=== PATIENT | female | born 1960 | race Caucasian/White ===

== ENCOUNTER 2020-01-17 17:32 | Emergency (ER) | payer BC, OTHER ==
[~2020-01-17] VITALS: Ht 160 cm; Wt 68.0 kg
[2020-01-17] MEDS ORDERED: SODIUM CHLORIDE 0.9% 1,000 ML IV ONE ×2 (18:00)
[2020-01-17] MEDS ORDERED: cefTRIAXone 1GM/50ML D5W 50 ML IV ONE (18:00)
[2020-01-17 18:44] LABS: Basophils # (auto) 0 10 ^3/uL (0-0.2); Basophils % (auto) 0.3 % (0.0-2.0); Eosinophils # (auto) 0.2 10 ^3/uL (0-0.8); Eosinophils % (auto) 1.7 % (0.0-7.0); Hematocrit 37.2 % (36.0-46.0); Hemoglobin 12.4 g/dL (12.2-16.2); Lymphocytes % (auto) 12.1 % (10.0-50.0); Mean Corpuscular Hemoglobin 31.7 pg (28.0-32.0); Mean Corpuscular Hgb Conc. 33.3 g/dL (32.0-36.0); Mean Corpuscular Volume 95.1 fL (80.0-100.0); Monocytes # (auto) 0.5 10 ^3/uL (0-1.3); Monocytes % (auto) 6.2 % (0.0-12.0); Neutrophils # (auto) 6.9 10 ^3/uL (1.6-8.6); Neutrophils % (auto) 79.7 % (37.0-80.0); Nucleated Red Blood Cells % 0.1 %; Platelet Count (auto) 223 10^3/uL (140-450); Red Blood Cells 3.91 10^6/uL (4.0-5.20); White Blood Cell 8.6 10^3/uL (4.4-10.8)
[2020-01-17 18:59] LABS: INR 0.99 (0.9-1.15); Partial Thromboplastin Time 25.3 sec (23.0-31.2)
[2020-01-17 19:04] LABS: Albumin 3.3 g/dL (3.4-5.0); Anion Gap 7 (5-15); Blood Urea Nitrogen 18 mg/dL (7-18); Calcium 8.5 mg/dL (8.5-10.1); Carbon Dioxide 25 mmol/L (21-32); Chloride 109 mmol/L (98-107); Glucose 110 mg/dL (74-106); Potassium 3.6 mmol/L (3.5-5.1); Sodium 141 mmol/L (136-145)
[2020-01-17 19:11] LABS: Alanine Aminotransferase 19 U/L (13-56); Alkaline Phosphatase 97 U/L (45-117); Aspartate Aminotransferase 24 U/L (15-37); Bilirubin, Total 0.4 mg/dL (0.2-1.0); GFR African American 44 mL/min; GFR Non-African American 37 mL/min; Lactate Dehydrogenase 184 U/L (84-246)
[2020-01-17] MEDS ORDERED: MORPHINE SULF INJ 2 MG/ML SYRINGE 1ML IV ONE (19:15)
[2020-01-17] MEDS ORDERED: ACETAMINOPHEN 650 MG RECT SUPP PR ONE (19:15)
[2020-01-17] MEDS ORDERED: ONDANSETRON HCL 4 MG/2 ML VIAL IV ONE ×2 (19:15→22:45)
[2020-01-17 19:19] LABS: CRP High Sensitivity 9.81 mg/dL (< 0.3)
[2020-01-17 19:20] LABS: BUN/Creatinine Ratio 11.8
[2020-01-17 19:41] LABS: Urine Bacteria FEW /hpf (None Seen); Urine Blood 2+ /uL (Negative); Urine Mucus FEW (None Seen); Urine Specific Gravity 1.029 (1.001-1.035); Urine WBC 26 /hpf (0 - 5)
[2020-01-17 19:52] LABS: Alcohol, Urine < 3.0 mg/dL (0-10); Amphetamine Screen, Urine NEGATIVE (NEGATIVE); Barbiturate Scree,Urine NEGATIVE (NEGATIVE); Benzodiazephine Screen, Urine POSITIVE (NEGATIVE); Cannabinoid Screen, Urine NEGATIVE (NEGATIVE); Cocaine Screen, Urine NEGATIVE (NEGATIVE)
[2020-01-17 20:00] LABS: Opiate Scree,Urine POSITIVE (NEGATIVE); Phencyclidine Screen, Urine NEGATIVE (NEGATIVE)
[2020-01-18] MEDS ORDERED: fentaNYL CITRATE 100 MCG/2 ML VL IV ONE ×2 (01:30→04:45)
[2020-01-18 02:58] LABS: CSF White Blood Cells 0 CUMM (0-5)
[2020-01-18] MEDS ORDERED: DexAMETHasone SOD PHOS 10MG/1ML VIAL INJ IV ONE (04:45)
[2020-01-18 06:32] VITALS: BP 101/56
== END 2020-01-18 03:35 | disposition short-term general hospital (02) ==
LOC: ER 17:32 → EDBD 17:32 → ER 01-18 03:35
DX: U07.1 COVID-19 (principal); G93.41 Metabolic encephalopathy; E86.0 Dehydration; N39.0 Urinary tract infection, site not specified; R56.00 Simple febrile convulsions; M00.9 Pyogenic arthritis, unspecified; J18.9 Pneumonia, unspecified organism; R06.03 Acute respiratory distress; Z88.1 Allergy status to other antibiotic agents
CPT/HCPCS: 36415; 36600; 62270; 70450; 71045; 73700; 80053; 80307; 80320; 81001; 82042; 82140; 82164; 82728; 82784; 82805; 82945; 83605; 83615; 84157; 84484; 85025; 85610; 85730; 86141; 87040; 87070; 87205; 87426; 87529; 87899; 89051; 96365; 96375; 96376; 99291; C9803; J0696; J1100; J2270; J2405; J3010; U0003

== ENCOUNTER 2020-07-06 07:32 | Inpatient (IN) | payer BC ==
[~2020-07-06] VITALS: Ht 160 cm; Wt 83.5 kg
[2020-07-06] MEDS ORDERED: SODIUM CHLORIDE 0.9% 1,000 ML IV ONE ×2 (08:00)
[2020-07-06] MEDS ORDERED: HYDROmorphone HCL 2 MG/ML VL IV ONE (08:00)
[2020-07-06] MEDS ORDERED: ONDANSETRON HCL 4 MG/2 ML VIAL IV ONE (08:00)
[2020-07-06 08:28] LABS: Basophils # (auto) 0.1 10 ^3/uL (0-0.2); Basophils % (auto) 1.5 % (0.0-2.0); Eosinophils # (auto) 0.3 10 ^3/uL (0-0.8); Eosinophils % (auto) 4.3 % (0.0-7.0); Hematocrit 36.4 % (36.0-46.0); Hemoglobin 11.6 g/dL (12.2-16.2); Lymphocytes # (auto) 2.6 10 ^3/uL (0.4-5.4); Lymphocytes % (auto) 40.9 % (10.0-50.0); Mean Corpuscular Hemoglobin 28.4 pg (28.0-32.0); Mean Corpuscular Hgb Conc. 31.9 g/dL (32.0-36.0); Mean Corpuscular Volume 89.2 fL (80.0-100.0); Monocytes # (auto) 0.5 10 ^3/uL (0-1.3); Monocytes % (auto) 7.7 % (0.0-12.0); Neutrophils # (auto) 2.9 10 ^3/uL (1.6-8.6); Neutrophils % (auto) 45.6 % (37.0-80.0); Nucleated Red Blood Cells % 0.2 %; Red Blood Cells 4.09 10^6/uL (4.0-5.20); Red Cell Distribution Width 14.2 % (11.8-14.3); White Blood Cell 6.3 10^3/uL (4.4-10.8)
[2020-07-06] MEDS ORDERED: metroNIDAZOLE 500MG/100ML 100 ML IV ONE (08:30)
[2020-07-06] MEDS ORDERED: LORazepam 2MG/ML-1ML VIAL IV ONE ×2 (08:30)
[2020-07-06] MEDS ORDERED: cefTRIAXone 1GM/50ML D5W 50 ML IV ONE (08:30)
[2020-07-06 08:45] LABS: Albumin 3.1 g/dL (3.4-5.0); Amylase 56 U/L (25-115); Anion Gap 7 (5-15); Blood Urea Nitrogen 19 mg/dL (7-18); Calcium 9.3 mg/dL (8.5-10.1); Carbon Dioxide 23 mmol/L (21-32); Chloride 110 mmol/L (98-107); Glucose 64 mg/dL (74-106); Lipase 150 U/L (73-393); Magnesium 2.3 mg/dL (1.6-2.6); Potassium 3.4 mmol/L (3.5-5.1); Sodium 140 mmol/L (136-145)
[2020-07-06 08:47] LABS: Lactic Acid w/Reflex 2.2 mmol/L (0.4-2.0)
[2020-07-06 08:52] LABS: Alanine Aminotransferase 22 U/L (13-56); Alkaline Phosphatase 122 U/L (45-117); Aspartate Aminotransferase 20 U/L (15-37); BUN/Creatinine Ratio 13.8; Bilirubin, Total 0.2 mg/dL (0.2-1.0); GFR African American 50 mL/min; GFR Non-African American 41 mL/min; Total Protein 7.2 g/dL (6.4-8.2)
[2020-07-06 08:55] LABS: Platelet Count (auto) 300 10^3/uL (140-450)
[2020-07-06] MEDS ORDERED: MORPHINE SULF INJ 2 MG/ML SYRINGE 1ML IV PRN ×2 (10:45)
[2020-07-06] MEDS ORDERED: ACETAMINOPHEN 500 MG TAB PO PRN (10:45)
[2020-07-06] MEDS ORDERED: ONDANSETRON HCL 4 MG/2 ML VIAL IV PRN (10:45)
[2020-07-06] MEDS ORDERED: SOD CHL 0.9%/ KCL 20MEQ 1,000 ML IV SCH (10:45)
[2020-07-06] MEDS ORDERED: NITROGLYCERIN 0.4 MG SL TAB SL PRN (10:45)
[2020-07-06] MEDS ORDERED: hydrALAZINE HCL 20 MG/ML VL IV PRN (10:45)
[2020-07-06 13:00] VITALS: BP 112/70
[2020-07-06] MEDS: metroNIDAZOLE 500MG/100ML 100 ML IV SCH ×2 (14:00→22:07)
[2020-07-06] MEDS ORDERED: TRAZ-181 PO (14:09)
[2020-07-06] MEDS ORDERED: ESCI10TA PO (14:09)
[2020-07-06] MEDS ORDERED: LEVE500T32 PO (14:09)
[2020-07-06] MEDS ORDERED: ALBU108A5 IN (14:09)
[2020-07-06] MEDS ORDERED: PANT40TA2 PO (14:09)
[2020-07-06 16:53] VITALS: BP 99/59
[2020-07-06] MEDS: LORazepam 2MG/ML-1ML VIAL IV PRN ×2 (17:00→19:58)
[2020-07-06 22:00] VITALS: BP 109/60
[2020-07-06] MEDS ORDERED: PANTOPRAZOLE 40 MG/10 ML VIAL INJ IV SCH (22:00)
[2020-07-06] MEDS: ESOMEPRAZOLE 40 MG/5ml VIAL INJ IV SCH (22:07)
[2020-07-06] MEDS: levETIRAcetam 500 MG TAB PO SCH (22:09)
[2020-07-07 05:00] VITALS: BP 107/59
[2020-07-07 06:13] LABS: Basophils # (auto) 0 10 ^3/uL (0-0.2); Basophils % (auto) 0.4 % (0.0-2.0); Eosinophils # (auto) 0.2 10 ^3/uL (0-0.8); Eosinophils % (auto) 3.6 % (0.0-7.0); Hematocrit 31.9 % (36.0-46.0); Hemoglobin 10.2 g/dL (12.2-16.2); Lymphocytes # (auto) 1.7 10 ^3/uL (0.4-5.4); Lymphocytes % (auto) 28.1 % (10.0-50.0); Mean Corpuscular Hemoglobin 29.4 pg (28.0-32.0); Mean Corpuscular Volume 92.1 fL (80.0-100.0); Monocytes # (auto) 0.5 10 ^3/uL (0-1.3); Monocytes % (auto) 7.6 % (0.0-12.0); Neutrophils # (auto) 3.6 10 ^3/uL (1.6-8.6); Neutrophils % (auto) 60.3 % (37.0-80.0); Nucleated Red Blood Cells % 0.1 %; Platelet Count (auto) 241 10^3/uL (140-450); Red Blood Cells 3.46 10^6/uL (4.0-5.20); Red Cell Distribution Width 14.1 % (11.8-14.3)
[2020-07-07] MEDS: metroNIDAZOLE 500MG/100ML 100 ML IV SCH ×3 (06:30→21:02)
[2020-07-07 06:34] LABS: Potassium 4.4 mmol/L (3.5-5.1)
[2020-07-07 06:46] LABS: BUN/Creatinine Ratio 12.7; Calcium 8.3 mg/dL (8.5-10.1)
[2020-07-07 08:00] VITALS: BP 93/63
[2020-07-07] MEDS ORDERED: cefTRIAXone 1GM/50ML D5W 50 ML IV SCH (09:00)
[2020-07-07] MEDS: levETIRAcetam 500 MG TAB PO SCH (09:28)
[2020-07-07] MEDS: ESOMEPRAZOLE 40 MG/5ml VIAL INJ IV SCH ×2 (09:28→21:02)
[2020-07-07] MEDS ORDERED: LORazepam 2MG/ML-1ML VIAL IV PRN (10:15)
[2020-07-07 12:00] VITALS: BP 101/76
[2020-07-07 16:00] VITALS: BP 127/79
[2020-07-07] MEDS ORDERED: traZODone HCL 50 MG TAB PO PRN (20:00)
[2020-07-07 20:55] LABS: Urine Bacteria FEW /hpf (None Seen); Urine Blood Negative /uL (Negative); Urine Specific Gravity 1.006 (1.001-1.035); Urine WBC 3 /hpf (0 - 5)
[2020-07-07] MEDS: OXcarbazepine 300 MG TAB PO SCH (21:02)
[2020-07-07 22:00] VITALS: BP 114/74
[2020-07-08 05:00] VITALS: BP 107/65
[2020-07-08] MEDS: metroNIDAZOLE 500MG/100ML 100 ML IV SCH ×2 (05:13→14:00)
[2020-07-08 06:17] LABS: INR 1.03 (0.9-1.15); Partial Thromboplastin Time 27.2 sec (23.0-31.2)
[2020-07-08 08:51] VITALS: BP 122/71
[2020-07-08] MEDS ORDERED: cefTRIAXone 1GM/50ML D5W 50 ML IV SCH (09:00)
[2020-07-08] MEDS: ESOMEPRAZOLE 40 MG/5ml VIAL INJ IV SCH (09:27)
[2020-07-08] MEDS: OXcarbazepine 300 MG TAB PO SCH (09:27)
[2020-07-08] MEDS ORDERED: levoFLOXacin 500MG 100 ML IV SCH (10:00)
[2020-07-08] MEDS ORDERED: MIDAZOLAM HCL 5 MG/ML-1ML VIAL ONE (10:21)
[2020-07-08] MEDS ORDERED: fentaNYL CITRATE 100 MCG/2 ML VL ONE (10:21)
[2020-07-08] MEDS ORDERED: LIDOCAINE VISCOUS 2% 15ML UD ONE (10:21)
[2020-07-08] MEDS ORDERED: diphenhdrAMINE HCL 50 MG/1 ML VL ONE (10:21)
[2020-07-08 13:00] VITALS: BP 121/75
[2020-07-08] MEDS: LORazepam 2MG/ML-1ML VIAL IV PRN (15:05)
[2020-07-08] MEDS ORDERED: AMOX-277 PO (15:09)
[2020-07-08] MEDS ORDERED: KEP500T PO (15:09)
[2020-07-08 15:43] VITALS: BP 121/75
[2020-07-08 16:34] VITALS: BP 123/71
[2020-07-08] MEDS ORDERED: OXCA600T3 PO (17:27)
[2020-07-09] MEDS ORDERED: PANTOPRAZOLE 40 MG TAB PO SCH (10:00)
== END 2020-07-08 17:45 | disposition home health service (06) | DRG 378 ==
LOC: ER 07:32 → TELE 10:36 → TELE-CENTR 11:59 → UNDODISIN 07-08 17:45
PROVIDERS: ADMIT Nurse Practitioner Acute Care; ATTEND Internal Medicine
PROC: 0DB68ZX Excision of Stomach, Via Natural or Artificial Opening Endoscopic, Diagnostic (ICD-10-PCS; principal; 2020-07-08 10:28)
DX: K57.33 Diverticulitis of large intestine without perforation or abscess with bleeding (principal); E44.1 Mild protein-calorie malnutrition; K29.71 Gastritis, unspecified, with bleeding; E66.9 Obesity, unspecified; E78.5 Hyperlipidemia, unspecified; E87.6 Hypokalemia; F17.200 Nicotine dependence, unspecified, uncomplicated; F32.9 Major depressive disorder, single episode, unspecified; G40.909 Epilepsy, unspecified, not intractable, without status epilepticus; I10 Essential (primary) hypertension; I25.10 Atherosclerotic heart disease of native coronary artery without angina pectoris; K21.9 Gastro-esophageal reflux disease without esophagitis; Z96.653 Presence of artificial knee joint, bilateral; Z20.822 Contact with and (suspected) exposure to COVID-19; M17.12 Unilateral primary osteoarthritis, left knee; Z79.899 Other long term (current) drug therapy; Z82.49 Family history of ischemic heart disease and other diseases of the circulatory system; Z90.5 Acquired absence of kidney; Z90.710 Acquired absence of both cervix and uterus; Z98.84 Bariatric surgery status; Z88.1 Allergy status to other antibiotic agents; Z68.32 Body mass index [BMI] 32.0-32.9, adult
CPT/HCPCS: 36415; 71045; 73700; 74176; 80048; 80053; 81001; 82150; 82270; 83605; 83690; 83735; 84484; 85025; 85610; 85730; 86850; 86900; 86901; 87040; 87045; 87426; 87427; 87493; 93005; 95819; 96365; 96368; 96375; G0378; J0696; J2250; J2405; J3490; J7060

== ENCOUNTER 2021-02-20 14:15 | Inpatient (IN) | payer BC ==
[~2021-02-20] VITALS: Ht 167.6 cm; Wt 79.6 kg
[~2021-02-20 14:15] MED LIST: ALBU108A5 IN; AMOX-277 PO; ESCI10TA PO; OXCA600T3 PO; PANT40TA2 PO; TRAZ-181 PO
[2021-02-20] MEDS ORDERED: LORazepam 2MG/ML-1ML VIAL IV ONE (14:30)
[2021-02-20] MEDS ORDERED: ONDANSETRON HCL 4 MG/2 ML VIAL IV ONE (15:45)
[2021-02-20] MEDS ORDERED: MORPHINE SULFATE 4 MG/ML SYR/VIAL IV ONE (15:45)
[2021-02-20 16:01] LABS: Basophils # (auto) 0 10 ^3/uL (0-0.2); Basophils % (auto) 0.1 % (0.0-2.0); Eosinophils # (auto) 0 10 ^3/uL (0-0.8); Eosinophils % (auto) 0.1 % (0.0-7.0); Hematocrit 37.3 % (36.0-46.0); Hemoglobin 12.7 g/dL (12.2-16.2); Lymphocytes # (auto) 0.3 10 ^3/uL (0.4-5.4); Mean Corpuscular Hgb Conc. 34.1 g/dL (32.0-36.0); Mean Corpuscular Volume 93.8 fL (80.0-100.0); Monocytes # (auto) 0.3 10 ^3/uL (0-1.3); Monocytes % (auto) 4.7 % (0.0-12.0); Neutrophils # (auto) 6.5 10 ^3/uL (1.6-8.6); Neutrophils % (auto) 91.1 % (37.0-80.0); Red Blood Cells 3.98 10^6/uL (4.0-5.20); Red Cell Distribution Width 13.9 % (11.8-14.3); White Blood Cell 7.2 10^3/uL (4.4-10.8)
[2021-02-20 16:35] LABS: Calcium 7.4 mg/dL (8.5-10.1); Chloride 106 mmol/L (98-107); Potassium 4.3 mmol/L (3.5-5.1); Sodium 137 mmol/L (136-145)
[2021-02-20 16:41] LABS: Alanine Aminotransferase 472 U/L (13-56); Alkaline Phosphatase 169 U/L (45-117); Anion Gap 8 (5-15); Aspartate Aminotransferase 814 U/L (15-37); BUN/Creatinine Ratio 14.1; Bilirubin, Total 2.2 mg/dL (0.2-1.0); Blood Alcohol < 3.0 mg/dL (0-5); Blood Urea Nitrogen 19 mg/dL (7-18); Carbon Dioxide 23 mmol/L (21-32); GFR African American 51 mL/min; GFR Non-African American 42 mL/min; Glucose 115 mg/dL (74-106); Total Protein 6.2 g/dL (6.4-8.2)
[2021-02-20] MEDS ORDERED: ACETAMINOPHEN 650 MG RECT SUPP PR ONE (16:45)
[2021-02-20 17:14] LABS: Urine Bacteria NONE SEEN /hpf (None Seen); Urine Blood 2+ /uL (Negative); Urine Specific Gravity 1.008 (1.001-1.035); Urine WBC 2 /hpf (0 - 5)
[2021-02-20 17:35] LABS: Alcohol, Urine < 3.0 mg/dL (0-10); Amphetamine Screen, Urine NEGATIVE (NEGATIVE); Barbiturate Scree,Urine NEGATIVE (NEGATIVE); Benzodiazephine Screen, Urine NEGATIVE (NEGATIVE); Cannabinoid Screen, Urine NEGATIVE (NEGATIVE); Cocaine Screen, Urine NEGATIVE (NEGATIVE); Opiate Scree,Urine NEGATIVE (NEGATIVE); Phencyclidine Screen, Urine NEGATIVE (NEGATIVE)
[2021-02-20] MEDS ORDERED: SODIUM CHLORIDE 0.9% 1,000 ML IV ONE (20:30)
[2021-02-20] MEDS ORDERED: cefTRIAXone 1GM/50ML D5W 50 ML IV ONE (21:00)
[2021-02-20] MEDS ORDERED: ACETAMINOPHEN 325 MG TAB PO PRN (21:00)
[2021-02-20] MEDS ORDERED: TEMAZEPAM 15 MG CAP PO PRN (21:00)
[2021-02-20] MEDS: OXcarbazepine 300 MG TAB PO SCH (21:54)
[2021-02-21] MEDS ORDERED: ALBUMIN 5% 250 ML IV ONE (00:15)
[2021-02-21 04:49] VITALS: BP 107/45
[2021-02-21 05:59] LABS: Basophils # (auto) 0 10 ^3/uL (0-0.2); Basophils % (auto) 0.1 % (0.0-2.0); Eosinophils # (auto) 0 10 ^3/uL (0-0.8); Hematocrit 33.6 % (36.0-46.0); Hemoglobin 11.3 g/dL (12.2-16.2); Lymphocytes % (auto) 8.5 % (10.0-50.0); Mean Corpuscular Hemoglobin 32.1 pg (28.0-32.0); Mean Corpuscular Hgb Conc. 33.6 g/dL (32.0-36.0); Mean Corpuscular Volume 95.5 fL (80.0-100.0); Monocytes # (auto) 0.7 10 ^3/uL (0-1.3); Monocytes % (auto) 6.1 % (0.0-12.0); Neutrophils # (auto) 10.1 10 ^3/uL (1.6-8.6); Neutrophils % (auto) 85.3 % (37.0-80.0); Nucleated Red Blood Cells % 0.1 %; Red Blood Cells 3.52 10^6/uL (4.0-5.20); Red Cell Distribution Width 14.3 % (11.8-14.3); White Blood Cell 11.9 10^3/uL (4.4-10.8)
[2021-02-21 06:33] LABS: Albumin 2.8 g/dL (3.4-5.0); Calcium 7.5 mg/dL (8.5-10.1); Potassium 4.5 mmol/L (3.5-5.1)
[2021-02-21 06:39] LABS: Bilirubin, Total 3.5 mg/dL (0.2-1.0); Total Protein 5.5 g/dL (6.4-8.2)
[2021-02-21] MEDS ORDERED: LORazepam 2MG/ML-1ML VIAL IV ONE (08:15)
[2021-02-21] MEDS ORDERED: diphenhdrAMINE HCL 50 MG/1 ML VL IV ONE (08:15)
[2021-02-21] MEDS: SODIUM CHLORIDE 0.9% 1,000 ML IV SCH (08:57)
[2021-02-21 09:00] VITALS: BP 94/53
[2021-02-21] MEDS: OXcarbazepine 300 MG TAB PO SCH ×2 (10:00→22:00)
[2021-02-21] MEDS ORDERED: VANCOMYCIN PER PHARMACY 0 MG IV SCH (10:30)
[2021-02-21] MEDS ORDERED: NOREPINEPHRINE 8 MG/250ML KIT 250 ML IV SCH (10:45)
[2021-02-21] MEDS: ENOXAPARIN SOD 40 MG/0.4 ML SYRINGE SC SCH (11:32)
[2021-02-21 12:05] VITALS: BP 98/61
[2021-02-21 12:07] LABS: Hepatitis A Ab IgM Negative
[2021-02-21] MEDS: PIPERACILLIN-TAZOB 3.375GM 100 ML IV SCH ×2 (12:12→19:43)
[2021-02-21 12:55] LABS: Hepatitis B Core IgM Negative
[2021-02-21 13:07] LABS: Hepatitis C Antibody Negative (Negative)
[2021-02-21] MEDS: LORazepam 2MG/ML-1ML VIAL IV PRN ×2 (13:07→17:11)
[2021-02-21] MEDS ORDERED: VANCOMYCIN 1GM/250ML 250 ML IV ONE (15:00)
[2021-02-21 16:30] VITALS: BP 113/50
[2021-02-21] MEDS: PANTOPRAZOLE 40 MG TAB PO SCH (16:52)
[2021-02-21] MEDS: MORPHINE SULFATE INJECTION 2 MG/ML SYRG IV PRN (20:13)
[2021-02-21 22:00] VITALS: BP 100/62
[2021-02-21] MEDS ORDERED: cefTRIAXone 1GM/50ML D5W 50 ML IV SCH (22:00)
[2021-02-22] MEDS: MORPHINE SULFATE INJECTION 2 MG/ML SYRG IV PRN ×2 (04:09→15:10)
[2021-02-22] MEDS: PIPERACILLIN-TAZOB 3.375GM 100 ML IV SCH ×5 (04:10→23:33)
[2021-02-22 05:00] VITALS: BP 104/62
[2021-02-22 05:58] LABS: Basophils # (auto) 0 10 ^3/uL (0-0.2); Basophils % (auto) 0.3 % (0.0-2.0); Eosinophils # (auto) 0.1 10 ^3/uL (0-0.8); Eosinophils % (auto) 0.9 % (0.0-7.0); Hematocrit 31.2 % (36.0-46.0); Hemoglobin 10.5 g/dL (12.2-16.2); Lymphocytes # (auto) 0.9 10 ^3/uL (0.4-5.4); Lymphocytes % (auto) 10.8 % (10.0-50.0); Mean Corpuscular Hemoglobin 32.7 pg (28.0-32.0); Mean Corpuscular Hgb Conc. 33.8 g/dL (32.0-36.0); Mean Corpuscular Volume 96.6 fL (80.0-100.0); Monocytes # (auto) 0.5 10 ^3/uL (0-1.3); Monocytes % (auto) 5.9 % (0.0-12.0); Neutrophils # (auto) 6.8 10 ^3/uL (1.6-8.6); Neutrophils % (auto) 82.1 % (37.0-80.0); Red Blood Cells 3.23 10^6/uL (4.0-5.20); Red Cell Distribution Width 14.7 % (11.8-14.3); White Blood Cell 8.3 10^3/uL (4.4-10.8)
[2021-02-22 06:23] LABS: Albumin 2.2 g/dL (3.4-5.0); BUN/Creatinine Ratio 14.5; Bilirubin, Direct 1.7 mg/dL (0-0.2); Calcium 7.5 mg/dL (8.5-10.1); Total Protein 4.9 g/dL (6.4-8.2)
[2021-02-22] MEDS: ENOXAPARIN SOD 40 MG/0.4 ML SYRINGE SC SCH (09:31)
[2021-02-22] MEDS: SODIUM CHLORIDE 0.9% 1,000 ML IV SCH (09:32)
[2021-02-22] MEDS: OXcarbazepine 300 MG TAB PO SCH ×2 (09:41→23:32)
[2021-02-22] MEDS: PANTOPRAZOLE 40 MG TAB PO SCH (09:41)
[2021-02-22] MEDS ORDERED: ACETAMINOPHEN 650 MG RECT SUPP PR PRN (11:30)
[2021-02-22 13:00] VITALS: BP 132/64
[2021-02-22] MEDS: VANCOMYCIN 1GM/250ML 250 ML IV SCH (18:07)
[2021-02-22] MEDS: ONDANSETRON HCL 4 MG/2 ML VIAL IV PRN (20:44)
[2021-02-22 22:00] VITALS: BP 138/76
[2021-02-23] VITALS (8 sets, daily range): BP systolic 104–142; BP diastolic 55–83
[2021-02-23] MEDS: MORPHINE SULFATE INJECTION 2 MG/ML SYRG IV PRN (01:09)
[2021-02-23] MEDS: PIPERACILLIN-TAZOB 3.375GM 100 ML IV SCH ×4 (06:47→23:50)
[2021-02-23] MEDS: OXcarbazepine 300 MG TAB PO SCH ×2 (09:33→22:04)
[2021-02-23] MEDS: ENOXAPARIN SOD 40 MG/0.4 ML SYRINGE SC SCH (09:33)
[2021-02-23] MEDS: PANTOPRAZOLE 40 MG TAB PO SCH (09:33)
[2021-02-23] MEDS: VANCOMYCIN 1GM/250ML 250 ML IV SCH (09:34)
[2021-02-23 10:27] LABS: Potassium 3.8 mmol/L (3.5-5.1)
[2021-02-23 10:34] LABS: Albumin 2.3 g/dL (3.4-5.0); BUN/Creatinine Ratio 11.8; Total Protein 5.5 g/dL (6.4-8.2)
[2021-02-23] MEDS: ACETAMINOPHEN 325 MG TAB PO PRN (13:02)
[2021-02-23] MEDS: ONDANSETRON HCL 4 MG/2 ML VIAL IV PRN (13:10)
[2021-02-23] MEDS: SODIUM CHLORIDE 0.9% 1,000 ML IV SCH (16:08)
[2021-02-24 05:00] VITALS: BP 131/81
[2021-02-24] MEDS: PIPERACILLIN-TAZOB 3.375GM 100 ML IV SCH ×3 (05:12→18:22)
[2021-02-24 07:43] LABS: Albumin 2.2 g/dL (3.4-5.0); Potassium 3.7 mmol/L (3.5-5.1)
[2021-02-24 07:46] LABS: BUN/Creatinine Ratio 12.5; Bilirubin, Total 0.8 mg/dL (0.2-1.0); Total Protein 5.4 g/dL (6.4-8.2)
[2021-02-24] MEDS: OXcarbazepine 300 MG TAB PO SCH ×2 (09:02→22:18)
[2021-02-24] MEDS: ENOXAPARIN SOD 40 MG/0.4 ML SYRINGE SC SCH (09:02)
[2021-02-24] MEDS: PANTOPRAZOLE 40 MG TAB PO SCH (09:02)
[2021-02-24] MEDS: ONDANSETRON HCL 4 MG/2 ML VIAL IV PRN (13:57)
[2021-02-24] MEDS: SODIUM CHLORIDE 0.9% 1,000 ML IV SCH (16:45)
[2021-02-24 21:06] VITALS: BP 128/71
[2021-02-25] MEDS: PIPERACILLIN-TAZOB 3.375GM 100 ML IV SCH ×3 (01:02→14:10)
[2021-02-25 05:00] VITALS: BP 103/65
[2021-02-25] MEDS: ONDANSETRON HCL 4 MG/2 ML VIAL IV PRN ×2 (07:56→16:14)
[2021-02-25] MEDS: ACETAMINOPHEN 325 MG TAB PO PRN (07:56)
[2021-02-25 08:00] VITALS: BP 150/87
[2021-02-25] MEDS: PANTOPRAZOLE 40 MG TAB PO SCH (08:53)
[2021-02-25] MEDS: OXcarbazepine 300 MG TAB PO SCH (08:54)
[2021-02-25] MEDS: ENOXAPARIN SOD 40 MG/0.4 ML SYRINGE SC SCH (11:24)
[2021-02-25 12:00] VITALS: BP 153/96
[2021-02-25] MEDS: SODIUM CHLORIDE 0.9% 1,000 ML IV SCH (12:30)
== END 2021-02-25 17:50 | disposition home or self-care (01) | DRG 100 ==
LOC: ER 14:15 → EDBD 14:15 → OVERFLOW 20:53 → CENTRAL 22:49 → WEST WING 23:19 → TELE-WESTW 02-21 21:02
PROVIDERS: ADMIT Nurse Practitioner; ATTEND Internal Medicine
PROC: 05HB33Z Insertion of Infusion Device into Right Basilic Vein, Percutaneous Approach (ICD-10-PCS; principal; 2021-02-21)
PROC: B54MZZA Ultrasonography of Right Upper Extremity Veins, Guidance (ICD-10-PCS; 2021-02-21)
DX: G40.909 Epilepsy, unspecified, not intractable, without status epilepticus (principal); G92.9 Unspecified toxic encephalopathy; J69.0 Pneumonitis due to inhalation of food and vomit; K72.00 Acute and subacute hepatic failure without coma; E44.0 Moderate protein-calorie malnutrition; N13.30 Unspecified hydronephrosis; N18.9 Chronic kidney disease, unspecified; E78.5 Hyperlipidemia, unspecified; Z20.822 Contact with and (suspected) exposure to COVID-19; E86.0 Dehydration; F12.90 Cannabis use, unspecified, uncomplicated; F17.200 Nicotine dependence, unspecified, uncomplicated; Z96.653 Presence of artificial knee joint, bilateral; I12.9 Hypertensive chronic kidney disease with stage 1 through stage 4 chronic kidney disease, or unspecified chronic kidney disease; F32.A Depression, unspecified; Z82.49 Family history of ischemic heart disease and other diseases of the circulatory system; Z68.30 Body mass index [BMI] 30.0-30.9, adult; Z79.899 Other long term (current) drug therapy; Z85.528 Personal history of other malignant neoplasm of kidney; Z86.73 Personal history of transient ischemic attack (TIA), and cerebral infarction without residual deficits; Z90.49 Acquired absence of other specified parts of digestive tract; Z90.5 Acquired absence of kidney; Z90.710 Acquired absence of both cervix and uterus; Z98.51 Tubal ligation status; Z88.8 Allergy status to other drugs, medicaments and biological substances
CPT/HCPCS: 36415; 70450; 71045; 73562; 74176; 76705; 76775; 80048; 80053; 80074; 80076; 80202; 80307; 80320; 81001; 82140; 82728; 83605; 84443; 85025; 86141; 87040; 87426; 92610; 93005; 93926; 95819; 96361; 96365; 96375; 97163; G0378; J0696; J2405; J2543

== ENCOUNTER 2021-03-01 07:05 | Emergency (ER) | payer BC ==
[~2021-03-01] VITALS: Ht 160 cm; Wt 81.6 kg
[2021-03-01 07:05] VITALS: BP 180/74
[~2021-03-01 07:05] MED LIST changes: -AMOX-277 PO
== END 2021-03-01 11:19 | disposition home or self-care (01) ==
LOC: ER 07:05
DX: M25.562 Pain in left knee (principal); M25.561 Pain in right knee; I10 Essential (primary) hypertension; E78.5 Hyperlipidemia, unspecified; F12.10 Cannabis abuse, uncomplicated; Z88.1 Allergy status to other antibiotic agents
CPT/HCPCS: 93970

== ENCOUNTER 2021-03-16 12:42 | Emergency (ER) | payer BC ==
[~2021-03-16] VITALS: Ht 160 cm; Wt 68.0 kg
[2021-03-16] MEDS: LORazepam 2MG/ML-1ML VIAL IV ONE ×2 (12:44→12:50)
[2021-03-16 13:12] LABS: Basophils # (auto) 0 10 ^3/uL (0-0.2); Basophils % (auto) 0.4 % (0.0-2.0); Eosinophils # (auto) 0.1 10 ^3/uL (0-0.8); Eosinophils % (auto) 0.9 % (0.0-7.0); Hematocrit 41.8 % (36.0-46.0); Hemoglobin 14.4 g/dL (12.2-16.2); Lymphocytes # (auto) 2.7 10 ^3/uL (0.4-5.4); Lymphocytes % (auto) 26.5 % (10.0-50.0); Mean Corpuscular Hemoglobin 32.2 pg (28.0-32.0); Mean Corpuscular Hgb Conc. 34.6 g/dL (32.0-36.0); Mean Corpuscular Volume 93.2 fL (80.0-100.0); Monocytes # (auto) 0.6 10 ^3/uL (0-1.3); Monocytes % (auto) 6.2 % (0.0-12.0); Neutrophils # (auto) 6.7 10 ^3/uL (1.6-8.6); Nucleated Red Blood Cells % 0.1 %; Red Blood Cells 4.48 10^6/uL (4.0-5.20); Red Cell Distribution Width 13.9 % (11.8-14.3); White Blood Cell 10.1 10^3/uL (4.4-10.8)
[2021-03-16 13:26] LABS: Albumin 3.7 g/dL (3.4-5.0); Calcium 9.5 mg/dL (8.5-10.1); Potassium 4.8 mmol/L (3.5-5.1)
[2021-03-16 13:30] LABS: Urine Bacteria FEW /hpf (None Seen); Urine Blood 2+ /uL (Negative); Urine Mucus FEW (None Seen); Urine Specific Gravity 1.021 (1.001-1.035); Urine WBC 34 /hpf (0 - 5); Urine WBC Clumps PRESENT /hpf (None Seen)
[2021-03-16 13:31] LABS: BUN/Creatinine Ratio 12.8; Bilirubin, Total 0.5 mg/dL (0.2-1.0); Total Protein 7.9 g/dL (6.4-8.2)
[2021-03-16] MEDS: cefTRIAXone 1GM/50ML D5W 50 ML IV ONE (14:30)
[2021-03-16 18:46] VITALS: BP 116/58
== END 2021-03-16 18:48 | disposition home or self-care (01) ==
LOC: ER 12:42
DX: R56.9 Unspecified convulsions (principal); N39.0 Urinary tract infection, site not specified; K21.9 Gastro-esophageal reflux disease without esophagitis; E78.5 Hyperlipidemia, unspecified; I10 Essential (primary) hypertension; Z90.49 Acquired absence of other specified parts of digestive tract; Z20.822 Contact with and (suspected) exposure to COVID-19; Z98.51 Tubal ligation status; Z88.1 Allergy status to other antibiotic agents
CPT/HCPCS: 36415; 80053; 81001; 85025; 87426; 93005; 96365; 96375; 99291; J0696

== ENCOUNTER → 2021-03-30 | Outpatient (CLI) | payer BC ==
[2021-03-30 10:00] LABS: Basophils # (auto) 0.1 10 ^3/uL (0-0.2); Eosinophils # (auto) 0.3 10 ^3/uL (0-0.8); Eosinophils % (auto) 4.5 % (0.0-7.0); Hemoglobin 13.3 g/dL (12.2-16.2); Lymphocytes # (auto) 1.9 10 ^3/uL (0.4-5.4); Lymphocytes % (auto) 32.7 % (10.0-50.0); Mean Corpuscular Hemoglobin 31.6 pg (28.0-32.0); Mean Corpuscular Volume 92.8 fL (80.0-100.0); Monocytes # (auto) 0.3 10 ^3/uL (0-1.3); Monocytes % (auto) 5.7 % (0.0-12.0); Neutrophils # (auto) 3.2 10 ^3/uL (1.6-8.6); Neutrophils % (auto) 56.1 % (37.0-80.0); Red Blood Cells 4.21 10^6/uL (4.0-5.20); Red Cell Distribution Width 13.4 % (11.8-14.3); White Blood Cell 5.7 10^3/uL (4.4-10.8)
[2021-03-30 10:47] LABS: Urine Bacteria FEW /hpf (None Seen); Urine Blood 1+ /uL (Negative); Urine Hyaline Cast FEW /lpf (0 - 2); Urine Mucus FEW (None Seen); Urine WBC 40 /hpf (0 - 5); Urine WBC Clumps PRESENT /hpf (None Seen)
[2021-03-30 12:54] LABS: Potassium 4.3 mmol/L (3.5-5.1)
[2021-03-30 13:03] LABS: Albumin 3.5 g/dL (3.4-5.0); BUN/Creatinine Ratio 15.9; Bilirubin, Total 0.4 mg/dL (0.2-1.0); Calcium 9.1 mg/dL (8.5-10.1)
== END | disposition home or self-care (01) ==
LOC: LAB 09:46
PROVIDERS: ATTEND Internal Medicine
DX: Z00.00 Encounter for general adult medical examination without abnormal findings (principal); D64.9 Anemia, unspecified; I10 Essential (primary) hypertension
CPT/HCPCS: 36415; 80053; 80061; 81001; 83036; 85025

== ENCOUNTER 2021-04-19 12:25 | Inpatient (IN) | payer BC, OTHER ==
[~2021-04-19] VITALS: Ht 160 cm; Wt 73.0 kg
[2021-04-19 12:34] VITALS: BP 156/89
[2021-04-19] MEDS ORDERED: ONDANSETRON HCL 4 MG/2 ML VIAL IV ONE (12:45)
[2021-04-19] MEDS ORDERED: HYDROmorphone HCL 2 MG/ML VL IV ONE (12:45)
[2021-04-19 13:20] LABS: Urine Bacteria NONE SEEN /hpf (None Seen); Urine Blood 1+ /uL (Negative); Urine Mucus FEW (None Seen); Urine Specific Gravity 1.027 (1.001-1.035); Urine WBC 19 /hpf (0 - 5)
[2021-04-19 13:56] LABS: Basophils # (auto) 0 10 ^3/uL (0-0.2); Basophils % (auto) 0.4 % (0.0-2.0); Eosinophils # (auto) 0.1 10 ^3/uL (0-0.8); Eosinophils % (auto) 1.7 % (0.0-7.0); Hematocrit 36.1 % (36.0-46.0); Hemoglobin 12.4 g/dL (12.2-16.2); Lymphocytes # (auto) 1.6 10 ^3/uL (0.4-5.4); Lymphocytes % (auto) 24.4 % (10.0-50.0); Mean Corpuscular Hemoglobin 32.1 pg (28.0-32.0); Mean Corpuscular Hgb Conc. 34.4 g/dL (32.0-36.0); Mean Corpuscular Volume 93.3 fL (80.0-100.0); Monocytes # (auto) 0.4 10 ^3/uL (0-1.3); Monocytes % (auto) 6.8 % (0.0-12.0); Neutrophils # (auto) 4.3 10 ^3/uL (1.6-8.6); Neutrophils % (auto) 66.7 % (37.0-80.0); Red Blood Cells 3.87 10^6/uL (4.0-5.20); Red Cell Distribution Width 13.6 % (11.8-14.3); White Blood Cell 6.5 10^3/uL (4.4-10.8)
[2021-04-19] MEDS ORDERED: cefTRIAXone 1GM/50ML D5W 50 ML IV ONE (14:00)
[2021-04-19] MEDS ORDERED: metroNIDAZOLE 500MG/100ML 100 ML IV ONE (14:00)
[2021-04-19 14:12] LABS: Albumin 3.2 g/dL (3.4-5.0); BUN/Creatinine Ratio 17.3; Calcium 9.1 mg/dL (8.5-10.1); Potassium 3.9 mmol/L (3.5-5.1)
[2021-04-19 14:15] LABS: Bilirubin, Total 0.2 mg/dL (0.2-1.0); Total Protein 7.1 g/dL (6.4-8.2)
[2021-04-19] MEDS ORDERED: NITROGLYCERIN 0.4 MG SL TAB SL PRN (14:15)
[2021-04-19] MEDS ORDERED: MORPHINE SULFATE INJECTION 2 MG/ML SYRG IV PRN (14:15)
[2021-04-19] MEDS ORDERED: METR500T PO (14:45)
[2021-04-19] MEDS ORDERED: HYDROcodone-ACET 10/325MG TAB PO ONE (14:45)
[2021-04-19] MEDS ORDERED: CEPH-509 PO (14:45)
== END 2021-04-19 15:16 | disposition home or self-care (01) | DRG 392 ==
LOC: EDUNIT# 12:31 → ER 12:31 → OVERFLOW 14:13
PROVIDERS: ADMIT Hospitalist; ATTEND Hospitalist
DX: K57.32 Diverticulitis of large intestine without perforation or abscess without bleeding (principal); E66.9 Obesity, unspecified; E78.5 Hyperlipidemia, unspecified; G40.909 Epilepsy, unspecified, not intractable, without status epilepticus; I25.10 Atherosclerotic heart disease of native coronary artery without angina pectoris; Z96.652 Presence of left artificial knee joint; Z68.28 Body mass index [BMI] 28.0-28.9, adult; Z86.73 Personal history of transient ischemic attack (TIA), and cerebral infarction without residual deficits; Z85.528 Personal history of other malignant neoplasm of kidney; Z90.49 Acquired absence of other specified parts of digestive tract; Z90.710 Acquired absence of both cervix and uterus; Z79.899 Other long term (current) drug therapy
CPT/HCPCS: 36415; 74176; 80053; 81001; 83605; 85025; 87040; 96365; 96367; 96375; G0378; J0696; J2405; J3490

== ENCOUNTER → 2021-04-29 | Outpatient (CLI) | payer BC ==
[~2021-04-29] MED LIST changes: +CEPH-509 PO; +METR500T PO
== END | disposition home or self-care (01) ==
LOC: LAB 09:31
PROVIDERS: ATTEND Orthopaedic Surgery Adult Reconstructive Orthopaedic Surgery
DX: A41.9 Sepsis, unspecified organism (principal)
CPT/HCPCS: 36415; 85652; 86141

== ENCOUNTER → 2021-05-04 | Outpatient (CLI) | payer BC ==
[2021-05-04 10:51] LABS: Alanine Aminotransferase 21 U/L (13-56); Albumin 3.3 g/dL (3.4-5.0); Alkaline Phosphatase 105 U/L (45-117); Aspartate Aminotransferase 20 U/L (15-37); Bilirubin, Direct < 0.1 mg/dL (0-0.2); Bilirubin, Total 0.3 mg/dL (0.2-1.0); Total Protein 6.7 g/dL (6.4-8.2)
== END | disposition home or self-care (01) ==
LOC: LAB 09:22
PROVIDERS: ATTEND Internal Medicine
DX: R79.89 Other specified abnormal findings of blood chemistry (principal)
CPT/HCPCS: 36415; 80076

== ENCOUNTER 2021-09-27 14:03 | Inpatient (IN) | payer BC ==
[~2021-09-27] VITALS: Ht 160 cm; Wt 75.7 kg
[2021-09-27] MEDS ORDERED: MORPHINE SULFATE 4 MG/ML SYR/VIAL IV ONE (14:45)
[2021-09-27] MEDS ORDERED: ONDANSETRON HCL 4 MG/2 ML VIAL IV ONE (14:45)
[2021-09-27] MEDS ORDERED: SODIUM CHLORIDE 0.9% 500 ML IVB ONE (14:45)
[2021-09-27 14:51] LABS: Basophils # (auto) 0.1 10 ^3/uL (0-0.2); Basophils % (auto) 1.2 % (0.0-2.0); Eosinophils # (auto) 0.1 10 ^3/uL (0-0.8); Eosinophils % (auto) 1.5 % (0.0-7.0); Hematocrit 36.8 % (36.0-46.0); Hemoglobin 12.3 g/dL (12.2-16.2); Lymphocytes # (auto) 2.5 10 ^3/uL (0.4-5.4); Lymphocytes % (auto) 38.3 % (10.0-50.0); Mean Corpuscular Hgb Conc. 33.4 g/dL (32.0-36.0); Monocytes # (auto) 0.4 10 ^3/uL (0-1.3); Monocytes % (auto) 5.8 % (0.0-12.0); Neutrophils # (auto) 3.5 10 ^3/uL (1.6-8.6); Neutrophils % (auto) 53.2 % (37.0-80.0); Red Blood Cells 3.96 10^6/uL (4.0-5.20); Red Cell Distribution Width 13.6 % (11.8-14.3); White Blood Cell 6.6 10^3/uL (4.4-10.8)
[2021-09-27 15:09] LABS: Albumin 3.1 g/dL (3.4-5.0); Magnesium 2.4 mg/dL (1.6-2.6); Potassium 4.3 mmol/L (3.5-5.1)
[2021-09-27 15:14] LABS: Bilirubin, Total 0.2 mg/dL (0.2-1.0); Total Protein 7.4 g/dL (6.4-8.2)
[2021-09-27 15:27] LABS: Urine Bacteria NONE SEEN /hpf (None Seen); Urine Blood 3+ /uL (Negative); Urine Mucus FEW (None Seen); Urine Specific Gravity 1.034 (1.001-1.035); Urine WBC 41 /hpf (0 - 5)
[2021-09-27] MEDS ORDERED: metroNIDAZOLE 500MG/100ML 100 ML IV ONE (15:45)
[2021-09-27] MEDS ORDERED: PIPERACILLIN-TAZOB 3.375GM 100 ML IV ONE (15:45)
[2021-09-27] MEDS: ONDANSETRON HCL 4 MG/2 ML VIAL IV PRN (20:46)
[2021-09-27] MEDS: MORPHINE SULFATE INJ 2 MG/ml SYRG IV PRN (20:58)
[2021-09-27] MEDS: SODIUM CHLORIDE 0.9% 1,000 ML IV SCH (20:59)
[2021-09-27] MEDS ORDERED: TEMA15CA2 PO (23:14)
[2021-09-27] MEDS ORDERED: SPEC1TAB PO (23:14)
[2021-09-27] MEDS ORDERED: OMEG120017 PO (23:17)
[2021-09-27] MEDS ORDERED: CHOL20007 PO (23:17)
[2021-09-27] MEDS ORDERED: MAGN400T40 PO (23:17)
[2021-09-27] MEDS ORDERED: MULT-1018 PO (23:17)
[2021-09-28] MEDS: HYDROcodone-ACET 5/325MG TAB PO PRN (04:20)
[2021-09-28] MEDS: ONDANSETRON HCL 4 MG/2 ML VIAL IV PRN ×3 (04:21→19:15)
[2021-09-28 04:42] VITALS: BP 107/55
[2021-09-28] MEDS: SODIUM CHLORIDE 0.9% 1,000 ML IV SCH (05:27)
[2021-09-28 06:29] LABS: Basophils # (auto) 0 10 ^3/uL (0-0.2); Basophils % (auto) 0.8 % (0.0-2.0); Eosinophils # (auto) 0.1 10 ^3/uL (0-0.8); Eosinophils % (auto) 2.8 % (0.0-7.0); Hematocrit 33.4 % (36.0-46.0); Hemoglobin 11.1 g/dL (12.2-16.2); Lymphocytes # (auto) 1.8 10 ^3/uL (0.4-5.4); Lymphocytes % (auto) 40.4 % (10.0-50.0); Mean Corpuscular Hemoglobin 31.2 pg (28.0-32.0); Mean Corpuscular Hgb Conc. 33.1 g/dL (32.0-36.0); Mean Corpuscular Volume 94.3 fL (80.0-100.0); Monocytes # (auto) 0.3 10 ^3/uL (0-1.3); Monocytes % (auto) 7.5 % (0.0-12.0); Neutrophils # (auto) 2.2 10 ^3/uL (1.6-8.6); Neutrophils % (auto) 48.5 % (37.0-80.0); Red Blood Cells 3.54 10^6/uL (4.0-5.20); Red Cell Distribution Width 13.7 % (11.8-14.3); White Blood Cell 4.6 10^3/uL (4.4-10.8)
[2021-09-28 06:50] LABS: Albumin 2.7 g/dL (3.4-5.0); Calcium 8.4 mg/dL (8.5-10.1); Potassium 4.2 mmol/L (3.5-5.1)
[2021-09-28 06:56] LABS: Bilirubin, Total 0.3 mg/dL (0.2-1.0); Total Protein 6.1 g/dL (6.4-8.2)
[2021-09-28 09:00] VITALS: BP 112/65
[2021-09-28] MEDS: cefTRIAXone 1GM/50ML D5W 50 ML IV SCH (09:19)
[2021-09-28] MEDS: OXcarbazepine 300 MG TAB PO SCH ×2 (09:19→21:33)
[2021-09-28] MEDS: ACETAMINOPHEN 325 MG TAB PO PRN ×2 (09:20→17:43)
[2021-09-28] MEDS ORDERED: ENOXAPARIN SOD 40 MG/0.4 ML SYRINGE SC SCH (10:00)
[2021-09-28 13:00] VITALS: BP 118/76
[2021-09-28] MEDS: MORPHINE SULFATE INJ 2 MG/ml SYRG IV PRN (13:14)
[2021-09-28] MEDS: metroNIDAZOLE 500MG/100ML 100 ML IV SCH ×2 (14:12→21:32)
[2021-09-28 17:00] VITALS: BP 139/78
[2021-09-28 22:00] VITALS: BP 133/75
[2021-09-29] MEDS: SODIUM CHLORIDE 0.9% 1,000 ML IV SCH (04:23)
[2021-09-29 05:00] VITALS: BP 136/67
[2021-09-29] MEDS: metroNIDAZOLE 500MG/100ML 100 ML IV SCH (05:42)
[2021-09-29] MEDS: ACETAMINOPHEN 325 MG TAB PO PRN (05:42)
[2021-09-29 06:02] LABS: Basophils # (auto) 0 10 ^3/uL (0-0.2); Basophils % (auto) 0.7 % (0.0-2.0); Eosinophils # (auto) 0.1 10 ^3/uL (0-0.8); Eosinophils % (auto) 2.2 % (0.0-7.0); Hematocrit 34.6 % (36.0-46.0); Hemoglobin 11.5 g/dL (12.2-16.2); Lymphocytes # (auto) 1.2 10 ^3/uL (0.4-5.4); Mean Corpuscular Hemoglobin 31.2 pg (28.0-32.0); Mean Corpuscular Hgb Conc. 33.4 g/dL (32.0-36.0); Mean Corpuscular Volume 93.3 fL (80.0-100.0); Monocytes # (auto) 0.3 10 ^3/uL (0-1.3); Monocytes % (auto) 7.4 % (0.0-12.0); Neutrophils # (auto) 1.9 10 ^3/uL (1.6-8.6); Neutrophils % (auto) 54.7 % (37.0-80.0); Red Cell Distribution Width 13.6 % (11.8-14.3); White Blood Cell 3.4 10^3/uL (4.4-10.8)
[2021-09-29 06:21] LABS: BUN/Creatinine Ratio 10.9; Calcium 8.8 mg/dL (8.5-10.1); Potassium 4.3 mmol/L (3.5-5.1)
[2021-09-29] MEDS: cefTRIAXone 1GM/50ML D5W 50 ML IV SCH (08:26)
[2021-09-29 08:28] VITALS: BP 116/72
[2021-09-29] MEDS: OXcarbazepine 300 MG TAB PO SCH (11:02)
[2021-09-29] MEDS: HYDROcodone-ACET 5/325MG TAB PO PRN (12:21)
[2021-09-29] MEDS ORDERED: AMOX500T86 PO (12:26)
[2021-09-29 12:39] VITALS: BP 148/63
[2021-09-29 13:15] VITALS: BP 132/74
== END 2021-09-29 14:30 | disposition home or self-care (01) | DRG 391 ==
LOC: ER 14:03 → OVERFLOW 15:42 → WEST WING 22:35
PROVIDERS: ADMIT Internal Medicine; ATTEND Internal Medicine
DX: K57.32 Diverticulitis of large intestine without perforation or abscess without bleeding (principal); N17.0 Acute kidney failure with tubular necrosis; N39.0 Urinary tract infection, site not specified; N18.32 Chronic kidney disease, stage 3b; E66.9 Obesity, unspecified; G40.909 Epilepsy, unspecified, not intractable, without status epilepticus; E78.5 Hyperlipidemia, unspecified; F17.290 Nicotine dependence, other tobacco product, uncomplicated; F32.A Depression, unspecified; F41.9 Anxiety disorder, unspecified; Z20.822 Contact with and (suspected) exposure to COVID-19; Z79.899 Other long term (current) drug therapy; Z90.5 Acquired absence of kidney; Z68.29 Body mass index [BMI] 29.0-29.9, adult; Z88.1 Allergy status to other antibiotic agents; Z85.528 Personal history of other malignant neoplasm of kidney; Z90.710 Acquired absence of both cervix and uterus; Z90.49 Acquired absence of other specified parts of digestive tract
CPT/HCPCS: 36415; 74176; 80048; 80053; 81001; 82150; 83690; 83735; 85025; 93005; 96365; 96366; 96367; 96375; G0378; J0696; J2405; J2543; J3490

== ENCOUNTER → 2021-11-30 | Outpatient (CLI) | payer BC ==
[~2021-11-30] MED LIST changes: +AMOX500T86 PO; +CHOL20007 PO; +MAGN400T40 PO; +MULT-1018 PO; +OMEG120017 PO; +SPEC1TAB PO; +TEMA15CA2 PO
[2021-11-30 09:33] LABS: Basophils # (auto) 0 10 ^3/uL (0-0.2); Basophils % (auto) 0.3 % (0.0-2.0); Eosinophils # (auto) 0.1 10 ^3/uL (0-0.8); Eosinophils % (auto) 1.3 % (0.0-7.0); Hematocrit 37.4 % (36.0-46.0); Hemoglobin 12.2 g/dL (12.2-16.2); Lymphocytes # (auto) 1.4 10 ^3/uL (0.4-5.4); Lymphocytes % (auto) 22.3 % (10.0-50.0); Mean Corpuscular Hgb Conc. 32.6 g/dL (32.0-36.0); Mean Corpuscular Volume 95.1 fL (80.0-100.0); Monocytes # (auto) 0.4 10 ^3/uL (0-1.3); Monocytes % (auto) 6.3 % (0.0-12.0); Neutrophils # (auto) 4.2 10 ^3/uL (1.6-8.6); Neutrophils % (auto) 69.8 % (37.0-80.0); Red Blood Cells 3.93 10^6/uL (4.0-5.20); Red Cell Distribution Width 14.7 % (11.8-14.3); White Blood Cell 6.1 10^3/uL (4.4-10.8)
[2021-11-30 10:12] LABS: Urine Bacteria NONE SEEN /hpf (None Seen); Urine Blood 3+ /uL (Negative); Urine Mucus FEW (None Seen); Urine Specific Gravity 1.039 (1.001-1.035); Urine WBC 53 /hpf (0 - 5)
[2021-11-30 10:33] LABS: Albumin 3.2 g/dL (3.4-5.0); Calcium 8.5 mg/dL (8.5-10.1); Potassium 4.4 mmol/L (3.5-5.1)
[2021-11-30 10:39] LABS: BUN/Creatinine Ratio 16.8; Bilirubin, Total 0.2 mg/dL (0.2-1.0); Total Protein 6.6 g/dL (6.4-8.2)
== END | disposition home or self-care (01) ==
LOC: LAB 09:13
PROVIDERS: ATTEND Internal Medicine
DX: K57.92 Diverticulitis of intestine, part unspecified, without perforation or abscess without bleeding (principal); D64.9 Anemia, unspecified
CPT/HCPCS: 36415; 80053; 81001; 85025

== ENCOUNTER 2021-12-25 08:30 | Inpatient (IN) | payer BC ==
[~2021-12-25] VITALS: Ht 160 cm; Wt 83.9 kg
[2021-12-25] MEDS ORDERED: ACETAMINOPHEN 325 MG TAB PO ONE (08:45)
[2021-12-25 09:11] LABS: Basophils # (auto) 0.1 10 ^3/uL (0-0.2); Basophils % (auto) 0.6 % (0.0-2.0); Eosinophils # (auto) 0.1 10 ^3/uL (0-0.8); Eosinophils % (auto) 0.6 % (0.0-7.0); Hemoglobin 11.9 g/dL (12.2-16.2); Mean Corpuscular Hemoglobin 31.5 pg (28.0-32.0); Mean Corpuscular Volume 92.7 fL (80.0-100.0); Monocytes # (auto) 0.6 10 ^3/uL (0-1.3); Monocytes % (auto) 5.7 % (0.0-12.0); Neutrophils % (auto) 83.1 % (37.0-80.0); Red Blood Cells 3.78 10^6/uL (4.0-5.20); Red Cell Distribution Width 14.1 % (11.8-14.3); White Blood Cell 9.7 10^3/uL (4.4-10.8)
[2021-12-25 09:45] LABS: Albumin 2.8 g/dL (3.4-5.0); Calcium 8.2 mg/dL (8.5-10.1); Potassium 4.2 mmol/L (3.5-5.1)
[2021-12-25 09:48] LABS: BUN/Creatinine Ratio 18.4; Bilirubin, Total 0.6 mg/dL (0.2-1.0); Total Protein 6.5 g/dL (6.4-8.2)
[2021-12-25 14:47] LABS: Urine Bacteria NONE SEEN /hpf (None Seen); Urine Blood 1+ /uL (Negative); Urine Specific Gravity 1.027 (1.001-1.035); Urine WBC 4 /hpf (0 - 5)
[2021-12-25] MEDS ORDERED: ONDANSETRON HCL 4 MG/2 ML VIAL IV ONE (16:15)
[2021-12-25] MEDS ORDERED: methylPREDNISolone SOD SUCC 125 MG/2 ML VL IV ONE (16:15)
[2021-12-25] MEDS ORDERED: IPRATROPIUM BROM 0.5 MG/2.5ML INH SOL NEB ONE (16:15)
[2021-12-25] MEDS ORDERED: MORPHINE SULFATE INJ 2 MG/ml SYRG IV ONE (16:15)
[2021-12-25] MEDS ORDERED: ALBUTEROL SULF 2.5 MG/0.5ML(0.5%) NEB SOLN NEB ONE (16:15)
[2021-12-25] MEDS ORDERED: NITROGLYCERIN 0.4 MG SL TAB SL PRN (20:30)
[2021-12-25] MEDS ORDERED: MORPHINE SULFATE INJ 2 MG/ml SYRG IV PRN (20:30)
[2021-12-25] MEDS ORDERED: ONDANSETRON HCL 4 MG/2 ML VIAL IV PRN (20:30)
[2021-12-25] MEDS ORDERED: ACETAMINOPHEN 325 MG TAB PO PRN (20:30)
[2021-12-25] MEDS: SODIUM CHLORIDE 0.9% 1,000 ML IV SCH (20:50)
[2021-12-25] MEDS ORDERED: cefTRIAXone 1GM/50ML D5W 50 ML IV ONE (21:00)
[2021-12-25] MEDS: methylPREDNISolone SOD SUCC 125 MG/2 ML VL IV SCH (23:32)
[2021-12-26 00:28] VITALS: BP 108/61
[2021-12-26 05:13] LABS: Basophils # (auto) 0 10 ^3/uL (0-0.2); Basophils % (auto) 0.2 % (0.0-2.0); Eosinophils # (auto) 0 10 ^3/uL (0-0.8); Hematocrit 32.8 % (36.0-46.0); Lymphocytes # (auto) 0.7 10 ^3/uL (0.4-5.4); Lymphocytes % (auto) 10.6 % (10.0-50.0); Mean Corpuscular Hemoglobin 31.4 pg (28.0-32.0); Mean Corpuscular Hgb Conc. 33.5 g/dL (32.0-36.0); Mean Corpuscular Volume 93.6 fL (80.0-100.0); Monocytes # (auto) 0.1 10 ^3/uL (0-1.3); Monocytes % (auto) 1.1 % (0.0-12.0); Neutrophils # (auto) 5.6 10 ^3/uL (1.6-8.6); Neutrophils % (auto) 88.1 % (37.0-80.0); Red Blood Cells 3.51 10^6/uL (4.0-5.20); Red Cell Distribution Width 14.3 % (11.8-14.3); White Blood Cell 6.3 10^3/uL (4.4-10.8)
[2021-12-26 05:33] LABS: BUN/Creatinine Ratio 21.9; Calcium 8.2 mg/dL (8.5-10.1)
[2021-12-26] MEDS: methylPREDNISolone SOD SUCC 125 MG/2 ML VL IV SCH ×3 (06:01→21:44)
[2021-12-26] MEDS: IPRATROPIUM BROM 0.5 MG/2.5ML INH SOL NEB SCH ×3 (07:08→19:11)
[2021-12-26] MEDS: ALBUTEROL SULF 2.5 MG/0.5ML(0.5%) NEB SOLN NEB SCH ×3 (07:08→19:11)
[2021-12-26] MEDS: cefTRIAXone 1GM/50ML D5W 50 ML IV SCH ×2 (09:00→09:43)
[2021-12-26] MEDS: ENOXAPARIN SOD 40 MG/0.4 ML SYRINGE SC SCH (09:45)
[2021-12-26] MEDS: HYDROcodone-ACET 5/325MG TAB PO PRN ×2 (10:24→17:37)
[2021-12-26] MEDS: SODIUM CHLORIDE 0.9% 1,000 ML IV SCH (10:48)
[2021-12-26] MEDS ORDERED: AZITHROMYCIN 250 MG TAB PO ONE (14:15)
[2021-12-26] MEDS: OXcarbazepine 300 MG TAB PO SCH ×2 (17:26→21:45)
[2021-12-26] MEDS: PANTOPRAZOLE 40 MG TAB PO SCH (17:26)
[2021-12-26] MEDS ORDERED: OXCA300T50 (17:57)
[2021-12-26] MEDS ORDERED: CHOL20004 PO (17:57)
[2021-12-26 18:05] LABS: Cholesterol 212 mg/dL (< 200)
[2021-12-26 18:08] LABS: HDL Cholesterol 40 mg/dL (40-59); LDL Cholesterol 147 mg/dL (< 100); Triglycerides 149 mg/dL (< 150)
[2021-12-26 22:00] VITALS: BP 106/59
[2021-12-27] MEDS: SODIUM CHLORIDE 0.9% 1,000 ML IV SCH ×2 (01:06→13:39)
[2021-12-27 05:00] VITALS: BP 109/55
[2021-12-27] MEDS: methylPREDNISolone SOD SUCC 125 MG/2 ML VL IV SCH (05:17)
[2021-12-27 05:18] LABS: Basophils # (auto) 0 10 ^3/uL (0-0.2); Basophils % (auto) 0.1 % (0.0-2.0); Eosinophils # (auto) 0 10 ^3/uL (0-0.8); Hematocrit 29.5 % (36.0-46.0); Hemoglobin 9.9 g/dL (12.2-16.2); Lymphocytes # (auto) 0.9 10 ^3/uL (0.4-5.4); Mean Corpuscular Hemoglobin 31.6 pg (28.0-32.0); Mean Corpuscular Hgb Conc. 33.5 g/dL (32.0-36.0); Mean Corpuscular Volume 94.3 fL (80.0-100.0); Monocytes # (auto) 0.3 10 ^3/uL (0-1.3); Monocytes % (auto) 2.1 % (0.0-12.0); Neutrophils # (auto) 13.5 10 ^3/uL (1.6-8.6); Neutrophils % (auto) 91.8 % (37.0-80.0); Red Blood Cells 3.12 10^6/uL (4.0-5.20); White Blood Cell 14.7 10^3/uL (4.4-10.8)
[2021-12-27 05:35] LABS: Potassium 4.5 mmol/L (3.5-5.1)
[2021-12-27 05:41] LABS: Calcium 8.7 mg/dL (8.5-10.1); Magnesium 2.4 mg/dL (1.6-2.6)
[2021-12-27] MEDS: ALBUTEROL SULF 2.5 MG/0.5ML(0.5%) NEB SOLN NEB SCH ×3 (05:48→18:34)
[2021-12-27] MEDS: IPRATROPIUM BROM 0.5 MG/2.5ML INH SOL NEB SCH ×3 (05:48→18:34)
[2021-12-27] MEDS: HYDROcodone-ACET 5/325MG TAB PO PRN ×2 (06:51→15:48)
[2021-12-27 09:00] VITALS: BP 107/57
[2021-12-27] MEDS: AZITHROMYCIN 250 MG TAB PO SCH (09:49)
[2021-12-27] MEDS: OXcarbazepine 300 MG TAB PO SCH ×2 (09:49→21:45)
[2021-12-27] MEDS: PANTOPRAZOLE 40 MG TAB PO SCH (09:49)
[2021-12-27] MEDS: ENOXAPARIN SOD 40 MG/0.4 ML SYRINGE SC SCH (10:00)
[2021-12-27] MEDS: cefTRIAXone 1GM/50ML D5W 50 ML IV SCH (10:04)
[2021-12-27 12:20] VITALS: BP 115/56
[2021-12-27 13:01] LABS: Urine Bacteria None Seen /hpf (None Seen); Urine WBC None Seen /hpf (0 - 5)
[2021-12-27 13:26] LABS: Urine Bacteria FEW /hpf (None Seen); Urine Blood 2+ /uL (Negative); Urine Specific Gravity 1.027 (1.001-1.035); Urine WBC 5 /hpf (0 - 5)
[2021-12-27 13:31] LABS: Sodium Urine 7 mmol/L (40-220)
[2021-12-27] MEDS: methylPREDNISolone SOD SUCC 40 MG/ML VL IV SCH ×2 (13:35→21:45)
[2021-12-27 13:38] LABS: Protein, Urine 27.8 mg/dL (0.0-11.9)
[2021-12-27 16:27] VITALS: BP 131/70
[2021-12-27] MEDS: DOCUSATE SOD 100 MG CAP PO PRN (21:45)
[2021-12-27 22:00] VITALS: BP 126/70
[2021-12-28 05:00] VITALS: BP 132/75
[2021-12-28] MEDS: SODIUM CHLORIDE 0.9% 1,000 ML IV SCH ×2 (05:35→18:27)
[2021-12-28] MEDS: methylPREDNISolone SOD SUCC 40 MG/ML VL IV SCH ×3 (05:35→21:18)
[2021-12-28] MEDS: ALBUTEROL SULF 2.5 MG/0.5ML(0.5%) NEB SOLN NEB SCH ×3 (06:33→18:13)
[2021-12-28] MEDS: IPRATROPIUM BROM 0.5 MG/2.5ML INH SOL NEB SCH ×3 (06:33→18:13)
[2021-12-28 09:00] VITALS: BP 131/66
[2021-12-28] MEDS: ENOXAPARIN SOD 40 MG/0.4 ML SYRINGE SC SCH (10:00)
[2021-12-28 10:09] LABS: Calcium 8.4 mg/dL (8.5-10.1); Potassium 4.2 mmol/L (3.5-5.1)
[2021-12-28 10:11] LABS: BUN/Creatinine Ratio 30.4
[2021-12-28] MEDS: PANTOPRAZOLE 40 MG TAB PO SCH (10:34)
[2021-12-28] MEDS: AZITHROMYCIN 250 MG TAB PO SCH (10:35)
[2021-12-28] MEDS: DOCUSATE SOD 100 MG CAP PO PRN (10:35)
[2021-12-28] MEDS: OXcarbazepine 300 MG TAB PO SCH ×2 (10:35→21:17)
[2021-12-28] MEDS: cefTRIAXone 1GM/50ML D5W 50 ML IV SCH (10:36)
[2021-12-28] MEDS: HYDROcodone-ACET 5/325MG TAB PO PRN ×2 (10:36→18:32)
[2021-12-28 14:35] VITALS: BP 131/52
[2021-12-28] MEDS: BACLOFEN 10 MG TAB PO PRN (15:12)
[2021-12-28 17:00] VITALS: BP 121/57
[2021-12-28 22:00] VITALS: BP 138/71
[2021-12-29] MEDS: BACLOFEN 10 MG TAB PO PRN ×3 (00:02→18:06)
[2021-12-29] MEDS: HYDROcodone-ACET 5/325MG TAB PO PRN ×3 (00:02→13:13)
[2021-12-29 00:30] VITALS: BP 121/57
[2021-12-29 05:00] VITALS: BP 154/74
[2021-12-29 05:32] LABS: Potassium 4.3 mmol/L (3.5-5.1)
[2021-12-29 05:37] LABS: Calcium 8.1 mg/dL (8.5-10.1)
[2021-12-29 05:57] LABS: Hematocrit 31.3 % (36.0-46.0); Hemoglobin 10.3 g/dL (12.2-16.2); Mean Corpuscular Hemoglobin 30.8 pg (28.0-32.0); Mean Corpuscular Hgb Conc. 32.9 g/dL (32.0-36.0); Mean Corpuscular Volume 93.8 fL (80.0-100.0); Red Blood Cells 3.34 10^6/uL (4.0-5.20); Red Cell Distribution Width 14.2 % (11.8-14.3); White Blood Cell 10.5 10^3/uL (4.4-10.8)
[2021-12-29 06:03] LABS: Basophils % (manual) 0 (0.0-2.0); Blast Cells 0; Eosinophils % (manual) 0 (0-7); Metamyelocytes % 0; Myelocytes % 0; Promyelocytes % 0; Reactive Lymphocytes 0
[2021-12-29] MEDS: IPRATROPIUM BROM 0.5 MG/2.5ML INH SOL NEB SCH ×3 (06:07→18:09)
[2021-12-29] MEDS: methylPREDNISolone SOD SUCC 40 MG/ML VL IV SCH (06:07)
[2021-12-29] MEDS: ALBUTEROL SULF 2.5 MG/0.5ML(0.5%) NEB SOLN NEB SCH ×3 (06:07→18:09)
[2021-12-29 07:59] LABS: Band Neutrophils % (manual) 3; Lymphocytes % (manual) 11 (10.0-50.0); Monocytes % (manual) 4 (0-12)
[2021-12-29 08:59] VITALS: BP 141/72
[2021-12-29] MEDS: ENOXAPARIN SOD 40 MG/0.4 ML SYRINGE SC SCH (09:18)
[2021-12-29] MEDS: PANTOPRAZOLE 40 MG TAB PO SCH (09:18)
[2021-12-29] MEDS: cefTRIAXone 1GM/50ML D5W 50 ML IV SCH (09:18)
[2021-12-29] MEDS: OXcarbazepine 300 MG TAB PO SCH ×2 (09:18→20:56)
[2021-12-29] MEDS: AZITHROMYCIN 250 MG TAB PO SCH (09:18)
[2021-12-29 13:00] VITALS: BP 131/65
[2021-12-29] MEDS ORDERED: TEMAZEPAM 15 MG CAP PO PRN (14:15)
[2021-12-29] MEDS ORDERED: ALBUTEROL SULF HFA 90MCG INH 200DOSE IN PRN (14:30)
[2021-12-29 17:00] VITALS: BP 148/80
[2021-12-29 22:00] VITALS: BP 133/78
[2021-12-30] MEDS: HYDROcodone-ACET 5/325MG TAB PO PRN (00:09)
[2021-12-30 05:00] VITALS: BP 147/84
[2021-12-30] MEDS: ALBUTEROL SULF 2.5 MG/0.5ML(0.5%) NEB SOLN NEB SCH ×2 (07:03→12:43)
[2021-12-30] MEDS: IPRATROPIUM BROM 0.5 MG/2.5ML INH SOL NEB SCH ×2 (07:03→12:43)
[2021-12-30 08:10] VITALS: BP 142/75
[2021-12-30] MEDS: AZITHROMYCIN 250 MG TAB PO SCH (08:51)
[2021-12-30] MEDS: OXcarbazepine 300 MG TAB PO SCH (08:51)
[2021-12-30] MEDS: ENOXAPARIN SOD 40 MG/0.4 ML SYRINGE SC SCH (08:52)
[2021-12-30] MEDS: PANTOPRAZOLE 40 MG TAB PO SCH (08:52)
[2021-12-30] MEDS: BACLOFEN 10 MG TAB PO PRN (09:06)
[2021-12-30] MEDS ORDERED: predniSONE 20 MG TAB PO SCH (10:00)
[2021-12-30 12:10] VITALS: BP 135/84
== END 2021-12-30 13:40 | disposition home or self-care (01) | DRG 189 ==
LOC: EDBD 08:30 → ER 08:30 → TELE 20:22 → TELE-CENTR 12-26 16:46 → CENTRAL 12-27 11:00
PROVIDERS: ADMIT Nurse Practitioner Family; ATTEND Internal Medicine
DX: J96.01 Acute respiratory failure with hypoxia (principal); E44.0 Moderate protein-calorie malnutrition; N17.9 Acute kidney failure, unspecified; J44.1 Chronic obstructive pulmonary disease with (acute) exacerbation; J44.0 Chronic obstructive pulmonary disease with (acute) lower respiratory infection; J20.9 Acute bronchitis, unspecified; I12.9 Hypertensive chronic kidney disease with stage 1 through stage 4 chronic kidney disease, or unspecified chronic kidney disease; E66.9 Obesity, unspecified; F17.200 Nicotine dependence, unspecified, uncomplicated; N18.31 Chronic kidney disease, stage 3a; R31.0 Gross hematuria; G40.909 Epilepsy, unspecified, not intractable, without status epilepticus; K21.9 Gastro-esophageal reflux disease without esophagitis; Z20.822 Contact with and (suspected) exposure to COVID-19; R49.0 Dysphonia; Z96.652 Presence of left artificial knee joint; M54.9 Dorsalgia, unspecified; Z79.899 Other long term (current) drug therapy; Z87.01 Personal history of pneumonia (recurrent); Z85.528 Personal history of other malignant neoplasm of kidney; Z68.32 Body mass index [BMI] 32.0-32.9, adult; Z86.16 Personal history of COVID-19; Z90.5 Acquired absence of kidney; Z90.710 Acquired absence of both cervix and uterus; Z90.49 Acquired absence of other specified parts of digestive tract; Z71.3 Dietary counseling and surveillance
CPT/HCPCS: 36415; 71045; 76775; 80048; 80053; 80061; 81001; 81015; 82570; 83036; 83605; 83735; 84156; 84300; 84443; 84484; 85007; 85025; 85027; 87040; 87086; 87804; 93005; 94640; 96365; 96366; 96372; 96375; G0378; J0696; J2405

== ENCOUNTER 2022-02-23 06:45 | Inpatient (IN) | payer BC ==
[~2022-02-23] VITALS: Ht 160 cm; Wt 78.9 kg
[~2022-02-23 06:45] MED LIST changes: -AMOX500T86 PO; -CEPH-509 PO; +CHOL20004 PO; +OXCA300T50
[2022-02-23] MEDS ORDERED: HYDROmorphone HCL 2 MG/ML VL/or syr IV ONE ×3 (07:30→14:45)
[2022-02-23] MEDS ORDERED: ONDANSETRON HCL 4 MG/2 ML VIAL IV ONE ×3 (07:30→14:45)
[2022-02-23] MEDS ORDERED: SODIUM CHLORIDE 0.9% 1,000 ML IV ONE (07:30)
[2022-02-23 08:06] LABS: Basophils # (auto) 0 10 ^3/uL (0-0.2); Basophils % (auto) 0.3 % (0.0-2.0); Eosinophils # (auto) 0.1 10 ^3/uL (0-0.8); Eosinophils % (auto) 0.8 % (0.0-7.0); Hematocrit 41.3 % (36.0-46.0); Hemoglobin 13.9 g/dL (12.2-16.2); Lymphocytes # (auto) 1.9 10 ^3/uL (0.4-5.4); Lymphocytes % (auto) 22.7 % (10.0-50.0); Mean Corpuscular Hemoglobin 31.6 pg (28.0-32.0); Mean Corpuscular Hgb Conc. 33.6 g/dL (32.0-36.0); Mean Corpuscular Volume 94.2 fL (80.0-100.0); Monocytes # (auto) 0.6 10 ^3/uL (0-1.3); Monocytes % (auto) 7.3 % (0.0-12.0); Neutrophils # (auto) 5.7 10 ^3/uL (1.6-8.6); Neutrophils % (auto) 68.9 % (37.0-80.0); Red Blood Cells 4.38 10^6/uL (4.0-5.20); Red Cell Distribution Width 13.9 % (11.8-14.3); White Blood Cell 8.3 10^3/uL (4.4-10.8)
[2022-02-23 08:21] LABS: Urine Blood Negative /uL (Negative); Urine Specific Gravity 1.024 (1.001-1.035)
[2022-02-23 08:49] LABS: Albumin 3.5 g/dL (3.4-5.0); BUN/Creatinine Ratio 12.6; Bilirubin, Total 0.4 mg/dL (0.2-1.0); Calcium 8.6 mg/dL (8.5-10.1); Magnesium 2.1 mg/dL (1.6-2.6); Potassium 3.5 mmol/L (3.5-5.1); Total Protein 6.6 g/dL (6.4-8.2)
[2022-02-23] MEDS ORDERED: D5W 5% IV ONE (12:30)
[2022-02-23] MEDS ORDERED: ACETYLCYSTEINE IV ONE (12:30)
[2022-02-23] MEDS ORDERED: ONDANSETRON HCL 4 MG/2 ML VIAL IV PRN (14:45)
[2022-02-23] MEDS ORDERED: DOCUSATE SOD 100 MG CAP PO PRN (14:45)
[2022-02-23] MEDS ORDERED: diphenhdrAMINE HCL 50 MG/1 ML VL ONE (14:58)
[2022-02-23] MEDS ORDERED: diphenhdrAMINE HCL 50 MG/1 ML VL IV ONE (15:00)
[2022-02-23] MEDS: ALBUTEROL SULF 2.5 MG/0.5ML(0.5%) NEB SOLN NEB ONE ×2 (15:15→15:46)
[2022-02-23] MEDS: SODIUM CHLORIDE 0.9% 1,000 ML IV SCH (15:29)
[2022-02-24] MEDS: SODIUM CHLORIDE 0.9% 1,000 ML IV SCH ×3 (00:01→16:56)
[2022-02-24 02:50] VITALS: BP 112/58
[2022-02-24 05:28] VITALS: BP 103/53
[2022-02-24 07:31] LABS: Basophils # (auto) 0 10 ^3/uL (0-0.2); Basophils % (auto) 0.3 % (0.0-2.0); Eosinophils # (auto) 0.1 10 ^3/uL (0-0.8); Eosinophils % (auto) 1.2 % (0.0-7.0); Hematocrit 36.9 % (36.0-46.0); Hemoglobin 12.6 g/dL (12.2-16.2); Lymphocytes # (auto) 2.6 10 ^3/uL (0.4-5.4); Lymphocytes % (auto) 34.9 % (10.0-50.0); Mean Corpuscular Hemoglobin 31.9 pg (28.0-32.0); Mean Corpuscular Hgb Conc. 34.2 g/dL (32.0-36.0); Mean Corpuscular Volume 93.2 fL (80.0-100.0); Monocytes # (auto) 0.7 10 ^3/uL (0-1.3); Monocytes % (auto) 9.6 % (0.0-12.0); Neutrophils # (auto) 4.1 10 ^3/uL (1.6-8.6); Red Blood Cells 3.96 10^6/uL (4.0-5.20); Red Cell Distribution Width 13.7 % (11.8-14.3); White Blood Cell 7.5 10^3/uL (4.4-10.8)
[2022-02-24 07:47] LABS: Potassium 3.9 mmol/L (3.5-5.1)
[2022-02-24 07:58] LABS: Albumin 2.8 g/dL (3.4-5.0); BUN/Creatinine Ratio 13.4; Bilirubin, Total 0.5 mg/dL (0.2-1.0); Total Protein 6.2 g/dL (6.4-8.2)
[2022-02-24 08:00] VITALS: BP 98/63
[2022-02-24 08:05] VITALS: BP 98/63
[2022-02-24] MEDS: MORPHINE SULFATE INJ 2 MG/ml SYRG IV PRN ×3 (09:45→22:51)
[2022-02-24] MEDS: PANTOPRAZOLE 40 MG/10 ML VIAL INJ IV SCH (09:53)
[2022-02-24] MEDS ORDERED: cefTRIAXone 1GM/50ML D5W 50 ML IV ONE (12:45)
[2022-02-24 13:00] VITALS: BP 121/58
[2022-02-24] MEDS ORDERED: DICYCLOMINE HCL 10 MG CAP PO PRN (14:00)
[2022-02-24] MEDS: metroNIDAZOLE 500MG/100ML 100 ML IV SCH ×2 (16:56→22:23)
[2022-02-24 17:00] VITALS: BP 126/68
[2022-02-25] MEDS: SODIUM CHLORIDE 0.9% 1,000 ML IV SCH ×3 (00:05→16:45)
[2022-02-25 05:00] VITALS: BP 98/54
[2022-02-25] MEDS: metroNIDAZOLE 500MG/100ML 100 ML IV SCH ×3 (06:45→22:50)
[2022-02-25 09:00] VITALS: BP 133/77
[2022-02-25] MEDS: cefTRIAXone 1GM/50ML D5W 50 ML IV SCH (10:22)
[2022-02-25] MEDS: PANTOPRAZOLE 40 MG/10 ML VIAL INJ IV SCH (10:22)
[2022-02-25 13:00] VITALS: BP 145/58
[2022-02-25] MEDS: MORPHINE SULFATE INJ 2 MG/ml SYRG IV PRN ×2 (15:03→21:35)
[2022-02-25 17:00] VITALS: BP 126/65
[2022-02-25 22:00] VITALS: BP 150/80
[2022-02-26] MEDS: SODIUM CHLORIDE 0.9% 1,000 ML IV SCH ×2 (01:05→09:25)
[2022-02-26] MEDS: MORPHINE SULFATE INJ 2 MG/ml SYRG IV PRN (02:28)
[2022-02-26 05:00] VITALS: BP 107/70
[2022-02-26] MEDS: metroNIDAZOLE 500MG/100ML 100 ML IV SCH ×2 (05:30→14:00)
[2022-02-26 06:09] LABS: Albumin 2.6 g/dL (3.4-5.0); BUN/Creatinine Ratio 14.9; Calcium 8.7 mg/dL (8.5-10.1); Potassium 3.9 mmol/L (3.5-5.1)
[2022-02-26 06:11] LABS: Bilirubin, Total 0.4 mg/dL (0.2-1.0); Total Protein 5.3 g/dL (6.4-8.2)
[2022-02-26 08:00] VITALS: BP 117/59
[2022-02-26] MEDS: PANTOPRAZOLE 40 MG/10 ML VIAL INJ IV SCH (10:15)
[2022-02-26] MEDS: cefTRIAXone 1GM/50ML D5W 50 ML IV SCH (10:15)
[2022-02-26] MEDS ORDERED: HYDR-4902 PO (11:54)
[2022-02-26 12:00] VITALS: BP 129/74
[2022-02-27 10:22] LABS: Hepatitis B Surface Antibody Positive (Negative)
[2022-02-27 10:50] LABS: Hepatitis A Total Antibody Positive (Negative)
[2022-02-27 12:13] LABS: Hepatitis C Antibody Negative (Negative)
== END 2022-02-26 15:15 | disposition home or self-care (01) | DRG 392 ==
LOC: ER 06:45 → OVERFLOW 14:44 → EAST 02-24 02:46
PROVIDERS: ADMIT Nurse Practitioner Family; ATTEND Family Medicine
DX: R10.32 Left lower quadrant pain (principal); J98.11 Atelectasis; E86.0 Dehydration; T39.1X5A Adverse effect of 4-Aminophenol derivatives, initial encounter; G89.29 Other chronic pain; Z96.652 Presence of left artificial knee joint; Z20.822 Contact with and (suspected) exposure to COVID-19; R79.89 Other specified abnormal findings of blood chemistry; Z88.8 Allergy status to other drugs, medicaments and biological substances; Z90.5 Acquired absence of kidney; Z98.84 Bariatric surgery status; Z88.1 Allergy status to other antibiotic agents; Z90.710 Acquired absence of both cervix and uterus; Z85.528 Personal history of other malignant neoplasm of kidney; Z90.49 Acquired absence of other specified parts of digestive tract; Y92.89 Other specified places as the place of occurrence of the external cause
CPT/HCPCS: 36415; 74176; 76705; 80053; 80329; 81003; 82378; 83605; 83690; 83735; 85025; 86704; 86706; 86708; 86803; 87340; 87426; 93005; 96361; 96374; 96375; C9113; G0378; J0696; J2405; J3490; J7060

== ENCOUNTER 2022-07-05 08:00 | Outpatient (CLI) | payer BC ==
[~2022-07-05] VITALS: Ht 160 cm; Wt 79.4 kg
[~2022-07-05 08:00] MED LIST changes: +HYDR-4902 PO
[2022-07-05 08:39] LABS: Basophils # (auto) 0 10 ^3/uL (0-0.2); Basophils % (auto) 0.6 % (0.0-2.0); Eosinophils # (auto) 0.2 10 ^3/uL (0-0.8); Eosinophils % (auto) 3.1 % (0.0-7.0); Hematocrit 40.1 % (36.0-46.0); Hemoglobin 13.5 g/dL (12.2-16.2); Lymphocytes % (auto) 28.5 % (10.0-50.0); Mean Corpuscular Hemoglobin 32.1 pg (28.0-32.0); Mean Corpuscular Hgb Conc. 33.8 g/dL (32.0-36.0); Mean Corpuscular Volume 94.9 fL (80.0-100.0); Monocytes # (auto) 0.4 10 ^3/uL (0-1.3); Monocytes % (auto) 6.4 % (0.0-12.0); Neutrophils # (auto) 4.2 10 ^3/uL (1.6-8.6); Neutrophils % (auto) 61.4 % (37.0-80.0); Nucleated Red Blood Cells % 0.1 %; Red Blood Cells 4.22 10^6/uL (4.0-5.20); Red Cell Distribution Width 13.9 % (11.8-14.3); White Blood Cell 6.9 10^3/uL (4.4-10.8)
[2022-07-05 08:56] LABS: INR 0.94 (0.9-1.15); Partial Thromboplastin Time 28.1 sec (24.6-33.4)
[2022-07-05 09:13] LABS: Potassium 4.3 mmol/L (3.5-5.1)
[2022-07-05 09:14] LABS: Albumin 3.4 g/dL (3.4-5.0); Calcium 8.4 mg/dL (8.5-10.1)
[2022-07-05 09:16] LABS: BUN/Creatinine Ratio 16.5 (10.0-20.0); Bilirubin, Total 0.7 mg/dL (0.2-1.0); Total Protein 7.2 g/dL (6.4-8.2)
[2022-07-06] MEDS ORDERED: ARIP1TAB7 PO (12:49)
== END 2022-07-05 08:55 | disposition home or self-care (01) ==
LOC: LAB 08:00 → EDSTATUS 07-07 13:30
PROVIDERS: ATTEND Internal Medicine Gastroenterology
DX: U07.1 COVID-19 (principal); Z01.812 Encounter for preprocedural laboratory examination; K21.9 Gastro-esophageal reflux disease without esophagitis; N39.0 Urinary tract infection, site not specified
CPT/HCPCS: 36415; 80053; 85025; 85610; 85730; 87086; U0003

== ENCOUNTER → 2022-10-19 | Outpatient (CLI) | payer BC ==
[~2022-10-19] MED LIST changes: -ALBU108A5 IN; +ARIP1TAB7 PO; -CHOL20004 PO; -HYDR-4902 PO; -METR500T PO; -OXCA300T50; -TRAZ-181 PO
[2022-10-20 16:06] LABS: BUN/Creatinine Ratio 18.5 (10.0-20.0); Calcium 8.6 mg/dL (8.5-10.1); Potassium 4.3 mmol/L (3.5-5.1)
== END | disposition home or self-care (01) ==
LOC: LAB 08:24
PROVIDERS: ATTEND Internal Medicine
DX: N18.30 Chronic kidney disease, stage 3 unspecified (principal); E78.1 Pure hyperglyceridemia; R53.83 Other fatigue
CPT/HCPCS: 36415; 80048; 83036; 84443

== ENCOUNTER → 2023-01-05 | Outpatient (CLI) | payer BC ==
[2023-01-05 09:38] LABS: Alanine Aminotransferase 19 U/L (7-40); Albumin 4.2 g/dL (3.2-4.8); Alkaline Phosphatase 69 U/L (46-116); Anion Gap 6 (5-15); Aspartate Aminotransferase 23 U/L (13-40); BUN/Creatinine Ratio 12.7 (10.0-20.0); Bilirubin, Total 0.4 mg/dL (0.2-1.0); Blood Urea Nitrogen 17 mg/dL (9-23); Calcium 9.4 mg/dL (8.5-10.1); Carbon Dioxide 26 mmol/L (20-30); Chloride 108 mmol/L (98-107); Glucose 114 mg/dL (74-106); Sodium 140 mmol/L (136-145); Total Protein 6.8 g/dL (5.7-8.2)
== END | disposition home or self-care (01) ==
LOC: LAB 08:21
PROVIDERS: ATTEND Internal Medicine
DX: R73.03 Prediabetes (principal)
CPT/HCPCS: 36415; 80053

== ENCOUNTER → 2023-03-14 | Outpatient (CLI) | payer BC ==
[~2023-03-14] MED LIST changes: +BACDST PO; +ONDA-144 PO; +ZOFR4T PO
[2023-03-14 08:11] LABS: Alanine Aminotransferase 18 U/L (7-40); Albumin 4.1 g/dL (3.2-4.8); Alkaline Phosphatase 92 U/L (46-116); Anion Gap 8 (5-15); Aspartate Aminotransferase 21 U/L (13-40); BUN/Creatinine Ratio 17.4 (10.0-20.0); Bilirubin, Total 0.2 mg/dL (0.2-1.0); Blood Urea Nitrogen 21 mg/dL (9-23); Calcium 9.3 mg/dL (8.5-10.1); Carbon Dioxide 25 mmol/L (20-30); Chloride 108 mmol/L (98-107); Cholesterol 182 mg/dL (< 200); Glucose 104 mg/dL (74-106); HDL Cholesterol 41 mg/dL (40-59); Potassium 4.4 mmol/L (3.5-5.1); Sodium 141 mmol/L (136-145); Total Protein 6.6 g/dL (5.7-8.2); Triglycerides 454 mg/dL (< 150)
== END | disposition home or self-care (01) ==
LOC: LAB 07:35
PROVIDERS: ATTEND Internal Medicine
DX: E78.5 Hyperlipidemia, unspecified (principal); R73.03 Prediabetes
CPT/HCPCS: 36415; 80053; 80061; 83036

== ENCOUNTER 2023-10-15 17:08 | Emergency (ER) | payer BC ==
[~2023-10-15] VITALS: Ht 160 cm; Wt 76.7 kg
[~2023-10-15 17:08] MED LIST changes: -ARIP1TAB7 PO; +ARIP20TA4 PO
[2023-10-15 17:32] VITALS: BP 149/88; PULSE 72; RESP 17; TEMP 97.9; O2SAT 100
[2023-10-15] MEDS: HYDROcodone-ACET 10/325MG TAB PO ONE (19:52)
[2023-10-15] MEDS ORDERED: MORPHINE SULFATE 4 MG/ML SYR/VIAL IM ONE (20:30)
[2023-10-15] MEDS ORDERED: OXY5T PO (20:33)
== END 2023-10-15 21:24 | disposition home or self-care (01) ==
LOC: ER 17:11
DX: S43.401A Unspecified sprain of right shoulder joint, initial encounter (principal); S50.11XA Contusion of right forearm, initial encounter; S00.83XA Contusion of other part of head, initial encounter; S80.211A Abrasion, right knee, initial encounter; E78.5 Hyperlipidemia, unspecified; F12.90 Cannabis use, unspecified, uncomplicated; Z88.8 Allergy status to other drugs, medicaments and biological substances; Z79.899 Other long term (current) drug therapy; Z90.49 Acquired absence of other specified parts of digestive tract; Z90.710 Acquired absence of both cervix and uterus; Z90.89 Acquired absence of other organs; Z98.890 Other specified postprocedural states; W18.39XA Other fall on same level, initial encounter; Y93.89 Activity, other specified; Y92.89 Other specified places as the place of occurrence of the external cause; Y99.8 Other external cause status
CPT/HCPCS: 73030; 73060; 73090; 73562

== ENCOUNTER 2023-10-22 14:18 | Emergency (ER) | payer BC ==
[~2023-10-22] VITALS: Ht 160 cm; Wt 78.6 kg
[~2023-10-22 14:18] MED LIST changes: +OXY5T PO
[2023-10-22 16:41] LABS: INR 1.02 (0.9-1.15); Partial Thromboplastin Time 27.1 SEC (24.5-34.5); Prothrombin Time 10.8 sec (9.3-11.8)
[2023-10-22] MEDS: LIDOCAINE 1% (LOCAL ANESTH.) PF 5ml SDV ID ONE (18:45)
[2023-10-22] MEDS ORDERED: CEPH500C PO (19:08)
[2023-10-22] MEDS: BACITRACIN TOP OINT 1 UD PKG TOP ONE (19:26)
[2023-10-22 19:33] VITALS: BP 136/76; PULSE 63; RESP 18; TEMP 97.6; O2SAT 94
== END 2023-10-22 19:33 | disposition home or self-care (01) ==
LOC: ER 14:18
DX: S50.11XA Contusion of right forearm, initial encounter (principal); N93.9 Abnormal uterine and vaginal bleeding, unspecified; Z88.1 Allergy status to other antibiotic agents; Z88.8 Allergy status to other drugs, medicaments and biological substances; Z79.899 Other long term (current) drug therapy; E78.5 Hyperlipidemia, unspecified; Z90.49 Acquired absence of other specified parts of digestive tract; Z90.710 Acquired absence of both cervix and uterus; Z90.89 Acquired absence of other organs; Z98.890 Other specified postprocedural states; W17.89XA Other fall from one level to another, initial encounter; Y93.89 Activity, other specified; Y92.89 Other specified places as the place of occurrence of the external cause; Y99.8 Other external cause status
CPT/HCPCS: 10140; 36415; 76856; 76881; 85610; 85730

== ENCOUNTER → 2023-11-20 | Outpatient (CLI) | payer BC ==
[~2023-11-20] MED LIST changes: +CEPH500C PO; +FENO1TAB41 PO
== END | disposition home or self-care (01) ==
LOC: XYW 13:46
PROVIDERS: ATTEND Internal Medicine
DX: Z01.818 Encounter for other preprocedural examination (principal); I35.1 Nonrheumatic aortic (valve) insufficiency; I51.89 Other ill-defined heart diseases
CPT/HCPCS: 93306

== ENCOUNTER → 2023-11-22 | Outpatient (CLI) | payer BC | END | disposition home or self-care (01) | LOC: LAB 11:55 | PROVIDERS: ATTEND Internal Medicine | DX: R06.02 Shortness of breath (principal) | CPT/HCPCS: 36415; 85379 ==

== ENCOUNTER 2023-11-27 06:25 | Day surgery (SDC) | payer BC ==
[2023-11-22 10:27] LABS: Urine Bacteria None Seen /hpf (None Seen)
[2023-11-22 10:30] LABS: Basophils # (auto) 0 10 ^3/uL (0-0.2); Basophils % (auto) 0.6 % (0.0-2.0); Eosinophils # (auto) 0.1 10 ^3/uL (0-0.8); Eosinophils % (auto) 1.7 % (0.0-7.0); Hematocrit 36.6 % (36.0-46.0); Hemoglobin 12.3 g/dL (12.2-16.2); Lymphocytes # (auto) 1.6 10 ^3/uL (0.4-5.4); Lymphocytes % (auto) 32.1 % (10.0-50.0); Mean Corpuscular Hemoglobin 30.9 pg (28.0-32.0); Mean Corpuscular Hgb Conc. 33.5 g/dL (32.0-36.0); Mean Corpuscular Volume 92.1 fL (80.0-100.0); Monocytes # (auto) 0.4 10 ^3/uL (0-1.3); Monocytes % (auto) 8.8 % (0.0-12.0); Neutrophils # (auto) 2.8 10 ^3/uL (1.6-8.6); Neutrophils % (auto) 56.8 % (37.0-80.0); Nucleated Red Blood Cells % 0.2 %; Platelet Count (auto) 98 10^3/uL (140-450); Red Blood Cells 3.97 10^6/uL (4.0-5.20); Red Cell Distribution Width 13.4 % (11.8-14.3)
[2023-11-22 10:46] LABS: INR 0.98 (0.9-1.15); Partial Thromboplastin Time 27.8 SEC (24.5-34.5); Prothrombin Time 10.4 sec (9.3-11.8)
[2023-11-22 10:49] LABS: Alanine Aminotransferase 18 U/L (7-40); Albumin 4.2 g/dL (3.2-4.8); Alkaline Phosphatase 107 U/L (46-116); Anion Gap 5 (5-15); Aspartate Aminotransferase 20 U/L (13-40); BUN/Creatinine Ratio 15.4 (10.0-20.0); Bilirubin, Total 0.2 mg/dL (0.2-1.0); Blood Urea Nitrogen 20 mg/dL (9-23); Calcium 9.4 mg/dL (8.7-10.4); Carbon Dioxide 28 mmol/L (20-30); Chloride 107 mmol/L (98-107); Glucose 88 mg/dL (74-106); Potassium 4.1 mmol/L (3.5-5.1); Sodium 140 mmol/L (136-145); Total Protein 7.3 g/dL (5.7-8.2)
[2023-11-22 12:36] LABS: Urine Blood 2+ /uL (Negative); Urine Clarity Ex.Turbid (Clear); Urine Color Light-Orange (Yellow); Urine Protein, UAD TRACE (Negative); Urine Specific Gravity 1.024 (1.001-1.035); Urine Urobilinogen Normal (Negative); Urine WBC 35 /hpf (0 - 5); Urine pH 5.5 (5.0-9.0)
[~2023-11-27] VITALS: Ht 160 cm; Wt 77.1 kg
[~2023-11-27 06:25] MED LIST changes: -BACDST PO; -CEPH500C PO; -ONDA-144 PO; -PANT40TA2 PO; -ZOFR4T PO
[2023-11-27] MEDS ORDERED: CIPROFLOXACIN 400MG/200ML 0 ML IV ONE (07:58)
[2023-11-27] MEDS ORDERED: PROPOFOL 10 MG/ML 20 ML IV ONE (07:59)
[2023-11-27] MEDS ORDERED: fentaNYL CITRATE 100 MCG/2 ML VL ONE ×2 (07:59→08:40)
[2023-11-27] MEDS ORDERED: ceFAZolin 2 GM/D5W50ml 50 ML IV ONE (08:02)
[2023-11-27] MEDS ORDERED: ONDANSETRON HCL 4 MG/2 ML VIAL ONE (08:29)
[2023-11-27] MEDS ORDERED: DexAMETHasone SOD PHOS 10MG/1ML VIAL INJ ONE (08:29)
[2023-11-27] MEDS ORDERED: ePHEDrine SULFATE 50 MG/ML AMP ONE (08:29)
[2023-11-27] MEDS: BACITRACIN-POLYMYXIN B TOPICAL OINT UD TOP ONE (08:55)
[2023-11-27 09:04] VITALS: O2SAT 100
[2023-11-27 09:05] VITALS: TEMP 97.8
[2023-11-27] MEDS ORDERED: ONDANSETRON HCL 4 MG/2 ML VIAL IV ONE (09:15)
[2023-11-27] MEDS: HYDROmorphone HCL 2 MG/ML VL/or syr IV PRN (09:22)
[2023-11-27] MEDS: MEPERIDINE HCL (25 MG/ML) 1ML VIAL IV PRN (10:15)
[2023-11-27 10:40] VITALS: BP 130/66; PULSE 67; RESP 12; O2SAT 94
== END 2023-11-27 11:00 | disposition home or self-care (01) ==
LOC: SUR 06:25
PROVIDERS: ATTEND Urology
DX: N36.8 Other specified disorders of urethra (principal); D09.0 Carcinoma in situ of bladder; C67.9 Malignant neoplasm of bladder, unspecified; R59.1 Generalized enlarged lymph nodes; G47.30 Sleep apnea, unspecified; N18.30 Chronic kidney disease, stage 3 unspecified; F41.9 Anxiety disorder, unspecified; Z90.710 Acquired absence of both cervix and uterus; Z88.1 Allergy status to other antibiotic agents; Z88.0 Allergy status to penicillin; Z79.899 Other long term (current) drug therapy; Z87.891 Personal history of nicotine dependence; Z98.890 Other specified postprocedural states; Z98.891 History of uterine scar from previous surgery
CPT/HCPCS: 36415; 52234; 53220; 80053; 81001; 85025; 85610; 85730; 87086; 88305; 88342; J0690; J1100; J1170; J2175; J2405; J2704; J3010

== ENCOUNTER → 2024-03-17 | Outpatient (CLI) | payer BC ==
[2024-03-17 11:26] LABS: Basophils # (auto) 0 10 ^3/uL (0-0.2); Basophils % (auto) 0.2 % (0.0-2.0); Eosinophils # (auto) 0 10 ^3/uL (0-0.8); Eosinophils % (auto) 0.4 % (0.0-7.0); Hematocrit 39.6 % (36.0-46.0); Hemoglobin 13.4 g/dL (12.2-16.2); Lymphocytes # (auto) 2.2 10 ^3/uL (0.4-5.4); Lymphocytes % (auto) 32.8 % (10.0-50.0); Mean Corpuscular Hemoglobin 30.6 pg (28.0-32.0); Mean Corpuscular Hgb Conc. 33.9 g/dL (32.0-36.0); Mean Corpuscular Volume 90.4 fL (80.0-100.0); Monocytes # (auto) 0.6 10 ^3/uL (0-1.3); Monocytes % (auto) 9.3 % (0.0-12.0); Neutrophils # (auto) 3.8 10 ^3/uL (1.6-8.6); Neutrophils % (auto) 57.3 % (37.0-80.0); Nucleated Red Blood Cells % 0.1 %; Platelet Count (auto) 164 10^3/uL (140-450); Red Blood Cells 4.38 10^6/uL (4.0-5.20); Red Cell Distribution Width 19.2 % (11.8-14.3); White Blood Cell 6.7 10^3/uL (4.4-10.8)
[2024-03-17 12:38] LABS: Alanine Aminotransferase 21 U/L (7-40); Albumin 4.4 g/dL (3.2-4.8); Alkaline Phosphatase 83 U/L (46-116); Anion Gap 8 (5-15); Aspartate Aminotransferase 37 U/L (13-40); BUN/Creatinine Ratio 12.7 (10.0-20.0); Blood Urea Nitrogen 16 mg/dL (9-23); Calcium 10.3 mg/dL (8.7-10.4); Carbon Dioxide 26 mmol/L (20-31); Chloride 106 mmol/L (98-107); Glucose 95 mg/dL (74-106); Potassium 4.4 mmol/L (3.5-5.1); Sodium 140 mmol/L (136-145)
[2024-03-17 12:39] LABS: Bilirubin, Total 0.3 mg/dL (0.2-1.0); Phosphorus 3.8 mg/dL (2.4-5.1); Total Protein 7.1 g/dL (5.7-8.2)
== END | disposition home or self-care (01) ==
LOC: LAB 10:56
DX: C67.2 Malignant neoplasm of lateral wall of bladder (principal)
CPT/HCPCS: 36415; 80053; 84100; 84439; 84443; 85025

== ENCOUNTER → 2024-03-25 | Outpatient (CLI) | payer BC ==
[2024-03-25 11:01] LABS: Basophils # (auto) 0 10 ^3/uL (0-0.2); Basophils % (auto) 0.2 % (0.0-2.0); Eosinophils # (auto) 0.1 10 ^3/uL (0-0.8); Eosinophils % (auto) 0.8 % (0.0-7.0); Hematocrit 38.5 % (36.0-46.0); Hemoglobin 13.1 g/dL (12.2-16.2); Lymphocytes # (auto) 2.3 10 ^3/uL (0.4-5.4); Lymphocytes % (auto) 32.8 % (10.0-50.0); Mean Corpuscular Hemoglobin 30.8 pg (28.0-32.0); Mean Corpuscular Volume 90.6 fL (80.0-100.0); Monocytes # (auto) 0.6 10 ^3/uL (0-1.3); Monocytes % (auto) 8.7 % (0.0-12.0); Neutrophils % (auto) 57.5 % (37.0-80.0); Nucleated Red Blood Cells % 0.1 %; Platelet Count (auto) 142 10^3/uL (140-450); Red Blood Cells 4.25 10^6/uL (4.0-5.20); Red Cell Distribution Width 19.2 % (11.8-14.3)
[2024-03-25 11:09] LABS: Alanine Aminotransferase 24 U/L (7-40); Albumin 4.4 g/dL (3.2-4.8); Alkaline Phosphatase 83 U/L (46-116); Anion Gap 9 (5-15); BUN/Creatinine Ratio 8.8 (10.0-20.0); Bilirubin, Total 0.4 mg/dL (0.2-1.0); Blood Urea Nitrogen 11 mg/dL (9-23); Calcium 10.3 mg/dL (8.7-10.4); Carbon Dioxide 26 mmol/L (20-31); Chloride 106 mmol/L (98-107); Phosphorus 4.2 mg/dL (2.4-5.1); Potassium 4.2 mmol/L (3.5-5.1); Sodium 141 mmol/L (136-145); Total Protein 7.2 g/dL (5.7-8.2)
[2024-03-25 11:22] LABS: Aspartate Aminotransferase 44 U/L (13-40); Glucose 124 mg/dL (74-106)
== END | disposition home or self-care (01) ==
LOC: LAB 10:25
DX: C67.2 Malignant neoplasm of lateral wall of bladder (principal)
CPT/HCPCS: 36415; 80053; 84100; 84439; 84443; 85025

== ENCOUNTER → 2024-03-31 | Outpatient (CLI) | payer BC ==
[2024-03-31 15:23] LABS: Basophils # (auto) 0 10 ^3/uL (0-0.2); Basophils % (auto) 0.3 % (0.0-2.0); Eosinophils # (auto) 0.1 10 ^3/uL (0-0.8); Eosinophils % (auto) 1.2 % (0.0-7.0); Hematocrit 36.5 % (36.0-46.0); Hemoglobin 12.4 g/dL (12.2-16.2); Lymphocytes # (auto) 3.2 10 ^3/uL (0.4-5.4); Lymphocytes % (auto) 50.6 % (10.0-50.0); Mean Corpuscular Hemoglobin 30.9 pg (28.0-32.0); Mean Corpuscular Hgb Conc. 34.1 g/dL (32.0-36.0); Mean Corpuscular Volume 90.5 fL (80.0-100.0); Monocytes # (auto) 0.8 10 ^3/uL (0-1.3); Monocytes % (auto) 12.3 % (0.0-12.0); Neutrophils # (auto) 2.2 10 ^3/uL (1.6-8.6); Neutrophils % (auto) 35.6 % (37.0-80.0); Nucleated Red Blood Cells % 0.2 %; Platelet Count (auto) 200 10^3/uL (140-450); Red Blood Cells 4.03 10^6/uL (4.0-5.20); Red Cell Distribution Width 19.8 % (11.8-14.3); White Blood Cell 6.3 10^3/uL (4.4-10.8)
[2024-03-31 16:17] LABS: Alanine Aminotransferase 21 U/L (7-40); Albumin 4.3 g/dL (3.2-4.8); Alkaline Phosphatase 73 U/L (46-116); Anion Gap 7 (5-15); Aspartate Aminotransferase 34 U/L (13-40); BUN/Creatinine Ratio 10.7 (10.0-20.0); Bilirubin, Total 0.2 mg/dL (0.2-1.0); Blood Urea Nitrogen 13 mg/dL (9-23); Calcium 10.1 mg/dL (8.7-10.4); Carbon Dioxide 27 mmol/L (20-31); Chloride 108 mmol/L (98-107); Glucose 96 mg/dL (74-106); Potassium 3.8 mmol/L (3.5-5.1); Sodium 142 mmol/L (136-145); Total Protein 7.1 g/dL (5.7-8.2)
== END | disposition home or self-care (01) ==
LOC: LAB 15:12
DX: C67.2 Malignant neoplasm of lateral wall of bladder (principal)
CPT/HCPCS: 36415; 80053; 84100; 84439; 84443; 85025

== ENCOUNTER → 2024-04-07 | Outpatient (CLI) | payer BC ==
[2024-04-07 11:36] LABS: Basophils # (auto) 0 10 ^3/uL (0-0.2); Basophils % (auto) 0.5 % (0.0-2.0); Eosinophils # (auto) 0.1 10 ^3/uL (0-0.8); Eosinophils % (auto) 1.4 % (0.0-7.0); Hematocrit 38.2 % (36.0-46.0); Hemoglobin 12.9 g/dL (12.2-16.2); Lymphocytes # (auto) 2.4 10 ^3/uL (0.4-5.4); Lymphocytes % (auto) 45.5 % (10.0-50.0); Mean Corpuscular Hgb Conc. 33.9 g/dL (32.0-36.0); Mean Corpuscular Volume 91.6 fL (80.0-100.0); Monocytes # (auto) 0.3 10 ^3/uL (0-1.3); Monocytes % (auto) 5.7 % (0.0-12.0); Neutrophils # (auto) 2.5 10 ^3/uL (1.6-8.6); Neutrophils % (auto) 46.9 % (37.0-80.0); Nucleated Red Blood Cells % 0.1 %; Platelet Count (auto) 178 10^3/uL (140-450); Red Blood Cells 4.17 10^6/uL (4.0-5.20); Red Cell Distribution Width 19.9 % (11.8-14.3); White Blood Cell 5.4 10^3/uL (4.4-10.8)
[2024-04-07 11:51] LABS: Alanine Aminotransferase 13 U/L (7-40); Alkaline Phosphatase 73 U/L (46-116); Anion Gap 8 (5-15); BUN/Creatinine Ratio 14.1 (10.0-20.0); Blood Urea Nitrogen 18 mg/dL (9-23); Calcium 10.1 mg/dL (8.7-10.4); Carbon Dioxide 26 mmol/L (20-31); Potassium 4.5 mmol/L (3.5-5.1); Sodium 141 mmol/L (136-145)
[2024-04-07 11:52] LABS: Albumin 4.4 g/dL (3.2-4.8); Aspartate Aminotransferase 27 U/L (13-40); Chloride 107 mmol/L (98-107); Glucose 114 mg/dL (74-106); Phosphorus 3.7 mg/dL (2.4-5.1); Total Protein 7.3 g/dL (5.7-8.2)
[2024-04-07 12:10] LABS: Bilirubin, Total 0.3 mg/dL (0.2-1.0)
== END | disposition home or self-care (01) ==
LOC: LAB 10:53
DX: C67.2 Malignant neoplasm of lateral wall of bladder (principal)
CPT/HCPCS: 36415; 80053; 84100; 84439; 84443; 85025

== ENCOUNTER → 2024-04-14 | Outpatient (CLI) | payer BC ==
[2024-04-14 10:43] LABS: Basophils # (auto) 0 10 ^3/uL (0-0.2); Basophils % (auto) 0.5 % (0.0-2.0); Eosinophils # (auto) 0.1 10 ^3/uL (0-0.8); Eosinophils % (auto) 1.3 % (0.0-7.0); Hematocrit 40.4 % (36.0-46.0); Hemoglobin 13.5 g/dL (12.2-16.2); Lymphocytes # (auto) 2.7 10 ^3/uL (0.4-5.4); Lymphocytes % (auto) 43.1 % (10.0-50.0); Mean Corpuscular Hemoglobin 30.6 pg (28.0-32.0); Mean Corpuscular Hgb Conc. 33.4 g/dL (32.0-36.0); Mean Corpuscular Volume 91.5 fL (80.0-100.0); Monocytes # (auto) 0.4 10 ^3/uL (0-1.3); Monocytes % (auto) 6.3 % (0.0-12.0); Neutrophils # (auto) 3.1 10 ^3/uL (1.6-8.6); Neutrophils % (auto) 48.8 % (37.0-80.0); Nucleated Red Blood Cells % 0.1 %; Platelet Count (auto) 128 10^3/uL (140-450); Red Blood Cells 4.41 10^6/uL (4.0-5.20); Red Cell Distribution Width 19.2 % (11.8-14.3); White Blood Cell 6.3 10^3/uL (4.4-10.8)
[2024-04-14 11:36] LABS: Alanine Aminotransferase 17 U/L (7-40); Alkaline Phosphatase 84 U/L (46-116); Anion Gap 7 (5-15); BUN/Creatinine Ratio 12.7 (10.0-20.0); Blood Urea Nitrogen 17 mg/dL (9-23); Carbon Dioxide 26 mmol/L (20-31); Potassium 4.6 mmol/L (3.5-5.1); Sodium 141 mmol/L (136-145)
[2024-04-14 11:38] LABS: Albumin 4.6 g/dL (3.2-4.8); Aspartate Aminotransferase 38 U/L (13-40); Phosphorus 3.7 mg/dL (2.4-5.1); Total Protein 7.2 g/dL (5.7-8.2)
[2024-04-14 11:52] LABS: Bilirubin, Total 0.3 mg/dL (0.2-1.0); Calcium 10.5 mg/dL (8.7-10.4); Chloride 108 mmol/L (98-107); Glucose 115 mg/dL (74-106)
== END | disposition home or self-care (01) ==
LOC: LAB 10:16
DX: C67.2 Malignant neoplasm of lateral wall of bladder (principal)
CPT/HCPCS: 36415; 80053; 84100; 84439; 84443; 85025

== ENCOUNTER → 2024-04-22 | Outpatient (CLI) | payer BC ==
[2024-04-22 13:15] LABS: Basophils # (auto) 0 10 ^3/uL (0-0.2); Basophils % (auto) 0.2 % (0.0-2.0); Eosinophils # (auto) 0 10 ^3/uL (0-0.8); Eosinophils % (auto) 0.7 % (0.0-7.0); Hematocrit 41.7 % (36.0-46.0); Hemoglobin 14.2 g/dL (12.2-16.2); Lymphocytes # (auto) 2.3 10 ^3/uL (0.4-5.4); Lymphocytes % (auto) 39.2 % (10.0-50.0); Mean Corpuscular Hemoglobin 31.3 pg (28.0-32.0); Mean Corpuscular Hgb Conc. 34.1 g/dL (32.0-36.0); Mean Corpuscular Volume 91.7 fL (80.0-100.0); Monocytes # (auto) 0.3 10 ^3/uL (0-1.3); Monocytes % (auto) 4.3 % (0.0-12.0); Neutrophils # (auto) 3.3 10 ^3/uL (1.6-8.6); Neutrophils % (auto) 55.6 % (37.0-80.0); Nucleated Red Blood Cells % 0.1 %; Platelet Count (auto) 129 10^3/uL (140-450); Red Blood Cells 4.55 10^6/uL (4.0-5.20); Red Cell Distribution Width 17.6 % (11.8-14.3)
[2024-04-22 14:20] LABS: Alanine Aminotransferase 18 U/L (7-40); Alkaline Phosphatase 82 U/L (46-116); Anion Gap 11 (5-15); BUN/Creatinine Ratio 10.9 (10.0-20.0); Bilirubin, Total 0.4 mg/dL (0.2-1.0); Blood Urea Nitrogen 14 mg/dL (9-23); Carbon Dioxide 24 mmol/L (20-31); Chloride 104 mmol/L (98-107); Phosphorus 3.9 mg/dL (2.4-5.1); Sodium 139 mmol/L (136-145); Total Protein 7.9 g/dL (5.7-8.2)
[2024-04-22 14:26] LABS: Albumin 5.1 g/dL (3.2-4.8); Aspartate Aminotransferase 45 U/L (13-40); Calcium 10.8 mg/dL (8.7-10.4); Glucose 142 mg/dL (74-106)
== END | disposition home or self-care (01) ==
LOC: LAB 12:44
DX: C67.2 Malignant neoplasm of lateral wall of bladder (principal)
CPT/HCPCS: 36415; 80053; 84100; 84439; 84443; 85025

== ENCOUNTER → 2024-04-28 | Outpatient (CLI) | payer BC ==
[2024-04-28 13:26] LABS: Basophils # (auto) 0 10 ^3/uL (0-0.2); Basophils % (auto) 0.4 % (0.0-2.0); Eosinophils # (auto) 0.1 10 ^3/uL (0-0.8); Eosinophils % (auto) 1.5 % (0.0-7.0); Hematocrit 38.3 % (36.0-46.0); Lymphocytes # (auto) 2.1 10 ^3/uL (0.4-5.4); Lymphocytes % (auto) 43.4 % (10.0-50.0); Mean Corpuscular Hemoglobin 31.2 pg (28.0-32.0); Mean Corpuscular Volume 91.8 fL (80.0-100.0); Monocytes # (auto) 0.4 10 ^3/uL (0-1.3); Monocytes % (auto) 8.5 % (0.0-12.0); Neutrophils # (auto) 2.2 10 ^3/uL (1.6-8.6); Neutrophils % (auto) 46.2 % (37.0-80.0); Nucleated Red Blood Cells % 0.2 %; Platelet Count (auto) 190 10^3/uL (140-450); Red Blood Cells 4.17 10^6/uL (4.0-5.20); Red Cell Distribution Width 17.6 % (11.8-14.3); White Blood Cell 4.8 10^3/uL (4.4-10.8)
[2024-04-28 14:01] LABS: Alanine Aminotransferase 18 U/L (7-40); Albumin 4.6 g/dL (3.2-4.8); Alkaline Phosphatase 76 U/L (46-116); Anion Gap 8 (5-15); Aspartate Aminotransferase 24 U/L (13-40); BUN/Creatinine Ratio 9.6 (10.0-20.0); Blood Urea Nitrogen 12 mg/dL (9-23); Calcium 10.4 mg/dL (8.7-10.4); Carbon Dioxide 27 mmol/L (20-31); Chloride 107 mmol/L (98-107); Phosphorus 3.5 mg/dL (2.4-5.1); Potassium 4.5 mmol/L (3.5-5.1); Sodium 142 mmol/L (136-145)
[2024-04-28 14:02] LABS: Total Protein 7.1 g/dL (5.7-8.2)
[2024-04-28 14:06] LABS: Bilirubin, Total 0.2 mg/dL (0.2-1.0); Glucose 113 mg/dL (74-106)
== END | disposition home or self-care (01) ==
LOC: LAB 12:45
DX: C67.2 Malignant neoplasm of lateral wall of bladder (principal)
CPT/HCPCS: 36415; 80053; 84100; 84439; 84443; 85025

== ENCOUNTER → 2024-05-06 | Outpatient (CLI) | payer BC ==
[2024-05-06 10:03] LABS: Basophils # (auto) 0.1 10 ^3/uL (0-0.2); Eosinophils # (auto) 0.1 10 ^3/uL (0-0.8); Eosinophils % (auto) 1.3 % (0.0-7.0); Hematocrit 39.9 % (36.0-46.0); Hemoglobin 13.5 g/dL (12.2-16.2); Lymphocytes # (auto) 2.4 10 ^3/uL (0.4-5.4); Lymphocytes % (auto) 42.5 % (10.0-50.0); Mean Corpuscular Hemoglobin 31.3 pg (28.0-32.0); Mean Corpuscular Hgb Conc. 33.8 g/dL (32.0-36.0); Mean Corpuscular Volume 92.5 fL (80.0-100.0); Monocytes # (auto) 0.4 10 ^3/uL (0-1.3); Monocytes % (auto) 7.5 % (0.0-12.0); Neutrophils # (auto) 2.7 10 ^3/uL (1.6-8.6); Neutrophils % (auto) 47.7 % (37.0-80.0); Nucleated Red Blood Cells % 0.1 %; Platelet Count (auto) 123 10^3/uL (140-450); Red Blood Cells 4.31 10^6/uL (4.0-5.20); Red Cell Distribution Width 16.2 % (11.8-14.3); White Blood Cell 5.7 10^3/uL (4.4-10.8)
[2024-05-06 11:42] LABS: Alanine Aminotransferase 18 U/L (7-40); Anion Gap 9 (5-15); Carbon Dioxide 26 mmol/L (20-31); Chloride 105 mmol/L (98-107); Potassium 4.1 mmol/L (3.5-5.1); Sodium 140 mmol/L (136-145)
[2024-05-06 11:46] LABS: BUN/Creatinine Ratio 12.2 (10.0-20.0); Blood Urea Nitrogen 16 mg/dL (9-23)
[2024-05-06 11:47] LABS: Albumin 4.6 g/dL (3.2-4.8)
[2024-05-06 11:48] LABS: Bilirubin, Total 0.4 mg/dL (0.2-1.0); Phosphorus 4.1 mg/dL (2.4-5.1); Total Protein 7.2 g/dL (5.7-8.2)
[2024-05-06 11:58] LABS: Aspartate Aminotransferase 41 U/L (13-40); Calcium 10.5 mg/dL (8.7-10.4); Glucose 120 mg/dL (74-106)
[2024-05-06 12:29] LABS: Alkaline Phosphatase 74 U/L (46-116)
== END | disposition home or self-care (01) ==
LOC: LAB 09:43
DX: C67.2 Malignant neoplasm of lateral wall of bladder (principal)
CPT/HCPCS: 36415; 80053; 84100; 84439; 84443; 85025

== ENCOUNTER → 2024-05-21 | Outpatient (CLI) | payer BC ==
[2024-05-21 11:22] LABS: Hematocrit 38.6 % (36.0-46.0); Hemoglobin 12.9 g/dL (12.2-16.2); Mean Corpuscular Hemoglobin 30.9 pg (28.0-32.0); Mean Corpuscular Hgb Conc. 33.4 g/dL (32.0-36.0); Mean Corpuscular Volume 92.4 fL (80.0-100.0); Platelet Count (auto) 142 10^3/uL (140-450); Red Blood Cells 4.17 10^6/uL (4.0-5.20); Red Cell Distribution Width 15.5 % (11.8-14.3); White Blood Cell 5.2 10^3/uL (4.4-10.8)
[2024-05-21 11:40] LABS: Band Neutrophils % (manual) 0; Basophils % (manual) 0 (0.0-2.0); Blast Cells 0; Metamyelocytes % 0; Myelocytes % 0; Promyelocytes % 0; Reactive Lymphocytes 0
[2024-05-21 12:53] LABS: Alanine Aminotransferase 16 U/L (7-40); Albumin 4.4 g/dL (3.2-4.8); Alkaline Phosphatase 75 U/L (46-116); Anion Gap 7 (5-15); Aspartate Aminotransferase 28 U/L (13-40); BUN/Creatinine Ratio 11.5 (10.0-20.0); Blood Urea Nitrogen 14 mg/dL (9-23); Calcium 9.9 mg/dL (8.7-10.4); Carbon Dioxide 26 mmol/L (20-31); Glucose 100 mg/dL (74-106); Potassium 3.9 mmol/L (3.5-5.1); Sodium 142 mmol/L (136-145)
[2024-05-21 12:54] LABS: Bilirubin, Total 0.3 mg/dL (0.2-1.0); Eosinophils % (manual) 2 (0-7); Lymphocytes % (manual) 57 (10.0-50.0); Monocytes % (manual) 6 (0-12); Phosphorus 3.4 mg/dL (2.4-5.1); Platelet Estimate Adequate; Total Protein 6.8 g/dL (5.7-8.2)
[2024-05-21 13:01] LABS: Chloride 109 mmol/L (98-107)
== END | disposition home or self-care (01) ==
LOC: LAB 11:00
DX: C67.2 Malignant neoplasm of lateral wall of bladder (principal)
CPT/HCPCS: 36415; 80053; 84100; 84439; 84443; 85007; 85027

== ENCOUNTER → 2024-05-27 | Outpatient (CLI) | payer BC ==
[2024-05-27 14:55] LABS: Basophils # (auto) 0 10 ^3/uL (0-0.2); Basophils % (auto) 0.6 % (0.0-2.0); Eosinophils # (auto) 0.1 10 ^3/uL (0-0.8); Eosinophils % (auto) 1.3 % (0.0-7.0); Hematocrit 40.3 % (36.0-46.0); Hemoglobin 13.5 g/dL (12.2-16.2); Lymphocytes # (auto) 2.6 10 ^3/uL (0.4-5.4); Lymphocytes % (auto) 42.4 % (10.0-50.0); Mean Corpuscular Hgb Conc. 33.5 g/dL (32.0-36.0); Mean Corpuscular Volume 92.6 fL (80.0-100.0); Monocytes # (auto) 0.4 10 ^3/uL (0-1.3); Monocytes % (auto) 6.3 % (0.0-12.0); Neutrophils # (auto) 3.1 10 ^3/uL (1.6-8.6); Neutrophils % (auto) 49.4 % (37.0-80.0); Nucleated Red Blood Cells % 0.2 %; Platelet Count (auto) 122 10^3/uL (140-450); Red Blood Cells 4.35 10^6/uL (4.0-5.20); White Blood Cell 6.2 10^3/uL (4.4-10.8)
[2024-05-27 15:18] LABS: Alanine Aminotransferase 16 U/L (7-40); Albumin 4.6 g/dL (3.2-4.8); Alkaline Phosphatase 79 U/L (46-116); Anion Gap 9 (5-15); Aspartate Aminotransferase 33 U/L (13-40); Blood Urea Nitrogen 17 mg/dL (9-23); Carbon Dioxide 26 mmol/L (20-31); Chloride 105 mmol/L (98-107); Potassium 3.9 mmol/L (3.5-5.1); Sodium 140 mmol/L (136-145); Total Protein 7.3 g/dL (5.7-8.2)
[2024-05-27 15:19] LABS: Bilirubin, Total 0.3 mg/dL (0.2-1.0); Phosphorus 4.1 mg/dL (2.4-5.1)
[2024-05-27 15:28] LABS: Calcium 10.6 mg/dL (8.7-10.4); Glucose 123 mg/dL (74-106)
== END | disposition home or self-care (01) ==
LOC: LAB 14:35
DX: C67.2 Malignant neoplasm of lateral wall of bladder (principal)
CPT/HCPCS: 36415; 80053; 84100; 84439; 84443; 85025

== ENCOUNTER → 2024-06-02 | Outpatient (CLI) | payer BC ==
[2024-06-02 12:18] LABS: Basophils # (auto) 0 10 ^3/uL (0-0.2); Basophils % (auto) 0.4 % (0.0-2.0); Eosinophils # (auto) 0.1 10 ^3/uL (0-0.8); Hematocrit 41.1 % (36.0-46.0); Hemoglobin 14.1 g/dL (12.2-16.2); Lymphocytes # (auto) 2.1 10 ^3/uL (0.4-5.4); Mean Corpuscular Hemoglobin 32.1 pg (28.0-32.0); Mean Corpuscular Hgb Conc. 34.4 g/dL (32.0-36.0); Mean Corpuscular Volume 93.4 fL (80.0-100.0); Monocytes # (auto) 0.3 10 ^3/uL (0-1.3); Monocytes % (auto) 4.8 % (0.0-12.0); Neutrophils # (auto) 3.5 10 ^3/uL (1.6-8.6); Neutrophils % (auto) 58.8 % (37.0-80.0); Nucleated Red Blood Cells % 0.1 %; Platelet Count (auto) 107 10^3/uL (140-450); White Blood Cell 5.9 10^3/uL (4.4-10.8)
[2024-06-02 12:59] LABS: Alanine Aminotransferase 24 U/L (7-40); Alkaline Phosphatase 85 U/L (46-116); Anion Gap 13 (5-15); BUN/Creatinine Ratio 11.6 (10.0-20.0); Blood Urea Nitrogen 17 mg/dL (9-23); Carbon Dioxide 24 mmol/L (20-31); Chloride 104 mmol/L (98-107); Phosphorus 3.6 mg/dL (2.4-5.1); Potassium 4.1 mmol/L (3.5-5.1); Sodium 141 mmol/L (136-145); Total Protein 7.8 g/dL (5.7-8.2)
[2024-06-02 13:00] LABS: Bilirubin, Total 0.4 mg/dL (0.2-1.0)
[2024-06-02 13:02] LABS: Albumin 4.9 g/dL (3.2-4.8); Aspartate Aminotransferase 55 U/L (13-40); Calcium 10.7 mg/dL (8.7-10.4); Glucose 203 mg/dL (74-106)
== END | disposition home or self-care (01) ==
LOC: LAB 11:37
DX: C67.2 Malignant neoplasm of lateral wall of bladder (principal)
CPT/HCPCS: 36415; 80053; 84100; 84439; 84443; 85025

== ENCOUNTER → 2024-06-10 | Outpatient (CLI) | payer BC ==
[2024-06-10 12:54] LABS: Basophils # (auto) 0 10 ^3/uL (0-0.2); Basophils % (auto) 0.4 % (0.0-2.0); Eosinophils # (auto) 0.1 10 ^3/uL (0-0.8); Eosinophils % (auto) 1.1 % (0.0-7.0); Hematocrit 38.8 % (36.0-46.0); Hemoglobin 13.3 g/dL (12.2-16.2); Lymphocytes # (auto) 2.5 10 ^3/uL (0.4-5.4); Mean Corpuscular Hemoglobin 31.9 pg (28.0-32.0); Mean Corpuscular Hgb Conc. 34.3 g/dL (32.0-36.0); Mean Corpuscular Volume 93.1 fL (80.0-100.0); Monocytes # (auto) 0.5 10 ^3/uL (0-1.3); Monocytes % (auto) 7.1 % (0.0-12.0); Neutrophils # (auto) 3.7 10 ^3/uL (1.6-8.6); Neutrophils % (auto) 54.4 % (37.0-80.0); Nucleated Red Blood Cells % 0.1 %; Platelet Count (auto) 152 10^3/uL (140-450); Red Blood Cells 4.16 10^6/uL (4.0-5.20); Red Cell Distribution Width 14.9 % (11.8-14.3); White Blood Cell 6.8 10^3/uL (4.4-10.8)
[2024-06-10 13:20] LABS: Alanine Aminotransferase 21 U/L (7-40); Albumin 4.5 g/dL (3.2-4.8); Alkaline Phosphatase 80 U/L (46-116); Anion Gap 8 (5-15); Aspartate Aminotransferase 38 U/L (13-40); BUN/Creatinine Ratio 10.1 (10.0-20.0); Blood Urea Nitrogen 14 mg/dL (9-23); Calcium 10.2 mg/dL (8.7-10.4); Carbon Dioxide 27 mmol/L (20-31); Potassium 4.4 mmol/L (3.5-5.1); Sodium 142 mmol/L (136-145); Total Protein 7.3 g/dL (5.7-8.2)
[2024-06-10 13:23] LABS: Bilirubin, Total 0.3 mg/dL (0.2-1.0); Chloride 107 mmol/L (98-107); Glucose 107 mg/dL (74-106)
== END | disposition home or self-care (01) ==
LOC: LAB 12:37
DX: C67.2 Malignant neoplasm of lateral wall of bladder (principal)
CPT/HCPCS: 36415; 80053; 84100; 84439; 84443; 85025

== ENCOUNTER → 2024-07-18 | Outpatient (CLI) | payer MEDICARE | END | disposition home or self-care (01) | LOC: LAB 13:27 | PROVIDERS: ATTEND Internal Medicine | DX: N39.0 Urinary tract infection, site not specified (principal) | CPT/HCPCS: 87086 ==

== ENCOUNTER 2024-08-14 15:20 | Inpatient (IN) | payer BC, MEDICARE ==
[~2024-08-14] VITALS: Ht 160 cm; Wt 81.0 kg
[~2024-08-14 15:20] MED LIST changes: +PANT40T PO; +PERCOT PO; +SIMV10TA20 PO; +TEMA30CA PO
--- NOTE | 2024-08-14 15:28 | ED.PDOC ---
History of Present Illness HPI Comments 63-year-old female with pertinent history of bladder cancer stage 4 brought in by EMS presents to the ED with a c/o weakness, fever, nausea, and vomiting. Patient had a recent bladder removal surgery and urostomy placed on July 31 at [facility]. Patient is now presenting with intermittent nausea and vomiting over the past 3 days. Patient has been unable to hold down fluids. Patient is not actively vomiting upon arrival. Patient had a temperature of 103.5F when EMS arrived on scene. Patient was not given Tylenol en route due to EMS being unable to get IV access, but they did give patient Zofran PO for the nausea. Patient is having difficult remembering details and recalling events, but is alert and oriented. Time Seen by MD: 15:16 Primary Care Provider: Ke Reviewed Notes: Medications, Allergies Allergies: Coded Allergies: Ciprofloxacin (Verified Allergy, Unknown, 02/23/22) Acetylcysteine (Verified Adverse Reaction, Mild, 02/23/22) Home Meds Active Scripts Oxcarbazepine (Trileptal) 600 Mg Tab, 300 MG PO BID, #60 TAB Prov:GERMAN GONZALEZ MD 07/08/20 Reported Medications Fenofibrate (Tricor) 48 Mg Tab, 48 MG PO DAILY, TAB 11/22/23 Oxycodone Hcl (OXYCODONE HCL) 5 Mg Tb, 7.5 MG PO PRN, TAB 11/22/23 Aripiprazole (Abilify) 20 Mg Tab, 5 MG PO DAILY, TAB 07/06/22 Cholecalciferol (VITAMIN D3) 2,000 Unit Tab, 1 TAB PO DAILY, #30 TAB 5 Refills 09/27/21 Multiple Vitamin (Multivitamins) Tab, 1 TAB PO DAILY, #90 TAB 3 Refills 09/27/21 Fish Oil (Fish Oil) 1,200 Mg Cap, 1400 MG PO DAILY, CAP 09/27/21 Magnesium Oxide (MAGNESIUM OXIDE) 400 Mg Tab, 250 MG PO DAILY, TAB 09/27/21 Specialty Vitamins Products (Biotin Plus Keratin 01661-477 Mcg-mg) 1 Tab Tab, 1 TAB PO DAILY, TAB 09/27/21 Temazepam (Restoril) 15 Mg Cp, 1 CAP PO QHSP PRN for FOR INSOMNIA 09/27/21 Escitalopram Oxalate (Lexapro) 10 Mg Tab, 1 TAB PO DAILY, #90 TAB 3 Refills 07/06/20 Information Source: Patient, Emergency Med Personnel Mode of Arrival: EMS Severity: Moderate Timing: Days Duration: Since onset Prehospital treatment: Fur Dry Cleaner, Treatment (Zofran PO) Past Medical History PAST MEDICAL HISTORY: Cancer, High Lipids, Seizures Surgical History: Cholecystectomy, , Hysterectomy, Tonsillectomy LICENSED TAX CONSULTANT History: No Pertinent LICENSED TAX CONSULTANT History Family History Family History: Reviewed,noncontributory to illness Social History Smoker: Non-Smoker Alcohol: Occasionally Drugs: Denies Drug Use Lives In: Home Constitutional: reports: fever, weakness; denies: chills, diaphoresis, fatigue, malaise, sweats, others EENTM: denies: blurred vision, double vision, ear bleeding, ear discharge, ear drainage, ear pain, ear ringing, eye pain, eye redness, hearing loss, mouth pain, mouth swelling, nasal discharge, nose bleeding, nose congestion, nose pain, photophobia, tearing, throat pain, throat swelling, voice changes, others Respiratory: denies: cough, hemoptysis, orthopnea, SOB at rest, shortness of breath, SOB with excertion, stridor, wheezing, others Cardiovascular: denies: chest pain, dizzy spells, diaphoresis, Dyspnea on exertion, edema, irregular heart beat, left arm pain, lightheadedness, palpi tations, PND, syncope, others Gastrointestinal: reports: nausea, vomiting; denies: abdomen distended, abdominal pain, blood streaked bowels, constipated, diarrhea, dysphagia, difficulty swallowing, hematemesis, melena, poor appetite, poor fluid intake, rectal bleeding, rectal pain, others Genitourinary: denies: abnormal vagina bleeding, burning, dyspareunia, dysuria, flank pain, frequency, hematuria, incontinence, pain, , vagina discharge, urgency, others Neurological: denies: dizziness, fainting, headache, left sided numbness, left sided weakness, numbness, paresthesia, pre-existing deficit, right sided numbness, right sided weakness, seizure, speech problems, tingling, tremors, weakness, others Musculoskeletal: denies: back pain, gout, joint pain, joint swelling, muscle pain, muscle stiffness, neck pain, others Integumetry: denies: bruises, change in color, change in hair/nails, dryness, laceration, lesions, lumps, rash, wounds, others Allergic/Immunocompromised: denies: Difficulty Healing, Frequent Infections, Hives, Itching, others Hematologic/Lymphatic: denies: anemia, blood clots, easy bleeding, easy bruising, swollen glands, others Endocrine: denies: excessive hunger, excessive sweating, excessive thirst, excessive urination, flushing, intolerance to cold, intolerance to heat, unexp lained weight gain, unexplained weight loss, others Psychiatric: denies: anxiety, bipolar disorder, depression, hopeless, panic disorder, schizophrenia, sleepless, suicidal, others All Other Systems: Reviewed and Negative Physical Exam General Appearance: No Apparent Distress, Normal, Other (UROSTOMY BAG IN PLACE WITH URINE) HEENT: Normal ENT Inspection, Pharynx Normal, TMs Normal Neck: Full Range of Motion, Non-Tender, Normal, Normal Inspection Respiratory: Chest Non-Tender, Lungs Clear, No Accessory Muscle Use, No Respiratory Distress, Normal Breath Sounds Cardiovascular: No Edema, No JVD, No Murmur, No Gallop, Normal Peripheral Pulses, Regular Rate/Rhythm Breast Exam: Deferred Gastrointestinal: No Organomegaly, Non Tender, No Pulsatile Mass, Normal Bowel Sounds, Soft Genitalia: Deferred Pelvic: Deferred Rectal: Deferred Extremities: No calf tenderness, Normal capillary refill, Normal inspection, Normal range of motion, Non-tender, No pedal edema Musculoskeletal : Apperance: Normal Neurologic: Alert, ornamental iron erector II-XII nml as Tested, No Motor Deficits, Normal Affect, Normal Mood, No Sensory Deficits Cerebellar Function: Normal Reflexes: Normal Skin: Dry, Normal Color, Warm Lymphatic: No Adenopathy Was a procedure done? 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: Attending Physician Indication: Hypotension, Volume resuscitation Room prepared for procedure: Yes English Horn Player performed hand hygien: Yes Maximal sterile barrier precau: Mask/Eye shield, Sterlie gloves, Large sterlie drape Skin Preparation: Chlorhexidine gluconate Skin preparation completely dr: Yes Insertion site: Right, Femoral Central line catheter type: [id number]-[id number] dialysis Number of lumens: 3 Central line exchanged over a: Yes Antiseptic ointment applied to: Yes Post Assessment: Proper placement Informed consent obtained: Yes Risks/benefits/alt described: Yes Differential Dx Considerations may include: acs, cva, infection, abscess, X-Ray, Labs, Meds, VS Vital Signs Date Time Temp Pulse Resp B/P (MAP) Pulse Ox O2 Delivery O2 Flow Rate FiO2 08/14/24 21:15 93/48 08/14/24 21:00 88/44 08/14/24 21:00 87 27 88/44 (59) 96 08/14/24 20:50 76/42 08/14/24 20:33 81/26 08/14/24 20:15 106 08/14/24 20:00 110 08/14/24 20:00 109 23 95/44 (61) 97 08/14/24 19:30 115 97 97 Nasal Cannula* 2 28 08/14/24 19:30 101.9 118 40 113/52 (72) 92 101.9 08/14/24 19:15 100.0 115 18 124/91 (102) 97 100.0 08/14/24 17:24 99.9 73 18 91/45 (60) 97 99.9 08/14/24 16:37 97 14 110/60 (77) 91 08/14/24 16:28 86 16 95/50 08/14/24 15:51 92 08/14/24 15:30 97 16 92 Room Air* 0 21 08/14/24 15:24 101.2 94 14 110/60 (77) 94 101.2 Lab Test 08/14/24 21:15 08/14/24 20:15 08/14/24 19:19 08/14/24 15:31 Range/Units Prothrombin Time 12.6 H 9.3-11.8 sec Prothrombin Time INR 1.21 H 0.9-1.15 Activated Partial Thromboplast Time 30.8 24.5-34.5 SEC Troponin I High Sensitivity 2206 *H 1223 *H 827 *H </=34 ng/L C-Reactive Protein High Sensitivity 15.39 H <1.0 mg/dL Influenza Type A Antigen Negative Negative Influenza Type B Antigen Negative Negative SARS-CoV-2 Antigen (Rapid) Negative NEGATIVE White Blood Count 12.1 H 4.4-10.8 10^3/uL Red Blood Count 3.31 L 4.0-5.20 10^6/uL Hemoglobin 10.0 L 12.2-16.2 g/dL Hematocrit 30.1 L 36.0-46.0 % Mean Corpuscular Volume 91.0 80.0-100.0 fL Mean Corpuscular Hemoglobin 30.2 28.0-32.0 pg Mean Corpuscular Hemoglobin Concent 33.2 32.0-36.0 g/dL Red Cell Distribution Width 14.7 H 11.8-14.3 % Platelet Count 334 140-450 10^3/uL Mean Platelet Volume 7.8 6.9-10.8 fL Neutrophils (%) (Auto) 89.7 H 37.0-80.0 % Lymphocytes (%) (Auto) 5.0 L 10.0-50.0 % Monocytes (%) (Auto) 4.9 0.0-12.0 % Eosinophils (%) (Auto) 0.1 0.0-7.0 % Basophils (%) (Auto) 0.3 0.0-2.0 % Neutrophils # (Auto) 10.8 H 1.6-8.6 10 ^3/uL Lymphocytes # (Auto) 0.6 0.4-5.4 10 ^3/uL Monocytes # (Auto) 0.6 0-1.3 10 ^3/uL Eosinophils # (Auto) 0 0-0.8 10 ^3/uL Basophils # (Auto) 0 0-0.2 10 ^3/uL Nucleated Red Blood Cells 0.0 % Sodium Level 138 136-145 mmol/L Potassium Level 4.8 3.5-5.1 mmol/L Chloride Level 107 98-107 mmol/L Carbon Dioxide Level 20 20-31 mmol/L Anion Gap 11 5-15 Blood Urea Nitrogen 18 9-23 mg/dL Creatinine 1.42 H 0.550-1.02 mg/dL Glomerular Filtration Rate Calc 41 >90 mL/min BUN/Creatinine Ratio 12.7 10.0-20.0 Serum Glucose 110 H 74-106 mg/dL Lactic Acid Level 0.7 0.4-2.0 mmol/L Calcium Level 8.1 L 8.7-10.4 mg/dL Total Bilirubin 0.5 0.2-1.0 mg/dL Aspartate Amino Transferase (AST) 42 H 13-40 U/L Alanine Aminotransferase (ALT) 10 7-40 U/L Alkaline Phosphatase 146 H 46-116 U/L B-Type Natriuretic Peptide 277.88 0-100 pg/mL Total Protein 6.2 5.7-8.2 g/dL Albumin 3.7 3.2-4.8 g/dL Lipase 34 12-53 U/L Current Medications Medications (Trade) Dose Ordered Sig/Alvino Route Start Time Stop Time Status Last Admin Sodium Chloride 1,000 ml @ 1,000 mls/hr Q1H ONCE IV 08/14/24 15:45 08/14/24 16:44 DC 08/14/24 15:45 Vancomycin HCl 200 ml @ 200 mls/hr ONCE ONCE IV 08/14/24 15:45 08/14/24 16:44 DC 08/14/24 15:43 Cefepime HCl 50 ml @ 12.5 mls/hr ONCE ONCE IV 08/14/24 15:45 08/14/24 19:44 DC 08/14/24 17:00 Ondansetron HCl (Zofran) 4 mg ONCE ONCE IV 08/14/24 15:45 08/14/24 15:46 DC 08/14/24 15:45 Acetaminophen (Ofirmev) 1,000 mg DAILY STAT IV 08/14/24 15:32 08/14/24 15:34 DC 08/14/24 15:41 Sodium Chloride 1,000 ml @ 1,000 mls/hr Q1H ONCE IV 08/14/24 17:30 08/14/24 18:29 DC 08/14/24 17:21 Lactated Ringer's 1,000 ml @ 1,000 mls/hr Q1H ONCE IV 08/14/24 18:00 08/14/24 18:59 DC 08/14/24 18:00 Metronidazole 100 ml @ 100 mls/hr ONCE ONCE IV 08/14/24 18:15 08/14/24 19:14 DC 08/14/24 18:54 Ketamine HCl (Ketalar) 50 mg ONCE ONCE IV 08/14/24 18:15 08/14/24 18:16 DC 08/14/24 18:42 Ketamine HCl (Ketalar) 50 mg ONCE ONCE IV 08/14/24 18:30 08/14/24 18:36 DC 08/14/24 18:42 Ondansetron HCl (Zofran) 4 mg ONCE ONCE IV 08/14/24 18:30 08/14/24 18:36 DC 08/14/24 19:54 Levetiracetam 100 ml @ 400 mls/hr ONCE ONCE IV 08/14/24 18:30 08/14/24 18:44 DC 08/14/24 18:54 Norepinephrine Bitartrate 250 ml @ 3.75 mls/hr Q24H IV 08/14/24 18:30 08/14/24 20:33 Lorazepam (Ativan Inj) 1 mg ONCE ONCE IV 08/14/24 19:00 08/14/24 19:01 DC 08/14/24 18:53 Ketorolac Tromethamine (Toradol Injection) 15 mg ONCE ONCE IV 08/14/24 20:00 08/14/24 20:01 DC 08/14/24 19:52 Time of 1ST Reevaluation: 15:46 Reevaluation 1ST: Unchanged Patient Education/Counseling: Diagnosis, Treatment Family Education/Counseling: Diagnosis, Treatment Sepsis Sepsis Reasesment Focused Exam Orders: Laboratory Tests 08/14/24 15:31: Lactic Acid Level 0.7 Departure 1 Departure Time of Disposition: 18:48 (Patient with worsening mental status and likely septic. Patient was empirically started on antibiotics and fluids. CT scan shows likely pelvic abscess. Discussed with IR and they will evaluate her for drainage. ) Impression: Primary Impression: Pelvic abscess in female Additional Impressions: Intractable abdominal pain Elevated troponin Sepsis Qualified Codes: A41.9 - Sepsis, unspecified organism; R65.21 - Severe sepsis with septic shock; G93.41 - Metabolic encephalopathy Disposition: 09 ADMITTED INPATIENT Admit to: ICU Condition: Critical Critical Care Note Critical Care Time?: Yes Critical care comment: Intractable abdominal pain, septic shock Authorized and Performed by: Corey Aceves MD Total critical care time: Approximately 148 minutes Due to a high probability of clinically significant, life threatening deterioration, the patient required my highest level of preparedness to inte rvene emergently and I personally spent this critical care time directly and personally managing the patient. This critical care time included obtaining a history; examining the patient; pulse oximetry; ordering and review of studies; arranging urgent treatment with development of a management plan; evaluation of patient's response to treatment; frequent reassessment; and, discussions with other providers. This critical care time was performed to assess and manage the high probability of imminent, life-threatening deterioration that could result in multi-organ failure. It was exclusive of separately billable procedures and treating other patients and teaching time. Please see my other sections and the rest of the note for further information on patient assessment and treatment. Stability Stability form required: No I personally scribed for COREY ACEVES MD ([email or web address]) on 08/14/24 at 15:28. Electronically submitted by Juan Grant ([email or web address]). COREY ACEVES MD August 14, 2024 15:28
[2024-08-14 15:30] VITALS: PULSE 97; RESP 16; O2SAT 92
[2024-08-14] MEDS: CEFEPIME 2GM/50ML NS 50 ML IV ONE (15:39)
[2024-08-14] MEDS: ACETAMINOPHEN IV 1000 MG/100ML (10MG/ML) IV STA (15:41)
[2024-08-14] MEDS: VANCOMYCIN 1GM/200ML PM 200 ML IV ONE (15:43)
[2024-08-14] MEDS: ONDANSETRON HCL 4 MG/2 ML VIAL IV ONE ×2 (15:45→19:54)
[2024-08-14] MEDS: SODIUM CHLORIDE 0.9% 1,000 ML IV ONE ×2 (15:45→17:21)
--- NOTE | 2024-08-14 16:09 | DVH ---
INDICATION: fever TECHNIQUE: Frontal view of the chest. COMPARISON: CHEST XRAY 1 VIEW on DOS: 12/25/21, CXR1 on DOS: 12/25/21 FINDINGS: . The heart and mediastinal contours are grossly unremarkable. There is no evidence of pleural disea se. The lungs are clear. The bony structures of the chest are intact without fracture. IMPRESSION: 1. No evidence of acute disease.
[2024-08-14 16:16] LABS: Alanine Aminotransferase 10 U/L (7-40); Anion Gap 11 (5-15); BUN/Creatinine Ratio 12.7 (10.0-20.0); Blood Urea Nitrogen 18 mg/dL (9-23); Carbon Dioxide 20 mmol/L (20-31); Chloride 107 mmol/L (98-107); Lipase 34 U/L (12-53); Potassium 4.8 mmol/L (3.5-5.1); Sodium 138 mmol/L (136-145); Total Protein 6.2 g/dL (5.7-8.2)
[2024-08-14 16:17] LABS: Albumin 3.7 g/dL (3.2-4.8); Bilirubin, Total 0.5 mg/dL (0.2-1.0)
[2024-08-14 16:19] LABS: Alkaline Phosphatase 146 U/L (46-116); Aspartate Aminotransferase 42 U/L (13-40); Calcium 8.1 mg/dL (8.7-10.4); Glucose 110 mg/dL (74-106)
[2024-08-14] MEDS: MORPHINE SULFATE INJ 2 MG/ml SYRG IV ONE (16:28)
[2024-08-14 16:38] LABS: Basophils # (auto) 0 10 ^3/uL (0-0.2); Basophils % (auto) 0.3 % (0.0-2.0); Eosinophils # (auto) 0 10 ^3/uL (0-0.8); Eosinophils % (auto) 0.1 % (0.0-7.0); Hematocrit 30.1 % (36.0-46.0); Lymphocytes # (auto) 0.6 10 ^3/uL (0.4-5.4); Mean Corpuscular Hemoglobin 30.2 pg (28.0-32.0); Mean Corpuscular Hgb Conc. 33.2 g/dL (32.0-36.0); Monocytes # (auto) 0.6 10 ^3/uL (0-1.3); Monocytes % (auto) 4.9 % (0.0-12.0); Neutrophils # (auto) 10.8 10 ^3/uL (1.6-8.6); Neutrophils % (auto) 89.7 % (37.0-80.0); Platelet Count (auto) 334 10^3/uL (140-450); Red Blood Cells 3.31 10^6/uL (4.0-5.20); Red Cell Distribution Width 14.7 % (11.8-14.3); White Blood Cell 12.1 10^3/uL (4.4-10.8)
[2024-08-14] MEDS: IOHEXOL 300 MG/ML 100ML BOTTLE IJ ONE (16:38)
--- NOTE | 2024-08-14 17:17 | DVH ---
EXAM: CT HEAD WITHOUT CONTRAST INDICATION: ams, hx of ca EXAM DATE: 08/14/2024 04:40 PM COMPARISON: None TECHNIQUE: CT of the head without intravenous contrast. Radiation Dose Information: CTDI volume is 57.87 mGy. Dose-length product is 927.64 mGy*cm FINDINGS: There is no evidence of acute intracranial hemorrhage, extra-axial collection, mass effect, midline s hift, herniation or hydrocephalus. The ventricles, sulci and cisterns are age appropriate. The montiel-w jess differentiation is intact. The visualized paranasal sinuses and mastoid air cells are clear. The surrounding soft tissues and osseous structures are unremarkable. There is bilateral hyperostosis fr ontalis interna. IMPRESSION: 1. No evidence of acute intracranial hemorrhage, mass effect or hydrocephalus.
--- NOTE | 2024-08-14 17:59 | DVH ---
Procedure: CT CT CHEST/AB/PL W CON- IV ONLY 08/14/2024 04:46 PM Indication: worsening pain, ams, weakness, recent surgery Comparison Study: None Technique: Axial images were obtained and reformatted in coronal and sagittal planes. All CT scans at this medical facility are performed using dose modulation techniques as appropriate to a performed e xam including the following: Automated exposure control was utilized; adjustment of the MA and/or KV according to patient size; and use of iterative reconstruction technique. CT Dose: CTDI volume is 14. 53 mGy. Dose-length product is 945.73 mGy*cm FINDINGS: Mild bibasilar subsegmental atelectasis. No pleural effusion. The heart is normal in size. Coronar y artery calcification noted. No pneumothorax. No mediastinal, hilar or axillary lymphadenopathy. Mul tinodular thyroid several subcentimeter right thyroid lobe calcifications noted. Aorta is normal in c aliber with scattered calcified plaques. Gallbladder surgically absent. Intrahepatic and extrahepatic ductal dilatation noted likely compensa tory post cholecystectomy change. The common bile duct measures up to 1 cm in caliber. The right kidney is surgically absent. No residual / recurrent disease noted. The left kidney is norm al in size with moderate hydronephrosis and hydroureter without obstructive stone. The urinary bladd er is not identified. A large, U shaped peripherally enhancing fluid collection seen in the pelvis ex tending from pelvic sidewalls to the floor of the pelvis. Extensive subcutaneous air noted in the abd omen pelvic wall likely related to recent surgery. No abdominal wall drainable fluid collection is s een. Right lower quadrant ileostomy noted. No evidence of small-bowel obstruction. Scattered colonic diverticula without evidence of diverticulitis. Mild circumferential mural thickening of the ascendi ng colon noted. No free air in the abdomen. The adrenal glands, pancreas and spleen are unremarkable. Chain sutures are seen in the gastric wall. No mesenteric, retroperitoneal or pelvic sidewall lymphadenopathy noted. Aorta is normal in caliber with scattered calcified plaques noted. No acute osseous abnormality. IMPRESSION: 1. Postoperative changes likely related to cystectomy with urinary diversion, ileal conduit right low er quadrant ileostomy. Large u shaped peripherally enhancing fluid collection / abscess noted in the pelvis extending from the bilateral pelvic sidewall to the floor of the pelvis. Suggest percutaneous drainage. 2. Large amount of subcutaneous air in the abdominal and pelvic wall likely related to recent surgery . Gas producing infection can not be ruled out. There is no subcutaneous drainable fluid collection. Recommend clinical and biochemical correlation. 3. Mild left hydronephrosis and hydroureter. 4. The right kidney is surgically absent with no evidence for residual/recurrent disease. 5. No acute abnormality in the chest.
[2024-08-14] MEDS: LACTATED RINGER'S 1,000 ML IV ONE (18:00)
[2024-08-14] MEDS: KETAMINE 50mg/ML 1ml syringe IV ONE ×2 (18:42)
[2024-08-14] MEDS: LORazepam 2MG/ML-1ML VIAL IV ONE (18:53)
[2024-08-14] MEDS: levETIRAcetam 1000 mg/100ml 100 ML IV ONE (18:54)
[2024-08-14] MEDS: metroNIDAZOLE 500MG/100ML 100 ML IV ONE (18:54)
--- NOTE | 2024-08-14 19:07 | ECG ---
[facility] Test Date: 2024-08-14 Test Time: 15:48:35 Pat Name: CHULA SOLORIO Department: ED Room: 0209T Gender: F Mems Engineer: CAROL : 1960 Requested By: COREY JACOBSON Order Number: [id number] Reading MD: Angel De Paz Measurements Intervals [place] Rate: 92 P: 33 [place]: 148 QRS: -13 QRSD: 97 T: 42 QT: 413 QTc: 511 Interpretive Statements Sinus rhythm Prolonged QT interval Baseline wander in lead(s) V1 Electronically Signed On 08-18-2024 11:57:03 PDT by Angel De Paz Please click the below link to view image of tracing.
[2024-08-14 19:30] VITALS: PULSE 115; RESP 97; O2SAT 97
[2024-08-14] MEDS: KETOROLAC TROMETH 30 MG/ML 1ML VIAL IV ONE (19:52)
[2024-08-14] MEDS: NOREPINEPHRINE 8 MG/250ML KIT 250 ML IV SCH (20:33)
--- NOTE | 2024-08-14 20:48 | DVHHP2 ---
Admitting Diagnosis: generalized weakness History of Present Illness 63-year-old female with pertinent history of bladder cancer stage 4 brought in by EMS presents to the ED with a c/o weakness, fever, nausea, and vomiting. Patient had a recent bladder removal surgery and urostomy placed on July 31 at [facility]. Patient is now presenting with intermittent nausea and vomiting over the past 3 days. Patient has been unable to hold down fluids. Patient is not actively vomiting upon arrival. Patient had a temperature of 103.5F when EMS arrived on scene. Patient was not given Tylenol en route due to EMS being unable to get IV access, but they did give patient Zofran PO for the nausea. Patient is having difficult remembering details and recalling events, but is alert and oriented. PAST MEDICAL HISTORY: Cancer, High Lipids, Seizures Surgical History: Cholecystectomy, , Hysterectomy, Tonsillectomy KIDNEY PULLER History: No Pertinent KIDNEY PULLER History Family History Family History: Reviewed,noncontributory to illness Social History Smoker: Non-Smoker Alcohol: Occasionally Drugs: Denies Drug Use Lives In: Home Patient Family History: Patient reports no known family medical history. Allergies: Coded Allergies: Ciprofloxacin (Verified Allergy, Unknown, 02/23/22) Acetylcysteine (Verified Adverse Reaction, Mild, 02/23/22) Home Meds Active Scripts Oxcarbazepine (Trileptal) 600 Mg Tab, 300 MG PO BID, #60 TAB Prov:GERMAN GONZALEZ MD 07/08/20 Reported Medications Fenofibrate (Tricor) 48 Mg Tab, 48 MG PO DAILY, TAB 11/22/23 Oxycodone Hcl (OXYCODONE HCL) 5 Mg Tb, 7.5 MG PO PRN, TAB 11/22/23 Aripiprazole (Abilify) 20 Mg Tab, 5 MG PO DAILY, TAB 07/06/22 Cholecalciferol (VITAMIN D3) 2,000 Unit Tab, 1 TAB PO DAILY, #30 TAB 5 Refills 09/27/21 Multiple Vitamin (Multivitamins) Tab, 1 TAB PO DAILY, #90 TAB 3 Refills 09/27/21 Fish Oil (Fish Oil) 1,200 Mg Cap, 1400 MG PO DAILY, CAP 09/27/21 Magnesium Oxide (MAGNESIUM OXIDE) 400 Mg Tab, 250 MG PO DAILY, TAB 09/27/21 Specialty Vitamins Products (Biotin Plus Keratin 56452-989 Mcg-mg) 1 Tab Tab, 1 TAB PO DAILY, TAB 09/27/21 Temazepam (Restoril) 15 Mg Cp, 1 CAP PO QHSP PRN for FOR INSOMNIA 09/27/21 Escitalopram Oxalate (Lexapro) 10 Mg Tab, 1 TAB PO DAILY, #90 TAB 3 Refills 07/06/20 Current Medications Current Medications Medications (Trade) Dose Ordered Sig/Alvino Route PRN Reason Start Time Stop Time Status Last Admin Acetaminophen (Ofirmev) 1,000 mg DAILY STAT IV 08/14/24 15:32 08/14/24 15:34 DC 08/14/24 15:41 Norepinephrine Bitartrate 250 ml @ 3.75 mls/hr Q24H IV 08/14/24 18:30 08/14/24 20:33 Vancomycin HCl 0 ml @ 0 mls/hr UD IV 08/14/24 21:30 UNV Piperacillin Sod/ Tazobactam Sod 100 ml @ 100 mls/hr Q6H IV 08/14/24 21:30 UNV Levetiracetam 100 ml @ 400 mls/hr BID IV 08/14/24 22:00 Multivitamins (Mvi Tab) 1 tab DAILY PO 08/15/24 10:00 Patient Own Medication 5 mg DAILY PO 08/15/24 10:00 UNV Patient Own Medication 1 tab DAILY PO 08/15/24 10:00 UNV Patient Own Medication 1 tab DAILY PO 08/15/24 10:00 UNV Patient Own Medication 48 mg DAILY PO 08/15/24 10:00 UNV Patient Own Medication 1,400 mg DAILY PO 08/15/24 10:00 UNV Patient Own Medication 250 mg DAILY PO 08/15/24 10:00 UNV Patient Own Medication 300 mg BID PO 08/14/24 22:00 UNV Patient Own Medication 1 tab DAILY PO 08/15/24 10:00 UNV Sodium Chloride (Saline Lock Ns) 10 ml Q8HR IV 08/14/24 22:00 Docusate Sodium (Colace Capsule) 100 mg BIDPRN PRN PO FOR CONSTIPATION 08/14/24 21:30 Acetaminophen (Tylenol Tablet) 650 mg Q6HP PRN PO PAIN SCALE 1-3 OR TEMP>100.4 08/14/24 21:30 Ondansetron HCl (Zofran) 4 mg Q4HP PRN IV NAUSEA / VOMITING 08/14/24 21:30 UNV Vital Signs Vital Signs Date Time Temp Pulse Resp B/P (MAP) Pulse Ox O2 Delivery O2 Flow Rate FiO2 08/14/24 20:50 76/42 08/14/24 20:15 106 08/14/24 19:15 100.0 18 97 100.0 08/14/24 15:30 Room Air* 0 21 Physical Exam Generally 63 years old woman well nourished well developed. Mild distress HEENT-atraumatic, normocephalic Heart-regular rate and rhythm Lungs decreased breath sounds Abdomen soft, tender to palpate, nondistended Musculoskeletal-+edema, no cyanosis Neuro-awake alert, strength and sensation intact Results Labs Test 08/14/24 21:15 08/14/24 20:15 08/14/24 15:31 Range/Units White Blood Count 12.1 H 4.4-10.8 10^3/uL Red Blood Count 3.31 L 4.0-5.20 10^6/uL Hemoglobin 10.0 L 12.2-16.2 g/dL Hematocrit 30.1 L 36.0-46.0 % Mean Corpuscular Volume 91.0 80.0-100.0 fL Mean Corpuscular Hemoglobin 30.2 28.0-32.0 pg Mean Corpuscular Hemoglobin Concent 33.2 32.0-36.0 g/dL Red Cell Distribution Width 14.7 H 11.8-14.3 % Platelet Count 334 140-450 10^3/uL Mean Platelet Volume 7.8 6.9-10.8 fL Neutrophils (%) (Auto) 89.7 H 37.0-80.0 % Lymphocytes (%) (Auto) 5.0 L 10.0-50.0 % Monocytes (%) (Auto) 4.9 0.0-12.0 % Eosinophils (%) (Auto) 0.1 0.0-7.0 % Basophils (%) (Auto) 0.3 0.0-2.0 % Neutrophils # (Auto) 10.8 H 1.6-8.6 10 ^3/uL Lymphocytes # (Auto) 0.6 0.4-5.4 10 ^3/uL Monocytes # (Auto) 0.6 0-1.3 10 ^3/uL Eosinophils # (Auto) 0 0-0.8 10 ^3/uL Basophils # (Auto) 0 0-0.2 10 ^3/uL Nucleated Red Blood Cells 0.0 % Sodium Level 138 136-145 mmol/L Potassium Level 4.8 3.5-5.1 mmol/L Chloride Level 107 98-107 mmol/L Carbon Dioxide Level 20 20-31 mmol/L Anion Gap 11 5-15 Blood Urea Nitrogen 18 9-23 mg/dL Creatinine 1.42 H 0.550-1.02 mg/dL Glomerular Filtration Rate Calc 41 >90 mL/min BUN/Creatinine Ratio 12.7 10.0-20.0 Serum Glucose 110 H 74-106 mg/dL Lactic Acid Level 0.7 0.4-2.0 mmol/L Calcium Level 8.1 L 8.7-10.4 mg/dL Total Bilirubin 0.5 0.2-1.0 mg/dL Aspartate Amino Transferase (AST) 42 H 13-40 U/L Alanine Aminotransferase (ALT) 10 7-40 U/L Alkaline Phosphatase 146 H 46-116 U/L B-Type Natriuretic Peptide 277.88 0-100 pg/mL Total Protein 6.2 5.7-8.2 g/dL Albumin 3.7 3.2-4.8 g/dL Lipase 34 12-53 U/L Primary Diagnosis Septic shock likely due to pelvic abscess QUINN on CKD Stage IV bladder cancer Elevated troponin rule out ACS Plan Patient has had a new conduit bladder CT abdomen and pelvis shows pelvic abscess draining to the pelvic floor Vanc and Zosyn for broad-spectrum antibiotics on levophed for pressor support MAP > 65 while in shock Check blood culture Check UA and urine culture Elevated troponin trend until plateau. If elevated repeat EKG Cardiology consult for elevated troponin rule out ACS. If trop trend up, or change in EKG, start heparin ggt. Nephrology consult IV fluids for resuscitation Pressor support for septic shock Map goal greater than 65 Resume home meds hold antihypertensives Full code Heparin for DVT prophylaxis PPI for GI prophylaxis Plan discussed with: Patient, Daughter Problems List: (1) Dehydration Status: Acute (2) Generalized weakness Status: Acute (3) Acute abdominal pain Status: Acute (4) Seizure Status: Acute (5) Pelvic abscess in female Status: Acute (6) Elevated troponin Status: Acute Date of Service: August 14, 2024 Billing Provider: JESSICA CAMPO MD Common Visit Codes: [id number] CARE 30-74 MIN JESSICA CAMPO MD August 14, 2024 20:48
[2024-08-14] MEDS ORDERED: VANCOMYCIN PER PHARMACY 0 MG IV SCH (21:30)
[2024-08-14] MEDS ORDERED: DOCUSATE SOD 100 MG CAP PO PRN (21:30)
[2024-08-14 21:40] LABS: COVID19 ANTIGEN SOFIA FIA NEGATIVE (NEGATIVE); Rapid Influenza A Negative (Negative); Rapid Influenza B Negative (Negative)
[2024-08-14] MEDS: levETIRAcetam 1000 mg/100ml 100 ML IV SCH (22:00)
[2024-08-14] MEDS ORDERED: PIPERACILLIN-TAZOB 3.375GM 100 ML IV SCH (22:00)
[2024-08-14 22:13] LABS: Hematocrit 28.8 % (36.0-46.0); Hemoglobin 9.3 g/dL (12.2-16.2); Mean Corpuscular Hemoglobin 30.1 pg (28.0-32.0); Mean Corpuscular Hgb Conc. 32.2 g/dL (32.0-36.0); Mean Corpuscular Volume 93.5 fL (80.0-100.0); Platelet Count (auto) 285 10^3/uL (140-450); Red Blood Cells 3.08 10^6/uL (4.0-5.20); Red Cell Distribution Width 14.7 % (11.8-14.3); White Blood Cell 6.9 10^3/uL (4.4-10.8)
[2024-08-14] MEDS: OXcarbazepine 300 MG TAB PO SCH (22:15)
[2024-08-14 22:18] LABS: Basophils % (manual) 0 (0.0-2.0); Blast Cells 0; Eosinophils % (manual) 0 (0-7); Metamyelocytes % 0; Myelocytes % 0; Promyelocytes % 0; Reactive Lymphocytes 0
[2024-08-14 22:21] LABS: INR 1.21 (0.9-1.15); Partial Thromboplastin Time 30.8 SEC (24.5-34.5); Prothrombin Time 12.6 sec (9.3-11.8)
[2024-08-14] MEDS: SODIUM CHLOR 0.9% PF (SALINE LOCK) 10ML VIAL/SYR IV SCH (22:23)
[2024-08-14] MEDS: PIPERACILLIN-TAZOB 3.375GM 100 ML IV ONE (22:26)
[2024-08-14 22:29] LABS: Band Neutrophils % (manual) 9; Lymphocytes % (manual) 4 (10.0-50.0); Monocytes % (manual) 5 (0-12); Platelet Estimate Adequate
[2024-08-14] MEDS: HEPARIN SODIUM (PORCINE) 5000 UNITS/ML 1ML VIAL IV ONE (22:39)
[2024-08-14] MEDS: HEPARIN DRIP/D5W 100UNITS/ML 250 ML IV SCH (22:41)
[2024-08-14] MEDS: VASOPRESSIN 20 UNITS in SODIUM CHL 0.9% 99 ML IV SCH (23:03)
[2024-08-15] VITALS (22 sets, daily range): BP systolic 87–108; BP diastolic 51–64; PULSE 55–79; RESP 12–79; TEMP 97.5; O2SAT 90–100
--- NOTE | 2024-08-15 03:23 | ECG ---
[facility] Test Date: 2024-08-14 Test Time: 20:15:18 Pat Name: CHULA SOLORIO Department: ED Room: 0209T Gender: F Professor/Nurse Anesthetist: NAYE : 1960 Requested By: COREY JACOBSON Order Number: [id number] Reading MD: Angel De Paz Measurements Intervals [place] Rate: 106 P: 52 [place]: 144 QRS: 2 QRSD: 99 T: 56 QT: 371 QTc: 493 Interpretive Statements Sinus tachycardia Borderline prolonged QT interval Electronically Signed On 08-18-2024 11:59:01 PDT by Angel De Paz Please click the below link to view image of tracing.
[2024-08-15 04:54] LABS: Basophils # (auto) 0 10 ^3/uL (0-0.2); Eosinophils # (auto) 0 10 ^3/uL (0-0.8); Eosinophils % (auto) 0.2 % (0.0-7.0); Hemoglobin 8.4 g/dL (12.2-16.2); Lymphocytes # (auto) 0.9 10 ^3/uL (0.4-5.4); Mean Corpuscular Hemoglobin 30.2 pg (28.0-32.0); Monocytes # (auto) 0.5 10 ^3/uL (0-1.3); Red Blood Cells 2.77 10^6/uL (4.0-5.20); Red Cell Distribution Width 14.9 % (11.8-14.3)
[2024-08-15 04:56] LABS: Basophils % (auto) 0.3 % (0.0-2.0); Hematocrit 25.9 % (36.0-46.0); Lymphocytes % (auto) 6.6 % (10.0-50.0); Mean Corpuscular Hgb Conc. 32.3 g/dL (32.0-36.0); Mean Corpuscular Volume 93.6 fL (80.0-100.0); Monocytes % (auto) 3.7 % (0.0-12.0); Neutrophils % (auto) 89.2 % (37.0-80.0); Platelet Count (auto) 248 10^3/uL (140-450); White Blood Cell 13.5 10^3/uL (4.4-10.8)
[2024-08-15 05:14] LABS: Alanine Aminotransferase 14 U/L (7-40); Magnesium 1.7 mg/dL (1.6-2.6); Potassium 4.3 mmol/L (3.5-5.1)
[2024-08-15 05:15] LABS: Albumin 3.3 g/dL (3.2-4.8); Anion Gap 11 (5-15); BUN/Creatinine Ratio 12.2 (10.0-20.0); Bilirubin, Total 0.5 mg/dL (0.2-1.0); Blood Urea Nitrogen 21 mg/dL (9-23); Sodium 140 mmol/L (136-145); Total Protein 5.8 g/dL (5.7-8.2)
[2024-08-15 05:19] LABS: Alkaline Phosphatase 214 U/L (46-116); Aspartate Aminotransferase 60 U/L (13-40); Calcium 7.7 mg/dL (8.7-10.4); Carbon Dioxide 19 mmol/L (20-31); Chloride 110 mmol/L (98-107); Glucose 167 mg/dL (74-106)
[2024-08-15 05:35] LABS: INR 1.22 (0.9-1.15); Partial Thromboplastin Time 55.8 SEC (24.5-34.5); Prothrombin Time 12.7 sec (9.3-11.8)
[2024-08-15] MEDS: PIPERACILLIN-TAZOB 3.375GM 100 ML IV SCH (05:50)
[2024-08-15 08:01] LABS: LDL Cholesterol 58 mg/dL (< 100)
[2024-08-15 08:03] LABS: Cholesterol 118 mg/dL (< 200)
[2024-08-15 08:06] LABS: HDL Cholesterol 19 mg/dL (40-59); Triglycerides 167 mg/dL (< 150)
[2024-08-15] MEDS: MAGNESIUM SULFATE 1GM/100ML 100 ML IV ONE (08:33)
[2024-08-15] MEDS: MIDAZOLAM HCL 2MG/2ML 2ml VIAL (1mg/ml) ONE (09:41)
[2024-08-15] MEDS: fentaNYL CITRATE 100 MCG/2 ML VL ONE (09:42)
[2024-08-15] MEDS ORDERED: MULTIPLE VITAMIN TAB PO SCH (10:00)
[2024-08-15] MEDS ORDERED: FISH OIL 1400 MG PO SCH (10:00)
[2024-08-15] MEDS ORDERED: FENOFIBRATE 48 MG PO SCH (10:00)
[2024-08-15] MEDS ORDERED: CHOLECALCIFEROL (VITD3) 1,000UNIT=25mCg TAB PO SCH (10:00)
[2024-08-15] MEDS ORDERED: MAGNESIUM OXIDE 400 MG TAB PO SCH (10:00)
[2024-08-15] MEDS ORDERED: CITALOPRAM HYDROBR 20 MG TAB PO SCH (10:00)
[2024-08-15] MEDS ORDERED: ARIPIPRAZOLE 5 MG PO SCH (10:00)
[2024-08-15] MEDS ORDERED: [UNRECOGNIZED DRUG - OTHER] PO SCH (10:00)
--- NOTE | 2024-08-15 10:12 | DVHCONRES ---
Date Seen: August 15, 2024 Resident Creating Document: TASHA MONTERO RESIDENT Reason for Consultation Elevated Troponin History of Present Illness 83-year-old female patient with past medical history of CKD status post nephrectomy, depression, seizure disorder, GERD, diverticular disease, had cance r stage IV with complaints of altered level consciousness, weakness, fever, nausea and vomiting. Patient had a recent bladder removal surgery and urostomy placed on July 31 at [facility]. Patient is now presenting with intermittent nausea and vomiting over the past 3 days. Patient has been unable to hold down fluids. Patient is not actively vomiting upon arrival. Patient had a temperature of 103.5F when EMS arrived on scene. Cardiology was consulted because patient had elevated tropes. Patient is going to mentioning of any chest pain, shortness of breath, palpitation, orthopnea, PND. patient had a stress test last year in October which was normal. Never had Any left heart catheterization. Last echocardiogram showing ejection fraction 55% with grade 1 diastolic function and RVSP of 27 mm Hg. Past Medical History described in the HPI Family History: Patient reports no known family medical history. Allergies: Coded Allergies: Ciprofloxacin (Verified Allergy, Unknown, 02/23/22) Acetylcysteine (Verified Adverse Reaction, Mild, 02/23/22) Home Meds Active Scripts Oxcarbazepine (Trileptal) 600 Mg Tab, 300 MG PO BID, #60 TAB Prov:GERMAN GONZALEZ MD 07/08/20 Reported Medications Fenofibrate (Tricor) 48 Mg Tab, 48 MG PO DAILY, TAB 11/22/23 Oxycodone Hcl (OXYCODONE HCL) 5 Mg Tb, 7.5 MG PO PRN, TAB 11/22/23 Aripiprazole (Abilify) 20 Mg Tab, 5 MG PO DAILY, TAB 07/06/22 Cholecalciferol (VITAMIN D3) 2,000 Unit Tab, 1 TAB PO DAILY, #30 TAB 5 Refills 09/27/21 Multiple Vitamin (Multivitamins) Tab, 1 TAB PO DAILY, #90 TAB 3 Refills 09/27/21 Fish Oil (Fish Oil) 1,200 Mg Cap, 1400 MG PO DAILY, CAP 09/27/21 Magnesium Oxide (MAGNESIUM OXIDE) 400 Mg Tab, 250 MG PO DAILY, TAB 09/27/21 Specialty Vitamins Products (Biotin Plus Keratin 87794-726 Mcg-mg) 1 Tab Tab, 1 TAB PO DAILY, TAB 09/27/21 Temazepam (Restoril) 15 Mg Cp, 1 CAP PO QHSP PRN for FOR INSOMNIA 09/27/21 Escitalopram Oxalate (Lexapro) 10 Mg Tab, 1 TAB PO DAILY, #90 TAB 3 Refills 07/06/20 Current Medications Current Medications Medications (Trade) Dose Ordered Sig/Alvino Route PRN Reason Start Time Stop Time Status Last Admin Acetaminophen (Ofirmev) 1,000 mg DAILY STAT IV 08/14/24 15:32 08/14/24 15:34 DC 08/14/24 15:41 Norepinephrine Bitartrate 250 ml @ 3.75 mls/hr Q24H IV 08/14/24 18:30 08/14/24 20:33 Vancomycin HCl 0 ml @ 0 mls/hr UD IV 08/14/24 21:30 Piperacillin Sod/ Tazobactam Sod 100 ml @ 25 mls/hr Q8HR IV 08/15/24 06:00 08/15/24 05:50 Levetiracetam 100 ml @ 400 mls/hr BID IV 08/14/24 22:00 Multivitamins (Mvi Tab) 1 tab DAILY PO 08/15/24 10:00 Patient Own Medication 5 mg DAILY PO 08/15/24 10:00 Cholecalciferol (Vitamin D3 Tablet) 2,000 unit DAILY PO 08/15/24 10:00 Citalopram Hydrobromide (CeleXA TABLET) 20 mg DAILY PO 08/15/24 10:00 Patient Own Medication 48 mg DAILY PO 08/15/24 10:00 Patient Own Medication 1,400 mg DAILY PO 08/15/24 10:00 Magnesium Oxide (Mag-Ox Tablet) 400 mg DAILY PO 08/15/24 10:00 Oxcarbazepine (Trileptal Tablet) 300 mg BID PO 08/14/24 22:15 Patient Own Medication 1 tab DAILY PO 08/15/24 10:00 Sodium Chloride (Saline Lock Ns) 10 ml Q8HR IV 08/14/24 22:00 08/15/24 05:50 Docusate Sodium (Colace Capsule) 100 mg BIDPRN PRN PO FOR CONSTIPATION 08/14/24 21:30 Acetaminophen (Tylenol Tablet) 650 mg Q6HP PRN PO PAIN SCALE 1-3 OR TEMP>100.4 08/14/24 21:30 Ondansetron HCl (Zofran) 4 mg Q4HP PRN IV NAUSEA / VOMITING 08/14/24 21:30 Vasopressin 20 units/Sodium Chloride 100 ml @ 9 mls/hr Q11H7M IV 08/14/24 21:45 08/14/24 23:03 Heparin Sodium/ Dextrose 250 ml @ 9 mls/hr Q24H IV 08/14/24 23:00 08/15/24 08:27 DC 08/14/24 22:41 Piperacillin Sod/ Tazobactam Sod 100 ml @ 25 mls/hr Q8HR IV 08/14/24 22:00 08/14/24 21:59 DC Review of Systems As described in HPI Vital Signs Vital Signs Date Time Temp Pulse Resp B/P (MAP) Pulse Ox O2 Delivery O2 Flow Rate FiO2 08/15/24 09:00 89/50 08/15/24 08:45 98.2 54 13 99 98.2 08/15/24 07:30 Nasal Cannula* 2 28 Physical Exam Examination General Appearance: Confused HEENT: EOMI Respiratory: Clear to auscultation, Normal air movement Cardiovascular: Regular rate, Normal S1, Normal S2 Abdominal: Normal bowel sounds Extremities: No cyanosis, No edema, Normal pulses, No tenderness/swelling Skin: No rashes, No breakdown Neuro: Confused Labs/Diagnostic Data Labs Test 08/15/24 04:34 08/14/24 21:57 08/14/24 21:15 08/14/24 20:15 Range/Units White Blood Count 13.5 #H 4.4-10.8 10^3/uL Red Blood Count 2.77 L 4.0-5.20 10^6/uL Hemoglobin 8.4 L 12.2-16.2 g/dL Hematocrit 25.9 #L 36.0-46.0 % Mean Corpuscular Volume 93.6 80.0-100.0 fL Mean Corpuscular Hemoglobin 30.2 28.0-32.0 pg Mean Corpuscular Hemoglobin Concent 32.3 32.0-36.0 g/dL Red Cell Distribution Width 14.9 H 11.8-14.3 % Platelet Count 248 140-450 10^3/uL Mean Platelet Volume 7.6 6.9-10.8 fL Neutrophils (%) (Auto) 89.2 H 37.0-80.0 % Lymphocytes (%) (Auto) 6.6 L 10.0-50.0 % Monocytes (%) (Auto) 3.7 0.0-12.0 % Eosinophils (%) (Auto) 0.2 0.0-7.0 % Basophils (%) (Auto) 0.3 0.0-2.0 % Neutrophils # (Auto) 12.0 H 1.6-8.6 10 ^3/uL Lymphocytes # (Auto) 0.9 0.4-5.4 10 ^3/uL Monocytes # (Auto) 0.5 0-1.3 10 ^3/uL Eosinophils # (Auto) 0 0-0.8 10 ^3/uL Basophils # (Auto) 0 0-0.2 10 ^3/uL Nucleated Red Blood Cells 0.0 % Prothrombin Time 12.7 H 9.3-11.8 sec Prothrombin Time INR 1.22 H 0.9-1.15 Activated Partial Thromboplast Time 55.8 H 24.5-34.5 SEC Sodium Level 140 136-145 mmol/L Potassium Level 4.3 3.5-5.1 mmol/L Chloride Level 110 H 98-107 mmol/L Carbon Dioxide Level 19 L 20-31 mmol/L Anion Gap 11 5-15 Blood Urea Nitrogen 21 9-23 mg/dL Creatinine 1.72 H 0.550-1.02 mg/dL Glomerular Filtration Rate Calc 33 >90 mL/min BUN/Creatinine Ratio 12.2 10.0-20.0 Serum Glucose 167 H 74-106 mg/dL Calcium Level 7.7 L 8.7-10.4 mg/dL Magnesium Level 1.7 1.6-2.6 mg/dL Total Bilirubin 0.5 0.2-1.0 mg/dL Aspartate Amino Transferase (AST) 60 H 13-40 U/L Alanine Aminotransferase (ALT) 14 7-40 U/L Alkaline Phosphatase 214 H 46-116 U/L Troponin I High Sensitivity 948 *H </=34 ng/L Total Protein 5.8 5.7-8.2 g/dL Albumin 3.3 3.2-4.8 g/dL Triglycerides Level 167 H < 150 mg/dL Cholesterol Level 118 < 200 mg/dL LDL Cholesterol 58 < 100 mg/dL HDL Cholesterol 19 L 40-59 mg/dL Thyroid Stimulating Hormone (TSH) 3.28 0.55-4.78 uIU/mL Random Vancomycin Level 9.1 5-10 ug/mL Differential Total Cells Counted 100.0 100 Neutrophils % (Manual) 82 H 37.0-80.0 Band Neutrophils % (Manual) 9 Lymphocytes % (Manual) 4 L 10.0-50.0 Monocytes % (Manual) 5 0-12 Eosinophils % (Manual) 0 0-7 Basophils % (Manual) 0 0.0-2.0 Metamyelocytes % (manual) 0 Myelocytes % (Manual) 0 Promyelocytes % (Manual) 0 Blast Cells % (Manual) 0 Reactive Lymphocytes 0 Platelet Estimate Adequate C-Reactive Protein High Sensitivity 15.39 H <1.0 mg/dL Influenza Type A Antigen Negative Negative Influenza Type B Antigen Negative Negative SARS-CoV-2 Antigen (Rapid) Negative NEGATIVE Test 08/14/24 15:31 Range/Units Lactic Acid Level 0.7 0.4-2.0 mmol/L B-Type Natriuretic Peptide 277.88 0-100 pg/mL Lipase 34 12-53 U/L Plan/Recommendation Assessment and plan # elevated tropes, likely NSTEMI type 2 due to sepsis, and QUINN -EKG showing normal sinus rhythm -827, 1223, 2206, 948 #Septic shock likely due to pelvic abscess #QUINN on CKD #Stage IV bladder cancer PLAN -ekg, trops -Echo, awaiting results elevated trops are likely due to NSTEMI type 2 due to sepsis, and QUINN if patient's echo results are within normal limits, we will sign off from this case Case discussion with dr Hawk Plan discussed with: Patient, Daughter TASHA MONTERO RESIDENT August 15, 2024 10:12
[2024-08-15] MEDS: ACETAMINOPHEN 325 MG TAB PO PRN (11:59)
--- NOTE | 2024-08-15 12:03 | DVH ---
CT PELVIS WO CONTRAST, HISTORY: Pelvic abscess here for drainage placement. History of bladder resection. COMPARISON: US PELVIC on DOS: 10/22/23 PROCEDURE: Informed consent was obtained. The patient was placed supine on the CT scanner. IV sedatio n was administered. The fluid collection was localized under US/CT scan and the overlying skin preppe d with chlorhexidine which was allowed to dry and draped in the usual sterile fashion and infiltrated with Xylocaine. Time out was performed. With US/CT guidance, a 19-gauge centesis needle catheter was advanced via trans-peritoneal approach into the fluid collection. Following aspiration of a small am ount of fluid, a 0.035 wire was advanced into the fluid collection. Placement was confirmed with CT s can. After serial dilatation, a 8 macanese multipurpose pigtail drain was placed into the collection. A pproximately 30 cc of serosanguinous fluid was aspirated, with specimen sent for appropriate laborato ry/cytology/laboratory and cytology evaluation. The drain was sutured at the skin surface and connect ed to suction drainage. No immediate complication was noted. Post procedure CT imaging through the dr gan site was obtained. DLP = 2021 mGy-cm. SEDATION: Dr. Amaris Husain was personally responsible for the administration of moderate sedation during the procedure performed, including the use of an independent trained observer who had no other duties during the procedure. The drugs utilized were IV fentanyl and versed (see nursing log for details). The total time of supervision by the attending physician was approximately 30 minutes. FINDINGS: Limited CT scan of through the pelvis demonstrates a medium sized fluid collection in the p shu. Collection appears complex. Post procedure scan shows pigtail drain within the collection. No immediate complication was identified. IMPRESSION: US/CT guided placement of 8 macanese pigtail drain into a pelvic abscess . PLAN: Have patient lie down on the right side to allow for fluid to drain dependently into the draina ge catheter.
--- NOTE | 2024-08-15 12:03 | DVH ---
CT PELVIS WO CONTRAST, HISTORY: Pelvic abscess here for drainage placement. History of bladder resection. COMPARISON: US PELVIC on DOS: 10/22/23 PROCEDURE: Informed consent was obtained. The patient was placed supine on the CT scanner. IV sedatio n was administered. The fluid collection was localized under US/CT scan and the overlying skin preppe d with chlorhexidine which was allowed to dry and draped in the usual sterile fashion and infiltrated with Xylocaine. Time out was performed. With US/CT guidance, a 19-gauge centesis needle catheter was advanced via trans-peritoneal approach into the fluid collection. Following aspiration of a small am ount of fluid, a 0.035 wire was advanced into the fluid collection. Placement was confirmed with CT s can. After serial dilatation, a 8 tristanian multipurpose pigtail drain was placed into the collection. A pproximately 30 cc of serosanguinous fluid was aspirated, with specimen sent for appropriate laborato ry/cytology/laboratory and cytology evaluation. The drain was sutured at the skin surface and connect ed to suction drainage. No immediate complication was noted. Post procedure CT imaging through the dr gan site was obtained. DLP = 2021 mGy-cm. SEDATION: Dr. Amaris Husain was personally responsible for the administration of moderate sedation during the procedure performed, including the use of an independent trained observer who had no other duties during the procedure. The drugs utilized were IV fentanyl and versed (see nursing log for details). The total time of supervision by the attending physician was approximately 30 minutes. FINDINGS: Limited CT scan of through the pelvis demonstrates a medium sized fluid collection in the p shu. Collection appears complex. Post procedure scan shows pigtail drain within the collection. No immediate complication was identified. IMPRESSION: US/CT guided placement of 8 tristanian pigtail drain into a pelvic abscess . PLAN: Have patient lie down on the right side to allow for fluid to drain dependently into the draina ge catheter.
--- NOTE | 2024-08-15 12:03 | DVH ---
CT PELVIS WO CONTRAST, HISTORY: Pelvic abscess here for drainage placement. History of bladder resection. COMPARISON: US PELVIC on DOS: 10/22/23 PROCEDURE: Informed consent was obtained. The patient was placed supine on the CT scanner. IV sedatio n was administered. The fluid collection was localized under US/CT scan and the overlying skin preppe d with chlorhexidine which was allowed to dry and draped in the usual sterile fashion and infiltrated with Xylocaine. Time out was performed. With US/CT guidance, a 19-gauge centesis needle catheter was advanced via trans-peritoneal approach into the fluid collection. Following aspiration of a small am ount of fluid, a 0.035 wire was advanced into the fluid collection. Placement was confirmed with CT s can. After serial dilatation, a 8 ghanaian multipurpose pigtail drain was placed into the collection. A pproximately 30 cc of serosanguinous fluid was aspirated, with specimen sent for appropriate laborato ry/cytology/laboratory and cytology evaluation. The drain was sutured at the skin surface and connect ed to suction drainage. No immediate complication was noted. Post procedure CT imaging through the dr gan site was obtained. DLP = 2021 mGy-cm. SEDATION: Dr. Amaris Husain was personally responsible for the administration of moderate sedation during the procedure performed, including the use of an independent trained observer who had no other duties during the procedure. The drugs utilized were IV fentanyl and versed (see nursing log for details). The total time of supervision by the attending physician was approximately 30 minutes. FINDINGS: Limited CT scan of through the pelvis demonstrates a medium sized fluid collection in the p shu. Collection appears complex. Post procedure scan shows pigtail drain within the collection. No immediate complication was identified. IMPRESSION: US/CT guided placement of 8 ghanaian pigtail drain into a pelvic abscess . PLAN: Have patient lie down on the right side to allow for fluid to drain dependently into the draina ge catheter.
[2024-08-15] MEDS: VANCOMYCIN 1GM/200ML PM 200 ML IV ONE (12:15)
--- NOTE | 2024-08-15 12:27 | ECG ---
[facility] Test Date: 2024-08-15 Test Time: 04:44:44 Pat Name: CHULA SOLORIO Department: ED Room: 0209T Gender: F Branch Coordinator: carri : 1960 Requested By: COREY JACOBSON Order Number: [id number] Reading MD: Angel De Paz Measurements Intervals [place] Rate: 49 P: 19 FL: 169 QRS: -9 QRSD: 102 T: 27 QT: 567 QTc: 512 Interpretive Statements Sinus bradycardia Prolonged QT interval Electronically Signed On 08-18-2024 12:01:42 PDT by Angel De Paz Please click the below link to view image of tracing.
--- NOTE | 2024-08-15 15:47 | DVHINCON2 ---
Date of service: August 15, [address] De La Paz Reason for Consultation Acute kidney injury History of Present Illness Mrs. Escamilla is a 63-year-old female with known history of stage IV bladder CA who presents for further evaluation and management of generalized weakness. She was seen in the emergency department awake alert conversant and in no acute distress currently. Medical history notable for recent cystectomy. Serum creatinine has been elevated to the mid one range and that is the reason for this consultation. Past Medical History Stage IV bladder CA Seizure disorder Allergies: Coded Allergies: Ciprofloxacin (Verified Allergy, Unknown, 02/23/22) Acetylcysteine (Verified Adverse Reaction, Mild, 02/23/22) Home Meds Active Scripts Oxcarbazepine (Trileptal) 600 Mg Tab, 300 MG PO BID, #60 TAB Prov:GERMAN GONZALEZ MD 07/08/20 Reported Medications Fenofibrate (Tricor) 48 Mg Tab, 48 MG PO DAILY, TAB 11/22/23 Oxycodone Hcl (OXYCODONE HCL) 5 Mg Tb, 7.5 MG PO PRN, TAB 11/22/23 Aripiprazole (Abilify) 20 Mg Tab, 5 MG PO DAILY, TAB 07/06/22 Cholecalciferol (VITAMIN D3) 2,000 Unit Tab, 1 TAB PO DAILY, #30 TAB 5 Refills 09/27/21 Multiple Vitamin (Multivitamins) Tab, 1 TAB PO DAILY, #90 TAB 3 Refills 09/27/21 Fish Oil (Fish Oil) 1,200 Mg Cap, 1400 MG PO DAILY, CAP 09/27/21 Magnesium Oxide (MAGNESIUM OXIDE) 400 Mg Tab, 250 MG PO DAILY, TAB 09/27/21 Specialty Vitamins Products (Biotin Plus Keratin 59008-865 Mcg-mg) 1 Tab Tab, 1 TAB PO DAILY, TAB 09/27/21 Temazepam (Restoril) 15 Mg Cp, 1 CAP PO QHSP PRN for FOR INSOMNIA 09/27/21 Escitalopram Oxalate (Lexapro) 10 Mg Tab, 1 TAB PO DAILY, #90 TAB 3 Refills 07/06/20 Current Medications Current Medications Medications (Trade) Dose Ordered Sig/Alvino Route PRN Reason Start Time Stop Time Status Last Admin Norepinephrine Bitartrate 250 ml @ 3.75 mls/hr Q24H IV 08/14/24 18:30 08/15/24 11:15 Vancomycin HCl 0 ml @ 0 mls/hr UD IV 08/14/24 21:30 Piperacillin Sod/ Tazobactam Sod 100 ml @ 25 mls/hr Q8HR IV 08/15/24 06:00 08/15/24 14:04 Levetiracetam 100 ml @ 400 mls/hr BID IV 08/14/24 22:00 08/15/24 11:33 Multivitamins (Mvi Tab) 1 tab DAILY PO 08/15/24 10:00 08/15/24 10:50 DC Patient Own Medication 5 mg DAILY PO 08/15/24 10:00 08/15/24 10:50 DC Cholecalciferol (Vitamin D3 Tablet) 2,000 unit DAILY PO 08/15/24 10:00 08/15/24 10:52 DC Citalopram Hydrobromide (CeleXA TABLET) 20 mg DAILY PO 08/15/24 10:00 08/15/24 10:50 DC Patient Own Medication 48 mg DAILY PO 08/15/24 10:00 08/15/24 10:50 DC Patient Own Medication 1,400 mg DAILY PO 08/15/24 10:00 08/15/24 10:50 DC Magnesium Oxide (Mag-Ox Tablet) 400 mg DAILY PO 08/15/24 10:00 08/15/24 10:51 DC Oxcarbazepine (Trileptal Tablet) 300 mg BID PO 08/14/24 22:15 Patient Own Medication 1 tab DAILY PO 08/15/24 10:00 08/15/24 10:51 DC Sodium Chloride (Saline Lock Ns) 10 ml Q8HR IV 08/14/24 22:00 08/15/24 05:50 Docusate Sodium (Colace Capsule) 100 mg BIDPRN PRN PO FOR CONSTIPATION 08/14/24 21:30 Acetaminophen (Tylenol Tablet) 650 mg Q6HP PRN PO PAIN SCALE 1-3 OR TEMP>100.4 08/14/24 21:30 08/15/24 11:59 Ondansetron HCl (Zofran) 4 mg Q4HP PRN IV NAUSEA / VOMITING 08/14/24 21:30 Vasopressin 20 units/Sodium Chloride 100 ml @ 9 mls/hr Q11H7M IV 08/14/24 21:45 08/14/24 23:03 Heparin Sodium/ Dextrose 250 ml @ 9 mls/hr Q24H IV 08/14/24 23:00 08/15/24 08:27 DC 08/14/24 22:41 Piperacillin Sod/ Tazobactam Sod 100 ml @ 25 mls/hr Q8HR IV 08/14/24 22:00 08/14/24 21:59 DC Multivitamins (Mvi Tab) 1 tab HS PO 08/15/24 22:00 Patient Own Medication 5 mg HS PO 08/15/24 22:00 Citalopram Hydrobromide (CeleXA TABLET) 20 mg HS PO 08/15/24 22:00 Patient Own Medication 48 mg HS PO 08/15/24 22:00 Patient Own Medication 1,400 mg HS PO 08/15/24 22:00 Magnesium Oxide (Mag-Ox Tablet) 400 mg HS PO 08/15/24 22:00 Patient Own Medication 1 tab HS PO 08/15/24 22:00 Cholecalciferol (Vitamin D3 Tablet) 2,000 unit HS PO 08/15/24 22:00 Family History: Patient reports no known family medical history. Review of Systems Denies gross hematuria, dysuria, tea or Coca-Cola colored urine Denies excessive use of recent NSAIDs, foamy urine, recent IV contrast studies Denies recent chest pain, dyspnea, PND, orthopnea Denies fever, chills, nausea, vomiting, diarrhea Denies , night sweats Denies focal weakness, numbness H&P Exam Vital Signs/I&O Vital Sign Date Time Temp Pulse Resp B/P (MAP) Pulse Ox O2 Delivery O2 Flow Rate FiO2 08/15/24 15:15 101/56 08/15/24 14:45 53 13 93 08/15/24 12:37 98.0 08/15/24 09:00 Nasal Cannula* 2 28 Intake and Output 08/14/24 08/15/24 19:00 07:00 Intake Total 3025.0 ml 846.75 ml Output Total 150 ml 350 ml Balance 2875.0 ml 496.75 ml Intake IV Total 3025.0 ml 846.75 ml Output Urine Total 150 ml 350 ml Physical Exam Gen: nad, pale chronically ill-appearing heent: nc/at, mmm lungs: cta anteriorly cvs: no rub abd: soft, bowel sounds audible ext: Trace edema skin: no rash neuro: alert and oriented Labs/Diagnostic Data Labs/Diagnostic Data Laboratory Tests Test 08/15/24 12:20 08/15/24 04:34 08/14/24 21:57 08/14/24 21:15 Range/Units White Blood Count 13.5 #H 6.9 # 4.4-10.8 10^3/uL Red Blood Count 2.77 L 3.08 L 4.0-5.20 10^6/uL Hemoglobin 8.4 L 9.3 L 12.2-16.2 g/dL Hematocrit 25.9 #L 28.8 L 36.0-46.0 % Mean Corpuscular Volume 93.6 93.5 80.0-100.0 fL Mean Corpuscular Hemoglobin 30.2 30.1 28.0-32.0 pg Mean Corpuscular Hemoglobin Concent 32.3 32.2 32.0-36.0 g/dL Red Cell Distribution Width 14.9 H 14.7 H 11.8-14.3 % Platelet Count 248 285 140-450 10^3/uL Mean Platelet Volume 7.6 7.3 6.9-10.8 fL Neutrophils (%) (Auto) 89.2 H 37.0-80.0 % Lymphocytes (%) (Auto) 6.6 L 10.0-50.0 % Monocytes (%) (Auto) 3.7 0.0-12.0 % Eosinophils (%) (Auto) 0.2 0.0-7.0 % Basophils (%) (Auto) 0.3 0.0-2.0 % Neutrophils # (Auto) 12.0 H 1.6-8.6 10 ^3/uL Lymphocytes # (Auto) 0.9 0.4-5.4 10 ^3/uL Monocytes # (Auto) 0.5 0-1.3 10 ^3/uL Eosinophils # (Auto) 0 0-0.8 10 ^3/uL Basophils # (Auto) 0 0-0.2 10 ^3/uL Nucleated Red Blood Cells 0.0 % Prothrombin Time 12.7 H 12.6 H 9.3-11.8 sec Prothrombin Time INR 1.22 H 1.21 H 0.9-1.15 Activated Partial Thromboplast Time 55.8 H 30.8 24.5-34.5 SEC Sodium Level 140 136-145 mmol/L Potassium Level 4.3 3.5-5.1 mmol/L Chloride Level 110 H 98-107 mmol/L Carbon Dioxide Level 19 L 20-31 mmol/L Anion Gap 11 5-15 Blood Urea Nitrogen 21 9-23 mg/dL Creatinine 1.72 H 0.550-1.02 mg/dL Glomerular Filtration Rate Calc 33 >90 mL/min BUN/Creatinine Ratio 12.2 10.0-20.0 Serum Glucose 167 H 74-106 mg/dL Hemoglobin A1c < 3.8 <5.7 % A1C Calcium Level 7.7 L 8.7-10.4 mg/dL Magnesium Level 1.7 1.6-2.6 mg/dL Total Bilirubin 0.5 0.2-1.0 mg/dL Aspartate Amino Transferase (AST) 60 H 13-40 U/L Alanine Aminotransferase (ALT) 14 7-40 U/L Alkaline Phosphatase 214 H 46-116 U/L Troponin I High Sensitivity 948 *H 2206 *H </=34 ng/L Total Protein 5.8 5.7-8.2 g/dL Albumin 3.3 3.2-4.8 g/dL Triglycerides Level 167 H < 150 mg/dL Cholesterol Level 118 < 200 mg/dL LDL Cholesterol 58 < 100 mg/dL HDL Cholesterol 19 L 40-59 mg/dL Thyroid Stimulating Hormone (TSH) 3.28 0.55-4.78 uIU/mL Random Vancomycin Level 9.1 5-10 ug/mL Differential Total Cells Counted 100.0 100 Neutrophils % (Manual) 82 H 37.0-80.0 Band Neutrophils % (Manual) 9 Lymphocytes % (Manual) 4 L 10.0-50.0 Monocytes % (Manual) 5 0-12 Eosinophils % (Manual) 0 0-7 Basophils % (Manual) 0 0.0-2.0 Metamyelocytes % (manual) 0 Myelocytes % (Manual) 0 Promyelocytes % (Manual) 0 Blast Cells % (Manual) 0 Reactive Lymphocytes 0 Platelet Estimate Adequate C-Reactive Protein High Sensitivity 15.39 H <1.0 mg/dL Test 08/14/24 20:15 08/14/24 19:19 08/14/24 15:31 Range/Units Influenza Type A Antigen Negative Negative Influenza Type B Antigen Negative Negative SARS-CoV-2 Antigen (Rapid) Negative NEGATIVE Troponin I High Sensitivity 1223 *H 827 *H </=34 ng/L White Blood Count 12.1 H 4.4-10.8 10^3/uL Red Blood Count 3.31 L 4.0-5.20 10^6/uL Hemoglobin 10.0 L 12.2-16.2 g/dL Hematocrit 30.1 L 36.0-46.0 % Mean Corpuscular Volume 91.0 80.0-100.0 fL Mean Corpuscular Hemoglobin 30.2 28.0-32.0 pg Mean Corpuscular Hemoglobin Concent 33.2 32.0-36.0 g/dL Red Cell Distribution Width 14.7 H 11.8-14.3 % Platelet Count 334 140-450 10^3/uL Mean Platelet Volume 7.8 6.9-10.8 fL Neutrophils (%) (Auto) 89.7 H 37.0-80.0 % Lymphocytes (%) (Auto) 5.0 L 10.0-50.0 % Monocytes (%) (Auto) 4.9 0.0-12.0 % Eosinophils (%) (Auto) 0.1 0.0-7.0 % Basophils (%) (Auto) 0.3 0.0-2.0 % Neutrophils # (Auto) 10.8 H 1.6-8.6 10 ^3/uL Lymphocytes # (Auto) 0.6 0.4-5.4 10 ^3/uL Monocytes # (Auto) 0.6 0-1.3 10 ^3/uL Eosinophils # (Auto) 0 0-0.8 10 ^3/uL Basophils # (Auto) 0 0-0.2 10 ^3/uL Nucleated Red Blood Cells 0.0 % Sodium Level 138 136-145 mmol/L Potassium Level 4.8 3.5-5.1 mmol/L Chloride Level 107 98-107 mmol/L Carbon Dioxide Level 20 20-31 mmol/L Anion Gap 11 5-15 Blood Urea Nitrogen 18 9-23 mg/dL Creatinine 1.42 H 0.550-1.02 mg/dL Glomerular Filtration Rate Calc 41 >90 mL/min BUN/Creatinine Ratio 12.7 10.0-20.0 Serum Glucose 110 H 74-106 mg/dL Lactic Acid Level 0.7 0.4-2.0 mmol/L Calcium Level 8.1 L 8.7-10.4 mg/dL Total Bilirubin 0.5 0.2-1.0 mg/dL Aspartate Amino Transferase (AST) 42 H 13-40 U/L Alanine Aminotransferase (ALT) 10 7-40 U/L Alkaline Phosphatase 146 H 46-116 U/L B-Type Natriuretic Peptide 277.88 0-100 pg/mL Total Protein 6.2 5.7-8.2 g/dL Albumin 3.7 3.2-4.8 g/dL Lipase 34 12-53 U/L Assessment IMP: 1) Hemodynamically mediated QUINN/VMN, prerenal etiology 2) CKD stage IIIA, baseline creatinine unknown 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 - we will continue to follow closely. Thank you for the consultation. Plan discussed with: Patient KEMAL REID MD August 15, 2024 15:47
[2024-08-15] MEDS: LACTATED RINGER'S 2,000 ML IV ONE (16:21)
--- NOTE | 2024-08-15 18:15 | DVHPN2 ---
Subjective in bed doing well long discussion with family at bedside Changes from previous H/P or p: No Changes Objective Vitals Vital Signs Date Time Temp Pulse Resp B/P (MAP) Pulse Ox O2 Delivery O2 Flow Rate FiO2 08/15/24 17:20 97.7 08/15/24 17:15 108/60 08/15/24 16:30 62 16 95 08/15/24 09:00 Nasal Cannula* 2 28 Intake/Output Intake and Output 08/15/24 07:00 Intake Total 3871.75 ml Output Total 500 ml Balance 3371.75 ml Intake IV Total 3871.75 ml Output Urine Total 500 ml General Appearance: Alert, Oriented X3 Lungs: Clear to auscultation Cardiovascular: Regular rate, Normal S1, Normal S2 Medications Current Medications Medications Dose Ordered Sig/Alvino Route Start Time Stop Time Status Last Admin Dose Admin Norepinephrine Bitartrate 250 ml @ 3.75 mls/hr Q24H IV 08/14/24 18:30 08/15/24 11:15 11.25 MLS/HR Vancomycin HCl 0 ml @ 0 mls/hr UD IV 08/14/24 21:30 Piperacillin Sod/ Tazobactam Sod 100 ml @ 25 mls/hr Q8HR IV 08/15/24 06:00 08/15/24 14:04 25 MLS/HR Levetiracetam 100 ml @ 400 mls/hr BID IV 08/14/24 22:00 08/15/24 11:33 400 MLS/HR Oxcarbazepine 300 mg BID PO 08/14/24 22:15 Sodium Chloride 10 ml Q8HR IV 08/14/24 22:00 08/15/24 05:50 10 ML Docusate Sodium 100 mg BIDPRN PRN PO 08/14/24 21:30 Acetaminophen 650 mg Q6HP PRN PO 08/14/24 21:30 08/15/24 17:20 650 MG Ondansetron HCl 4 mg Q4HP PRN IV 08/14/24 21:30 Vasopressin 20 units/Sodium Chloride 100 ml @ 9 mls/hr Q11H7M IV 08/14/24 21:45 08/14/24 23:03 9 MLS/HR Multivitamins 1 tab HS PO 08/15/24 22:00 Patient Own Medication 5 mg HS PO 08/15/24 22:00 Citalopram Hydrobromide 20 mg HS PO 08/15/24 22:00 Patient Own Medication 48 mg HS PO 08/15/24 22:00 Patient Own Medication 1,400 mg HS PO 08/15/24 22:00 Magnesium Oxide 400 mg HS PO 08/15/24 22:00 Patient Own Medication 1 tab HS PO 08/15/24 22:00 Cholecalciferol 2,000 unit HS PO 08/15/24 22:00 Lactated Ringer's 1,000 ml @ 125 mls/hr Q8H IV 08/15/24 18:30 Enoxaparin Sodium 30 mg DAILY SC 08/16/24 10:00 Acetaminophen/ Hydrocodone Bitart 1 tab Q6HPRN PRN PO 08/15/24 16:15 Laboratory Results Laboratory Tests 08/15/24 04:34 Chemistry Test 08/15/24 04:34 Albumin 3.3 g/dL (3.2-4.8) Calcium Level 7.7 mg/dL (8.7-10.4) L Magnesium Level 1.7 mg/dL (1.6-2.6) Total Protein 5.8 g/dL (5.7-8.2) Coagulation Test 08/14/24 21:15 08/15/24 04:34 Prothrombin Time 12.6 sec (9.3-11.8) H 12.7 sec (9.3-11.8) H Prothrombin Time INR 1.21 (0.9-1.15) H 1.22 (0.9-1.15) H Activated Partial Thromboplast Time 30.8 SEC (24.5-34.5) 55.8 SEC (24.5-34.5) H Lipid panel Test 08/15/24 04:34 Cholesterol Level 118 mg/dL (< 200) HDL Cholesterol 19 mg/dL (40-59) L Triglycerides Level 167 mg/dL (< 150) H LFT Test 08/15/24 04:34 Alanine Aminotransferase (ALT) 14 U/L (7-40) Alkaline Phosphatase 214 U/L (46-116) H Aspartate Amino Transferase (AST) 60 U/L (13-40) H Total Bilirubin 0.5 mg/dL (0.2-1.0) HgA1c, TSH Test 08/15/24 04:34 Hemoglobin A1c < 3.8 % A1C (<5.7) Thyroid Stimulating Hormone (TSH) 3.28 uIU/mL (0.55-4.78) Microbiology Microbiology Date/Time Source Procedure Growth Status 08/14/24 15:41 Blood Blood Culture - Preliminary NO GROWTH AFTER 24 HOURS OF INCUBATION. Resulted Assessment/Plan Assessment/Plan #Septic shock likely due to pelvic abscess S/P IR drainage today Continue IV vanco and zosyn Blood cx and wound cx monitor CBC daily Consult ID #QUINN on CKD Baseline around 1.2 Creat 1.4>1.7 IVF today Nephrology consulted #Stage IV bladder cancer Continue wound care #Elevated troponin rule out ACS Echo and cardiology Plan discussed with: Patient, Daughter My Orders Orders - JOHANA RILEY MD Procedure Category Date Status Time Regular Diet DIET 08/15/24 Transmitted Dinner Lactated Ringer's PHA 08/15/24 In Process 16:15 Lactated Ringer's PHA 08/15/24 In Process 18:30 Hydrocodone-Acet PHA 08/15/24 In Process 5/325mg Tab ([place] 16:15 Date of Service: August 15, 2024 Billing Provider: JOHANA RILEY MD Common Visit Codes: [id number] INP/OBS CARE(HIGH) JOHANA RILEY MD August 15, 2024 18:15
[2024-08-15] MEDS: LACTATED RINGER'S 1,000 ML IV SCH (18:36)
[2024-08-15] MEDS: CITALOPRAM HYDROBR 20 MG TAB PO SCH (21:46)
[2024-08-15] MEDS: MULTIPLE VITAMIN TAB PO SCH (21:47)
[2024-08-15] MEDS: CHOLECALCIFEROL (VITD3) 1,000UNIT=25mCg TAB PO SCH (21:47)
[2024-08-15] MEDS: MAGNESIUM OXIDE 400 MG TAB PO SCH (21:47)
[2024-08-15] MEDS: ARIPIPRAZOLE 5 MG PO SCH (21:48)
[2024-08-15] MEDS: FISH OIL 1400 MG PO SCH (21:48)
[2024-08-15] MEDS: [UNRECOGNIZED DRUG - OTHER] PO SCH (21:49)
[2024-08-15] MEDS: FENOFIBRATE 48 MG PO SCH (21:50)
--- NOTE | 2024-08-15 22:56 | DVHINCON2 ---
Date of service: August 15, 2024 Referring Physician Yola Reason for Consultation Elevated Troponin History of Present Illness This is an 83-year-old female with a past medical history of CKD status post nephrectomy, depression, seizure disorder, GERD, diverticular disease, had cancer stage IV who presented to the ED with complaints of altered level consciousness, weakness, fever, nausea and vomiting. Patient had a recent bladder removal surgery and urostomy placed on July 31 at [facility]. Patient is now presenting with intermittent nausea and vomiting over the past 3 days. Patient has been unable to hold down fluids. Patient is not actively vomiting upon arrival. Patient had a temperature of 103.5F when EMS arrived on scene. Cardiology was consulted because patient had elevated troponins. Patient is going to mentioning of any chest pain, shortness of breath, palpitation, orthopnea, PND. Patient had a stress test last year in October which was normal. Never had Any left heart catheterization. Last echocardiogram showing ejection fraction 55% with grade 1 diastolic function and RVSP of 27 mm Hg. Chest x-ray showed NAD. Family History: Patient reports no known family medical history. Allergies: Coded Allergies: Ciprofloxacin (Verified Allergy, Unknown, 08/15/24) Acetylcysteine (Verified Adverse Reaction, Mild, 08/15/24) Home Meds Active Scripts Oxcarbazepine (Trileptal) 600 Mg Tab, 300 MG PO BID, #60 TAB Prov:GERMAN GONZALEZ MD 07/08/20 Reported Medications Fenofibrate (Tricor) 48 Mg Tab, 48 MG PO DAILY, TAB 11/22/23 Oxycodone Hcl (OXYCODONE HCL) 5 Mg Tb, 7.5 MG PO PRN, TAB 11/22/23 Aripiprazole (Abilify) 20 Mg Tab, 5 MG PO DAILY, TAB 07/06/22 Cholecalciferol (VITAMIN D3) 2,000 Unit Tab, 1 TAB PO DAILY, #30 TAB 5 Refills 09/27/21 Multiple Vitamin (Multivitamins) Tab, 1 TAB PO DAILY, #90 TAB 3 Refills 09/27/21 Fish Oil (Fish Oil) 1,200 Mg Cap, 1400 MG PO DAILY, CAP 09/27/21 Magnesium Oxide (MAGNESIUM OXIDE) 400 Mg Tab, 250 MG PO DAILY, TAB 09/27/21 Specialty Vitamins Products (Biotin Plus Keratin 41565-352 Mcg-mg) 1 Tab Tab, 1 TAB PO DAILY, TAB 09/27/21 Temazepam (Restoril) 15 Mg Cp, 1 CAP PO QHSP PRN for FOR INSOMNIA 09/27/21 Escitalopram Oxalate (Lexapro) 10 Mg Tab, 1 TAB PO DAILY, #90 TAB 3 Refills 07/06/20 Current Medications Current Medications Medications (Trade) Dose Ordered Sig/Alvino Route PRN Reason Start Time Stop Time Status Last Admin Piperacillin Sod/ Tazobactam Sod 100 ml @ 25 mls/hr Q8HR IV 08/15/24 06:00 08/15/24 21:53 Levetiracetam 100 ml @ 400 mls/hr BID IV 08/14/24 22:00 08/15/24 21:42 Multivitamins (Mvi Tab) 1 tab DAILY PO 08/15/24 10:00 08/15/24 10:50 DC Patient Own Medication 5 mg DAILY PO 08/15/24 10:00 08/15/24 10:50 DC Cholecalciferol (Vitamin D3 Tablet) 2,000 unit DAILY PO 08/15/24 10:00 08/15/24 10:52 DC Citalopram Hydrobromide (CeleXA TABLET) 20 mg DAILY PO 08/15/24 10:00 08/15/24 10:50 DC Patient Own Medication 48 mg DAILY PO 08/15/24 10:00 08/15/24 10:50 DC Patient Own Medication 1,400 mg DAILY PO 08/15/24 10:00 08/15/24 10:50 DC Magnesium Oxide (Mag-Ox Tablet) 400 mg DAILY PO 08/15/24 10:00 08/15/24 10:51 DC Oxcarbazepine (Trileptal Tablet) 300 mg BID PO 08/14/24 22:15 Patient Own Medication 1 tab DAILY PO 08/15/24 10:00 08/15/24 10:51 DC Sodium Chloride (Saline Lock Ns) 10 ml Q8HR IV 08/14/24 22:00 08/15/24 21:50 Heparin Sodium/ Dextrose 250 ml @ 9 mls/hr Q24H IV 08/14/24 23:00 08/15/24 08:27 DC 08/14/24 22:41 Piperacillin Sod/ Tazobactam Sod 100 ml @ 25 mls/hr Q8HR IV 08/14/24 22:00 08/14/24 21:59 DC Multivitamins (Mvi Tab) 1 tab HS PO 08/15/24 22:00 08/15/24 21:47 Patient Own Medication 5 mg HS PO 08/15/24 22:00 Citalopram Hydrobromide (CeleXA TABLET) 20 mg HS PO 08/15/24 22:00 08/15/24 21:46 Patient Own Medication 48 mg HS PO 08/15/24 22:00 Patient Own Medication 1,400 mg HS PO 08/15/24 22:00 Magnesium Oxide (Mag-Ox Tablet) 400 mg HS PO 08/15/24 22:00 08/15/24 21:47 Patient Own Medication 1 tab HS PO 08/15/24 22:00 Cholecalciferol (Vitamin D3 Tablet) 2,000 unit HS PO 08/15/24 22:00 08/15/24 21:47 Lactated Ringer's 1,000 ml @ 125 mls/hr Q8H IV 08/15/24 18:30 08/15/24 18:36 Enoxaparin Sodium (Lovenox) 30 mg DAILY SC 08/16/24 10:00 Acetaminophen/ Hydrocodone Bitart ([place] 5/325MG Tab) 1 tab Q6HPRN PRN PO MODERATE PAIN (4-6 PAIN SCALE) 08/15/24 16:15 Review of Systems Review of Systems: As described in HPI Vital Signs Vital Signs Date Time Temp Pulse Resp B/P (MAP) Pulse Ox O2 Delivery O2 Flow Rate FiO2 08/15/24 21:00 97.5 79 15 93/59 (70) 90 97.5 08/15/24 09:00 Nasal Cannula* 2 28 Physical Exam GENERAL: No acute distress. EYES: PERRL, EOMI. Anicteric. HENT: Moist mucous membranes. LUNGS: Clear to auscultation bilaterally. CARDIOVASCULAR: Regular rate and rhythm. ABDOMEN: Soft, nontender and nondistended. EXTREMITIES: No edema. NEUROLOGIC: Confused. SKIN: Warm, dry. Labs/Diagnostic Data Labs Test 08/15/24 12:20 08/15/24 04:34 08/14/24 21:57 08/14/24 21:15 Range/Units White Blood Count 13.5 #H 4.4-10.8 10^3/uL Red Blood Count 2.77 L 4.0-5.20 10^6/uL Hemoglobin 8.4 L 12.2-16.2 g/dL Hematocrit 25.9 #L 36.0-46.0 % Mean Corpuscular Volume 93.6 80.0-100.0 fL Mean Corpuscular Hemoglobin 30.2 28.0-32.0 pg Mean Corpuscular Hemoglobin Concent 32.3 32.0-36.0 g/dL Red Cell Distribution Width 14.9 H 11.8-14.3 % Platelet Count 248 140-450 10^3/uL Mean Platelet Volume 7.6 6.9-10.8 fL Neutrophils (%) (Auto) 89.2 H 37.0-80.0 % Lymphocytes (%) (Auto) 6.6 L 10.0-50.0 % Monocytes (%) (Auto) 3.7 0.0-12.0 % Eosinophils (%) (Auto) 0.2 0.0-7.0 % Basophils (%) (Auto) 0.3 0.0-2.0 % Neutrophils # (Auto) 12.0 H 1.6-8.6 10 ^3/uL Lymphocytes # (Auto) 0.9 0.4-5.4 10 ^3/uL Monocytes # (Auto) 0.5 0-1.3 10 ^3/uL Eosinophils # (Auto) 0 0-0.8 10 ^3/uL Basophils # (Auto) 0 0-0.2 10 ^3/uL Nucleated Red Blood Cells 0.0 % Prothrombin Time 12.7 H 9.3-11.8 sec Prothrombin Time INR 1.22 H 0.9-1.15 Activated Partial Thromboplast Time 55.8 H 24.5-34.5 SEC Sodium Level 140 136-145 mmol/L Potassium Level 4.3 3.5-5.1 mmol/L Chloride Level 110 H 98-107 mmol/L Carbon Dioxide Level 19 L 20-31 mmol/L Anion Gap 11 5-15 Blood Urea Nitrogen 21 9-23 mg/dL Creatinine 1.72 H 0.550-1.02 mg/dL Glomerular Filtration Rate Calc 33 >90 mL/min BUN/Creatinine Ratio 12.2 10.0-20.0 Serum Glucose 167 H 74-106 mg/dL Hemoglobin A1c < 3.8 <5.7 % A1C Calcium Level 7.7 L 8.7-10.4 mg/dL Magnesium Level 1.7 1.6-2.6 mg/dL Total Bilirubin 0.5 0.2-1.0 mg/dL Aspartate Amino Transferase (AST) 60 H 13-40 U/L Alanine Aminotransferase (ALT) 14 7-40 U/L Alkaline Phosphatase 214 H 46-116 U/L Troponin I High Sensitivity 948 *H </=34 ng/L Total Protein 5.8 5.7-8.2 g/dL Albumin 3.3 3.2-4.8 g/dL Triglycerides Level 167 H < 150 mg/dL Cholesterol Level 118 < 200 mg/dL LDL Cholesterol 58 < 100 mg/dL HDL Cholesterol 19 L 40-59 mg/dL Thyroid Stimulating Hormone (TSH) 3.28 0.55-4.78 uIU/mL Random Vancomycin Level 9.1 5-10 ug/mL Differential Total Cells Counted 100.0 100 Neutrophils % (Manual) 82 H 37.0-80.0 Band Neutrophils % (Manual) 9 Lymphocytes % (Manual) 4 L 10.0-50.0 Monocytes % (Manual) 5 0-12 Eosinophils % (Manual) 0 0-7 Basophils % (Manual) 0 0.0-2.0 Metamyelocytes % (manual) 0 Myelocytes % (Manual) 0 Promyelocytes % (Manual) 0 Blast Cells % (Manual) 0 Reactive Lymphocytes 0 Platelet Estimate Adequate C-Reactive Protein High Sensitivity 15.39 H <1.0 mg/dL Test 08/14/24 20:15 08/14/24 15:31 Range/Units Influenza Type A Antigen Negative Negative Influenza Type B Antigen Negative Negative SARS-CoV-2 Antigen (Rapid) Negative NEGATIVE Lactic Acid Level 0.7 0.4-2.0 mmol/L B-Type Natriuretic Peptide 277.88 0-100 pg/mL Lipase 34 12-53 U/L Microbiology Date/Time Source Procedure Growth Status 08/14/24 15:41 Blood Blood Culture - Preliminary NO GROWTH AFTER 24 HOURS OF INCUBATION. Resulted Assessment Elevated troponin. Likely NSTEMI type 2 due to sepsis, and QUINN. Septic shock likely due to pelvic abscess. QUINN on CKD . Stage IV bladder cancer. Plan/Recommendation I agree with your ongoing assessment and care of plan. Patient has been seen by Dell Richardson Resident, we have discussed the plan with the patient. Trend troponin. Echocardiogram. IV antibiotics as ordered. DVT prophylactics. Additional plan as per the hospital course. Plan discussed with: Patient NYHA Physical activity limitations: WALESKA BRADY MD August 15, 2024 22:03
[2024-08-16] VITALS (99 sets, daily range): BP systolic 88–126; BP diastolic 42–75; PULSE 46–107; RESP 11–20; TEMP 97.3–98.4; O2SAT 92–100
--- NOTE | 2024-08-16 01:39 | DVHSR ---
APPROVED REPORT EXAM: Two-dimensional and M-mode echocardiogram with Doppler and color Doppler. Blood Pressure: 106/57 mmHg INDICATION Elevated trops RISK FACTORS Height: 63, Weight: 159 DIMENSIONS LVDd4.2 (3.8-5.7cm)LA (2D)3.5 (1.9-4.0cm)Aortic Root3.2 (2.0-3.7cm) LVDs2.8 (2.5-4.0cm)LA (MM) (1.9-4.0cm)Aortic Cusp Exc1.6 (1.5-2.0cm) EF (%) 62.0 (55-70%)Rt. Atrium4.0 (1.9-4.0cm)Asc. Aorta cm IVSd1.0 (0.7-1.1cm)RV (D) (1.8-2.4cm) PWd1.4 (0.7-1.1cm) Mitral Valve MitralMitral Stenosis E wave0.68m/sMV Mean GR.mmHg A wave0.68m/sMV Peak GR.68mmHg E/A ratio1.02D MVAcm2 DECEL [id number] 1/2 Htcw03kg IVRTmsDop MVA4.70cm2 Aortic Valve Aortic ValveAortic Stenosis V11.15m/Rose Mean GR.5mmHg V21.66m/Rose Peak GR.11mmHg LVOT Diameter2.0 (1.8-2.4cm)Doppler AVA2.18cm2 AI P 1/2 Rzkq886.18ms Pulmonic Valve V21.00m/s Tricuspid Valve TR Velocity3.06m/s [id number] Conclusion MILD LVH AND MILD LV DIASTOLIC DYSFUNCTION LV EF IS 65% CALCIFIED AORTIC LEAFLET MODERATE DEGREE AORTIC REGURGITATION NORMAL MV,TV AND PV NO EFFUSION MODERATELY DILATED RV MODERATE DEGREE PULMONARY HYPERTENSION RVSP IS 51 MM OF HG AND IS MODERATELY HIGH
[2024-08-16] MEDS: HYDROcodone-ACET 5/325MG TAB PO PRN (02:31)
[2024-08-16 05:30] LABS: Basophils # (auto) 0.1 10 ^3/uL (0-0.2); Basophils % (auto) 0.8 % (0.0-2.0); Eosinophils # (auto) 0.4 10 ^3/uL (0-0.8); Eosinophils % (auto) 5.4 % (0.0-7.0); Hematocrit 23.5 % (36.0-46.0); Hemoglobin 7.9 g/dL (12.2-16.2); Lymphocytes # (auto) 0.9 10 ^3/uL (0.4-5.4); Lymphocytes % (auto) 10.9 % (10.0-50.0); Mean Corpuscular Hemoglobin 31.1 pg (28.0-32.0); Mean Corpuscular Hgb Conc. 33.5 g/dL (32.0-36.0); Mean Corpuscular Volume 92.7 fL (80.0-100.0); Monocytes # (auto) 0.4 10 ^3/uL (0-1.3); Monocytes % (auto) 4.5 % (0.0-12.0); Neutrophils # (auto) 6.3 10 ^3/uL (1.6-8.6); Neutrophils % (auto) 78.4 % (37.0-80.0); Platelet Count (auto) 201 10^3/uL (140-450); Red Blood Cells 2.53 10^6/uL (4.0-5.20); Red Cell Distribution Width 14.8 % (11.8-14.3); White Blood Cell 8.1 10^3/uL (4.4-10.8)
[2024-08-16 05:52] LABS: Alanine Aminotransferase 13 U/L (7-40); Anion Gap 8 (5-15); BUN/Creatinine Ratio 16.5 (10.0-20.0); Blood Urea Nitrogen 20 mg/dL (9-23); Carbon Dioxide 21 mmol/L (20-31); Magnesium 2.1 mg/dL (1.6-2.6); Potassium 4.2 mmol/L (3.5-5.1); Sodium 141 mmol/L (136-145)
[2024-08-16 05:56] LABS: Albumin 3.1 g/dL (3.2-4.8); Alkaline Phosphatase 169 U/L (46-116); Aspartate Aminotransferase 48 U/L (13-40); Bilirubin, Total 0.2 mg/dL (0.2-1.0); Calcium 8.5 mg/dL (8.7-10.4); Chloride 112 mmol/L (98-107); Glucose 111 mg/dL (74-106); Total Protein 5.5 g/dL (5.7-8.2)
--- NOTE | 2024-08-16 08:53 | DVHPN2 ---
Subjective Feels better Reviewed: Care Plan, H&P, Labs, Medications, Previous Orders, Radiology, Other (Consultants) Changes from previous H/P or p: No Changes Objective Vitals Vital Signs Date Time Temp Pulse Resp B/P (MAP) Pulse Ox O2 Delivery O2 Flow Rate FiO2 08/16/24 06:45 57 12 97/57 (70) 08/16/24 06:30 96 08/16/24 04:00 97.3 97.3 08/15/24 22:00 Nasal Cannula* 2 28 Intake/Output Intake and Output 08/16/24 07:00 Intake Total 4830.875 ml Output Total 1320 ml Balance 3510.875 ml Intake Oral 480 ml IV Total 4350.875 ml Output Urine Total 1250 ml Other 70 ml General Appearance: Alert, Oriented X3, Cooperative HEENT: Atraumatic Lungs: Clear to auscultation Cardiovascular: Regular rate Abdomen: Normal bowel sounds, Soft, Other (Bowel sounds present. Drainage tube and urine conduit bag in place) Extremities: Other (1+ bilateral lower extremity edema) Medications Current Medications Medications Dose Ordered Sig/Alvino Route Start Time Stop Time Status Last Admin Dose Admin Norepinephrine Bitartrate 250 ml @ 3.75 mls/hr Q24H IV 08/14/24 18:30 08/15/24 11:15 11.25 MLS/HR Piperacillin Sod/ Tazobactam Sod 100 ml @ 25 mls/hr Q8HR IV 08/15/24 06:00 08/16/24 06:23 25 MLS/HR Levetiracetam 100 ml @ 400 mls/hr BID IV 08/14/24 22:00 08/15/24 21:42 400 MLS/HR Oxcarbazepine 300 mg BID PO 08/14/24 22:15 Sodium Chloride 10 ml Q8HR IV 08/14/24 22:00 08/16/24 06:23 10 ML Docusate Sodium 100 mg BIDPRN PRN PO 08/14/24 21:30 Acetaminophen 650 mg Q6HP PRN PO 08/14/24 21:30 08/15/24 17:20 650 MG Ondansetron HCl 4 mg Q4HP PRN IV 08/14/24 21:30 Vasopressin 20 units/Sodium Chloride 100 ml @ 9 mls/hr Q11H7M IV 08/14/24 21:45 08/14/24 23:03 9 MLS/HR Multivitamins 1 tab HS PO 08/15/24 22:00 08/15/24 21:47 1 TAB Patient Own Medication 5 mg HS PO 08/15/24 22:00 Citalopram Hydrobromide 20 mg HS PO 08/15/24 22:00 08/15/24 21:46 20 MG Patient Own Medication 48 mg HS PO 08/15/24 22:00 Patient Own Medication 1,400 mg HS PO 08/15/24 22:00 Magnesium Oxide 400 mg HS PO 08/15/24 22:00 08/15/24 21:47 400 MG Patient Own Medication 1 tab HS PO 08/15/24 22:00 Cholecalciferol 2,000 unit HS PO 08/15/24 22:00 08/15/24 21:47 2,000 UNIT Lactated Ringer's 1,000 ml @ 125 mls/hr Q8H IV 08/15/24 18:30 08/16/24 02:32 125 MLS/HR Enoxaparin Sodium 40 mg DAILY SC 08/16/24 10:00 Acetaminophen/ Hydrocodone Bitart 1 tab Q6HPRN PRN PO 08/15/24 16:15 08/16/24 02:31 1 TAB Linezolid 300 ml @ 150 mls/hr Q12HR IV 08/16/24 10:00 Laboratory Results Laboratory Tests 08/16/24 04:56 Chemistry Test 08/16/24 04:56 Albumin 3.1 g/dL (3.2-4.8) L Calcium Level 8.5 mg/dL (8.7-10.4) L Magnesium Level 2.1 mg/dL (1.6-2.6) Total Protein 5.5 g/dL (5.7-8.2) L LFT Test 08/16/24 04:56 Alanine Aminotransferase (ALT) 13 U/L (7-40) Alkaline Phosphatase 169 U/L (46-116) H Aspartate Amino Transferase (AST) 48 U/L (13-40) H Total Bilirubin 0.2 mg/dL (0.2-1.0) Microbiology Microbiology Date/Time Source Procedure Growth Status 08/14/24 15:41 Blood Blood Culture - Preliminary NO GROWTH AFTER 24 HOURS OF INCUBATION. Resulted Assessment/Plan Assessment/Plan Sepsis and septic shock Pelvic abscess status post drainage tube insertion Bladder cancer stage IV status post robotic assisted cystectomy and urinary ileal conduit diversion/ileostomy Non-STEMI History of renal cancer status post right nephrectomy Seizures Dyslipidemia Prediabetes with the highest A1c at 5.7 in 2022 Chronic kidney disease stage IIIA Plan: Change vancomycin to Zyvox due to the chronic kidney disease and history of right nephrectomy. IV fluids. Vasopressors as needed. Awaiting cultures. Further plan per orders. ICU status for now until off vasopressors and stable vital signs. Total critical care time 35 minutes Plan discussed with: Patient, Other (Nursing) My Orders Orders - MEL OJEDA MD Procedure Category Date Status Time Linezolid 600mg/300ml PHA 08/16/24 In Process (Zyvox) 10:00 Date of Service: August 16, 2024 Billing Provider: MEL OJEDA MD Common Visit Codes: [id number] CARE 30-74 MIN MEL OJEDA MD August 16, 2024 08:53
[2024-08-16] MEDS: ENOXAPARIN SOD 40 MG/0.4 ML SYRINGE SC SCH (10:00)
[2024-08-16] MEDS: ONDANSETRON HCL 4 MG/2 ML VIAL IV PRN (10:37)
[2024-08-16] MEDS: LINEZOLID 600MG/300ML 300 ML IV SCH (10:50)
[2024-08-16] MEDS: SIMETHICONE 80 MG CHEWABLE TABLET PO PRN (12:28)
--- NOTE | 2024-08-16 15:36 | DVHPN2 ---
Progress Note - Dictate Date Seen: August 16, 2024 Medical Necessity Reason Pt with a Central, PICC or Fol: No Subjective more awake vital signs Vital Sign Date Time Temp Pulse Resp B/P (MAP) Pulse Ox O2 Delivery O2 Flow Rate FiO2 08/16/24 15:00 62 17 114/65 (81) 92 08/16/24 12:00 98.2 98.2 08/15/24 22:00 Nasal Cannula* 2 28 Total Intake and Output 08/15/24 08/15/24 08/16/24 15:00 23:00 07:00 Intake Total 549.625 ml 3140.00 ml 1270.00 ml Output Total 350 ml 970 ml Balance 199.625 ml 3140.00 ml 300.00 ml medications Current Medications Medications Dose Ordered Sig/Alvino Route Start Time Stop Time Status Last Admin Dose Admin Norepinephrine Bitartrate 250 ml @ 3.75 mls/hr Q24H IV 08/14/24 18:30 08/15/24 11:15 11.25 MLS/HR Piperacillin Sod/ Tazobactam Sod 100 ml @ 25 mls/hr Q8HR IV 08/15/24 06:00 08/16/24 13:33 25 MLS/HR Levetiracetam 100 ml @ 400 mls/hr BID IV 08/14/24 22:00 08/16/24 10:34 400 MLS/HR Oxcarbazepine 300 mg BID PO 08/14/24 22:15 Sodium Chloride 10 ml Q8HR IV 08/14/24 22:00 08/16/24 13:33 10 ML Docusate Sodium 100 mg BIDPRN PRN PO 08/14/24 21:30 Acetaminophen 650 mg Q6HP PRN PO 08/14/24 21:30 08/15/24 17:20 650 MG Ondansetron HCl 4 mg Q4HP PRN IV 08/14/24 21:30 08/16/24 10:37 4 MG Vasopressin 20 units/Sodium Chloride 100 ml @ 9 mls/hr Q11H7M IV 08/14/24 21:45 08/14/24 23:03 9 MLS/HR Multivitamins 1 tab HS PO 08/15/24 22:00 08/15/24 21:47 1 TAB Patient Own Medication 5 mg HS PO 08/15/24 22:00 Citalopram Hydrobromide 20 mg HS PO 08/15/24 22:00 08/15/24 21:46 20 MG Patient Own Medication 48 mg HS PO 08/15/24 22:00 Patient Own Medication 1,400 mg HS PO 08/15/24 22:00 Magnesium Oxide 400 mg HS PO 08/15/24 22:00 08/15/24 21:47 400 MG Patient Own Medication 1 tab HS PO 08/15/24 22:00 Cholecalciferol 2,000 unit HS PO 08/15/24 22:00 08/15/24 21:47 2,000 UNIT Lactated Ringer's 1,000 ml @ 125 mls/hr Q8H IV 08/15/24 18:30 08/16/24 10:44 125 MLS/HR Enoxaparin Sodium 40 mg DAILY SC 08/16/24 10:00 Acetaminophen/ Hydrocodone Bitart 1 tab Q6HPRN PRN PO 08/15/24 16:15 08/16/24 13:14 1 TAB Linezolid 300 ml @ 150 mls/hr Q12HR IV 08/16/24 10:00 08/16/24 10:50 150 MLS/HR Dimethicone 40 mg QIDP PRN PO 08/16/24 11:15 08/16/24 12:28 40 MG objective gen: nad lungs: cta cvs: no rub ext: no edema laboratory and microbiology Laboratory Tests 08/16/24 04:56 Test 08/16/24 04:56 Range/Units Serum Glucose 111 H 74-106 mg/dL Assessment/Plan IMP: 1) Hemodynamically mediated QUINN/VMN, prerenal etiology 2) CKD stage IIIA, baseline creatinine unknown to this brief writer 3) stage IV bladder CA 4) history of seizure disorder 5) generalized weakness REC: - will continue to monitor during timecourse of QUINN recovery - discussed with Mrs. Escamilla Plan discussed with: Patient KEMAL REID MD August 16, 2024 15:36
--- NOTE | 2024-08-16 20:17 | DVHPN2 ---
Progress Note - Dictate Date Seen: August 16, 2024 Medical Necessity Reason Pt with a Central, PICC or Fol: No Subjective Patient was seen and evaluated in follow-up in the ICU. Patient is on 2 LPM NC. Patient is complaining of generalized pain. HGB 7.9, HCT 23.5, GENERAL REPAIRER 1.21, AST 48. Echocardiogram shows an EF of 65%. vital signs Vital Sign Date Time Temp Pulse Resp B/P (MAP) Pulse Ox O2 Delivery O2 Flow Rate FiO2 08/16/24 14:00 64 08/16/24 13:45 18 105/68 (80) 100 08/16/24 10:36 98.4 98.4 08/15/24 22:00 Nasal Cannula* 2 28 Total Intake and Output 08/15/24 08/15/24 08/16/24 15:00 23:00 07:00 Intake Total 549.625 ml 3140.00 ml 1270.00 ml Output Total 350 ml 970 ml Balance 199.625 ml 3140.00 ml 300.00 ml medications Current Medications Medications Dose Ordered Sig/Alvino Route Start Time Stop Time Status Last Admin Dose Admin Norepinephrine Bitartrate 250 ml @ 3.75 mls/hr Q24H IV 08/14/24 18:30 08/15/24 11:15 11.25 MLS/HR Piperacillin Sod/ Tazobactam Sod 100 ml @ 25 mls/hr Q8HR IV 08/15/24 06:00 08/16/24 13:33 25 MLS/HR Levetiracetam 100 ml @ 400 mls/hr BID IV 08/14/24 22:00 08/16/24 10:34 400 MLS/HR Oxcarbazepine 300 mg BID PO 08/14/24 22:15 Sodium Chloride 10 ml Q8HR IV 08/14/24 22:00 08/16/24 13:33 10 ML Docusate Sodium 100 mg BIDPRN PRN PO 08/14/24 21:30 Acetaminophen 650 mg Q6HP PRN PO 08/14/24 21:30 08/15/24 17:20 650 MG Ondansetron HCl 4 mg Q4HP PRN IV 08/14/24 21:30 08/16/24 10:37 4 MG Vasopressin 20 units/Sodium Chloride 100 ml @ 9 mls/hr Q11H7M IV 08/14/24 21:45 08/14/24 23:03 9 MLS/HR Multivitamins 1 tab HS PO 08/15/24 22:00 08/15/24 21:47 1 TAB Patient Own Medication 5 mg HS PO 08/15/24 22:00 Citalopram Hydrobromide 20 mg HS PO 08/15/24 22:00 08/15/24 21:46 20 MG Patient Own Medication 48 mg HS PO 08/15/24 22:00 Patient Own Medication 1,400 mg HS PO 08/15/24 22:00 Magnesium Oxide 400 mg HS PO 08/15/24 22:00 08/15/24 21:47 400 MG Patient Own Medication 1 tab HS PO 08/15/24 22:00 Cholecalciferol 2,000 unit HS PO 08/15/24 22:00 08/15/24 21:47 2,000 UNIT Lactated Ringer's 1,000 ml @ 125 mls/hr Q8H IV 08/15/24 18:30 08/16/24 10:44 125 MLS/HR Enoxaparin Sodium 40 mg DAILY SC 08/16/24 10:00 Acetaminophen/ Hydrocodone Bitart 1 tab Q6HPRN PRN PO 08/15/24 16:15 08/16/24 13:14 1 TAB Linezolid 300 ml @ 150 mls/hr Q12HR IV 08/16/24 10:00 08/16/24 10:50 150 MLS/HR Dimethicone 40 mg QIDP PRN PO 08/16/24 11:15 08/16/24 12:28 40 MG objective GENERAL: No acute distress. EYES: PERRL, EOMI. Anicteric. HENT: Moist mucous membranes. LUNGS: Clear to auscultation bilaterally. CARDIOVASCULAR: Regular rate and rhythm. ABDOMEN: Soft, nontender and nondistended. EXTREMITIES: No edema. NEUROLOGIC: Confused. SKIN: Warm, dry. laboratory and microbiology Laboratory Tests 08/16/24 04:56 Test 08/16/24 04:56 Range/Units Serum Glucose 111 H 74-106 mg/dL Problem List Elevated troponin. Likely NSTEMI type 2 due to sepsis, and QUINN. Septic shock likely due to pelvic abscess. QUINN on CKD . Stage IV bladder cancer. Pulmonary HTN. l Assessment/Plan Continued all current supportive medical care. [place] for pain management. IV antibiotics as ordered. DVT prophylactics. Additional plan as per the hospital course. Critical care time of 45 minutes provided to include time spent evaluation of patient at bedside, when appropriate patient/family education for diagnosis, treatment plan, review of pertinent medical information and discussion of care with specialty providers and PCP. Plan discussed with: Patient WALESKA BOWSER MD August 16, 2024 15:11
[2024-08-17] VITALS (42 sets, daily range): BP systolic 93–147; BP diastolic 53–78; PULSE 57–76; RESP 8–18; TEMP 97.8–98.4; O2SAT 91–100
[2024-08-17 03:56] LABS: Alanine Aminotransferase 13 U/L (7-40); Anion Gap 7 (5-15); Aspartate Aminotransferase 33 U/L (13-40); BUN/Creatinine Ratio 12.1 (10.0-20.0); Blood Urea Nitrogen 13 mg/dL (9-23); Carbon Dioxide 23 mmol/L (20-31); Glucose 96 mg/dL (74-106); Magnesium 1.9 mg/dL (1.6-2.6); Potassium 4.2 mmol/L (3.5-5.1); Sodium 140 mmol/L (136-145)
[2024-08-17 03:58] LABS: Basophils # (auto) 0 10 ^3/uL (0-0.2); Basophils % (auto) 0.8 % (0.0-2.0); Eosinophils # (auto) 0.2 10 ^3/uL (0-0.8); Hemoglobin 7.5 g/dL (12.2-16.2); Monocytes # (auto) 0.3 10 ^3/uL (0-1.3); Monocytes % (auto) 6.2 % (0.0-12.0); Neutrophils # (auto) 3.1 10 ^3/uL (1.6-8.6); White Blood Cell 4.6 10^3/uL (4.4-10.8)
[2024-08-17 04:05] LABS: Eosinophils % (auto) 5.2 % (0.0-7.0); Hematocrit 22.3 % (36.0-46.0); Lymphocytes % (auto) 21.4 % (10.0-50.0); Mean Corpuscular Hemoglobin 30.7 pg (28.0-32.0); Mean Corpuscular Hgb Conc. 33.6 g/dL (32.0-36.0); Mean Corpuscular Volume 91.2 fL (80.0-100.0); Neutrophils % (auto) 66.4 % (37.0-80.0); Nucleated Red Blood Cells % 0.1 %; Platelet Count (auto) 180 10^3/uL (140-450); Red Blood Cells 2.45 10^6/uL (4.0-5.20); Red Cell Distribution Width 14.8 % (11.8-14.3)
[2024-08-17 04:30] LABS: Chloride 110 mmol/L (98-107)
[2024-08-17 04:31] LABS: Alkaline Phosphatase 138 U/L (46-116); Bilirubin, Total 0.2 mg/dL (0.2-1.0); Calcium 8.1 mg/dL (8.7-10.4); Total Protein 5.4 g/dL (5.7-8.2)
--- NOTE | 2024-08-17 09:33 | DVHPN2 ---
Subjective Feels better Reviewed: Care Plan, H&P, Labs, Medications, Previous Orders, Radiology, Other (Consultants) Changes from previous H/P or p: No Changes Objective Vitals Vital Signs Date Time Temp Pulse Resp B/P (MAP) Pulse Ox O2 Delivery O2 Flow Rate FiO2 08/17/24 06:45 62 12 103/59 (74) 100 08/17/24 04:00 98.4 98.4 08/16/24 20:00 Nasal Cannula* 2 28 Intake/Output Intake and Output 08/17/24 07:00 Intake Total 4306.75 ml Output Total 2160 ml Balance 2146.75 ml Intake Oral 480 ml IV Total 3826.75 ml Output Urine Total 2150 ml Other 10 ml # Bowel Movements 1 General Appearance: Alert, Oriented X3, Cooperative HEENT: Atraumatic Lungs: Clear to auscultation Cardiovascular: Regular rate Abdomen: Normal bowel sounds, Soft, Other (Bowel sounds present. Drainage tube and urine conduit bag in place) Extremities: Other (1+ bilateral lower extremity edema) Medications Current Medications Medications Dose Ordered Sig/Alvino Route Start Time Stop Time Status Last Admin Dose Admin Norepinephrine Bitartrate 250 ml @ 3.75 mls/hr Q24H IV 08/14/24 18:30 08/15/24 11:15 11.25 MLS/HR Piperacillin Sod/ Tazobactam Sod 100 ml @ 25 mls/hr Q8HR IV 08/15/24 06:00 08/17/24 05:44 25 MLS/HR Levetiracetam 100 ml @ 400 mls/hr BID IV 08/14/24 22:00 08/16/24 21:31 400 MLS/HR Oxcarbazepine 300 mg BID PO 08/14/24 22:15 Sodium Chloride 10 ml Q8HR IV 08/14/24 22:00 08/17/24 05:44 10 ML Docusate Sodium 100 mg BIDPRN PRN PO 08/14/24 21:30 Acetaminophen 650 mg Q6HP PRN PO 08/14/24 21:30 08/15/24 17:20 650 MG Ondansetron HCl 4 mg Q4HP PRN IV 08/14/24 21:30 08/16/24 10:37 4 MG Vasopressin 20 units/Sodium Chloride 100 ml @ 9 mls/hr Q11H7M IV 08/14/24 21:45 08/14/24 23:03 9 MLS/HR Multivitamins 1 tab HS PO 08/15/24 22:00 08/16/24 21:32 1 TAB Patient Own Medication 5 mg HS PO 08/15/24 22:00 Citalopram Hydrobromide 20 mg HS PO 08/15/24 22:00 08/16/24 21:31 20 MG Patient Own Medication 48 mg HS PO 08/15/24 22:00 Patient Own Medication 1,400 mg HS PO 08/15/24 22:00 Magnesium Oxide 400 mg HS PO 08/15/24 22:00 08/16/24 21:32 400 MG Patient Own Medication 1 tab HS PO 08/15/24 22:00 Cholecalciferol 2,000 unit HS PO 08/15/24 22:00 08/16/24 21:31 2,000 UNIT Enoxaparin Sodium 40 mg DAILY SC 08/16/24 10:00 Acetaminophen/ Hydrocodone Bitart 1 tab Q6HPRN PRN PO 08/15/24 16:15 08/17/24 05:56 1 TAB Linezolid 300 ml @ 150 mls/hr Q12HR IV 08/16/24 10:00 08/16/24 21:31 150 MLS/HR Dimethicone 40 mg QIDP PRN PO 08/16/24 11:15 08/16/24 12:28 40 MG Enteral Nutritional Formula 240 ml BIDWM PO 08/17/24 18:00 Lactated Ringer's 1,000 ml @ 100 mls/hr Q10H IV 08/17/24 09:00 Laboratory Results Laboratory Tests 08/17/24 03:00 Chemistry Test 08/17/24 03:00 Albumin 3.0 g/dL (3.2-4.8) L Calcium Level 8.1 mg/dL (8.7-10.4) L Magnesium Level 1.9 mg/dL (1.6-2.6) Total Protein 5.4 g/dL (5.7-8.2) L LFT Test 08/17/24 03:00 Alanine Aminotransferase (ALT) 13 U/L (7-40) Alkaline Phosphatase 138 U/L (46-116) H Aspartate Amino Transferase (AST) 33 U/L (13-40) Total Bilirubin 0.2 mg/dL (0.2-1.0) Microbiology Microbiology Date/Time Source Procedure Growth Status 08/15/24 12:20 Aspirate Gram Stain - Final Resulted 08/15/24 12:20 Aspirate Body Fluid Culture - Preliminary Resulted 08/14/24 15:41 Blood Blood Culture - Preliminary NO GROWTH AFTER 48 HOURS OF INCUBATION. Resulted Assessment/Plan Assessment/Plan Sepsis and septic shock/resolving Pelvic abscess status post drainage tube insertion Bladder cancer stage IV status post robotic assisted cystectomy and urinary ileal conduit diversion/ileostomy Non-STEMI History of renal cancer status post right nephrectomy Seizures Dyslipidemia Prediabetes with the highest A1c at 5.7 in 2022 Chronic kidney disease stage IIIA Anemia/chronic with worsening likely secondary to dilution Plan: Reduce IV fluids. Repeat labs. H&H. Transfer to telemetry. Physical therapy evaluation. Off vasopressors. Continue monitoring blood pressure. Total critical care time 40 minutes. Plan discussed with: Patient, Other (Nursing) My Orders Orders - MEL OJEDA MD Procedure Category Date Status Time Lactated Ringer's PHA 08/17/24 In Process 09:00 Transfer Orders XFER 08/17/24 Transmitted 08:56 Pt Request For Service PT 08/17/24 Logged 08:56 Date of Service: August 17, 2024 Billing Provider: MEL OJEDA MD Common Visit Codes: [id number] CARE 30-74 MIN MEL OJEDA MD August 17, 2024 09:33
[2024-08-17] MEDS: LACTATED RINGER'S 1,000 ML IV SCH (10:28)
--- NOTE | 2024-08-17 14:34 | DVHPN2 ---
Progress Note - Dictate Date Seen: August 17, 2024 Medical Necessity Reason Pt with a Central, PICC or Fol: No Subjective Awake and alert this afternoon, patient currently off of vasopressors vital signs Vital Sign Date Time Temp Pulse Resp B/P (MAP) Pulse Ox O2 Delivery O2 Flow Rate FiO2 08/17/24 13:34 62 13 124/63 (83) 96 08/17/24 08:00 Nasal Cannula* 2 28 08/17/24 04:00 98.4 98.4 Total Intake and Output 08/16/24 08/16/24 08/17/24 15:00 23:00 07:00 Intake Total 1522.50 ml 1569.25 ml 1215 ml Output Total 450 ml 250 ml 1460 ml Balance 1072.50 ml 1319.25 ml -245 ml medications Current Medications Medications Dose Ordered Sig/Alvino Route Start Time Stop Time Status Last Admin Dose Admin Norepinephrine Bitartrate 250 ml @ 3.75 mls/hr Q24H IV 08/14/24 18:30 08/15/24 11:15 11.25 MLS/HR Piperacillin Sod/ Tazobactam Sod 100 ml @ 25 mls/hr Q8HR IV 08/15/24 06:00 08/17/24 05:44 25 MLS/HR Levetiracetam 100 ml @ 400 mls/hr BID IV 08/14/24 22:00 08/17/24 10:26 400 MLS/HR Oxcarbazepine 300 mg BID PO 08/14/24 22:15 Sodium Chloride 10 ml Q8HR IV 08/14/24 22:00 08/17/24 10:27 10 ML Docusate Sodium 100 mg BIDPRN PRN PO 08/14/24 21:30 Acetaminophen 650 mg Q6HP PRN PO 08/14/24 21:30 08/15/24 17:20 650 MG Ondansetron HCl 4 mg Q4HP PRN IV 08/14/24 21:30 08/16/24 10:37 4 MG Vasopressin 20 units/Sodium Chloride 100 ml @ 9 mls/hr Q11H7M IV 08/14/24 21:45 08/14/24 23:03 9 MLS/HR Multivitamins 1 tab HS PO 08/15/24 22:00 08/16/24 21:32 1 TAB Patient Own Medication 5 mg HS PO 08/15/24 22:00 Citalopram Hydrobromide 20 mg HS PO 08/15/24 22:00 08/16/24 21:31 20 MG Patient Own Medication 48 mg HS PO 08/15/24 22:00 Patient Own Medication 1,400 mg HS PO 08/15/24 22:00 Magnesium Oxide 400 mg HS PO 08/15/24 22:00 08/16/24 21:32 400 MG Patient Own Medication 1 tab HS PO 08/15/24 22:00 Cholecalciferol 2,000 unit HS PO 08/15/24 22:00 08/16/24 21:31 2,000 UNIT Enoxaparin Sodium 40 mg DAILY SC 08/16/24 10:00 Acetaminophen/ Hydrocodone Bitart 1 tab Q6HPRN PRN PO 08/15/24 16:15 08/17/24 13:43 1 TAB Linezolid 300 ml @ 150 mls/hr Q12HR IV 08/16/24 10:00 08/17/24 10:25 150 MLS/HR Dimethicone 40 mg QIDP PRN PO 08/16/24 11:15 08/16/24 12:28 40 MG Enteral Nutritional Formula 240 ml BIDWM PO 08/17/24 18:00 Lactated Ringer's 1,000 ml @ 100 mls/hr Q10H IV 08/17/24 09:00 08/17/24 10:28 100 MLS/HR objective gen: nad lungs: cta cvs: no rub ext: no edema laboratory and microbiology Laboratory Tests 08/17/24 03:00 Test 08/17/24 03:00 Range/Units Serum Glucose 96 74-106 mg/dL Assessment/Plan IMP: 1) Hemodynamically mediated QUINN/VMN, prerenal etiology 2) CKD stage IIIA, baseline creatinine unknown to this speech writer 3) stage IV bladder CA 4) history of seizure disorder 5) generalized weakness REC: - resolved acute kidney injury, no new recommendations from Nephrology perspective. - I will sign off her case, please reconsult as needed. Thank you. Dietary Evaluation Review Recommendations by RD: Dietary education by RD, Protein Supplementation Comments: 1) Initiate Ensure Enlive bid. Encourage optimal PO intake 2) Consider vitamin C @ 500 mg bid for 7-10 days 3) Refer to outpatient RD for weight management 4) Follow-up with urology, nephrology, cardiology, and oncology 5) Continue to monitor I&O, labs, and skin integrity Expected Outcomes/Goals: 1) appetite and labs to improve 2) f/u in 3-5 days Plan discussed with: Patient KEMAL REID MD August 17, 2024 14:33
--- NOTE | 2024-08-17 14:58 | DVHPN2 ---
Progress Note - Dictate Date Seen: August 17, 2024 Medical Necessity Reason Pt with a Central, PICC or Fol: No Subjective Patient was seen and evaluated in follow-up in the ICU. Patient reports feeling better today. She is stable on 2 LPM NC. Patient complains of generalized discomfort. HGB 7.5, HCT 22.3, CL 110, REVIEW APPRAISER 1.07, CA 8.1. vital signs Vital Sign Date Time Temp Pulse Resp B/P (MAP) Pulse Ox O2 Delivery O2 Flow Rate FiO2 08/17/24 08:00 64 10 100 Nasal Cannula* 2 28 08/17/24 06:45 103/59 (74) 08/17/24 04:00 98.4 98.4 Total Intake and Output 08/16/24 08/16/24 08/17/24 15:00 23:00 07:00 Intake Total 1522.50 ml 1569.25 ml 1215 ml Output Total 450 ml 250 ml 1460 ml Balance 1072.50 ml 1319.25 ml -245 ml medications Current Medications Medications Dose Ordered Sig/Alvino Route Start Time Stop Time Status Last Admin Dose Admin Norepinephrine Bitartrate 250 ml @ 3.75 mls/hr Q24H IV 08/14/24 18:30 08/15/24 11:15 11.25 MLS/HR Piperacillin Sod/ Tazobactam Sod 100 ml @ 25 mls/hr Q8HR IV 08/15/24 06:00 08/17/24 05:44 25 MLS/HR Levetiracetam 100 ml @ 400 mls/hr BID IV 08/14/24 22:00 08/17/24 10:26 400 MLS/HR Oxcarbazepine 300 mg BID PO 08/14/24 22:15 Sodium Chloride 10 ml Q8HR IV 08/14/24 22:00 08/17/24 10:27 10 ML Docusate Sodium 100 mg BIDPRN PRN PO 08/14/24 21:30 Acetaminophen 650 mg Q6HP PRN PO 08/14/24 21:30 08/15/24 17:20 650 MG Ondansetron HCl 4 mg Q4HP PRN IV 08/14/24 21:30 08/16/24 10:37 4 MG Vasopressin 20 units/Sodium Chloride 100 ml @ 9 mls/hr Q11H7M IV 08/14/24 21:45 08/14/24 23:03 9 MLS/HR Multivitamins 1 tab HS PO 08/15/24 22:00 08/16/24 21:32 1 TAB Patient Own Medication 5 mg HS PO 08/15/24 22:00 Citalopram Hydrobromide 20 mg HS PO 08/15/24 22:00 08/16/24 21:31 20 MG Patient Own Medication 48 mg HS PO 08/15/24 22:00 Patient Own Medication 1,400 mg HS PO 08/15/24 22:00 Magnesium Oxide 400 mg HS PO 08/15/24 22:00 08/16/24 21:32 400 MG Patient Own Medication 1 tab HS PO 08/15/24 22:00 Cholecalciferol 2,000 unit HS PO 08/15/24 22:00 08/16/24 21:31 2,000 UNIT Enoxaparin Sodium 40 mg DAILY SC 08/16/24 10:00 Acetaminophen/ Hydrocodone Bitart 1 tab Q6HPRN PRN PO 08/15/24 16:15 08/17/24 05:56 1 TAB Linezolid 300 ml @ 150 mls/hr Q12HR IV 08/16/24 10:00 08/17/24 10:25 150 MLS/HR Dimethicone 40 mg QIDP PRN PO 08/16/24 11:15 08/16/24 12:28 40 MG Enteral Nutritional Formula 240 ml BIDWM PO 08/17/24 18:00 Lactated Ringer's 1,000 ml @ 100 mls/hr Q10H IV 08/17/24 09:00 08/17/24 10:28 100 MLS/HR objective GENERAL: No acute distress. EYES: PERRL, EOMI. Anicteric. HENT: Moist mucous membranes. LUNGS: Clear to auscultation bilaterally. CARDIOVASCULAR: Regular rate and rhythm. ABDOMEN: Soft, nontender and nondistended. EXTREMITIES: No edema. NEUROLOGIC: Confused. SKIN: Warm, dry. laboratory and microbiology Laboratory Tests 08/17/24 03:00 Test 08/17/24 03:00 Range/Units Serum Glucose 96 74-106 mg/dL Problem List Elevated troponin. Likely NSTEMI type 2 due to sepsis, and QUINN. Septic shock likely due to pelvic abscess. QUINN on CKD . Stage IV bladder cancer. Pulmonary HTN. l Assessment/Plan Continued all current supportive medical care. [place] for pain management. IV antibiotics as ordered. DVT prophylactics. Additional plan as per the hospital course. Critical care time of 45 minutes provided to include time spent evaluation of patient at bedside, when appropriate patient/family education for diagnosis, treatment plan, review of pertinent medical information and discussion of care with specialty providers and PCP. Dietary Evaluation Review Recommendations by RD: Dietary education by RD, Protein Supplementation Comments: 1) Initiate Ensure Enlive bid. Encourage optimal PO intake 2) Consider vitamin C @ 500 mg bid for 7-10 days 3) Refer to outpatient RD for weight management 4) Follow-up with urology, nephrology, cardiology, and oncology 5) Continue to monitor I&O, labs, and skin integrity Expected Outcomes/Goals: 1) appetite and labs to improve 2) f/u in 3-5 days Plan discussed with: Patient WALESKA BOWSER MD August 17, 2024 13:15
[2024-08-17 16:03] LABS: Hemoglobin 8.2 g/dL (12.2-16.2)
[2024-08-17 16:06] LABS: Hematocrit 24.6 % (36.0-46.0)
[2024-08-17] MEDS: Ensure Enlive Strawberry 8oz Bottle PO SCH (18:16)
[2024-08-18] VITALS (8 sets, daily range): BP systolic 115–145; BP diastolic 60–84; PULSE 16–71; RESP 16–18; TEMP 97.6–98.2; O2SAT 90–98
[2024-08-18 07:36] LABS: Anion Gap 8 (5-15); Aspartate Aminotransferase 24 U/L (13-40); BUN/Creatinine Ratio 8.4 (10.0-20.0); Blood Urea Nitrogen 9 mg/dL (9-23); Calcium 9.2 mg/dL (8.7-10.4); Carbon Dioxide 24 mmol/L (20-31); Glucose 92 mg/dL (74-106); Magnesium 1.8 mg/dL (1.6-2.6); Sodium 140 mmol/L (136-145)
[2024-08-18 07:41] LABS: Alanine Aminotransferase < 9 U/L (7-40); Albumin 3.1 g/dL (3.2-4.8); Alkaline Phosphatase 131 U/L (46-116); Bilirubin, Total 0.2 mg/dL (0.2-1.0); Chloride 108 mmol/L (98-107); Total Protein 5.4 g/dL (5.7-8.2)
[2024-08-18 07:56] LABS: Basophils # (auto) 0 10 ^3/uL (0-0.2); Basophils % (auto) 0.7 % (0.0-2.0); Eosinophils # (auto) 0.2 10 ^3/uL (0-0.8); Eosinophils % (auto) 3.7 % (0.0-7.0); Hemoglobin 7.9 g/dL (12.2-16.2); Lymphocytes # (auto) 1.3 10 ^3/uL (0.4-5.4); Lymphocytes % (auto) 29.4 % (10.0-50.0); Mean Corpuscular Hemoglobin 30.3 pg (28.0-32.0); Mean Corpuscular Hgb Conc. 33.1 g/dL (32.0-36.0); Mean Corpuscular Volume 91.4 fL (80.0-100.0); Monocytes # (auto) 0.3 10 ^3/uL (0-1.3); Monocytes % (auto) 6.9 % (0.0-12.0); Neutrophils # (auto) 2.5 10 ^3/uL (1.6-8.6); Neutrophils % (auto) 59.3 % (37.0-80.0); Nucleated Red Blood Cells % 0.1 %; Platelet Count (auto) 173 10^3/uL (140-450); Red Blood Cells 2.62 10^6/uL (4.0-5.20); Red Cell Distribution Width 14.5 % (11.8-14.3); White Blood Cell 4.3 10^3/uL (4.4-10.8)
--- NOTE | 2024-08-18 10:11 | DVHPN2 ---
Reviewed: Care Plan, H&P, Labs, Medications, Previous Orders, Radiology, Other (Consultants) Changes from previous H/P or p: No Changes Objective Vitals Vital Signs Date Time Temp Pulse Resp B/P (MAP) Pulse Ox O2 Delivery O2 Flow Rate FiO2 08/18/24 08:38 97.8 57 18 115/60 (78) 92 97.8 08/17/24 20:00 Room Air* 0 21 Intake/Output Intake and Output 08/18/24 07:00 Intake Total 1780 ml Output Total 1110 ml Balance 670 ml Intake Oral 480 ml IV Total 1300 ml Output Urine Total 1050 ml Drainage Total 60 ml # Bowel Movements 2 General Appearance: Alert, Oriented X3, Cooperative HEENT: Atraumatic Lungs: Clear to auscultation Cardiovascular: Regular rate Abdomen: Normal bowel sounds, Soft, Other (Bowel sounds present. Drainage tube and urine conduit bag in place) Extremities: Other (1+ bilateral lower extremity edema) Medications Current Medications Medications Dose Ordered Sig/Alvino Route Start Time Stop Time Status Last Admin Dose Admin Norepinephrine Bitartrate 250 ml @ 3.75 mls/hr Q24H IV 08/14/24 18:30 08/15/24 11:15 11.25 MLS/HR Piperacillin Sod/ Tazobactam Sod 100 ml @ 25 mls/hr Q8HR IV 08/15/24 06:00 08/18/24 05:35 25 MLS/HR Levetiracetam 100 ml @ 400 mls/hr BID IV 08/14/24 22:00 08/18/24 09:11 400 MLS/HR Oxcarbazepine 300 mg BID PO 08/14/24 22:15 08/18/24 09:12 300 MG Sodium Chloride 10 ml Q8HR IV 08/14/24 22:00 08/18/24 05:35 10 ML Docusate Sodium 100 mg BIDPRN PRN PO 08/14/24 21:30 Acetaminophen 650 mg Q6HP PRN PO 08/14/24 21:30 08/15/24 17:20 650 MG Ondansetron HCl 4 mg Q4HP PRN IV 08/14/24 21:30 08/17/24 16:07 4 MG Vasopressin 20 units/Sodium Chloride 100 ml @ 9 mls/hr Q11H7M IV 08/14/24 21:45 08/14/24 23:03 9 MLS/HR Multivitamins 1 tab HS PO 08/15/24 22:00 08/17/24 22:42 1 TAB Patient Own Medication 5 mg HS PO 08/15/24 22:00 Citalopram Hydrobromide 20 mg HS PO 08/15/24 22:00 08/17/24 22:42 20 MG Patient Own Medication 48 mg HS PO 08/15/24 22:00 Patient Own Medication 1,400 mg HS PO 08/15/24 22:00 Magnesium Oxide 400 mg HS PO 08/15/24 22:00 08/17/24 22:42 400 MG Patient Own Medication 1 tab HS PO 08/15/24 22:00 Cholecalciferol 2,000 unit HS PO 08/15/24 22:00 08/17/24 22:42 2,000 UNIT Enoxaparin Sodium 40 mg DAILY SC 08/16/24 10:00 Acetaminophen/ Hydrocodone Bitart 1 tab Q6HPRN PRN PO 08/15/24 16:15 08/18/24 02:55 1 TAB Linezolid 300 ml @ 150 mls/hr Q12HR IV 08/16/24 10:00 08/18/24 09:20 150 MLS/HR Dimethicone 40 mg QIDP PRN PO 08/16/24 11:15 08/16/24 12:28 40 MG Enteral Nutritional Formula 240 ml BIDWM PO 08/17/24 18:00 08/18/24 08:00 240 ML Lactated Ringer's 1,000 ml @ 100 mls/hr Q10H IV 08/17/24 09:00 08/17/24 23:29 100 MLS/HR Laboratory Results Laboratory Tests 08/18/24 05:32 Chemistry Test 08/18/24 05:32 Albumin 3.1 g/dL (3.2-4.8) L Calcium Level 9.2 mg/dL (8.7-10.4) Magnesium Level 1.8 mg/dL (1.6-2.6) Total Protein 5.4 g/dL (5.7-8.2) L LFT Test 08/18/24 05:32 Alanine Aminotransferase (ALT) < 9 U/L (7-40) Alkaline Phosphatase 131 U/L (46-116) H Aspartate Amino Transferase (AST) 24 U/L (13-40) Total Bilirubin 0.2 mg/dL (0.2-1.0) Microbiology Microbiology Date/Time Source Procedure Growth Status 08/15/24 12:20 Aspirate Gram Stain - Final Resulted 08/15/24 12:20 Aspirate Body Fluid Culture - Preliminary Resulted 08/14/24 15:41 Blood Blood Culture - Preliminary NO GROWTH AFTER 72 HOURS OF INCUBATION. Resulted Labs and/or images reviewed: Labs reviewed by me, Image(s) reviewed by me Assessment/Plan Assessment/Plan Covering for Dr Dempsey Septic shock resolving Pelvic abscess status post drainage with insertion of the drain continue Zyvox and Zosyn Bladder cancer stage IV status post robotic assisted cystectomy and urinary ileal conduit diversion/ileostomy, status post chemotherapy six weeks ago both at [facility] Non-STEMI type 2, cardiology consult by Dr. Hawk appreciated History of renal cancer status post right nephrectomy Seizures Dyslipidemia Prediabetes with the highest A1c at 5.7 in 2022 Chronic kidney disease stage IIIA, Nephrology consult by Dr. Hester appreciated Anemia/chronic with worsening likely secondary to dilution Diarrhea, C diff studies pending Time spent 70 minutes Advanced care planning time 20 minutes Patient is full code Plan discussed with: Patient Date of Service: August 18, 2024 Billing Provider: VASILE HARDIN MD Common Visit Codes: [id number] CARE 30-74 MIN VASILE HARDIN MD August 18, 2024 10:10
--- NOTE | 2024-08-18 16:27 | DVHINCON2 ---
Family History: Patient reports no known family medical history. Allergies: Coded Allergies: Ciprofloxacin (Verified Allergy, Unknown, 08/15/24) Acetylcysteine (Verified Adverse Reaction, Mild, 08/15/24) Home Meds Active Scripts Oxcarbazepine (Trileptal) 600 Mg Tab, 300 MG PO BID, #60 TAB Prov:GERMAN GONZALEZ MD 07/08/20 Reported Medications Fenofibrate (Tricor) 48 Mg Tab, 48 MG PO DAILY, TAB 11/22/23 Oxycodone Hcl (OXYCODONE HCL) 5 Mg Tb, 7.5 MG PO PRN, TAB 11/22/23 Aripiprazole (Abilify) 20 Mg Tab, 5 MG PO DAILY, TAB 07/06/22 Cholecalciferol (VITAMIN D3) 2,000 Unit Tab, 1 TAB PO DAILY, #30 TAB 5 Refills 09/27/21 Multiple Vitamin (Multivitamins) Tab, 1 TAB PO DAILY, #90 TAB 3 Refills 09/27/21 Fish Oil (Fish Oil) 1,200 Mg Cap, 1400 MG PO DAILY, CAP 09/27/21 Magnesium Oxide (MAGNESIUM OXIDE) 400 Mg Tab, 250 MG PO DAILY, TAB 09/27/21 Specialty Vitamins Products (Biotin Plus Keratin 38460-614 Mcg-mg) 1 Tab Tab, 1 TAB PO DAILY, TAB 09/27/21 Temazepam (Restoril) 15 Mg Cp, 1 CAP PO QHSP PRN for FOR INSOMNIA 09/27/21 Escitalopram Oxalate (Lexapro) 10 Mg Tab, 1 TAB PO DAILY, #90 TAB 3 Refills 07/06/20 Current Medications Current Medications Medications (Trade) Dose Ordered Sig/Alvino Route PRN Reason Start Time Stop Time Status Last Admin Enteral Nutritional Formula (Ensure Enlive) 240 ml BIDWM PO 08/17/24 18:00 08/18/24 08:00 Vital Signs Vital Signs Date Time Temp Pulse Resp B/P (MAP) Pulse Ox O2 Delivery O2 Flow Rate FiO2 08/18/24 12:52 98.0 65 16 136/68 (90) 98 98.0 08/17/24 20:00 Room Air* 0 21 Labs/Diagnostic Data Labs Test 08/18/24 05:32 08/16/24 04:56 08/15/24 12:20 08/15/24 04:34 Range/Units White Blood Count 4.3 L 4.4-10.8 10^3/uL Red Blood Count 2.62 L 4.0-5.20 10^6/uL Hemoglobin 7.9 L 12.2-16.2 g/dL Hematocrit 24.0 L 36.0-46.0 % Mean Corpuscular Volume 91.4 80.0-100.0 fL Mean Corpuscular Hemoglobin 30.3 28.0-32.0 pg Mean Corpuscular Hemoglobin Concent 33.1 32.0-36.0 g/dL Red Cell Distribution Width 14.5 H 11.8-14.3 % Platelet Count 173 140-450 10^3/uL Mean Platelet Volume 8.7 6.9-10.8 fL Neutrophils (%) (Auto) 59.3 37.0-80.0 % Lymphocytes (%) (Auto) 29.4 10.0-50.0 % Monocytes (%) (Auto) 6.9 0.0-12.0 % Eosinophils (%) (Auto) 3.7 0.0-7.0 % Basophils (%) (Auto) 0.7 0.0-2.0 % Neutrophils # (Auto) 2.5 1.6-8.6 10 ^3/uL Lymphocytes # (Auto) 1.3 0.4-5.4 10 ^3/uL Monocytes # (Auto) 0.3 0-1.3 10 ^3/uL Eosinophils # (Auto) 0.2 0-0.8 10 ^3/uL Basophils # (Auto) 0 0-0.2 10 ^3/uL Nucleated Red Blood Cells 0.1 % Sodium Level 140 136-145 mmol/L Potassium Level 4.0 3.5-5.1 mmol/L Chloride Level 108 H 98-107 mmol/L Carbon Dioxide Level 24 20-31 mmol/L Anion Gap 8 5-15 Blood Urea Nitrogen 9 9-23 mg/dL Creatinine 1.07 H 0.550-1.02 mg/dL Glomerular Filtration Rate Calc 58 >90 mL/min BUN/Creatinine Ratio 8.4 L 10.0-20.0 Serum Glucose 92 74-106 mg/dL Calcium Level 9.2 8.7-10.4 mg/dL Magnesium Level 1.8 1.6-2.6 mg/dL Total Bilirubin 0.2 0.2-1.0 mg/dL Aspartate Amino Transferase (AST) 24 13-40 U/L Alanine Aminotransferase (ALT) < 9 7-40 U/L Alkaline Phosphatase 131 H 46-116 U/L Total Protein 5.4 L 5.7-8.2 g/dL Albumin 3.1 L 3.2-4.8 g/dL Random Vancomycin Level 11.2 H 5-10 ug/mL Body Fluid Glucose 91 . mg/dL Prothrombin Time 12.7 H 9.3-11.8 sec Prothrombin Time INR 1.22 H 0.9-1.15 Activated Partial Thromboplast Time 55.8 H 24.5-34.5 SEC Hemoglobin A1c < 3.8 <5.7 % A1C Troponin I High Sensitivity 948 *H </=34 ng/L Triglycerides Level 167 H < 150 mg/dL Cholesterol Level 118 < 200 mg/dL LDL Cholesterol 58 < 100 mg/dL HDL Cholesterol 19 L 40-59 mg/dL Thyroid Stimulating Hormone (TSH) 3.28 0.55-4.78 uIU/mL Test 08/14/24 21:57 08/14/24 21:15 08/14/24 20:15 08/14/24 15:31 Range/Units Differential Total Cells Counted 100.0 100 Neutrophils % (Manual) 82 H 37.0-80.0 Band Neutrophils % (Manual) 9 Lymphocytes % (Manual) 4 L 10.0-50.0 Monocytes % (Manual) 5 0-12 Eosinophils % (Manual) 0 0-7 Basophils % (Manual) 0 0.0-2.0 Metamyelocytes % (manual) 0 Myelocytes % (Manual) 0 Promyelocytes % (Manual) 0 Blast Cells % (Manual) 0 Reactive Lymphocytes 0 Platelet Estimate Adequate C-Reactive Protein High Sensitivity 15.39 H <1.0 mg/dL Influenza Type A Antigen Negative Negative Influenza Type B Antigen Negative Negative SARS-CoV-2 Antigen (Rapid) Negative NEGATIVE Lactic Acid Level 0.7 0.4-2.0 mmol/L B-Type Natriuretic Peptide 277.88 0-100 pg/mL Lipase 34 12-53 U/L Microbiology Date/Time Source Procedure Growth Status 08/15/24 12:20 Aspirate Gram Stain - Final Resulted 08/15/24 12:20 Aspirate Body Fluid Culture - Preliminary Resulted 08/14/24 15:41 Blood Blood Culture - Preliminary NO GROWTH AFTER 72 HOURS OF INCUBATION. Resulted TOM FISCHER MD August 18, 2024 16:27
--- NOTE | 2024-08-18 23:49 | DVHPN2 ---
Progress Note - Dictate Date Seen: August 18, 2024 Medical Necessity Reason Pt with a Central, PICC or Fol: No Subjective Patient was seen and evaluated in follow up in the ICU. Patient is on 2 LPM NC. Patient is complaining of abdominal discomfort and loose stools. Pending eval with ID. HGB 7.9, HCT 24.0. Telemetry reviewed. vital signs Vital Sign Date Time Temp Pulse Resp B/P (MAP) Pulse Ox O2 Delivery O2 Flow Rate FiO2 08/18/24 17:00 98.0 71 18 145/68 (93) 90 98.0 08/18/24 08:00 Room Air* 0 21 Total Intake and Output 08/17/24 08/17/24 08/18/24 15:00 23:00 07:00 Intake Total 440 ml 1340 ml Output Total 650 ml 460 ml Balance -210 ml 880 ml medications Current Medications Medications Dose Ordered Sig/Alvino Route Start Time Stop Time Status Last Admin Dose Admin Norepinephrine Bitartrate 250 ml @ 3.75 mls/hr Q24H IV 08/14/24 18:30 08/15/24 11:15 11.25 MLS/HR Piperacillin Sod/ Tazobactam Sod 100 ml @ 25 mls/hr Q8HR IV 08/15/24 06:00 08/18/24 21:53 25 MLS/HR Levetiracetam 100 ml @ 400 mls/hr BID IV 08/14/24 22:00 08/18/24 21:16 400 MLS/HR Oxcarbazepine 300 mg BID PO 08/14/24 22:15 08/18/24 21:55 300 MG Sodium Chloride 10 ml Q8HR IV 08/14/24 22:00 08/18/24 21:53 10 ML Docusate Sodium 100 mg BIDPRN PRN PO 08/14/24 21:30 Acetaminophen 650 mg Q6HP PRN PO 08/14/24 21:30 08/15/24 17:20 650 MG Ondansetron HCl 4 mg Q4HP PRN IV 08/14/24 21:30 08/18/24 11:53 4 MG Vasopressin 20 units/Sodium Chloride 100 ml @ 9 mls/hr Q11H7M IV 08/14/24 21:45 08/14/24 23:03 9 MLS/HR Multivitamins 1 tab HS PO 08/15/24 22:00 08/18/24 21:59 1 TAB Patient Own Medication 5 mg HS PO 08/15/24 22:00 Citalopram Hydrobromide 20 mg HS PO 08/15/24 22:00 08/18/24 21:54 20 MG Patient Own Medication 48 mg HS PO 08/15/24 22:00 Patient Own Medication 1,400 mg HS PO 08/15/24 22:00 Magnesium Oxide 400 mg HS PO 08/15/24 22:00 08/18/24 21:54 400 MG Patient Own Medication 1 tab HS PO 08/15/24 22:00 Cholecalciferol 2,000 unit HS PO 08/15/24 22:00 08/18/24 21:55 2,000 UNIT Enoxaparin Sodium 40 mg DAILY SC 08/16/24 10:00 Acetaminophen/ Hydrocodone Bitart 1 tab Q6HPRN PRN PO 08/15/24 16:15 08/18/24 02:55 1 TAB Linezolid 300 ml @ 150 mls/hr Q12HR IV 08/16/24 10:00 08/18/24 21:28 150 MLS/HR Dimethicone 40 mg QIDP PRN PO 08/16/24 11:15 08/16/24 12:28 40 MG Enteral Nutritional Formula 240 ml BIDWM PO 08/17/24 18:00 08/18/24 18:03 240 ML Lactated Ringer's 1,000 ml @ 100 mls/hr Q10H IV 08/17/24 09:00 08/18/24 11:01 100 MLS/HR objective GENERAL: No acute distress. EYES: PERRL, EOMI. Anicteric. HENT: Moist mucous membranes. LUNGS: Clear to auscultation bilaterally. CARDIOVASCULAR: Regular rate and rhythm. ABDOMEN: Soft, nontender and nondistended. EXTREMITIES: No edema. NEUROLOGIC: Confused. SKIN: Warm, dry. laboratory and microbiology Laboratory Tests 08/18/24 05:32 Test 08/18/24 05:32 Range/Units Serum Glucose 92 74-106 mg/dL Problem List Elevated troponin. Likely NSTEMI type 2 due to sepsis, and QUINN. Septic shock likely due to pelvic abscess. QUINN on CKD . Stage IV bladder cancer. Pulmonary HTN. l Assessment/Plan Continued all current supportive medical care. [place] for pain management. IV antibiotics as ordered. DVT prophylactics. Additional plan as per the hospital course. Critical care time of 45 minutes provided to include time spent evaluation of patient at bedside, when appropriate patient/family education for diagnosis, treatment plan, review of pertinent medical information and discussion of care with specialty providers and PCP. Dietary Evaluation Review Recommendations by RD: Dietary education by RD, Protein Supplementation Comments: 1) Initiate Ensure Enlive bid. Encourage optimal PO intake 2) Consider vitamin C @ 500 mg bid for 7-10 days 3) Refer to outpatient RD for weight management 4) Follow-up with urology, nephrology, cardiology, and oncology 5) Continue to monitor I&O, labs, and skin integrity Expected Outcomes/Goals: 1) appetite and labs to improve 2) f/u in 3-5 days Plan discussed with: Patient WALESKA BOWSER MD August 18, 2024 23:49
[2024-08-19] VITALS (10 sets, daily range): BP systolic 132–150; BP diastolic 67–79; PULSE 52–87; RESP 16–19; TEMP 97.4–98.3; O2SAT 93–98
[2024-08-19 05:11] LABS: Basophils # (auto) 0 10 ^3/uL (0-0.2); Basophils % (auto) 0.9 % (0.0-2.0); Eosinophils # (auto) 0.3 10 ^3/uL (0-0.8); Eosinophils % (auto) 6.6 % (0.0-7.0); Hematocrit 25.5 % (36.0-46.0); Hemoglobin 8.6 g/dL (12.2-16.2); Lymphocytes # (auto) 1.6 10 ^3/uL (0.4-5.4); Lymphocytes % (auto) 32.7 % (10.0-50.0); Mean Corpuscular Hemoglobin 30.3 pg (28.0-32.0); Mean Corpuscular Hgb Conc. 33.8 g/dL (32.0-36.0); Mean Corpuscular Volume 89.7 fL (80.0-100.0); Monocytes # (auto) 0.3 10 ^3/uL (0-1.3); Neutrophils # (auto) 2.5 10 ^3/uL (1.6-8.6); Neutrophils % (auto) 52.8 % (37.0-80.0); Nucleated Red Blood Cells % 0.1 %; Platelet Count (auto) 181 10^3/uL (140-450); Red Blood Cells 2.85 10^6/uL (4.0-5.20); Red Cell Distribution Width 14.6 % (11.8-14.3); White Blood Cell 4.8 10^3/uL (4.4-10.8)
[2024-08-19 05:28] LABS: Albumin 3.2 g/dL (3.2-4.8); Alkaline Phosphatase 115 U/L (46-116); Anion Gap 7 (5-15); Aspartate Aminotransferase 21 U/L (13-40); BUN/Creatinine Ratio 7.1 (10.0-20.0); Carbon Dioxide 26 mmol/L (20-31); Glucose 88 mg/dL (74-106); Magnesium 1.8 mg/dL (1.6-2.6); Potassium 3.8 mmol/L (3.5-5.1); Sodium 141 mmol/L (136-145)
[2024-08-19 05:34] LABS: Alanine Aminotransferase < 9 U/L (7-40); Bilirubin, Total 0.2 mg/dL (0.2-1.0); Blood Urea Nitrogen 8 mg/dL (9-23); Calcium 8.6 mg/dL (8.7-10.4); Chloride 108 mmol/L (98-107); Total Protein 5.6 g/dL (5.7-8.2)
--- NOTE | 2024-08-19 08:43 | DVHPN2 ---
Reviewed: Care Plan, H&P, Labs, Medications, Previous Orders, Radiology, Other (Consultants) Changes from previous H/P or p: No Changes Objective Vitals Vital Signs Date Time Temp Pulse Resp B/P (MAP) Pulse Ox O2 Delivery O2 Flow Rate FiO2 08/19/24 08:28 97.9 61 17 136/67 (90) 93 97.9 08/18/24 20:00 Room Air* 0 21 Intake/Output Intake and Output 08/19/24 07:00 Intake Total 1600 ml Output Total 3075 ml Balance -1475 ml Intake Oral 700 ml IV Total 900 ml Output Urine Total 3075 ml # Bowel Movements 4 General Appearance: Alert, Oriented X3, Cooperative HEENT: Atraumatic Lungs: Clear to auscultation Cardiovascular: Regular rate Abdomen: Normal bowel sounds, Soft, Other (Bowel sounds present. Drainage tube and urine conduit bag in place) Extremities: Other (1+ bilateral lower extremity edema) Medications Current Medications Medications Dose Ordered Sig/Alvino Route Start Time Stop Time Status Last Admin Dose Admin Norepinephrine Bitartrate 250 ml @ 3.75 mls/hr Q24H IV 08/14/24 18:30 08/15/24 11:15 11.25 MLS/HR Piperacillin Sod/ Tazobactam Sod 100 ml @ 25 mls/hr Q8HR IV 08/15/24 06:00 08/19/24 06:59 25 MLS/HR Levetiracetam 100 ml @ 400 mls/hr BID IV 08/14/24 22:00 08/18/24 21:16 400 MLS/HR Oxcarbazepine 300 mg BID PO 08/14/24 22:15 08/18/24 21:55 300 MG Sodium Chloride 10 ml Q8HR IV 08/14/24 22:00 08/19/24 06:59 10 ML Docusate Sodium 100 mg BIDPRN PRN PO 08/14/24 21:30 Acetaminophen 650 mg Q6HP PRN PO 08/14/24 21:30 08/15/24 17:20 650 MG Ondansetron HCl 4 mg Q4HP PRN IV 08/14/24 21:30 08/18/24 11:53 4 MG Vasopressin 20 units/Sodium Chloride 100 ml @ 9 mls/hr Q11H7M IV 08/14/24 21:45 08/14/24 23:03 9 MLS/HR Multivitamins 1 tab HS PO 08/15/24 22:00 08/18/24 21:59 1 TAB Patient Own Medication 5 mg HS PO 08/15/24 22:00 Citalopram Hydrobromide 20 mg HS PO 08/15/24 22:00 08/18/24 21:54 20 MG Patient Own Medication 48 mg HS PO 08/15/24 22:00 Patient Own Medication 1,400 mg HS PO 08/15/24 22:00 Magnesium Oxide 400 mg HS PO 08/15/24 22:00 08/18/24 21:54 400 MG Patient Own Medication 1 tab HS PO 08/15/24 22:00 Cholecalciferol 2,000 unit HS PO 08/15/24 22:00 08/18/24 21:55 2,000 UNIT Enoxaparin Sodium 40 mg DAILY SC 08/16/24 10:00 Acetaminophen/ Hydrocodone Bitart 1 tab Q6HPRN PRN PO 08/15/24 16:15 08/19/24 00:18 1 TAB Linezolid 300 ml @ 150 mls/hr Q12HR IV 08/16/24 10:00 08/18/24 21:28 150 MLS/HR Dimethicone 40 mg QIDP PRN PO 08/16/24 11:15 08/16/24 12:28 40 MG Enteral Nutritional Formula 240 ml BIDWM PO 08/17/24 18:00 08/18/24 18:03 240 ML Lactated Ringer's 1,000 ml @ 100 mls/hr Q10H IV 08/17/24 09:00 08/18/24 11:01 100 MLS/HR Laboratory Results Laboratory Tests 08/19/24 04:41 Chemistry Test 08/19/24 04:41 Albumin 3.2 g/dL (3.2-4.8) Calcium Level 8.6 mg/dL (8.7-10.4) L Magnesium Level 1.8 mg/dL (1.6-2.6) Total Protein 5.6 g/dL (5.7-8.2) L LFT Test 08/19/24 04:41 Alanine Aminotransferase (ALT) < 9 U/L (7-40) Alkaline Phosphatase 115 U/L (46-116) Aspartate Amino Transferase (AST) 21 U/L (13-40) Total Bilirubin 0.2 mg/dL (0.2-1.0) Microbiology Microbiology Date/Time Source Procedure Growth Status 08/15/24 12:20 Aspirate Gram Stain - Final Resulted 08/15/24 12:20 Aspirate Body Fluid Culture - Preliminary Resulted 08/14/24 15:41 Blood Blood Culture - Preliminary NO GROWTH AFTER 72 HOURS OF INCUBATION. Resulted Labs and/or images reviewed: Labs reviewed by me, Image(s) reviewed by me Assessment/Plan Assessment/Plan Covering for Dr Dempsey Septic shock resolving Pelvic abscess status post drainage with insertion of the drain continue Zyvox and Zosyn, fluid cultures negative Bladder cancer stage IV status post robotic assisted cystectomy and urinary ileal conduit diversion/ileostomy, status post chemotherapy six weeks ago both at [facility] Non-STEMI type 2, cardiology consult by Dr. Hawk appreciated History of renal cancer status post right nephrectomy Seizures Dyslipidemia Prediabetes with the highest A1c at 5.7 in 2022 Chronic kidney disease stage IIIA, Nephrology consult by Dr. Hester appreciated Anemia/chronic with worsening likely secondary to dilution Diarrhea Resolved on its own Time spent 70 minutes Advanced care planning time 20 minutes Patient is full code Plan discussed with: Patient Date of Service: August 19, 2024 Billing Provider: VASILE HARDIN MD Common Visit Codes: [id number] INP/OBS CARE(HIGH) VASILE HARDIN MD August 19, 2024 08:43
--- NOTE | 2024-08-19 11:37 | DVHPN2 ---
Progress Note - Dictate Date Seen: August 19, 2024 Medical Necessity Reason Pt with a Central, PICC or Fol: No Subjective Patient was seen and evaluated in follow up. Patient is on 2 LPM NC. Patient is complaining of abdominal discomfort and loose stools. HGB 8.6, HCT 25.5. Telemetry reviewed. vital signs Vital Sign Date Time Temp Pulse Resp B/P (MAP) Pulse Ox O2 Delivery O2 Flow Rate FiO2 08/19/24 08:28 97.9 61 17 136/67 (90) 93 97.9 08/19/24 08:00 Room Air* 0 21 Total Intake and Output 08/18/24 08/18/24 08/19/24 15:00 23:00 07:00 Intake Total 400 ml 100 ml 1100 ml Output Total 1400 ml 1675 ml Balance 400 ml -1300 ml -575 ml medications Current Medications Medications Dose Ordered Sig/Alvino Route Start Time Stop Time Status Last Admin Dose Admin Norepinephrine Bitartrate 250 ml @ 3.75 mls/hr Q24H IV 08/14/24 18:30 08/15/24 11:15 11.25 MLS/HR Piperacillin Sod/ Tazobactam Sod 100 ml @ 25 mls/hr Q8HR IV 08/15/24 06:00 08/19/24 06:59 25 MLS/HR Levetiracetam 100 ml @ 400 mls/hr BID IV 08/14/24 22:00 08/19/24 10:18 400 MLS/HR Oxcarbazepine 300 mg BID PO 08/14/24 22:15 08/19/24 10:20 300 MG Sodium Chloride 10 ml Q8HR IV 08/14/24 22:00 08/19/24 06:59 10 ML Docusate Sodium 100 mg BIDPRN PRN PO 08/14/24 21:30 Acetaminophen 650 mg Q6HP PRN PO 08/14/24 21:30 08/15/24 17:20 650 MG Ondansetron HCl 4 mg Q4HP PRN IV 08/14/24 21:30 08/18/24 11:53 4 MG Vasopressin 20 units/Sodium Chloride 100 ml @ 9 mls/hr Q11H7M IV 08/14/24 21:45 08/14/24 23:03 9 MLS/HR Multivitamins 1 tab HS PO 08/15/24 22:00 08/18/24 21:59 1 TAB Patient Own Medication 5 mg HS PO 08/15/24 22:00 Citalopram Hydrobromide 20 mg HS PO 08/15/24 22:00 08/18/24 21:54 20 MG Patient Own Medication 48 mg HS PO 08/15/24 22:00 Patient Own Medication 1,400 mg HS PO 08/15/24 22:00 Magnesium Oxide 400 mg HS PO 08/15/24 22:00 08/18/24 21:54 400 MG Patient Own Medication 1 tab HS PO 08/15/24 22:00 Cholecalciferol 2,000 unit HS PO 08/15/24 22:00 08/18/24 21:55 2,000 UNIT Enoxaparin Sodium 40 mg DAILY SC 08/16/24 10:00 Acetaminophen/ Hydrocodone Bitart 1 tab Q6HPRN PRN PO 08/15/24 16:15 08/19/24 10:18 1 TAB Linezolid 300 ml @ 150 mls/hr Q12HR IV 08/16/24 10:00 08/19/24 10:17 150 MLS/HR Dimethicone 40 mg QIDP PRN PO 08/16/24 11:15 08/16/24 12:28 40 MG Enteral Nutritional Formula 240 ml BIDWM PO 08/17/24 18:00 08/19/24 10:21 240 ML Lactated Ringer's 1,000 ml @ 100 mls/hr Q10H IV 08/17/24 09:00 08/18/24 11:01 100 MLS/HR objective GENERAL: Alert and oriented x 3. No acute distress. EYES: PERRL, EOMI. Anicteric. HENT: Moist mucous membranes. LUNGS: Clear to auscultation bilaterally. CARDIOVASCULAR: Regular rate and rhythm. ABDOMEN: Soft, nontender and nondistended. EXTREMITIES: No edema. SKIN: Warm, dry. laboratory and microbiology Laboratory Tests 08/19/24 04:41 Test 08/19/24 04:41 Range/Units Serum Glucose 88 74-106 mg/dL Problem List Elevated troponin. Likely NSTEMI type 2 due to sepsis, and QUINN. Septic shock likely due to pelvic abscess. QUINN on CKD . Stage IV bladder cancer. Pulmonary HTN. l Assessment/Plan Continued all current supportive medical care. [place] for pain management. IV antibiotics as ordered. DVT prophylactics. Additional plan as per the hospital course. Dietary Evaluation Review Recommendations by RD: Dietary education by RD, Protein Supplementation Comments: 1) Initiate Ensure Enlive bid. Encourage optimal PO intake 2) Consider vitamin C @ 500 mg bid for 7-10 days 3) Refer to outpatient RD for weight management 4) Follow-up with urology, nephrology, cardiology, and oncology 5) Continue to monitor I&O, labs, and skin integrity Expected Outcomes/Goals: 1) appetite and labs to improve 2) f/u in 3-5 days Plan discussed with: Patient WALESKA BOWSER MD August 19, 2024 11:37
[2024-08-20] VITALS (7 sets, daily range): BP systolic 136–155; BP diastolic 68–75; PULSE 47–71; RESP 16–20; TEMP 97.4–97.7; O2SAT 95–97
--- NOTE | 2024-08-20 08:17 | DVHPN2 ---
Reviewed: Care Plan, H&P, Labs, Medications, Previous Orders, Radiology, Other (Consultants) Changes from previous H/P or p: No Changes Objective Vitals Vital Signs Date Time Temp Pulse Resp B/P (MAP) Pulse Ox O2 Delivery O2 Flow Rate FiO2 08/20/24 05:51 97.8 08/20/24 05:00 60 18 138/75 (96) 97 08/19/24 20:00 Room Air* 0 21 Intake/Output Intake and Output 08/20/24 07:00 Intake Total 1660 ml Output Total 3950 ml Balance -2290 ml Intake Oral 760 ml IV Total 900 ml Output Urine Total 3950 ml # Bowel Movements 2 General Appearance: Alert, Oriented X3, Cooperative HEENT: Atraumatic Lungs: Clear to auscultation Cardiovascular: Regular rate Abdomen: Normal bowel sounds, Soft, Other (Bowel sounds present. Drainage tube and urine conduit bag in place) Extremities: Other (1+ bilateral lower extremity edema) Medications Current Medications Medications Dose Ordered Sig/Alvino Route Start Time Stop Time Status Last Admin Dose Admin Piperacillin Sod/ Tazobactam Sod 100 ml @ 25 mls/hr Q8HR IV 08/15/24 06:00 08/20/24 05:08 25 MLS/HR Levetiracetam 100 ml @ 400 mls/hr BID IV 08/14/24 22:00 08/19/24 22:51 400 MLS/HR Oxcarbazepine 300 mg BID PO 08/14/24 22:15 08/19/24 23:02 300 MG Sodium Chloride 10 ml Q8HR IV 08/14/24 22:00 08/20/24 05:11 10 ML Docusate Sodium 100 mg BIDPRN PRN PO 08/14/24 21:30 Acetaminophen 650 mg Q6HP PRN PO 08/14/24 21:30 08/20/24 04:51 650 MG Ondansetron HCl 4 mg Q4HP PRN IV 08/14/24 21:30 08/18/24 11:53 4 MG Vasopressin 20 units/Sodium Chloride 100 ml @ 9 mls/hr Q11H7M IV 08/14/24 21:45 08/14/24 23:03 9 MLS/HR Multivitamins 1 tab HS PO 08/15/24 22:00 08/19/24 23:02 1 TAB Patient Own Medication 5 mg HS PO 08/15/24 22:00 Citalopram Hydrobromide 20 mg HS PO 08/15/24 22:00 08/19/24 23:02 20 MG Patient Own Medication 48 mg HS PO 08/15/24 22:00 Patient Own Medication 1,400 mg HS PO 08/15/24 22:00 Magnesium Oxide 400 mg HS PO 08/15/24 22:00 08/19/24 23:02 400 MG Patient Own Medication 1 tab HS PO 08/15/24 22:00 Cholecalciferol 2,000 unit HS PO 08/15/24 22:00 08/19/24 23:03 2,000 UNIT Enoxaparin Sodium 40 mg DAILY SC 08/16/24 10:00 Acetaminophen/ Hydrocodone Bitart 1 tab Q6HPRN PRN PO 08/15/24 16:15 08/20/24 00:29 1 TAB Linezolid 300 ml @ 150 mls/hr Q12HR IV 08/16/24 10:00 08/19/24 22:59 150 MLS/HR Dimethicone 40 mg QIDP PRN PO 08/16/24 11:15 08/16/24 12:28 40 MG Enteral Nutritional Formula 240 ml BIDWM PO 08/17/24 18:00 08/19/24 18:00 240 ML Lactated Ringer's 1,000 ml @ 100 mls/hr Q10H IV 08/17/24 09:00 08/18/24 11:01 100 MLS/HR Laboratory Results Laboratory Tests 08/19/24 04:41 Microbiology Microbiology Date/Time Source Procedure Growth Status 08/15/24 12:20 Aspirate Gram Stain - Final Resulted 08/15/24 12:20 Aspirate Body Fluid Culture - Preliminary Resulted 08/14/24 15:41 Blood Blood Culture - Final NO GROWTH AFTER 5 DAYS OF INCUBATION. Complete Labs and/or images reviewed: Labs reviewed by me, Image(s) reviewed by me Assessment/Plan Assessment/Plan Covering for Dr Dempsey Septic shock resolving Pelvic abscess status post drainage with insertion of the drain continue Zyvox and Zosyn, fluid cultures negative Bladder cancer stage IV status post robotic assisted cystectomy and urinary ileal conduit diversion/ileostomy, status post chemotherapy six weeks ago both at [facility] Non-STEMI type 2, cardiology consult by Dr. Hawk appreciated History of renal cancer status post right nephrectomy Seizures Dyslipidemia Prediabetes with the highest A1c at 5.7 in 2022 Chronic kidney disease stage IIIA, Nephrology consult by Dr. Hester appreciated Anemia/chronic with worsening likely secondary to dilution Diarrhea Resolved on its own Patient is being discharged home on home health for IV antibiotics Plan discussed with: Patient My Orders Orders - VASILE HARDIN MD Procedure Category Date Status Time Insert Midline ORDERS 08/19/24 Transmitted 14:36 Date of Service: August 20, 2024 Billing Provider: VASILE HARDIN MD Common Visit Codes: [id number] INP/OBS CARE(HIGH) VASILE HARDIN MD August 20, 2024 08:17
--- NOTE | 2024-08-20 08:22 | DVHDS2 ---
Discharge Summary Date of Admission August 14, 2024 at 21:23 Date of Discharge: August 20, 2024 Admitting Diagnosis Septic shock Wounds: Incision drainage of the pelvic abscess Labs/Diagnostic Data: Laboratory Results Test 08/19/24 04:41 08/16/24 04:56 08/15/24 12:20 08/15/24 04:34 White Blood Count 4.8 10^3/uL (4.4-10.8) Red Blood Count 2.85 10^6/uL (4.0-5.20) Hemoglobin 8.6 g/dL (12.2-16.2) Hematocrit 25.5 % (36.0-46.0) Mean Corpuscular Volume 89.7 fL (80.0-100.0) Mean Corpuscular Hemoglobin 30.3 pg (28.0-32.0) Mean Corpuscular Hemoglobin Concent 33.8 g/dL (32.0-36.0) Red Cell Distribution Width 14.6 % (11.8-14.3) Platelet Count 181 10^3/uL (140-450) Mean Platelet Volume 8.0 fL (6.9-10.8) Neutrophils (%) (Auto) 52.8 % (37.0-80.0) Lymphocytes (%) (Auto) 32.7 % (10.0-50.0) Monocytes (%) (Auto) 7.0 % (0.0-12.0) Eosinophils (%) (Auto) 6.6 % (0.0-7.0) Basophils (%) (Auto) 0.9 % (0.0-2.0) Neutrophils # (Auto) 2.5 10 ^3/uL (1.6-8.6) Lymphocytes # (Auto) 1.6 10 ^3/uL (0.4-5.4) Monocytes # (Auto) 0.3 10 ^3/uL (0-1.3) Eosinophils # (Auto) 0.3 10 ^3/uL (0-0.8) Basophils # (Auto) 0 10 ^3/uL (0-0.2) Nucleated Red Blood Cells 0.1 % Sodium Level 141 mmol/L (136-145) Potassium Level 3.8 mmol/L (3.5-5.1) Chloride Level 108 mmol/L (98-107) Carbon Dioxide Level 26 mmol/L (20-31) Anion Gap 7 (5-15) Blood Urea Nitrogen 8 mg/dL (9-23) Creatinine 1.12 mg/dL (0.550-1.02) Glomerular Filtration Rate Calc 55 mL/min (>90) BUN/Creatinine Ratio 7.1 (10.0-20.0) Serum Glucose 88 mg/dL (74-106) Calcium Level 8.6 mg/dL (8.7-10.4) Magnesium Level 1.8 mg/dL (1.6-2.6) Total Bilirubin 0.2 mg/dL (0.2-1.0) Aspartate Amino Transferase (AST) 21 U/L (13-40) Alanine Aminotransferase (ALT) < 9 U/L (7-40) Alkaline Phosphatase 115 U/L (46-116) Total Protein 5.6 g/dL (5.7-8.2) Albumin 3.2 g/dL (3.2-4.8) Random Vancomycin Level 11.2 ug/mL (5-10) Body Fluid Glucose 91 mg/dL (.) Prothrombin Time 12.7 sec (9.3-11.8) Prothrombin Time INR 1.22 (0.9-1.15) Activated Partial Thromboplast Time 55.8 SEC (24.5-34.5) Hemoglobin A1c < 3.8 % A1C (<5.7) Troponin I High Sensitivity 948 ng/L (</=34) Triglycerides Level 167 mg/dL (< 150) Cholesterol Level 118 mg/dL (< 200) LDL Cholesterol 58 mg/dL (< 100) HDL Cholesterol 19 mg/dL (40-59) Thyroid Stimulating Hormone (TSH) 3.28 uIU/mL (0.55-4.78) Test 08/14/24 21:57 08/14/24 21:15 08/14/24 20:15 08/14/24 15:31 Differential Total Cells Counted 100.0 (100) Neutrophils % (Manual) 82 (37.0-80.0) Band Neutrophils % (Manual) 9 Lymphocytes % (Manual) 4 (10.0-50.0) Monocytes % (Manual) 5 (0-12) Eosinophils % (Manual) 0 (0-7) Basophils % (Manual) 0 (0.0-2.0) Metamyelocytes % (manual) 0 Myelocytes % (Manual) 0 Promyelocytes % (Manual) 0 Blast Cells % (Manual) 0 Reactive Lymphocytes 0 Platelet Estimate Adequate C-Reactive Protein High Sensitivity 15.39 mg/dL (<1.0) Influenza Type A Antigen Negative (Negative) Influenza Type B Antigen Negative (Negative) SARS-CoV-2 Antigen (Rapid) Negative (NEGATIVE) Lactic Acid Level 0.7 mmol/L (0.4-2.0) B-Type Natriuretic Peptide 277.88 pg/mL (0-100) Lipase 34 U/L (12-53) Other Laboratory Tests 08/19/24 04:41 Brief Hx & Hospital Course: 63-year-old female with a history of bladder cancer stage IV status post robotic assisted cystectomy and urinary ileal conduit diversion ileostomy and chemotherapy six week ago at [facility] history of renal cancer status post right nephrectomy history of hypercholesterolemia seizures prediabetes chronic kidney disease anemia of chronic disease came in for generalized weakness. Non ST-elevation [place] type [address] Hawk. Found to have pelvic abscess underwent drainage with the incision of the drain by the interventional radiologist placed on Zosyn and Zyvox bleed fluid cultures were negative blood cultures negative septic shock Flagyl resolved and the patient is afebrile with a stable vital signs. Being discharged home on Zyvox and Zosyn for 10 more days by home health. The plan is acceptable to the daughter. Consults/Reason for consult ID Dr. Anna Interventional radiologist Operations or Procedures Incision and drainage of the pelvic abscess Condition at Discharge: Fair Final Diagnosis/Problems List Septic shock resolving Pelvic abscess status post drainage with insertion of the drain continue Zyvox and Zosyn, fluid cultures negative Bladder cancer stage IV status post robotic assisted cystectomy and urinary ileal conduit diversion/ileostomy, status post chemotherapy six weeks ago both at [facility] Non-STEMI type 2, cardiology consult by Dr. Hawk appreciated History of renal cancer status post right nephrectomy Seizures Dyslipidemia Prediabetes with the highest A1c at 5.7 in 2022 Chronic kidney disease stage IIIA, Nephrology consult by Dr. Hester appreciated Anemia/chronic with worsening likely secondary to dilution Diarrhea Resolved on its own Discharge Disposition: Home with Health Services Discharge Instruct/Medications Diet: Cardiac 2g Na,low cholest Activity: Light activity Follow Up/Referral: Follow up with your primary Dr Dempsey in one week Resume all previous home medications Medications: Zosyn 3.375 g IV q.12h for 10 days Zyvox 600 mg IV q.12h for 10 days To be administered by home health 39 (Time taken for discharge summary 39 minutes) Discharge Statement: "Patient was advised to return to the ER or call 911 if any headaches, dizziness, shortness of breath, chest pain, abdominal pain, bleeding, fevers, or worsening of medical condition. Patient was counseled about treatment plan, medications, possible side effects, patientverbalized understanding. All questions were answered to the best of my ability. This discharge took greater then 30 minutes in planning, reviewing documentation, counseling the patient, and discussing with other team members." ASSESSMENT ASSESSMENT Hospital Course Improved Assessment Septic shock resolving Pelvic abscess status post drainage with insertion of the drain continue Zyvox and Zosyn, fluid cultures negative Bladder cancer stage IV status post robotic assisted cystectomy and urinary ileal conduit diversion/ileostomy, status post chemotherapy six weeks ago both at [facility] Non-STEMI type 2, cardiology consult by Dr. Hawk appreciated History of renal cancer status post right nephrectomy Seizures Dyslipidemia Prediabetes with the highest A1c at 5.7 in 2022 Chronic kidney disease stage IIIA, Nephrology consult by Dr. Hester appreciated Anemia/chronic with worsening likely secondary to dilution Diarrhea Resolved on its own Date of Service: August 20, 2024 Billing Provider: VASILE HARDIN MD Common Visit Codes: [id number]-GVC/OBS DISCH DAY >30min VASILE HARDIN MD August 20, 2024 08:21
--- NOTE | 2024-08-20 18:56 | DVHPN2 ---
Progress Note - Dictate Date Seen: August 20, 2024 Medical Necessity Reason Pt with a Central, PICC or Fol: No Subjective Patient was seen and evaluated in follow up. Patient is planned for discharge home on Zyvox and Zosyn for 10 more days by home health. Patient is cardiac stable for discharge. Telemetry reviewed. vital signs Vital Sign Date Time Temp Pulse Resp B/P (MAP) Pulse Ox O2 Delivery O2 Flow Rate FiO2 08/20/24 11:50 97.4 61 17 96 08/20/24 09:00 155/70 (98) 08/20/24 08:00 Room Air* 0 21 Total Intake and Output 08/19/24 08/19/24 08/20/24 15:00 23:00 07:00 Intake Total 500 ml 660 ml 500 ml Output Total 1700 ml 2250 ml Balance 500 ml -1040 ml -1750 ml medications Current Medications Medications Dose Ordered Sig/Alvino Route Start Time Stop Time Status Last Admin Dose Admin Piperacillin Sod/ Tazobactam Sod 100 ml @ 25 mls/hr Q8HR IV 08/15/24 06:00 08/20/24 05:08 25 MLS/HR Levetiracetam 100 ml @ 400 mls/hr BID IV 08/14/24 22:00 08/20/24 09:30 400 MLS/HR Oxcarbazepine 300 mg BID PO 08/14/24 22:15 08/20/24 11:06 300 MG Sodium Chloride 10 ml Q8HR IV 08/14/24 22:00 08/20/24 05:11 10 ML Docusate Sodium 100 mg BIDPRN PRN PO 08/14/24 21:30 Acetaminophen 650 mg Q6HP PRN PO 08/14/24 21:30 08/20/24 04:51 650 MG Ondansetron HCl 4 mg Q4HP PRN IV 08/14/24 21:30 08/20/24 09:30 4 MG Vasopressin 20 units/Sodium Chloride 100 ml @ 9 mls/hr Q11H7M IV 08/14/24 21:45 08/14/24 23:03 9 MLS/HR Multivitamins 1 tab HS PO 08/15/24 22:00 08/19/24 23:02 1 TAB Patient Own Medication 5 mg HS PO 08/15/24 22:00 Citalopram Hydrobromide 20 mg HS PO 08/15/24 22:00 08/19/24 23:02 20 MG Patient Own Medication 48 mg HS PO 08/15/24 22:00 Patient Own Medication 1,400 mg HS PO 08/15/24 22:00 Magnesium Oxide 400 mg HS PO 08/15/24 22:00 08/19/24 23:02 400 MG Patient Own Medication 1 tab HS PO 08/15/24 22:00 Cholecalciferol 2,000 unit HS PO 08/15/24 22:00 08/19/24 23:03 2,000 UNIT Enoxaparin Sodium 40 mg DAILY SC 08/16/24 10:00 Acetaminophen/ Hydrocodone Bitart 1 tab Q6HPRN PRN PO 08/15/24 16:15 08/20/24 00:29 1 TAB Linezolid 300 ml @ 150 mls/hr Q12HR IV 08/16/24 10:00 08/20/24 11:06 150 MLS/HR Dimethicone 40 mg QIDP PRN PO 08/16/24 11:15 08/16/24 12:28 40 MG Enteral Nutritional Formula 240 ml BIDWM PO 08/17/24 18:00 08/19/24 18:00 240 ML Lactated Ringer's 1,000 ml @ 100 mls/hr Q10H IV 08/17/24 09:00 08/18/24 11:01 100 MLS/HR objective GENERAL: Alert and oriented x 3. No acute distress. EYES: PERRL, EOMI. Anicteric. HENT: Moist mucous membranes. LUNGS: Clear to auscultation bilaterally. CARDIOVASCULAR: Regular rate and rhythm. ABDOMEN: Soft, nontender and nondistended. EXTREMITIES: No edema. SKIN: Warm, dry. laboratory and microbiology Laboratory Tests 08/19/24 04:41 Test 08/19/24 04:41 Range/Units Serum Glucose 88 74-106 mg/dL Problem List Elevated troponin. Likely NSTEMI type 2 due to sepsis, and QUINN. Septic shock likely due to pelvic abscess. QUINN on CKD . Stage IV bladder cancer. Pulmonary HTN. l Assessment/Plan Continued all current supportive medical care. Lysite for pain management. IV antibiotics as ordered. DVT prophylactics. Additional plan as per the hospital course. Dietary Evaluation Review Recommendations by RD: Dietary education by RD, Protein Supplementation Comments: 1) Initiate Ensure Enlive bid. Encourage optimal PO intake 2) Consider vitamin C @ 500 mg bid for 7-10 days 3) Refer to outpatient RD for weight management 4) Follow-up with urology, nephrology, cardiology, and oncology 5) Continue to monitor I&O, labs, and skin integrity Expected Outcomes/Goals: 1) appetite and labs to improve 2) f/u in 3-5 days Plan discussed with: Patient WALESKA BOWSER MD August 20, 2024 12:56
== END 2024-08-20 13:45 | disposition home or self-care (01) | DRG 871 ==
LOC: EEVIPCON 15:20 → EDUNIT# 15:20 → EDBD 15:20 → ER 15:20 → OVERFLOW 21:23 → CATH ICU 08-15 20:30 → TELE-CENTR 08-17 14:56
PROVIDERS: ADMIT Family Medicine; ATTEND Family Medicine
PROC: 06HY33Z Insertion of Infusion Device into Lower Vein, Percutaneous Approach (ICD-10-PCS; principal; 2024-08-14)
PROC: 0W9J3ZX Drainage of Pelvic Cavity, Percutaneous Approach, Diagnostic (ICD-10-PCS; 2024-08-15)
DX: A41.9 Sepsis, unspecified organism (principal); I21.A1 Myocardial infarction type 2; R65.21 Severe sepsis with septic shock; N17.9 Acute kidney failure, unspecified; N18.4 Chronic kidney disease, stage 4 (severe); C67.9 Malignant neoplasm of bladder, unspecified; G40.909 Epilepsy, unspecified, not intractable, without status epilepticus; N73.9 Female pelvic inflammatory disease, unspecified; F32.A Depression, unspecified; K21.9 Gastro-esophageal reflux disease without esophagitis; D63.8 Anemia in other chronic diseases classified elsewhere; I27.20 Pulmonary hypertension, unspecified; R73.03 Prediabetes; E78.00 Pure hypercholesterolemia, unspecified; Z20.822 Contact with and (suspected) exposure to COVID-19; I12.9 Hypertensive chronic kidney disease with stage 1 through stage 4 chronic kidney disease, or unspecified chronic kidney disease; Z85.51 Personal history of malignant neoplasm of bladder; Z88.1 Allergy status to other antibiotic agents; Z88.8 Allergy status to other drugs, medicaments and biological substances; Z79.899 Other long term (current) drug therapy; Z79.891 Long term (current) use of opiate analgesic; Z90.49 Acquired absence of other specified parts of digestive tract; Z90.710 Acquired absence of both cervix and uterus; Z98.891 History of uterine scar from previous surgery; Z90.5 Acquired absence of kidney; Z85.528 Personal history of other malignant neoplasm of kidney; I25.2 Old myocardial infarction; Z92.21 Personal history of antineoplastic chemotherapy; Z93.6 Other artificial openings of urinary tract status; D63.1 Anemia in chronic kidney disease; E86.0 Dehydration
CPT/HCPCS: 10005; 36415; 36556; 70450; 71045; 71260; 72192; 74177; 76942; 77012; 80053; 80061; 80202; 83036; 83605; 83690; 83735; 83880; 84443; 84484; 85007; 85014; 85018; 85025; 85027; 85610; 85730; 86141; 87040; 87081; 87205; 87426; 87804; 93005; 93306; 96365; 96375; 97110; 97116; 97163; 97530; 99291; 99292; G0378; J0131; J0692; J1885; J2250; J2405; J2543; J3490

== ENCOUNTER 2024-09-12 09:37 | Outpatient (CLI) | payer MEDICARE ==
[~2024-09-12 09:37] MED LIST changes: -OXY5T PO; -TEMA15CA2 PO
[2024-09-12 09:50] LABS: Basophils # (auto) 0 10 ^3/uL (0-0.2); Basophils % (auto) 0.5 % (0.0-2.0); Eosinophils # (auto) 0.3 10 ^3/uL (0-0.8); Eosinophils % (auto) 5.7 % (0.0-7.0); Hematocrit 36.3 % (36.0-46.0); Hemoglobin 12.2 g/dL (12.2-16.2); Lymphocytes # (auto) 1.8 10 ^3/uL (0.4-5.4); Lymphocytes % (auto) 31.2 % (10.0-50.0); Mean Corpuscular Hemoglobin 30.6 pg (28.0-32.0); Mean Corpuscular Hgb Conc. 33.5 g/dL (32.0-36.0); Mean Corpuscular Volume 91.3 fL (80.0-100.0); Monocytes # (auto) 0.3 10 ^3/uL (0-1.3); Monocytes % (auto) 5.5 % (0.0-12.0); Neutrophils # (auto) 3.3 10 ^3/uL (1.6-8.6); Neutrophils % (auto) 57.1 % (37.0-80.0); Platelet Count (auto) 149 10^3/uL (140-450); Red Blood Cells 3.98 10^6/uL (4.0-5.20); Red Cell Distribution Width 16.7 % (11.8-14.3); White Blood Cell 5.8 10^3/uL (4.4-10.8)
[2024-09-12 10:17] LABS: Alanine Aminotransferase 14 U/L (7-40); Albumin 4.3 g/dL (3.2-4.8); Alkaline Phosphatase 113 U/L (46-116); Anion Gap 10 (5-15); Aspartate Aminotransferase 23 U/L (<34); BUN/Creatinine Ratio 17.1 (10.0-20.0); Blood Urea Nitrogen 19 mg/dL (9-23); Calcium 10.1 mg/dL (8.7-10.4); Carbon Dioxide 22 mmol/L (20-31); Glucose 93 mg/dL (74-106); Potassium 4.7 mmol/L (3.5-5.1); Sodium 142 mmol/L (136-145); Total Protein 7.3 g/dL (5.7-8.2)
[2024-09-12 10:22] LABS: Bilirubin, Total 0.3 mg/dL (0.2-1.0); Chloride 110 mmol/L (98-107)
[2024-09-12 10:28] LABS: Urine Bacteria FEW /hpf (None Seen); Urine Blood 2+ /uL (Negative); Urine Clarity Clear (Clear); Urine Color Light-Yellow (Yellow); Urine Protein, UAD Negative (Negative); Urine Squamous Epithelial Cell None Seen /hpf (<5); Urine Urobilinogen Normal (Negative); Urine WBC 54 /HPF (0-5)
== END 2024-09-12 17:00 | disposition home or self-care (01) ==
LOC: LAB 09:37
PROVIDERS: ATTEND Internal Medicine
DX: C67.9 Malignant neoplasm of bladder, unspecified (principal); N18.31 Chronic kidney disease, stage 3a
CPT/HCPCS: 36415; 80053; 81001; 85025

== ENCOUNTER 2024-10-26 20:55 | Inpatient (IN) | payer BC, MEDICARE ==
[~2024-10-26] VITALS: Ht 160 cm; Wt 74.5 kg
[2024-10-26 21:28] VITALS: PULSE 86; O2SAT 99
[2024-10-26] MEDS: ONDANSETRON HCL 4 MG/2 ML VIAL IV ONE (22:55)
[2024-10-26] MEDS: LACTATED RINGER'S 1,500 ML IV ONE (22:55)
[2024-10-26] MEDS: ACETAMINOPHEN IV 1000 MG/100ML (10MG/ML) IV ONE (22:57)
[2024-10-26] MEDS: VANCOMYCIN 1GM/200ML PM 200 ML IV ONE (23:00)
[2024-10-26] MEDS ORDERED: ACETAMINOPHEN 500 MG TAB or CAP PO ONE (23:00)
[2024-10-26 23:09] LABS: Urine Protein, UAD 2+ (Negative)
--- NOTE | 2024-10-26 23:26 | DVH ---
EXAM: CT HEAD WITHOUT CONTRAST INDICATION: aloc TECHNIQUE: CT of the head without intravenous contrast. Radiation Dose : 1. Head: CT Dose: CTDI volume is 51 mGy. Dose-length product is 820 mGy*cm The dose indicators for CT are the volume Computed Tomography (CT) Dose Index (CTDIvol) and the Dose Length Product (DLP), and are measured in units of mGy and mGy-cm, respectively. These indicators are not patient dose, but values generated from the CT scanner acquisition factors. The report includes radiation exposure data for exposures received during this examination. COMPARISON: CT HEAD WITHOUT CONTRAST on DOS: 08/14/24 FINDINGS: Brain: No acute hemorrhage, mass effect, or cerebral edema. CSF Spaces: Size and morphology within normal limits. Bones/Soft Tissues: No acute findings. Orbits/Sinuses/Mastoids: Unremarkable as visualized. IMPRESSION: 1. No acute intracranial abnormality. Radiation optimization: All CT scans at this facility use at least one of these dose optimization hallie hniques: automated exposure control mA and/or kV adjustment per patient size (includes targeted exam s where dose is matched to clinical indication) or iterative reconstruction.
--- NOTE | 2024-10-26 23:29 | DVH ---
CHEST RADIOGRAPH REASON FOR EXAM: aloc COMPARISON: CT CT CHEST/AB/PL W CON- IV ONLY on DOS: 08/14/24, XY CHEST PORTABLE on DOS: 08/14/24, CHES T XRAY 1 VIEW on DOS: 12/25/21, CXR1 on DOS: 12/25/21 TECHNIQUE: One view of the chest is provided FINDINGS: The cardiomediastinal silhouette is within normal limits for technique. There are low inspi ratory volumes causing crowding and exaggeration of the pulmonary markings. There is no focal airspac e disease. There is no significant pleural effusion. No acute bony abnormality is identified. IMPRESSION: No radiographic evidence of acute cardiopulmonary process.
[2024-10-26] MEDS: MORPHINE SULFATE 4 MG/ML SYR/VIAL IV ONE (23:35)
[2024-10-26 23:41] LABS: Hematocrit 34.4 % (36.0-46.0); Hemoglobin 11.7 g/dL (12.2-16.2); Mean Corpuscular Hemoglobin 30.5 pg (28.0-32.0); Mean Corpuscular Volume 89.6 fL (80.0-100.0); Nucleated Red Blood Cells % 0.0 %
[2024-10-26 23:56] LABS: INR 1.19 (0.9-1.15); Partial Thromboplastin Time 34.5 SEC (24.5-34.5); Prothrombin Time 12.4 sec (9.3-11.8)
--- NOTE | 2024-10-26 23:57 | ED.PDOC ---
History of Present Illness HPI Comments 64 y/o F is BIBA for evaluation of altered mental status, characterized by confusion/disorientation and inappropriate answers to questions, onset today. Per EMS a friend who is staying with the patient reported patient has been feeling ill over the past week, then today was noted with changes in her mental status. The patient is normally oriented x4 at baseline. Significant history of bladder cancer stage IV s/p robotic assisted cystectomy and urinary ileal conduit diversion ileostomy and chemotherapy, renal cancer s/p right nephrectomy, CKF IIIA, prediabetes, HLD, NSTEMI type II, seizures, recently admitted with sepsis, cholecystectomy, , hysterectomy, tonsillectomy, and pelvic abscess incision and drainage. At time of assessment, patient states she is having lower abdominal pain. She denies fever, nausea, vomiting, diarrhea or hematuria. Chief Complaint: ALOC Time Seen by MD: 22:30 Primary Care Provider: Ke Allergies: Coded Allergies: Ciprofloxacin (Verified Allergy, Unknown, 08/15/24) Acetylcysteine (Verified Adverse Reaction, Mild, 08/15/24) Home Meds Active Scripts Oxcarbazepine (Trileptal) 600 Mg Tab, 300 MG PO BID, #60 TAB Prov:GERMAN GONZALEZ MD 07/08/20 Reported Medications Oxycodone W/ Acetaminophen (Percocet 5/325MG) 1 Tab Tb, 1-2 TAB PO TID PRN for 20 Days, #120 08/18/24 Temazepam (Temazepam) 30 Mg Cap, 1 CAP PO QHSP for 30 Days, #30 08/18/24 Pantoprazole Sodium Sesquihydr (Pantoprazole Sodium) 40 Mg Tab, 1 TAB PO DAILY for 30 Days, #30 08/18/24 Simvastatin (Simvastatin) 10 Mg Tab, 1 TAB PO QPM for 30 Days, #30 08/18/24 Fenofibrate (Tricor) 48 Mg Tab, 48 MG PO DAILY, TAB 11/22/23 Aripiprazole (Abilify) 20 Mg Tab, 5 MG PO DAILY, TAB 07/06/22 Cholecalciferol (VITAMIN D3) 2,000 Unit Tab, 1 TAB PO DAILY, #30 TAB 5 Refills 09/27/21 Multiple Vitamin (Multivitamins) Tab, 1 TAB PO DAILY, #90 TAB 3 Refills 09/27/21 Fish Oil (Fish Oil) 1,200 Mg Cap, 1400 MG PO DAILY, CAP 09/27/21 Magnesium Oxide (MAGNESIUM OXIDE) 400 Mg Tab, 250 MG PO DAILY, TAB 09/27/21 Specialty Vitamins Products (Biotin Plus Keratin 15708-886 Mcg-mg) 1 Tab Tab, 1 TAB PO DAILY, TAB 09/27/21 Escitalopram Oxalate (Lexapro) 10 Mg Tab, 1 TAB PO DAILY, #90 TAB 3 Refills 07/06/20 Mode of Arrival: EMS Past Medical History PAST MEDICAL HISTORY: Anemia, Cancer (bladder cancer stageIV s/probo ticassitedcystectomy and urinary ileal conduit diversionileostomy and chemotherapy;renal cancer s/p right nephrectomy ), CKF (stageIII A), DM (prediabete), High Lipids, SC (NSTEMI type II ), Seizures Past Medical History (Other): Sepsis Surgical History: Cholecystectomy, , Hysterectomy, Tonsillectomy Surgical History (Other): Pelvic abscess incision and drainage DIRECTOR DECISION SUPPORT History: No Pertinent DIRECTOR DECISION SUPPORT History Family History Family History: Reviewed,noncontributory to illness Social History Smoker: Non-Smoker Alcohol: Occasionally Drugs: Denies Drug Use Lives In: Home All Other Systems: Reviewed and Negative (Comprehensive review of systems are negative unless otherwise stated in HPI) Physical Exam General Appearance: Mild Distress HEENT: Other (Pupils and face symmetric. Moist mucous membranes.) Neck: Full Range of Motion, Normal Inspection Respiratory: Lungs Clear, No Accessory Muscle Use, No Respiratory Distress, Normal Breath Sounds Cardiovascular: No Edema, No JVD, Regular Rate/Rhythm Breast Exam: Deferred Gastrointestinal: Soft, Tenderness (Generalized lower abdominal tenderness to palpation. Nontender to percussion. Cloudy dark urine in ostomy bag.) Genitalia: Deferred Pelvic: Deferred Rectal: Deferred Extremities: Normal inspection, Normal range of motion, Non-tender, No pedal edema Neurologic: Alert (Oriented x2), Other (Mild tremors. No gross focal deficit) Cerebellar Function: NOT DONE Reflexes: NOT DONE Skin: Dry, Normal Color, Warm Lymphatic: NOT DONE Was a procedure done? Was a procedure done?: No Differential Dx Considerations may include: UTI, sepsis, electrolyte imbalance, hypovolemia/dehydration, CVA, TIA X-Ray, Labs, Meds, VS Vital Signs Date Time Temp Pulse Resp B/P (MAP) Pulse Ox O2 Delivery O2 Flow Rate FiO2 10/27/24 03:30 119/61 10/27/24 03:30 66 15 119/61 (80) 98 10/27/24 03:15 66 15 115/65 (82) 97 10/27/24 03:00 69 15 129/65 (86) 98 10/27/24 02:45 66 15 135/68 (90) 98 10/27/24 02:30 67 15 135/68 (90) 98 10/27/24 02:30 135/68 10/27/24 02:15 65 15 126/67 (86) 98 10/27/24 02:10 101/55 10/27/24 02:00 74 16 80/46 (57) 99 10/27/24 01:55 88/45 10/27/24 01:50 82/44 10/27/24 01:45 82/43 10/27/24 01:45 98.1 77 15 82/43 (56) 99 98.1 10/27/24 01:11 78 18 89/46 (60) 95 10/27/24 00:49 99.9 92 18 100/56 (71) 95 99.9 10/27/24 00:17 92 21 101/53 (69) 94 10/27/24 00:05 91 21 101/53 10/26/24 23:55 101.0 92 20 105/48 (67) 98 101.0 10/26/24 23:35 97 23 117/50 10/26/24 22:46 103.1 94 25 129/59 (82) 98 103.1 10/26/24 21:28 86 99 Nasal Cannula* 4 36 10/26/24 21:16 99.1 86 23 134/50 (78) 97 99.1 10/26/24 21:04 98.5 99 16 129/73 97 98.5 Lab Test 10/27/24 01:31 10/26/24 23:19 10/26/24 22:00 Range/Units Lactic Acid Level 1.6 2.2 *H 0.4-2.0 mmol/L White Blood Count 9.8 4.4-10.8 10^3/uL Red Blood Count 3.84 L 4.0-5.20 10^6/uL Hemoglobin 11.7 L 12.2-16.2 g/dL Hematocrit 34.4 L 36.0-46.0 % Mean Corpuscular Volume 89.6 80.0-100.0 fL Mean Corpuscular Hemoglobin 30.5 28.0-32.0 pg Mean Corpuscular Hemoglobin Concent 34.1 32.0-36.0 g/dL Red Cell Distribution Width 15.2 H 11.8-14.3 % Platelet Count 118 L 140-450 10^3/uL Mean Platelet Volume 8.7 6.9-10.8 fL Neutrophils (%) (Auto) 81.9 H 37.0-80.0 % Lymphocytes (%) (Auto) 11.9 10.0-50.0 % Monocytes (%) (Auto) 5.9 0.0-12.0 % Eosinophils (%) (Auto) 0.0 0.0-7.0 % Basophils (%) (Auto) 0.3 0.0-2.0 % Neutrophils # (Auto) 8.0 1.6-8.6 10 ^3/uL Lymphocytes # (Auto) 1.2 0.4-5.4 10 ^3/uL Monocytes # (Auto) 0.6 0-1.3 10 ^3/uL Eosinophils # (Auto) 0 0-0.8 10 ^3/uL Basophils # (Auto) 0 0-0.2 10 ^3/uL Nucleated Red Blood Cells 0.0 % Prothrombin Time 12.4 H 9.3-11.8 sec Prothrombin Time INR 1.19 H 0.9-1.15 Activated Partial Thromboplast Time 34.5 24.5-34.5 SEC Sodium Level 135 L 136-145 mmol/L Potassium Level 3.5 3.5-5.1 mmol/L Chloride Level 108 H 98-107 mmol/L Carbon Dioxide Level 14 L 20-31 mmol/L Anion Gap 13 5-15 Blood Urea Nitrogen 24 H 9-23 mg/dL Creatinine 1.78 H 0.550-1.02 mg/dL Glomerular Filtration Rate Calc 31 >90 mL/min BUN/Creatinine Ratio 13.5 10.0-20.0 Serum Glucose 136 H 74-106 mg/dL Calcium Level 8.5 L 8.7-10.4 mg/dL Total Bilirubin 0.4 0.2-1.0 mg/dL Aspartate Amino Transferase (AST) 38 13-40 U/L Alanine Aminotransferase (ALT) < 9 7-40 U/L Alkaline Phosphatase 102 46-116 U/L Ammonia < 10 L 11-32 umol/L Total Protein 6.5 5.7-8.2 g/dL Albumin 3.9 3.2-4.8 g/dL Urine Color Yellow Yellow Urine Clarity Ex.turbid Clear Urine pH 8.0 5.0-9.0 Urine Specific Roach 1.010 1.001-1.035 Urine Protein 2+ H Negative Urine Ketones Negative Negative Urine Blood 2+ H Negative /uL Urine Nitrite Negative Negative Urine Bilirubin Negative Negative Urine Urobilinogen Normal Negative mg/dL Urine Leukocyte Esterase 3+ Negative /uL Urine RBC 14 0 - 4 /hpf Urine Microscopic WBC 574 H 0-5 /HPF Urine Squamous Epithelial Cells None seen <5 /hpf Urine Bacteria Many H None Seen /hpf Urine Glucose Normal Normal mg/dL Urine Opiates Screen Neg NEGATIVE Urine Fentanyl Screen Neg NEGATIVE Urine Barbiturates Screen Neg NEGATIVE Urine Phencyclidine Screen Neg NEGATIVE Urine Amphetamines Screen Neg NEGATIVE Urine Benzodiazepines Screen Pos NEGATIVE Urine Cocaine Screen Neg NEGATIVE Urine Cannabinoids Screen Neg NEGATIVE Current Medications Medications (Trade) Dose Ordered Sig/Alvino Route Start Time Stop Time Status Last Admin Lactated Ringer's 1,500 ml @ 1,500 mls/hr ONCE ONCE IV 10/26/24 22:45 10/26/24 23:44 DC 10/26/24 22:55 Vancomycin HCl 200 ml @ 200 mls/hr ONCE ONCE IV 10/26/24 22:45 10/26/24 23:44 DC 10/26/24 23:00 Morphine Sulfate 4 mg ONCE ONCE IV 10/26/24 23:00 10/26/24 23:01 DC 10/26/24 23:35 Ondansetron HCl (Zofran) 4 mg ONCE ONCE IV 10/26/24 23:00 10/26/24 23:01 DC 10/26/24 22:55 Acetaminophen (Ofirmev) 1,000 mg ONCE ONCE IV 10/26/24 23:00 10/26/24 23:01 DC 10/26/24 22:57 Levetiracetam 100 ml @ 400 mls/hr ONCE ONCE IV 10/27/24 00:00 10/27/24 00:14 DC 10/26/24 23:58 Lactated Ringer's 1,000 ml @ 1,000 mls/hr Q1H ONCE IV 10/27/24 01:15 10/27/24 02:14 DC 10/27/24 01:15 Norepinephrine Bitartrate 250 ml @ 3.75 mls/hr Q24H IV 10/27/24 01:45 10/27/24 01:45 PROCEDURE(s): HWOCT - HEAD WITHOUT CONTRAST REASON: aloc ORDER NUMBER(s): [id number], ACCESSION NUMBER(s): [id number] EXAM: CT HEAD WITHOUT CONTRAST INDICATION: aloc TECHNIQUE: CT of the head without intravenous contrast. Radiation Dose : 1. Head: CT Dose: CTDI volume is 51 mGy. Dose-length product is 820 mGy*cm The dose indicators for CT are the volume Computed Tomography (CT) Dose Index (CTDIvol) and the Dose Length Product (DLP), and are measured in units of mGy and mGy-cm, respectively. These indicators are not patient dose, but values generated from the CT scanner acquisition factors. The report includes radiation exposure data for exposures received during this examination. COMPARISON: CT HEAD WITHOUT CONTRAST on DOS: 08/14/24 FINDINGS: Brain: No acute hemorrhage, mass effect, or cerebral edema. CSF Spaces: Size and morphology within normal limits. Bones/Soft Tissues: No acute findings. Orbits/Sinuses/Mastoids: Unremarkable as visualized. IMPRESSION: 1. No acute intracranial abnormality. Radiation optimization: All CT scans at this facility use at least one of these dose optimization techniques: automated exposure control mA and/or kV adjustment per patient size (includes targeted exams where dose is matched to clinical indication) or iterative reconstruction. EDURE(s): CXRP - CHEST PORTABLE REASON: aloc ORDER NUMBER(s): [id number], ACCESSION NUMBER(s): [id number] CHEST RADIOGRAPH REASON FOR EXAM: aloc COMPARISON: CT CT CHEST/AB/PL W CON- IV ONLY on DOS: 08/14/24, XY CHEST PORTABLE on DOS: 08/14/24, CHEST XRAY 1 VIEW on DOS: 12/25/21, CXR1 on DOS: 12/25/21 TECHNIQUE: One view of the chest is provided FINDINGS: The cardiomediastinal silhouette is within normal limits for technique. There are low inspiratory volumes causing crowding and exaggeration of the pulmonary markings. There is no focal airspace disease. There is no significant pleural effusion. No acute bony abnormality is identified. IMPRESSION: No radiographic evidence of acute cardiopulmonary process. X-Ray, Labs, Meds, VS Comment 64-year-old female with history of bladder cancer stage IV s/p robotic assisted cystectomy and urinary ileal conduit diversion ileostomy and chemotherapy, renal cancer s/p right nephrectomy, CKF IIIA, prediabetes, HLD, NSTEMI type II, seizures, recently admitted with sepsis, cholecystectomy, , hysterectomy, tonsillectomy, and pelvic abscess incision and drainage, brought in by EMS for evaluation of altered mental status Vitals remarkable for temperature 103.1 Exam remarkable for lower abdominal tenderness, cloudy urine in the ileostomy bag, mild tremors Rhythm strip independently interpreted by me: Sinus rhythm, rate 86, no ectopy. Head CT and chest x-ray unremarkable CBC unremarkable, basic metabolic panel remarkable for sodium 135, CO2 14, lactate 2.6, 1.6 on repeat, ammonia level normal, UA abnormal consistent with UTI Patient treated with the following in the ED: Tylenol 1 g p.o., 30 cc/kilogram LR bolus, cefepime 2 g IV, vancomycin per pharmacy IV, Keppra 1 g IV, 1 L LR bolus, Levophed infusion I briefly had a discussion with the patient's daughter, who advised me that the patient's tremors were actually considered seizure activity, and they respond to IV Keppra. Patient's daughter also stated patient has a tendency to rapidly become hypotensive, which did occur in the ED despite an additional LR bolus. Patient was then placed on a Levophed infusion with improvement of blood pressure. Plan is to admit the patient for IV antibiotics and blood pressure support. Time of 1ST Reevaluation: 23:00 Reevaluation 1ST: Unchanged Patient Education/Counseling: Diagnosis, Treatment, Other (need for admission ) Family Education/Counseling: No Family Present SEPSIS Sepsis Screen Date sepsis recognized/suspect: Oct 26, 2024 Time Sepsis recognized/suspect: 2131 Recent Procedure: No On Antibiotic Therapy: No Respiratory Rate >20: Yes (22BPM) Heart Rate >90: No Temp<36 C (96.8 F) or >38.3 C: No SBP <90 or MAP <65 mmHG: No New Acute Mental Status Change: Yes Is the patient on CPAP, BIPAP,: No Physician Orders Chest Portable (10/26/24 22:39) Accucheck (10/26/24 22:39) Blood Culture (10/26/24 22:39) Cefepime 1gm/ 50ml (Maxipime 1gm/50ml) (10/27/24 06:00) Notify Md If Map <65 Or Bp<90 (10/26/24 22:39) If Map<65 Start Vasopressor (10/26/24 22:39) Sepsis Reassesment After Fluid (10/26/24 23:39) Head Without Contrast (10/26/24 22:39) Urine Bacterial Culture (10/26/24 22:39) Levetiracetam (Keppra) (10/26/24 23:48) Norepinephrine 8 Mg/250ml Kit (Levophed) (10/27/24 01:45) Vital Signs Date Time Temp Pulse Resp B/P (MAP) Pulse Ox O2 Delivery O2 Flow Rate FiO2 10/27/24 03:30 119/61 10/27/24 03:30 66 15 119/61 (80) 98 10/27/24 03:15 66 15 115/65 (82) 97 10/27/24 03:00 69 15 129/65 (86) 98 10/27/24 02:45 66 15 135/68 (90) 98 10/27/24 02:30 67 15 135/68 (90) 98 10/27/24 02:30 135/68 10/27/24 02:15 65 15 126/67 (86) 98 10/27/24 02:10 101/55 10/27/24 02:00 74 16 80/46 (57) 99 10/27/24 01:55 88/45 10/27/24 01:50 82/44 10/27/24 01:45 82/43 10/27/24 01:45 98.1 77 15 82/43 (56) 99 98.1 10/27/24 01:11 78 18 89/46 (60) 95 10/27/24 00:49 99.9 92 18 100/56 (71) 95 99.9 10/27/24 00:17 92 21 101/53 (69) 94 10/27/24 00:05 91 21 101/53 10/26/24 23:55 101.0 92 20 105/48 (67) 98 101.0 10/26/24 23:35 97 23 117/50 10/26/24 22:46 103.1 94 25 129/59 (82) 98 103.1 10/26/24 21:28 86 99 Nasal Cannula* 4 36 10/26/24 21:16 99.1 86 23 134/50 (78) 97 99.1 10/26/24 21:04 98.5 99 16 129/73 97 98.5 Laboratory Tests Test 10/26/24 23:19 10/27/24 01:31 Lactic Acid Level 2.2 mmol/L (0.4-2.0) *H 1.6 mmol/L (0.4-2.0) White Blood Count 9.8 10^3/uL (4.4-10.8) Medications Medications Dose Ordered Sig/Alvino Route Start Time Stop Time Status Last Admin Dose Admin Acetaminophen 1,000 mg ONCE ONCE IV 10/26/24 23:00 10/26/24 23:01 DC 10/26/24 22:57 Lactated Ringer's 1,000 ml @ 1,000 mls/hr Q1H ONCE IV 10/27/24 01:15 10/27/24 02:14 DC 10/27/24 01:15 Lactated Ringer's 1,500 ml @ 1,500 mls/hr ONCE ONCE IV 10/26/24 22:45 10/26/24 23:44 DC 10/26/24 22:55 Levetiracetam 100 ml @ 400 mls/hr ONCE ONCE IV 10/27/24 00:00 10/27/24 00:14 DC 10/26/24 23:58 Morphine Sulfate 4 mg ONCE ONCE IV 10/26/24 23:00 10/26/24 23:01 DC 10/26/24 23:35 Norepinephrine Bitartrate 250 ml @ 3.75 mls/hr Q24H IV 10/27/24 01:45 10/27/24 01:45 Ondansetron HCl 4 mg ONCE ONCE IV 10/26/24 23:00 10/26/24 23:01 DC 10/26/24 22:55 Vancomycin HCl 200 ml @ 200 mls/hr ONCE ONCE IV 10/26/24 22:45 10/26/24 23:44 DC 10/26/24 23:00 Reassessment Post Fluid SEPSIS FOCUS EXAM(REASSESSMENT Sepsis reassessment focused exam completed. Date: 10/27/24 Time 03:40 Pulse Location: Radial Pulse Strength: Normal Capillary Refill Exam: < 3 seconds Skin Temperature: Warm Skin Moisture: Dry Skin Tugor: WNL Skin Color: WNL Departure 1 Departure Time of Disposition: 02:30 Impression: Primary Impression: UTI (urinary tract infection) Additional Impressions: Sepsis Metabolic encephalopathy Disposition: ADMITTED INPATIENT Admit to: [facility] Condition: Guarded Critical Care Note Critical Care Time?: Yes (55 min-critical care time only) Critical care comment: Critical care time including multiple bedside re-evaluations, review of lab and imaging studies, and discussion of the case with the admitting provider. Patient is high risk for hemodynamic, metabolic and/or neurologic decompensation. Stability Stability form required: No Heart Score Heart Score: Heart Score Response (Comments) Value History N/A 0 EKG N/A 0 Age N/A 0 Risk Factors N/A 0 Troponin N/A 0 Total 0 I personally scribed for CHUCK CHARLES MD ([email or web address]) on 10/26/24 at 23:57. Electronically submitted by Iker Zendejas ([email or web address]). CHUCK CHARLES MD Oct 26, 2024 23:57
[2024-10-26] MEDS: levETIRAcetam 1000 mg/100ml 100 ML IV ONE (23:58)
[2024-10-27 00:10] LABS: Albumin 3.9 g/dL (3.2-4.8); Alkaline Phosphatase 102 U/L (46-116); Anion Gap 13 (5-15); BUN/Creatinine Ratio 13.5 (10.0-20.0); Bilirubin, Total 0.4 mg/dL (0.2-1.0); Potassium 3.5 mmol/L (3.5-5.1); Total Protein 6.5 g/dL (5.7-8.2)
[2024-10-27 00:17] LABS: Alanine Aminotransferase < 9 U/L (7-40); Blood Urea Nitrogen 24 mg/dL (9-23); Calcium 8.5 mg/dL (8.7-10.4); Carbon Dioxide 14 mmol/L (20-31); Chloride 108 mmol/L (98-107); Glucose 136 mg/dL (74-106); Sodium 135 mmol/L (136-145)
[2024-10-27 00:43] LABS: Lactic Acid w/Reflex 2.2 mmol/L (0.4-2.0)
[2024-10-27] MEDS: LACTATED RINGER'S 1,000 ML IV ONE (01:15)
[2024-10-27] MEDS: NOREPINEPHRINE 8 MG/250ML KIT 250 ML IV SCH (01:45)
[2024-10-27] MEDS: NOREPINEPHRINE 8 MG/250ML KIT 250 ML IV ONE (01:51)
[2024-10-27] MEDS: PANTOPRAZOLE 40 MG/10 ML VIAL INJ IV ONE (03:53)
--- NOTE | 2024-10-27 04:03 | DVHHPRES ---
History of Present Illness Resident Creating Document: CLAUDIO MCCULLOUGH RESIDENT History of Present Illness Nahed Quintanilla is a 64 yo female, with past medical history of bladder cancer (with Urinary ileal conduit diversion ileostomy), renal cancer, status post right nephrectomy and seizures. The patient was brought to the ED by ambulance, the EMS team was call due to patient was found confused at home. When asked about her chief complain she report feeling fatigue, weak and feverish for the past couple of days. The patient is poor historian, she is lethargic, hard to aroused, responds to name but confused in placed and time. There are no family members at bedside at the time of the interview to confirm this information. On initial ED evaluation the brain CT scan showed no brain abnormalities, Xray is unremarkable, UA is positive. BP was 86/45 MAP 57 , vasopressors were started. Cardiovascular: Other (Cannot be confirmed, patient is poor historian at this time continues confused. ) Renal/: Other (Bladder and renal Carcinoma, Cannot be confirmed at this time, patient is confused. ) Past Surgical History: Other (Cannot be confirmed at this time, patient is confused. ) Family History: None Smoke: Quit (Cannot be confirmed at this time, patient is confused. ) Lives: with Family (Granddaugther. Cannot be confirmed at this time, patient is confused. ) Review of Systems Review of Systems Cannot be confirmed at this time, patient is confused. Constitutional: Yes: Fever, Malaise; No: Chills, Sweats, Weakness, Other Eyes: No: Pain, Vision change, Conjunctivae inflammation, Eyelid inflammation, Other, Redness ENT: No: Ear pain, Ear discharge, Nose pain, Nose discharge, Nose congestion, Mouth pain, Mouth swelling, Throat pain, Throat swelling, Other Respiratory: No: Cough, Dry, Shortness of breath, SOB with excertion, Wheezing, Hemoptysis, Pleuritic Pain, Sputum, Wheezing, Other Cardiovascular: No: Chest Pain, Palpitations, Orthopnea, Paroxysmal Noc. Dyspnea, Edema, Lt Headedness, Other Gastrointestinal: No: Nausea, Vomiting, Abdominal Pain, Diarrhea, Constipation, Melena, Hematochezia, Other Genitourinary: No Dysuria, No Frequency, No Incontinence, No Hematuria, No Retention, No Other Musculoskeletal: No: other, neck pain, shoulder pain, arm pain, back pain, hand pain, leg pain, foot pain Skin: No: Rash, Lesions, Jaundice, Bruising, Other Neurological: No: Weakness, Numbness, Incoordination, Change in speech, Confusion, Seizures, Other Allergies: Coded Allergies: Ciprofloxacin (Verified Allergy, Unknown, 08/15/24) Acetylcysteine (Verified Adverse Reaction, Mild, 08/15/24) Medications Current Medications Medications Dose Ordered Sig/Alvino Route Start Time Stop Time Status Last Admin Dose Admin Cefepime HCl 50 ml @ 12.5 mls/hr Q8HR IV 10/27/24 06:00 Norepinephrine Bitartrate 250 ml @ 3.75 mls/hr Q24H IV 10/27/24 01:45 10/27/24 01:45 3.75 MLS/HR Enoxaparin Sodium 30 mg DAILY SC 10/27/24 10:00 UNV Exam Vital Signs Vital Signs Date Time Temp Pulse Resp B/P (MAP) Pulse Ox O2 Delivery O2 Flow Rate FiO2 10/27/24 03:30 66 15 119/61 (80) 98 10/27/24 01:45 98.1 98.1 10/26/24 21:28 Nasal Cannula* 4 36 General Appearance: Other (Lethargic, respods to name, oriented only in person. ) HEENT: Atraumatic, Mucous membr. moist/pink Respiratory: Clear to auscultation, Normal air movement Cardiovascular: Regular rate, Normal S1, Normal S2, No murmurs Abdominal: Other (Ostomy bag draining urine. Costoverteblar angle cannot be explored at this time.) Extremities: No clubbing, No edema, No tenderness/swelling Skin: No rashes, No breakdown, No significant lesion Neuro: Other (Lethargic, responds to name, only oriented in person. ) Psych/Mental Status: Other (Patient is confused.) Labs/Xrays Labs Test 10/27/24 01:31 10/26/24 23:19 10/26/24 22:00 Range/Units Lactic Acid Level 1.6 0.4-2.0 mmol/L White Blood Count 9.8 4.4-10.8 10^3/uL Red Blood Count 3.84 L 4.0-5.20 10^6/uL Hemoglobin 11.7 L 12.2-16.2 g/dL Hematocrit 34.4 L 36.0-46.0 % Mean Corpuscular Volume 89.6 80.0-100.0 fL Mean Corpuscular Hemoglobin 30.5 28.0-32.0 pg Mean Corpuscular Hemoglobin Concent 34.1 32.0-36.0 g/dL Red Cell Distribution Width 15.2 H 11.8-14.3 % Platelet Count 118 L 140-450 10^3/uL Mean Platelet Volume 8.7 6.9-10.8 fL Neutrophils (%) (Auto) 81.9 H 37.0-80.0 % Lymphocytes (%) (Auto) 11.9 10.0-50.0 % Monocytes (%) (Auto) 5.9 0.0-12.0 % Eosinophils (%) (Auto) 0.0 0.0-7.0 % Basophils (%) (Auto) 0.3 0.0-2.0 % Neutrophils # (Auto) 8.0 1.6-8.6 10 ^3/uL Lymphocytes # (Auto) 1.2 0.4-5.4 10 ^3/uL Monocytes # (Auto) 0.6 0-1.3 10 ^3/uL Eosinophils # (Auto) 0 0-0.8 10 ^3/uL Basophils # (Auto) 0 0-0.2 10 ^3/uL Nucleated Red Blood Cells 0.0 % Prothrombin Time 12.4 H 9.3-11.8 sec Prothrombin Time INR 1.19 H 0.9-1.15 Activated Partial Thromboplast Time 34.5 24.5-34.5 SEC Sodium Level 135 L 136-145 mmol/L Potassium Level 3.5 3.5-5.1 mmol/L Chloride Level 108 H 98-107 mmol/L Carbon Dioxide Level 14 L 20-31 mmol/L Anion Gap 13 5-15 Blood Urea Nitrogen 24 H 9-23 mg/dL Creatinine 1.78 H 0.550-1.02 mg/dL Glomerular Filtration Rate Calc 31 >90 mL/min BUN/Creatinine Ratio 13.5 10.0-20.0 Serum Glucose 136 H 74-106 mg/dL Calcium Level 8.5 L 8.7-10.4 mg/dL Total Bilirubin 0.4 0.2-1.0 mg/dL Aspartate Amino Transferase (AST) 38 13-40 U/L Alanine Aminotransferase (ALT) < 9 7-40 U/L Alkaline Phosphatase 102 46-116 U/L Ammonia < 10 L 11-32 umol/L Total Protein 6.5 5.7-8.2 g/dL Albumin 3.9 3.2-4.8 g/dL Urine Color Yellow Yellow Urine Clarity Ex.turbid Clear Urine pH 8.0 5.0-9.0 Urine Specific [place] 1.010 1.001-1.035 Urine Protein 2+ H Negative Urine Ketones Negative Negative Urine Blood 2+ H Negative /uL Urine Nitrite Negative Negative Urine Bilirubin Negative Negative Urine Urobilinogen Normal Negative mg/dL Urine Leukocyte Esterase 3+ Negative /uL Urine RBC 14 0 - 4 /hpf Urine Microscopic WBC 574 H 0-5 /HPF Urine Squamous Epithelial Cells None seen <5 /hpf Urine Bacteria Many H None Seen /hpf Urine Glucose Normal Normal mg/dL SEPSIS Sepsis Screen Date sepsis recognized/suspect: Oct 26, 2024 Time Sepsis recognized/suspect: 2131 Recent Procedure: No On Antibiotic Therapy: No Respiratory Rate >20: Yes (22BPM) Heart Rate >90: No Temp<36 C (96.8 F) or >38.3 C: No SBP <90 or MAP <65 mmHG: No New Acute Mental Status Change: Yes Is the patient on CPAP, BIPAP,: No Physician Orders Chest Portable (10/26/24 22:39) Accucheck (10/26/24 22:39) Blood Culture (10/26/24 22:39) Cefepime 1gm/ 50ml (Maxipime 1gm/50ml) (10/27/24 06:00) Notify Md If Map <65 Or Bp<90 (10/26/24 22:39) If Map<65 Start Vasopressor (10/26/24 22:39) Sepsis Reassesment After Fluid (10/26/24 23:39) Head Without Contrast (10/26/24 22:39) Urine Bacterial Culture (10/26/24 22:39) Levetiracetam (Keppra) (10/26/24 23:48) Norepinephrine 8 Mg/250ml Kit (Levophed) (10/27/24 01:45) Admit (10/27/24 03:34) Code Status (10/27/24 03:34) Vital Signs .PER UNIT PROTOCOL (10/27/24 03:34) Review Orders With Adm.Md (10/27/24 03:34) Maintain Bed Rest (10/27/24 03:34) Npo (Nothing By Mouth) Diet (10/27/24 Breakfast) Notify Md Of Changes From Base (10/27/24 03:34) Advance Directive (10/27/24 03:34) Patient Condition (10/27/24 03:34) Allergies (10/27/24 03:34) Drug Screen (10/27/24 03:34) Enoxaparin Sodium (Lovenox) (10/27/24 10:00) Notify Md Of Changes From Base (10/27/24 03:34) Pantoprazole (Protonix) (10/27/24 03:45) Complete Blood Count (10/27/24 04:00) Comprehensive Metabolic Panel (10/27/24 04:00) Vital Signs Date Time Temp Pulse Resp B/P (MAP) Pulse Ox O2 Delivery O2 Flow Rate FiO2 10/27/24 03:30 66 15 119/61 (80) 98 10/27/24 03:15 66 15 115/65 (82) 97 10/27/24 03:00 69 15 129/65 (86) 98 10/27/24 02:45 66 15 135/68 (90) 98 10/27/24 02:30 67 15 135/68 (90) 98 10/27/24 02:30 135/68 10/27/24 02:15 65 15 126/67 (86) 98 10/27/24 02:10 101/55 10/27/24 02:00 74 16 80/46 (57) 99 10/27/24 01:55 88/45 10/27/24 01:50 82/44 10/27/24 01:45 82/43 10/27/24 01:45 98.1 77 15 82/43 (56) 99 98.1 10/27/24 01:11 78 18 89/46 (60) 95 10/27/24 00:49 99.9 92 18 100/56 (71) 95 99.9 10/27/24 00:17 92 21 101/53 (69) 94 10/27/24 00:05 91 21 101/53 10/26/24 23:55 101.0 92 20 105/48 (67) 98 101.0 10/26/24 23:35 97 23 117/50 10/26/24 22:46 103.1 94 25 129/59 (82) 98 103.1 10/26/24 21:28 86 99 Nasal Cannula* 4 36 10/26/24 21:16 99.1 86 23 134/50 (78) 97 99.1 10/26/24 21:04 98.5 99 16 129/73 97 98.5 Laboratory Tests Test 10/26/24 23:19 10/27/24 01:31 Lactic Acid Level 2.2 mmol/L (0.4-2.0) *H 1.6 mmol/L (0.4-2.0) White Blood Count 9.8 10^3/uL (4.4-10.8) Medications Medications Dose Ordered Sig/Alvino Route Start Time Stop Time Status Last Admin Dose Admin Acetaminophen 1,000 mg ONCE ONCE IV 10/26/24 23:00 10/26/24 23:01 DC 10/26/24 22:57 1,000 MG Lactated Ringer's 1,000 ml @ 1,000 mls/hr Q1H ONCE IV 10/27/24 01:15 10/27/24 02:14 DC 10/27/24 01:15 1,000 MLS/HR Lactated Ringer's 1,500 ml @ 1,500 mls/hr ONCE ONCE IV 10/26/24 22:45 10/26/24 23:44 DC 10/26/24 22:55 1,500 MLS/HR Levetiracetam 100 ml @ 400 mls/hr ONCE ONCE IV 10/27/24 00:00 10/27/24 00:14 DC 10/26/24 23:58 400 MLS/HR Morphine Sulfate 4 mg ONCE ONCE IV 10/26/24 23:00 10/26/24 23:01 DC 10/26/24 23:35 4 MG Norepinephrine Bitartrate 250 ml @ 3.75 mls/hr Q24H IV 10/27/24 01:45 10/27/24 01:45 3.75 MLS/HR Ondansetron HCl 4 mg ONCE ONCE IV 10/26/24 23:00 10/26/24 23:01 DC 10/26/24 22:55 4 MG Vancomycin HCl 200 ml @ 200 mls/hr ONCE ONCE IV 10/26/24 22:45 10/26/24 23:44 DC 10/26/24 23:00 200 MLS/HR Reassessment Post Fluid Pulse Location: Radial Pulse Strength: Normal Capillary Refill Exam: < 3 seconds Skin Temperature: Warm Skin Moisture: Dry Skin Tugor: WNL Skin Color: WNL Assessment/Plan Assessment/Plan #Sepsis due to complicated UTI, R/O pyelonephritis #Hypotension #Metabolic Encephalopathy IV Fluids: Lactate's ringers Vasopressors: Norepinephrine Cefepime IV Vancomycin IV UA: positive Blood culture Urine culture #Bladder Carcinoma #Status post urinary ileal conduit ileostomy #Renal carcinoma #Status post right nephrectomy #Obesity #Seizures #CKD Diet: NPO DVT prophylaxis PUD prophylaxis Protonic Goals of care discussed with the patient > 35 min. Discussed plan of care with Dr. Nix Code status: Full code, the patient is confused at this time, medical team is trying to contact family members to confirm this information. PCP: Does not recall name Plan discussed with: Patient, the patient is confused at this time, medical team is trying to contact family members to confirm this information. Plan discussed with: Patient My Orders Orders - CLAUDIO MCCULLOUGH RESIDENT Procedure Category Date Status Time Admit ADMIT 10/27/24 Transmitted 03:34 Code Status CODE 10/27/24 Transmitted 03:34 Vital Signs [facility] 10/27/24 In Process 03:34 Review Orders With [facility] 10/27/24 In Process Adm. 03:34 Maintain Bed Rest [facility] 10/27/24 In Process 03:34 Npo (Nothing By DIET 10/27/24 Transmitted Mouth) Diet Breakfast Notify Md Of Changes [facility] 10/27/24 In Process From Base 03:34 Advance Directive [facility] 10/27/24 In Process 03:34 Patient Condition ORDERS 10/27/24 Transmitted 03:34 Allergies [facility] 10/27/24 In Process 03:34 Drug Screen LAB 10/27/24 Logged 03:34 Enoxaparin Sodium [facility] 10/27/24 Logged (Lovenox) 10:00 Notify Of Changes [facility] 10/27/24 In Process From Base 03:34 Pantoprazole PHA 10/27/24 Logged (Protonix) 03:45 Complete Blood Count LAB 10/27/24 Logged 04:00 Comprehensive LAB 10/27/24 Logged Metabolic Panel 04:00 Common Visit Codes: [id number] INP/OBS CARE (HIGH) Secondary Visit Codes: [id number] CARE PLAN 30 MINUTES CLAUDIO MCCULLOUGH RESIDENT Oct 27, 2024 04:03
[2024-10-27] MEDS: ACETAMINOPHEN 325 MG TAB PO ONE ×2 (04:56→14:15)
[2024-10-27 05:56] LABS: Benzodiazephine Screen, Urine Pos (NEGATIVE); Opiate Scree,Urine Neg (NEGATIVE)
[2024-10-27 06:02] LABS: Amphetamine Screen, Urine Neg (NEGATIVE); Barbiturate Scree,Urine Neg (NEGATIVE); Cannabinoid Screen, Urine Neg (NEGATIVE); Cocaine Screen, Urine Neg (NEGATIVE); Phencyclidine Screen, Urine Neg (NEGATIVE)
[2024-10-27] MEDS: CEFEPIME 1GM/ 50ML 50 ML IV SCH (06:22)
[2024-10-27 06:48] LABS: Hematocrit 32.1 % (36.0-46.0); Hemoglobin 10.9 g/dL (12.2-16.2); Mean Corpuscular Hemoglobin 30.6 pg (28.0-32.0); Mean Corpuscular Volume 89.9 fL (80.0-100.0); Nucleated Red Blood Cells % 0.0 %
[2024-10-27 07:02] LABS: Alanine Aminotransferase < 9 U/L (7-40); Albumin 3.6 g/dL (3.2-4.8); Alkaline Phosphatase 98 U/L (46-116); Anion Gap 13 (5-15); BUN/Creatinine Ratio 13.3 (10.0-20.0); Bilirubin, Total 0.3 mg/dL (0.2-1.0); Blood Urea Nitrogen 22 mg/dL (9-23); Calcium 8.4 mg/dL (8.7-10.4); Carbon Dioxide 14 mmol/L (20-31); Chloride 110 mmol/L (98-107); Glucose 132 mg/dL (74-106); Potassium 3.6 mmol/L (3.5-5.1); Sodium 137 mmol/L (136-145); Total Protein 6.0 g/dL (5.7-8.2)
[2024-10-27 08:30] VITALS: PULSE 79; PULSE 86; RESP 16; O2SAT 99
[2024-10-27] MEDS ORDERED: ENOXAPARIN SOD 30 MG/0.3 ML SYRINGE SC SCH (10:00)
[2024-10-27] MEDS: ENOXAPARIN SOD 40 MG/0.4 ML SYRINGE SC SCH (10:00)
[2024-10-27] MEDS: ACETAMINOPHEN IV 1000 MG/100ML (10MG/ML) IV ONE (14:30)
[2024-10-27] MEDS ORDERED: VANCOMYCIN PER PHARMACY 0 MG IV SCH (15:00)
[2024-10-27] MEDS: SODIUM CHLORIDE 0.9% 1,000 ML IV ONE (15:30)
[2024-10-27] MEDS: VANCOMYCIN 1GM/200ML PM 250 ML IV SCH (16:45)
--- NOTE | 2024-10-27 18:47 | DVHPN2 ---
Subjective Patient having febrile episodes, Reviewed: H&P Changes from previous H/P or p: No Changes General: Per HPI Eyes: No Pain, No Vision change, No Conjunctivae inflammation, No Eyelid inflammation, No Other, No Redness ENT: No Ear pain, No Ear discharge, No Nose pain, No Nose discharge, No Nose congestion, No Mouth pain, No Mouth swelling, No Throat pain, No Throat swelling, No Other Cardiovascular: No Chest Pain, No Palpitations, No Orthopnea, No Paroxysmal Noc. Dyspnea, No Edema, No Lt Headedness, No Other Respiratory: No Cough, No Dry, No Shortness of breath, No SOB with excertion, No Wheezing, No Hemoptysis, No Pleuritic Pain, No Sputum, No Other Gastrointestinal: No Nausea, No Vomiting, No Abdominal Pain, No Diarrhea, No Constipation, No Melena, No Hematochezia, No Other Genitourinary: No Dysuria, No Frequency, No Incontinence, No Hematuria, No Retention, No Other Musculoskeletal: No other, No neck pain, No shoulder pain, No arm pain, No back pain, No hand pain, No leg pain, No foot pain Skin: No Rash, No Lesions, No Jaundice, No Bruising, No Other Objective Vitals Vital Signs Date Time Temp Pulse Resp B/P (MAP) Pulse Ox O2 Delivery O2 Flow Rate FiO2 10/27/24 17:00 100.6 72 13 95/45 (62) 98 100.6 10/27/24 08:30 Nasal Cannula* 1 24 Intake/Output Intake and Output 10/27/24 07:00 Intake Total 2826.25 ml Balance 2826.25 ml Intake IV Total 2826.25 ml Exam GEN: Healthy appearing, well-developed, NAD. HEENT: NC/AT; MMM. CV: RRR, no m/r/g. LUNGS: CTAB, no w/r/c. ABD: Soft, NT/ND, NBS, no masses or organomegaly. Ileal conduit present on right lower quadrant, no CVA tenderness EXT: skin Warm, well perfused. no rashes. No clubbing, cyanosis, or edema. NEURO: Ambulating with no limitations. No focal deficits. Medications Current Medications Medications Dose Ordered Sig/Alvino Route Start Time Stop Time Status Last Admin Dose Admin Cefepime HCl 50 ml @ 12.5 mls/hr Q8HR IV 10/27/24 06:00 10/27/24 14:25 12.5 MLS/HR Norepinephrine Bitartrate 250 ml @ 3.75 mls/hr Q24H IV 10/27/24 01:45 10/27/24 01:45 3.75 MLS/HR Enoxaparin Sodium 30 mg DAILY SC 10/27/24 10:00 UNV Enoxaparin Sodium 40 mg DAILY SC 10/27/24 10:00 Vancomycin HCl 0 ml @ 0 mls/hr UD IV 10/27/24 15:00 Acetaminophen 650 mg Q4HP PRN PO 10/27/24 15:00 Ibuprofen 600 mg Q8HP PRN PO 10/27/24 15:00 Laboratory Results Laboratory Tests 10/27/24 06:19 Chemistry Test 10/26/24 23:19 10/27/24 06:19 Albumin 3.9 g/dL (3.2-4.8) 3.6 g/dL (3.2-4.8) Calcium Level 8.5 mg/dL (8.7-10.4) L 8.4 mg/dL (8.7-10.4) L Total Protein 6.5 g/dL (5.7-8.2) 6.0 g/dL (5.7-8.2) Coagulation Test 10/26/24 23:19 Prothrombin Time 12.4 sec (9.3-11.8) H Prothrombin Time INR 1.19 (0.9-1.15) H Activated Partial Thromboplast Time 34.5 SEC (24.5-34.5) LFT Test 10/26/24 23:19 10/27/24 06:19 Alanine Aminotransferase (ALT) < 9 U/L (7-40) < 9 U/L (7-40) Alkaline Phosphatase 102 U/L (46-116) 98 U/L (46-116) Aspartate Amino Transferase (AST) 38 U/L (13-40) 40 U/L (13-40) Total Bilirubin 0.4 mg/dL (0.2-1.0) 0.3 mg/dL (0.2-1.0) Urinalysis Test 10/26/24 22:00 Urine Color Yellow (Yellow) Urine Clarity Ex.turbid (Clear) Urine pH 8.0 (5.0-9.0) Urine Specific [place] 1.010 (1.001-1.035) Urine Protein 2+ (Negative) H Urine Ketones Negative (Negative) Urine Blood 2+ /uL (Negative) H Urine Nitrite Negative (Negative) Urine Bilirubin Negative (Negative) Urine Urobilinogen Normal mg/dL (Negative) Urine Leukocyte Esterase 3+ /uL (Negative) Urine RBC 14 /hpf (0 - 4) Urine Microscopic WBC 574 /HPF (0-5) H Urine Squamous Epithelial Cells None seen /hpf (<5) Urine Bacteria Many /hpf (None Seen) H Urine Glucose Normal mg/dL (Normal) Microbiology Microbiology Date/Time Source Procedure Growth Status 10/26/24 23:21 Blood Blood Culture - Preliminary Resulted 10/26/24 22:00 Urine - Catheterized Urine Culture - Preliminary Resulted Labs and/or images reviewed: Labs reviewed by me, Image(s) reviewed by me Assessment/Plan Assessment/Plan Nahed Quintanilla is a 64 yo female, with past medical history of bladder cancer (with Urinary ileal conduit diversion ileostomy), renal cancer, status post right nephrectomy and seizures. The patient was brought to the ED by ambulance, the EMS team was call due to patient was found confused at home. When asked about her chief complain she report feeling fatigue, weak and feverish for the past couple of days. The patient is poor historian, she is lethargic, hard to aroused, responds to name but confused in placed and time. There are no family members at bedside at the time of the interview to confirm this information. On initial ED evaluation the brain CT scan showed no brain abnormalities, Xray is unremarkable, UA is positive. BP was 86/45 MAP 57 , vasopressors were started. 10/27: Patient having recurrent febrile episodes, blood culture is pending. IV Tylenol given, we will start 1st line Tylenol second-line ibuprofen as prn for fever. We will add back vancomycin to cefepime. We will get CT abdomen and pelvis to rule out any pyelonephritis etc.. Continue IV fluids. #Sepsis due to complicated UTI, R/O pyelonephritis #Hypotension #Metabolic Encephalopathy IV Fluids: Lactate's ringers Vasopressors: Norepinephrine off Cefepime IV Vancomycin IV UA: positive Blood culture Urine culture #Bladder Carcinoma #Status post urinary ileal conduit ileostomy #Renal carcinoma #Status post right nephrectomy #Obesity #Seizures #CKD Diet: NPO DVT prophylaxis Lovenox subQ daily PUD prophylaxis Protonic REBECCA full code Plan discussed with: Patient My Orders Orders - NEWTON BELLA MD Procedure Category Date Status Time Vancomycin Per PHA 10/27/24 In Process Pharmacy 15:00 Acetaminophen Tablet PHA 10/27/24 In Process (Tylenol Tablet) 15:00 Ct Ab Pel Wo Con-No CT 10/27/24 Logged Oral Or Iv 14:59 Ibuprofen Tablet PHA 10/27/24 In Process (Motrin Tablet) 15:00 Complete Blood Count LAB 10/28/24 Verified 04:00 Creatinine LAB 10/28/24 Verified 04:00 Vancomycin,Random LAB 10/28/24 Verified 04:00 Date of Service: Oct 27, 2024 Billing Provider: NEWTON BELLA MD Common Visit Codes: [id number] CARE 30-74 MIN NEWTON BELLA MD Oct 27, 2024 18:47
[2024-10-27 19:30] VITALS: PULSE 62; RESP 13; O2SAT 100
--- NOTE | 2024-10-27 21:37 | DVH ---
Exam: CT CT AB PEL WO CON-NO ORAL OR IV History: eval r/o pyelonephritis, Comparison Study: CT PELVIS WO CONTRAST on DOS: 08/15/24, CT ABD PELVIS WO CONTRAST on DOS: 02/23/22, C T ABD PELVIS WO CONTRAST on DOS: 09/27/21 TECHNIQUE: Multidetector CT of the abdomen and pelvis without IV contrast. Axial, coronal and sagitta l multiplanar reformats were obtained from the axial data set by the technologist. Radiation Dose Information: CT Dose: CTDI volume is 15.47 mGy. Dose-length product is 3.92 mGy*cm FINDINGS: Bibasilar atelectasis. Trace bilateral pleural effusions. Partially visualized heart is unremarkable. Status post cholecystectomy. Mild hepatosplenomegaly. Small splenule is noted adjacent to the spleen. Otherwise, liver, spleen, pancreas and adrenal glands are unremarkable. Right nephrectomy. The urinary bladder is not definitely visualized with findings of urinary diversio n ileal conduit and right lower quadrant ileostomy. [id number] left-sided hydroureteronephrosis . Small hiatal hernia. Postsurgical changes of gastric bypass. Small bowel loops are fluid-filled and nondistended. Appendix is not well-visualized. Without visualization of the appendix, can not exclud e acute appendicitis. Colonic diverticulosis without diverticulitis. Rectal wire is noted in place. No evidence of intraperitoneal free air or free fluid. No evidence of aortic aneurysm. Mild atherosclerotic calcification of the aorta and bilateral iliacs . No significant lymphadenopathy. Mild pelvic wall edema. Umbilical region soft tissue thickening likely from postsurgical changes. No evidence of acute osseous abnormalities. IMPRESSION: [id number] left Hydroureteronephrosis with no obstructing calculus noted. Mild left-sided perinephric fat stranding which may be from the hydronephrosis with infectious proces s not excluded. Status post right nephrectomy and right cystectomy with urinary diversion surgery noted. Appendix is not definitely visualized. Without visualization of the appendix, can not exclude acute appendicitis. Colonic Diverticulosis without diverticulitis. Small hiatal hernia. Postsurgical changes of gastric bypass.
[2024-10-27] MEDS: ACETAMINOPHEN 325 MG TAB PO PRN (23:27)
[2024-10-27] MEDS: IBUPROFEN 600 MG TAB PO PRN (23:49)
[2024-10-28 05:50] LABS: Hematocrit 29.5 % (36.0-46.0); Hemoglobin 10.2 g/dL (12.2-16.2); Mean Corpuscular Hemoglobin 31.2 pg (28.0-32.0); Mean Corpuscular Volume 90.3 fL (80.0-100.0); Nucleated Red Blood Cells % 0.1 %
[2024-10-28 06:07] LABS: Alanine Aminotransferase 12 U/L (7-40); Albumin 3.3 g/dL (3.2-4.8); Alkaline Phosphatase 90 U/L (46-116); Anion Gap 12 (5-15); BUN/Creatinine Ratio 14.7 (10.0-20.0); Blood Urea Nitrogen 23 mg/dL (9-23); Potassium 3.6 mmol/L (3.5-5.1); Sodium 139 mmol/L (136-145)
[2024-10-28 06:08] LABS: Bilirubin, Total < 0.2 mg/dL (0.2-1.0); Calcium 8.2 mg/dL (8.7-10.4); Carbon Dioxide 13 mmol/L (20-31); Chloride 114 mmol/L (98-107); Glucose 115 mg/dL (74-106); Total Protein 5.7 g/dL (5.7-8.2)
--- NOTE | 2024-10-28 09:54 | DVHPN2 ---
Subjective Patient improving. A&O times 3-4. Reviewed: H&P Changes from previous H/P or p: No Changes General: Per HPI Eyes: No Pain, No Vision change, No Conjunctivae inflammation, No Eyelid inflammation, No Other, No Redness ENT: No Ear pain, No Ear discharge, No Nose pain, No Nose discharge, No Nose congestion, No Mouth pain, No Mouth swelling, No Throat pain, No Throat swelling, No Other Cardiovascular: No Chest Pain, No Palpitations, No Orthopnea, No Paroxysmal Noc. Dyspnea, No Edema, No Lt Headedness, No Other Respiratory: No Cough, No Dry, No Shortness of breath, No SOB with excertion, No Wheezing, No Hemoptysis, No Pleuritic Pain, No Sputum, No Other Gastrointestinal: No Nausea, No Vomiting, No Abdominal Pain, No Diarrhea, No Constipation, No Melena, No Hematochezia, No Other Genitourinary: No Dysuria, No Frequency, No Incontinence, No Hematuria, No Retention, No Other Musculoskeletal: No other, No neck pain, No shoulder pain, No arm pain, No back pain, No hand pain, No leg pain, No foot pain Skin: No Rash, No Lesions, No Jaundice, No Bruising, No Other Objective Vitals Vital Signs Date Time Temp Pulse Resp B/P (MAP) Pulse Ox O2 Delivery O2 Flow Rate FiO2 10/28/24 08:45 97.7 63 15 91/48 (62) 99 97.7 10/27/24 19:30 Nasal Cannula* 1 24 Intake/Output Intake and Output 10/28/24 07:00 Intake Total 1791.250 ml Output Total 1000 ml Balance 791.250 ml Intake Oral 360 ml IV Total 1431.250 ml Output Urine Total 1000 ml # Voids 3 Exam GEN: Healthy appearing, well-developed, NAD. HEENT: NC/AT; MMM. CV: RRR, no m/r/g. LUNGS: CTAB, no w/r/c. ABD: Soft, NT/ND, NBS, no masses or organomegaly. Ileal conduit present on right lower quadrant, no CVA tenderness EXT: skin Warm, well perfused. no rashes. No clubbing, cyanosis, or edema. NEURO: Ambulating with no limitations. No focal deficits. Medications Current Medications Medications Dose Ordered Sig/Alvino Route Start Time Stop Time Status Last Admin Dose Admin Cefepime HCl 50 ml @ 12.5 mls/hr Q8HR IV 10/27/24 06:00 10/28/24 06:10 12.5 MLS/HR Norepinephrine Bitartrate 250 ml @ 3.75 mls/hr Q24H IV 10/27/24 01:45 10/27/24 01:45 3.75 MLS/HR Enoxaparin Sodium 30 mg DAILY SC 10/27/24 10:00 UNV Enoxaparin Sodium 40 mg DAILY SC 10/27/24 10:00 Vancomycin HCl 0 ml @ 0 mls/hr UD IV 10/27/24 15:00 Acetaminophen 650 mg Q4HP PRN PO 10/27/24 15:00 10/27/24 23:27 650 MG Ibuprofen 600 mg Q8HP PRN PO 10/27/24 15:00 10/27/24 23:49 600 MG Laboratory Results Laboratory Tests 10/28/24 05:11 Chemistry Test 10/28/24 05:11 Albumin 3.3 g/dL (3.2-4.8) Calcium Level 8.2 mg/dL (8.7-10.4) L Total Protein 5.7 g/dL (5.7-8.2) LFT Test 10/28/24 05:11 Alanine Aminotransferase (ALT) 12 U/L (7-40) Alkaline Phosphatase 90 U/L (46-116) Aspartate Amino Transferase (AST) 76 U/L (13-40) H Total Bilirubin < 0.2 mg/dL (0.2-1.0) L Urinalysis Test 10/26/24 22:00 Urine Color Yellow (Yellow) Urine Clarity Ex.turbid (Clear) Urine pH 8.0 (5.0-9.0) Urine Specific [place] 1.010 (1.001-1.035) Urine Protein 2+ (Negative) H Urine Ketones Negative (Negative) Urine Blood 2+ /uL (Negative) H Urine Nitrite Negative (Negative) Urine Bilirubin Negative (Negative) Urine Urobilinogen Normal mg/dL (Negative) Urine Leukocyte Esterase 3+ /uL (Negative) Urine RBC 14 /hpf (0 - 4) Urine Microscopic WBC 574 /HPF (0-5) H Urine Squamous Epithelial Cells None seen /hpf (<5) Urine Bacteria Many /hpf (None Seen) H Urine Glucose Normal mg/dL (Normal) Microbiology Microbiology Date/Time Source Procedure Growth Status 10/26/24 23:21 Blood Blood Culture - Preliminary Resulted 10/26/24 22:00 Urine - Catheterized Urine Culture - Preliminary Resulted Labs and/or images reviewed: Labs reviewed by me, Image(s) reviewed by me Assessment/Plan Assessment/Plan Nahed Quintanilla is a 64 yo female, with past medical history of bladder cancer (with Urinary ileal conduit diversion ileostomy), renal cancer, status post right nephrectomy and seizures. The patient was brought to the ED by ambulance, the EMS team was call due to patient was found confused at home. When asked about her chief complain she report feeling fatigue, weak and feverish for the past couple of days. The patient is poor historian, she is lethargic, hard to aroused, responds to name but confused in placed and time. There are no family members at bedside at the time of the interview to confirm this information. On initial ED evaluation the brain CT scan showed no brain abnormalities, Xray is unremarkable, UA is positive. BP was 86/45 MAP 57 , vasopressors were started. 10/27: Patient having recurrent febrile episodes, blood culture is pending. IV Tylenol given, we will start 1st line Tylenol second-line ibuprofen as prn for fever. We will add back vancomycin to cefepime. We will get CT abdomen and pelvis to rule out any pyelonephritis etc.. Continue IV fluids. 10/28: Patient is making good urine output through the ileal conduit, no erythema around the conduit exit, no purulence in the urine. Overnight she has started to having diarrhea. Last low-grade febrile episodes at 3:00 a.m. today. We will need repeat cultures. Diarrhea possible infection source, we will add metronidazole to vancomycin and cefepime. CT showing mildly worsening left hydronephrosis which was present after the surgery for an ileal conduit. We will consult Urology as possible infection source. Blood is having Gram- negative rods, urine culture mixed kerry. Patient feels better, she still weak on her feet. In terms of mentation she is back to baseline A&O times 3-4. No abdominal pain, lung sounds with good aeration in all lung manley. We are adding hydrocortisone for shock. Levophed at 1, continue weaning Septic Shock due to below #Sepsis due to complicated UTI, R/O pyelonephritis #Hypotension #Metabolic Encephalopathy Left hydronephrosis [id number] Gastroenteritis, infectious etiology likely IV Fluids: Lactate's ringers Vasopressors: Norepinephrine continue Hydrocortisone x5 days Cefepime IV Vancomycin IV Metronidazole IV UA: positive Blood culture Urine culture Stool culture #Bladder Carcinoma #Status post urinary ileal conduit ileostomy #Renal carcinoma #Status post right nephrectomy #Obesity #Seizures #CKD Diet: Advance diet DVT prophylaxis Lovenox subQ daily PUD prophylaxis Protonic REBECCA full code Plan discussed with: Patient My Orders Orders - NEWTON BELLA MD Procedure Category Date Status Time Vancomycin Per PHA 10/27/24 In Process Pharmacy 15:00 Acetaminophen Tablet PHA 10/27/24 In Process (Tylenol Tablet) 15:00 Ct Ab Pel Wo Con-No CT 10/27/24 Resulted Oral Or Iv 14:59 Ibuprofen Tablet PHA 10/27/24 In Process (Motrin Tablet) 15:00 Clear Liq Diet DIET 10/28/24 Transmitted Breakfast Communication Order ORDERS 10/27/24 Transmitted 18:54 Date of Service: Oct 28, 2024 Billing Provider: NEWTON BELLA MD Common Visit Codes: [id number] CARE 30-74 MIN NEWTON BELLA MD Oct 28, 2024 09:54
[2024-10-28] MEDS: LACTATED RINGER'S 1,000 ML IV ONE (10:00)
[2024-10-28 11:01] VITALS: PULSE 65; PULSE 79; RESP 15; RESP 16; O2SAT 99
[2024-10-28] MEDS: HYDROCORTISONE SOD SUCC 100 MG/2ML INJ VIAL IV SCH (14:09)
[2024-10-28 19:30] VITALS: PULSE 48; RESP 12; O2SAT 99
[2024-10-29] VITALS (22 sets, daily range): BP systolic 118–149; BP diastolic 47–78; PULSE 38–61; RESP 10–18; TEMP 97.5–98.6; O2SAT 95–100
[2024-10-29 05:52] LABS: Hematocrit 30.4 % (36.0-46.0); Hemoglobin 10.2 g/dL (12.2-16.2); Mean Corpuscular Hemoglobin 30.4 pg (28.0-32.0); Mean Corpuscular Volume 90.8 fL (80.0-100.0); Nucleated Red Blood Cells % 0.1 %
[2024-10-29 05:53] LABS: Alanine Aminotransferase 10 U/L (7-40); Albumin 3.3 g/dL (3.2-4.8); Alkaline Phosphatase 84 U/L (46-116); Anion Gap 10 (5-15); BUN/Creatinine Ratio 17.4 (10.0-20.0); Potassium 3.9 mmol/L (3.5-5.1); Sodium 140 mmol/L (136-145)
[2024-10-29 05:54] LABS: Bilirubin, Total < 0.2 mg/dL (0.2-1.0); Blood Urea Nitrogen 23 mg/dL (9-23); Calcium 8.5 mg/dL (8.7-10.4); Carbon Dioxide 15 mmol/L (20-31); Chloride 115 mmol/L (98-107); Glucose 119 mg/dL (74-106); Total Protein 5.6 g/dL (5.7-8.2)
--- NOTE | 2024-10-29 09:14 | DVHPN2 ---
Subjective Patient improving. A&O times 3-4. Reviewed: H&P Changes from previous H/P or p: No Changes General: Per HPI Eyes: No Pain, No Vision change, No Conjunctivae inflammation, No Eyelid inflammation, No Other, No Redness ENT: No Ear pain, No Ear discharge, No Nose pain, No Nose discharge, No Nose congestion, No Mouth pain, No Mouth swelling, No Throat pain, No Throat swelling, No Other Cardiovascular: No Chest Pain, No Palpitations, No Orthopnea, No Paroxysmal Noc. Dyspnea, No Edema, No Lt Headedness, No Other Respiratory: No Cough, No Dry, No Shortness of breath, No SOB with excertion, No Wheezing, No Hemoptysis, No Pleuritic Pain, No Sputum, No Other Gastrointestinal: No Nausea, No Vomiting, No Abdominal Pain, No Diarrhea, No Constipation, No Melena, No Hematochezia, No Other Genitourinary: No Dysuria, No Frequency, No Incontinence, No Hematuria, No Retention, No Other Musculoskeletal: No other, No neck pain, No shoulder pain, No arm pain, No back pain, No hand pain, No leg pain, No foot pain Skin: No Rash, No Lesions, No Jaundice, No Bruising, No Other Objective Vitals Vital Signs Date Time Temp Pulse Resp B/P (MAP) Pulse Ox O2 Delivery O2 Flow Rate FiO2 10/29/24 07:30 41 12 96 Room Air* 0 21 10/29/24 07:30 97.8 129/58 (81) 97.8 Intake/Output Intake and Output 10/29/24 07:00 Intake Total 2016.875 ml Output Total 1450 ml Balance 566.875 ml Intake Oral 440 ml IV Total 1576.875 ml Output Urine Total 1450 ml Exam GEN: Healthy appearing, well-developed, NAD. HEENT: NC/AT; MMM. CV: RRR, no m/r/g. LUNGS: CTAB, no w/r/c. ABD: Soft, NT/ND, NBS, no masses or organomegaly. Ileal conduit present on right lower quadrant, no CVA tenderness EXT: skin Warm, well perfused. no rashes. No clubbing, cyanosis, or edema. NEURO: Ambulating with no limitations. No focal deficits. Medications Current Medications Medications Dose Ordered Sig/Alvino Route Start Time Stop Time Status Last Admin Dose Admin Cefepime HCl 50 ml @ 12.5 mls/hr Q8HR IV 10/27/24 06:00 10/29/24 04:41 12.5 MLS/HR Norepinephrine Bitartrate 250 ml @ 3.75 mls/hr Q24H IV 10/27/24 01:45 10/27/24 01:45 3.75 MLS/HR Enoxaparin Sodium 30 mg DAILY SC 10/27/24 10:00 UNV Enoxaparin Sodium 40 mg DAILY SC 10/27/24 10:00 Vancomycin HCl 0 ml @ 0 mls/hr UD IV 10/27/24 15:00 Acetaminophen 650 mg Q4HP PRN PO 10/27/24 15:00 10/27/24 23:27 650 MG Ibuprofen 600 mg Q8HP PRN PO 10/27/24 15:00 10/27/24 23:49 600 MG Metronidazole 100 ml @ 100 mls/hr Q8HR IV 10/28/24 14:00 10/29/24 04:38 100 MLS/HR Hydrocortisone Sodium Succinate 100 mg Q8HR IV 10/28/24 14:00 11/02/24 13:59 10/29/24 04:38 100 MG Saccharomyces Boulardii 250 mg DAILY PO 10/29/24 10:00 Laboratory Results Laboratory Tests 10/29/24 05:13 Chemistry Test 10/29/24 05:13 Albumin 3.3 g/dL (3.2-4.8) Calcium Level 8.5 mg/dL (8.7-10.4) L Total Protein 5.6 g/dL (5.7-8.2) L LFT Test 10/29/24 05:13 Alanine Aminotransferase (ALT) 10 U/L (7-40) Alkaline Phosphatase 84 U/L (46-116) Aspartate Amino Transferase (AST) 47 U/L (13-40) H Total Bilirubin < 0.2 mg/dL (0.2-1.0) L Urinalysis Test 10/26/24 22:00 Urine Color Yellow (Yellow) Urine Clarity Ex.turbid (Clear) Urine pH 8.0 (5.0-9.0) Urine Specific [place] 1.010 (1.001-1.035) Urine Protein 2+ (Negative) H Urine Ketones Negative (Negative) Urine Blood 2+ /uL (Negative) H Urine Nitrite Negative (Negative) Urine Bilirubin Negative (Negative) Urine Urobilinogen Normal mg/dL (Negative) Urine Leukocyte Esterase 3+ /uL (Negative) Urine RBC 14 /hpf (0 - 4) Urine Microscopic WBC 574 /HPF (0-5) H Urine Squamous Epithelial Cells None seen /hpf (<5) Urine Bacteria Many /hpf (None Seen) H Urine Glucose Normal mg/dL (Normal) Microbiology Microbiology Date/Time Source Procedure Growth Status 10/28/24 04:47 Stool Stool Culture - Preliminary Resulted 10/28/24 04:47 Stool Shiga Toxin I & II - Final Resulted 10/28/24 04:47 Stool Clostridium difficile Toxin Assay - Final Resulted 10/26/24 23:21 Blood Blood Culture - Preliminary Resulted 10/26/24 22:00 Urine - Catheterized Urine Culture - Preliminary Resulted Labs and/or images reviewed: Labs reviewed by me, Image(s) reviewed by me Assessment/Plan Assessment/Plan Nahed Quintanilla is a 64 yo female, with past medical history of bladder cancer (with Urinary ileal conduit diversion ileostomy), renal cancer, status post right nephrectomy and seizures. The patient was brought to the ED by ambulance, the EMS team was call due to patient was found confused at home. When asked about her chief complain she report feeling fatigue, weak and feverish for the past couple of days. The patient is poor historian, she is lethargic, hard to aroused, responds to name but confused in placed and time. There are no family members at bedside at the time of the interview to confirm this information. On initial ED evaluation the brain CT scan showed no brain abnormalities, Xray is unremarkable, UA is positive. BP was 86/45 MAP 57 , vasopressors were started. 10/27: Patient having recurrent febrile episodes, blood culture is pending. IV Tylenol given, we will start 1st line Tylenol second-line ibuprofen as prn for fever. We will add back vancomycin to cefepime. We will get CT abdomen and pelvis to rule out any pyelonephritis etc.. Continue IV fluids. 10/28: Patient is making good urine output through the ileal conduit, no erythema around the conduit exit, no purulence in the urine. Overnight she has started to having diarrhea. Last low-grade febrile episodes at 3:00 a.m. today. We will need repeat cultures. Diarrhea possible infection source, we will add metronidazole to vancomycin and cefepime. CT showing mildly worsening left hydronephrosis which was present after the surgery for an ileal conduit. We will consult Urology as possible infection source. Blood is having Gram- negative rods, urine culture mixed kerry. Patient feels better, she still weak on her feet. In terms of mentation she is back to baseline A&O times 3-4. No abdominal pain, lung sounds with good aeration in all lung manley. We are adding hydrocortisone for shock. Levophed at 1, continue weaning 10/29: Patient has been off of Levophed for 24 hours we will deescalate to tele today. Continue broad-spectrum IV antibiotics. Urine culture is multi kerry, blood culture pending.. Continue stress dose steroids for shock. We will start PT eval today. urology to eval today. Diagnosis: Septic Shock due to below #Sepsis due to complicated UTI, R/O pyelonephritis #Hypotension #Metabolic Encephalopathy Left hydronephrosis [id number] Gastroenteritis, infectious etiology likely IV Fluids: Lactate's ringers Vasopressors: Norepinephrine continue Hydrocortisone x5 days Cefepime IV Vancomycin IV Metronidazole IV UA: positive Blood culture Urine culture Stool culture #Bladder Carcinoma #Status post urinary ileal conduit ileostomy #Renal carcinoma #Status post right nephrectomy #Obesity #Seizures #CKD Diet: Advance diet DVT prophylaxis Lovenox subQ daily PUD prophylaxis Protonic REBECCA full code Plan discussed with: Patient My Orders Orders - NEWTON BELLA MD Procedure Category Date Status Time * Urology Consult CONS 10/28/24 Transmitted 09:46 Metronidazole PHA 10/28/24 In Process 500mg/100ml (Flagyl 14:00 Hydrocortisone PHA 10/28/24 In Process Succinate Inj 14:00 Blood Culture PAULETTE 10/28/24 In Process 17:30 Order Specialty SARAI 10/28/24 In Process Mattress 18:32 Mrsa Screen PAULETTE 10/29/24 Logged 05:15 Date of Service: Oct 29, 2024 Billing Provider: NEWTON BELLA MD Common Visit Codes: [id number] INP/OBS CARE(HIGH) NEWTON BELLA MD Oct 29, 2024 09:14
[2024-10-29] MEDS: LACTATED RINGER'S 1,000 ML IV ONE (09:30)
[2024-10-29] MEDS: FLORASTOR (S. BOULARDII) 250 MG CAP PO SCH (10:16)
[2024-10-29] MEDS ORDERED: ONDANSETRON HCL 4 MG/2 ML VIAL IV PRN (15:45)
--- NOTE | 2024-10-29 17:48 | MEDREC ---
[facility] Intervention Section I [facility] Intervention: Deescalate AB based on CS (Blood culture shows E. Coli with susceptibility to ceftriaxone. Please consider de-escalate vancomycin to ceftriaxone ) TD [facility] Oct 29, 2024 17:48
[2024-10-29] MEDS: VANCOMYCIN 750MG KIT 100 ML IV ONE (20:51)
--- NOTE | 2024-10-29 23:10 | DVHINCON2 ---
Date of service: Oct 29, 2024 Referring Physician Suzy Lopez MD Reason for Consultation Moderate Left hydronephrosis History of Present Illness History Source: Patient, RN Notes, MD Notes Exam Limitations: No limitations HPI 64F with bladder cancer s/p radical cystectomy and ileal conduit (7 wks ago, [facility]), h/o right RCC s/p right nephrectomy, presents with several days of progressive weakness, altered mental status, and nausea. No fever, chills, flank pain, hematuria, or urinary symptoms. Ileal conduit output at baseline. Follows with oncology q3wks; currently on chemotherapy. Former smoker. Former vaper. Home Meds Active Scripts Oxcarbazepine (Trileptal) 600 Mg Tab, 300 MG PO BID, #60 TAB Prov:GERMAN GONZALEZ MD 07/08/20 Reported Medications Oxycodone W/ Acetaminophen (Percocet 5/325MG) 1 Tab Tb, 1-2 TAB PO TID PRN for 20 Days, #120 08/18/24 Temazepam (Temazepam) 30 Mg Cap, 1 CAP PO QHSP for 30 Days, #30 08/18/24 Simvastatin (Simvastatin) 10 Mg Tab, 1 TAB PO QPM for 30 Days, #30 08/18/24 Fenofibrate (Tricor) 48 Mg Tab, 48 MG PO DAILY, TAB 11/22/23 Aripiprazole (Abilify) 20 Mg Tab, 5 MG PO DAILY, TAB 07/06/22 Cholecalciferol (VITAMIN D3) 2,000 Unit Tab, 1 TAB PO DAILY, #30 TAB 5 Refills 09/27/21 Multiple Vitamin (Multivitamins) Tab, 1 TAB PO DAILY, #90 TAB 3 Refills 09/27/21 Fish Oil (Fish Oil) 1,200 Mg Cap, 1400 MG PO DAILY, CAP 09/27/21 Magnesium Oxide (MAGNESIUM OXIDE) 400 Mg Tab, 250 MG PO DAILY, TAB 09/27/21 Specialty Vitamins Products (Biotin Plus Keratin 12782-543 Mcg-mg) 1 Tab Tab, 1 TAB PO DAILY, TAB 09/27/21 Escitalopram Oxalate (Lexapro) 10 Mg Tab, 1 TAB PO DAILY, #90 TAB 3 Refills 07/06/20 Past Medical History Central Nervous System: Seizure Hemotology/Oncology: Cancer (Bladder and Renal Cancer) Others Bladder and Renal Carcinoma Past Surgical History: Other Others Total hysterectomy Radical cystectomy with ileal conduit urinary diversion (7 weeks ago) Right Nephrectomy Family History: Other Family History Grandmother had ESRD on HD Smoker: Positive, <1 pack per day Alocohol: None Drugs: None Lives with: Alone Domestic Violence: Neg Review of Systems Constitutional: Fever, Malaise, Weakness Ears, Nose, & Throat: No symptom reported Eyes: No symptom reported Pulmonary/Respiratory: No symptom reported Cardiovascular: No symptom reported Gastrointestinal: Nausea, Abdominal Pain (abdominal discomfort), Abnormal Appetite (decreased appetite) Genitourinary: Other (Denies flank pain, dysuria, hematuria, or urgency. Reports not feeling sensation to void. Voiding via ileal conduit. No concerns reported with stoma or urostomy appliance. No leakage, foul odor, or skin irratation noted. ) Musculoskeletal: No symptom reported, Muscle pain (bilateral calf pain/sorness) Skin: No symptom reported Endocrine: No symptom reported Hemotologic/Lymphatic: No symptom reported H&P Exam Vital Signs Vital Signs Date Time Temp Pulse Resp B/P (MAP) Pulse Ox O2 Delivery O2 Flow Rate FiO2 10/29/24 17:13 47 16 Room Air* 0 21 10/29/24 16:48 98.6 149/78 (101) 98 98.6 General Appeara: Well developed, Normal Appearance Pulmonary/Respiratory: Normal breath sounds Cardiovascular/Chest: Regular rate, Normal Rhythm Abdominal Exam: Soft, No tenderness Abdominal Pain Onset Location: Generalized abdomen (abdominal discomfort) 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 speech Neuro/Mental St: Alert, Oriented, Lethargic Appearance: Appropriate appearance Eye contact/ Speech: Cooperative, Decreased rate of speech Skin Exam: Normal color, Warm/dry Labs/Xrays [address] [address] Ph: [phone] DIAGNOSTIC IMAGING Diagnostic Imaging Report : [id number] Signed PATIENT: CHULA SOLORIO SACCT: [id number] UNIT: [id number] : 1960 LOC: [facility] ROOM / BED: 0290T / B AGE / SEX: 64 / F ADM STATUS: ADM IN SERVICE 1144 ORDERING PHYSICIAN: BOOGIE BRAY NP PROCEDURE(s): KIDUS - KIDNEY REASON: Re-evaluate hydronephrosis in solitary kidney ORDER NUMBER(s): [id number], ACCESSION NUMBER(s): [id number] INDICATION: Re-evaluate hydronephrosis in solitary kidney TECHNIQUE: Multiple real-time sonographic images of the kidneys and bladder were obtained. COMPARISON: US PELVIC on DOS: 10/22/23, KIDNEY on DOS: 12/27/21, KIDUS on DOS: 12/27/21 FINDINGS: RIGHT kidney is surgically absent. LEFT kidney measures 13.1 cm in length. Moderate hydronephrosis. Bladder is surgically absent. IMPRESSION: Moderate left hydronephrosis. ATED BY: ASAEL GARCIA MD DICTATED DATE/TIME: 10/30/241247 SIGNED BY: ASAEL GARCIA MD SIGNED DATE/TIME: 10/30/241247 CC: Labs Test 10/29/24 05:13 10/27/24 06:19 10/27/24 01:31 10/26/24 23:19 Range/Units White Blood Count 5.3 4.4-10.8 10^3/uL Red Blood Count 3.35 L 4.0-5.20 10^6/uL Hemoglobin 10.2 L 12.2-16.2 g/dL Hematocrit 30.4 L 36.0-46.0 % Mean Corpuscular Volume 90.8 80.0-100.0 fL Mean Corpuscular Hemoglobin 30.4 28.0-32.0 pg Mean Corpuscular Hemoglobin Concent 33.5 32.0-36.0 g/dL Red Cell Distribution Width 16.4 H 11.8-14.3 % Platelet Count 92 L 140-450 10^3/uL Mean Platelet Volume 9.8 6.9-10.8 fL Neutrophils (%) (Auto) 86.2 H 37.0-80.0 % Lymphocytes (%) (Auto) 10.4 10.0-50.0 % Monocytes (%) (Auto) 3.1 0.0-12.0 % Eosinophils (%) (Auto) 0.1 0.0-7.0 % Basophils (%) (Auto) 0.2 0.0-2.0 % Neutrophils # (Auto) 4.5 1.6-8.6 10 ^3/uL Lymphocytes # (Auto) 0.5 0.4-5.4 10 ^3/uL Monocytes # (Auto) 0.2 0-1.3 10 ^3/uL Eosinophils # (Auto) 0 0-0.8 10 ^3/uL Basophils # (Auto) 0 0-0.2 10 ^3/uL Nucleated Red Blood Cells 0.1 % Sodium Level 140 136-145 mmol/L Potassium Level 3.9 3.5-5.1 mmol/L Chloride Level 115 H 98-107 mmol/L Carbon Dioxide Level 15 L 20-31 mmol/L Anion Gap 10 5-15 Blood Urea Nitrogen 23 9-23 mg/dL Creatinine 1.32 H 0.550-1.02 mg/dL Glomerular Filtration Rate Calc 45 >90 mL/min BUN/Creatinine Ratio 17.4 10.0-20.0 Serum Glucose 119 H 74-106 mg/dL Calcium Level 8.5 L 8.7-10.4 mg/dL Total Bilirubin < 0.2 L 0.2-1.0 mg/dL Aspartate Amino Transferase (AST) 47 H 13-40 U/L Alanine Aminotransferase (ALT) 10 7-40 U/L Alkaline Phosphatase 84 46-116 U/L Total Protein 5.6 L 5.7-8.2 g/dL Albumin 3.3 3.2-4.8 g/dL Random Vancomycin Level 16.2 H 5-10 ug/mL Levetiracetam Level 18.8 10.0-40.0 ug/mL Lactic Acid Level 1.6 0.4-2.0 mmol/L Prothrombin Time 12.4 H 9.3-11.8 sec Prothrombin Time INR 1.19 H 0.9-1.15 Activated Partial Thromboplast Time 34.5 24.5-34.5 SEC Ammonia < 10 L 11-32 umol/L Test 10/26/24 22:00 Range/Units Urine Color Yellow Yellow Urine Clarity Ex.turbid Clear Urine pH 8.0 5.0-9.0 Urine Specific [place] 1.010 1.001-1.035 Urine Protein 2+ H Negative Urine Ketones Negative Negative Urine Blood 2+ H Negative /uL Urine Nitrite Negative Negative Urine Bilirubin Negative Negative Urine Urobilinogen Normal Negative mg/dL Urine Leukocyte Esterase 3+ Negative /uL Urine RBC 14 0 - 4 /hpf Urine Microscopic WBC 574 H 0-5 /HPF Urine Squamous Epithelial Cells None seen <5 /hpf Urine Bacteria Many H None Seen /hpf Urine Glucose Normal Normal mg/dL Urine Opiates Screen Neg NEGATIVE Urine Fentanyl Screen Neg NEGATIVE Urine Barbiturates Screen Neg NEGATIVE Urine Phencyclidine Screen Neg NEGATIVE Urine Amphetamines Screen Neg NEGATIVE Urine Benzodiazepines Screen Pos NEGATIVE Urine Cocaine Screen Neg NEGATIVE Urine Cannabinoids Screen Neg NEGATIVE Microbiology Date/Time Source Procedure Growth Status 10/29/24 05:46 Nose MRSA Screen - Final Complete 10/28/24 18:56 Blood Blood Culture - Preliminary NO GROWTH AFTER 24 HOURS OF INCUBATION. Resulted 10/28/24 04:47 Stool Stool Culture - Preliminary Resulted 10/28/24 04:47 Stool Shiga Toxin I & II - Final Resulted 10/28/24 04:47 Stool Clostridium difficile Toxin Assay - Final Resulted 10/26/24 22:00 Urine - Catheterized Urine Culture - Final Complete [place] [address] Ph: [phone] DIAGNOSTIC IMAGING Diagnostic Imaging Report : [id number] Signed PATIENT: CHULA SOLORIO SACCT: [id number] UNIT: [id number] : 1960 LOC: OVERFLOW ROOM / BED: [address] [place] [address] AGE / SEX: 64 / F ADM STATUS: ADM IN SERVICE 1457 ORDERING PHYSICIAN: NEWTON BELLA MD PROCEDURE(s): ABPL - CT AB PEL WO CON-NO ORAL OR IV REASON: eval r/o pyelonephritis, ORDER NUMBER(s): [id number], ACCESSION NUMBER(s): [id number] Exam: CT CT AB PEL WO CON-NO ORAL OR IV History: eval r/o pyelonephritis, Comparison Study: CT PELVIS WO CONTRAST on DOS: 08/15/24, CT ABD PELVIS WO CONTRAST on DOS: 02/23/22, CT ABD PELVIS WO CONTRAST on DOS: 09/27/21 TECHNIQUE: Multidetector CT of the abdomen and pelvis without IV contrast. Axial, coronal and sagittal multiplanar reformats were obtained from the axial data set by the technologist. Radiation Dose Information: CT Dose: CTDI volume is 15.47 mGy. Dose-length product is 3.92 mGy*cm FINDINGS: Bibasilar atelectasis. Trace bilateral pleural effusions. Partially visualized heart is unremarkable. Status post cholecystectomy. Mild hepatosplenomegaly. Small splenule is noted adjacent to the spleen. Otherwise, liver, spleen, pancreas and adrenal glands are unremarkable. Right nephrectomy. The urinary bladder is not definitely visualized with findings of urinary diversion ileal conduit and right lower quadrant ileostomy. Pkee-dt-whfsvknr left-sided hydroureteronephrosis. Small hiatal hernia. Postsurgical changes of gastric bypass. Small bowel loops are fluid-filled and nondistended. Appendix is not well-visualized. Without visualization of the appendix, can not exclude acute appendicitis. Colonic diverticulosis without diverticulitis. Rectal wire is noted in place. No evidence of intraperitoneal free air or free fluid. No evidence of aortic aneurysm. Mild atherosclerotic calcification of the aorta and bilateral iliacs. No significant lymphadenopathy. Mild pelvic wall edema. Umbilical region soft tissue thickening likely from postsurgical changes. No evidence of acute osseous abnormalities. IMPRESSION: Szue-nv-ywyocviq left Hydroureteronephrosis with no obstructing calculus noted. Mild left-sided perinephric fat stranding which may be from the hydronephrosis with infectious process not excluded. Status post right nephrectomy and right cystectomy with urinary diversion surg christine noted. Appendix is not definitely visualized. Without visualization of the appendix, can not exclude acute appendicitis. Colonic Diverticulosis without diverticulitis. Small hiatal hernia. Postsurgical changes of gastric bypass. ATED BY: ANAMARIA NOVAK DO DICTATED DATE/TIME: 10/27/242134 SIGNED BY: ANAMARIA NOVAK DO SIGNED DATE/TIME: 10/27/242134 CC: Assessment/Plan Problem List: (1) Bladder cancer (2) S/P ileal conduit (3) History of urinary diversion procedure (4) Hydronephrosis, left (5) Urinary tract infection (6) Metabolic encephalopathy (7) History of nephrectomy, right Plan Assessment: Sepsis due to comp UTI mild to mod left hydronephrosis Right nephrectomy s/p ileal conduit with urinary diversion x7 wks ago Plan: Continue IV antibiotics urine culture Monitor Cr & UO monitor WBC consult IR for PCN Plan discussed with: Patient BOOGIE BRAY TOPOGRAPHICAL DRAFTER Oct 29, 2024 23:10 PRINCE ZHANG NP Oct 30, 2024 16:58
[2024-10-30] MEDS: CEFEPIME 1GM/ 50ML 50 ML IV SCH (01:41)
[2024-10-30 06:44] LABS: Hematocrit 30.5 % (36.0-46.0); Hemoglobin 10.5 g/dL (12.2-16.2); Mean Corpuscular Hemoglobin 30.9 pg (28.0-32.0); Mean Corpuscular Volume 89.9 fL (80.0-100.0); Nucleated Red Blood Cells % 0.1 %
[2024-10-30 06:57] LABS: Anion Gap 10 (5-15); Sodium 141 mmol/L (136-145)
[2024-10-30 07:03] LABS: BUN/Creatinine Ratio 21.9 (10.0-20.0); Blood Urea Nitrogen 25 mg/dL (9-23); Calcium 8.7 mg/dL (8.7-10.4); Carbon Dioxide 15 mmol/L (20-31); Chloride 116 mmol/L (98-107); Glucose 127 mg/dL (74-106); Potassium 3.3 mmol/L (3.5-5.1)
[2024-10-30 08:00] VITALS: PULSE 43
[2024-10-30 09:00] VITALS: BP 158/85; PULSE 42; RESP 16; TEMP 97.4; O2SAT 100
--- NOTE | 2024-10-30 12:51 | DVH ---
INDICATION: Re-evaluate hydronephrosis in solitary kidney TECHNIQUE: Multiple real-time sonographic images of the kidneys and bladder were obtained. COMPARISON: US PELVIC on DOS: 10/22/23, KIDNEY on DOS: 12/27/21, KIDUS on DOS: 12/27/21 FINDINGS: RIGHT kidney is surgically absent. LEFT kidney measures 13.1 cm in length. Moderate hydronephrosis. Bladder is surgically absent. IMPRESSION: Moderate left hydronephrosis.
[2024-10-30 13:00] VITALS: BP 135/71; PULSE 47; RESP 16; TEMP 98.1; O2SAT 95
--- NOTE | 2024-10-30 15:52 | DVHPN2 ---
Subjective Patient improving. A&O times 3-4. Reviewed: H&P Changes from previous H/P or p: No Changes General: Per HPI Eyes: No Pain, No Vision change, No Conjunctivae inflammation, No Eyelid inflammation, No Other, No Redness ENT: No Ear pain, No Ear discharge, No Nose pain, No Nose discharge, No Nose congestion, No Mouth pain, No Mouth swelling, No Throat pain, No Throat swelling, No Other Cardiovascular: No Chest Pain, No Palpitations, No Orthopnea, No Paroxysmal Noc. Dyspnea, No Edema, No Lt Headedness, No Other Respiratory: No Cough, No Dry, No Shortness of breath, No SOB with excertion, No Wheezing, No Hemoptysis, No Pleuritic Pain, No Sputum, No Other Gastrointestinal: No Nausea, No Vomiting, No Abdominal Pain, No Diarrhea, No Constipation, No Melena, No Hematochezia, No Other Genitourinary: No Dysuria, No Frequency, No Incontinence, No Hematuria, No Retention, No Other Musculoskeletal: No other, No neck pain, No shoulder pain, No arm pain, No back pain, No hand pain, No leg pain, No foot pain Skin: No Rash, No Lesions, No Jaundice, No Bruising, No Other Objective Vitals Vital Signs Date Time Temp Pulse Resp B/P (MAP) Pulse Ox O2 Delivery O2 Flow Rate FiO2 10/30/24 13:00 98.1 47 16 135/71 (92) 95 98.1 10/30/24 07:40 Room Air* 0 21 Intake/Output Intake and Output 10/30/24 07:00 Intake Total 1706.25 ml Output Total 1100 ml Balance 606.25 ml Intake Oral 800 ml IV Total 906.25 ml Output Urine Total 1100 ml Exam GEN: Healthy appearing, well-developed, NAD. HEENT: NC/AT; MMM. CV: RRR, no m/r/g. LUNGS: CTAB, no w/r/c. ABD: Soft, NT/ND, NBS, no masses or organomegaly. Ileal conduit present on right lower quadrant, no CVA tenderness EXT: skin Warm, well perfused. no rashes. No clubbing, cyanosis, or edema. NEURO: Ambulating with no limitations. No focal deficits. Medications Current Medications Medications Dose Ordered Sig/Alvino Route Start Time Stop Time Status Last Admin Dose Admin Norepinephrine Bitartrate 250 ml @ 3.75 mls/hr Q24H IV 10/27/24 01:45 10/27/24 01:45 3.75 MLS/HR Enoxaparin Sodium 30 mg DAILY SC 10/27/24 10:00 UNV Enoxaparin Sodium 40 mg DAILY SC 10/27/24 10:00 Acetaminophen 650 mg Q4HP PRN PO 10/27/24 15:00 10/27/24 23:27 650 MG Ibuprofen 600 mg Q8HP PRN PO 10/27/24 15:00 10/27/24 23:49 600 MG Metronidazole 100 ml @ 100 mls/hr Q8HR IV 10/28/24 14:00 10/30/24 14:44 100 MLS/HR Saccharomyces Boulardii 250 mg DAILY PO 10/29/24 10:00 10/30/24 09:53 250 MG Oxcarbazepine 300 mg Q12HR PO 10/29/24 22:00 10/30/24 09:53 300 MG Ondansetron HCl 4 mg Q6HPRN PRN IV 10/29/24 15:45 Cefepime HCl 50 ml @ 12.5 mls/hr Q8H IV 10/30/24 02:00 10/30/24 09:53 12.5 MLS/HR Hydrocortisone Sodium Succinate 100 mg BID IV 10/30/24 22:00 11/02/24 13:59 Laboratory Results Laboratory Tests 10/30/24 06:29 Chemistry Test 10/30/24 06:29 Calcium Level 8.7 mg/dL (8.7-10.4) Urinalysis Test 10/26/24 22:00 Urine Color Yellow (Yellow) Urine Clarity Ex.turbid (Clear) Urine pH 8.0 (5.0-9.0) Urine Specific [place] 1.010 (1.001-1.035) Urine Protein 2+ (Negative) H Urine Ketones Negative (Negative) Urine Blood 2+ /uL (Negative) H Urine Nitrite Negative (Negative) Urine Bilirubin Negative (Negative) Urine Urobilinogen Normal mg/dL (Negative) Urine Leukocyte Esterase 3+ /uL (Negative) Urine RBC 14 /hpf (0 - 4) Urine Microscopic WBC 574 /HPF (0-5) H Urine Squamous Epithelial Cells None seen /hpf (<5) Urine Bacteria Many /hpf (None Seen) H Urine Glucose Normal mg/dL (Normal) Microbiology Microbiology Date/Time Source Procedure Growth Status 10/29/24 05:46 Nose MRSA Screen - Final Complete 10/28/24 18:56 Blood Blood Culture - Preliminary NO GROWTH AFTER 24 HOURS OF INCUBATION. Resulted 10/28/24 04:47 Stool Stool Culture - Preliminary Resulted 10/28/24 04:47 Stool Shiga Toxin I & II - Final Resulted 10/28/24 04:47 Stool Clostridium difficile Toxin Assay - Final Resulted 10/26/24 22:00 Urine - Catheterized Urine Culture - Final Complete Labs and/or images reviewed: Labs reviewed by me, Image(s) reviewed by me Assessment/Plan Assessment/Plan Nahed Quintanilla is a 64 yo female, with past medical history of bladder cancer (with Urinary ileal conduit diversion ileostomy), renal cancer, status post right nephrectomy and seizures. The patient was brought to the ED by ambulance, the EMS team was call due to patient was found confused at home. When asked about her chief complain she report feeling fatigue, weak and feverish for the past couple of days. The patient is poor historian, she is lethargic, hard to aroused, responds to name but confused in placed and time. There are no family members at bedside at the time of the interview to confirm this information. On initial ED evaluation the brain CT scan showed no brain abnormalities, Xray is unremarkable, UA is positive. BP was 86/45 MAP 57 , vasopressors were started. 10/27: Patient having recurrent febrile episodes, blood culture is pending. IV Tylenol given, we will start 1st line Tylenol second-line ibuprofen as prn for fever. We will add back vancomycin to cefepime. We will get CT abdomen and pelvis to rule out any pyelonephritis etc.. Continue IV fluids. 10/28: Patient is making good urine output through the ileal conduit, no erythema around the conduit exit, no purulence in the urine. Overnight she has started to having diarrhea. Last low-grade febrile episodes at 3:00 a.m. today. We will need repeat cultures. Diarrhea possible infection source, we will add metronidazole to vancomycin and cefepime. CT showing mildly worsening left hydronephrosis which was present after the surgery for an ileal conduit. We will consult Urology as possible infection source. Blood is having Gram- negative rods, urine culture mixed kerry. Patient feels better, she still weak on her feet. In terms of mentation she is back to baseline A&O times 3-4. No abdominal pain, lung sounds with good aeration in all lung manley. We are adding hydrocortisone for shock. Levophed at 1, continue weaning 10/29: Patient has been off of Levophed for 24 hours we will deescalate to tele today. Continue broad-spectrum IV antibiotics. Urine culture is multi kerry, blood culture pending.. Continue stress dose steroids for shock. We will start PT eval today. urology to eval today. 10/30: We are decreasing vancomycin, hydrocortisone IV. Patient is improving. Tried to work with PT but she was severely weak. Continuing IV antibiotics. Today I cultures are showing blood with E coli resistant to ciprofloxacin and levofloxacin. Continuing cefepime for now. Repeat blood cultures are negative. I think patient will likely need SNF rehab. For now we will wait for PT recommendations. Otherwise continue plan as outlined earlier Diagnosis: Septic Shock due to below Sepsis due to complicated UTI, R/O pyelonephritis Hypotension Metabolic Encephalopathy Left hydronephrosis [id number] Gastroenteritis, infectious etiology likely IV Fluids: Lactate's ringers Vasopressors: Norepinephrine continue Hydrocortisone x5 days Cefepime IV Vancomycin IV Metronidazole IV UA: positive Blood culture Urine culture Stool culture #Bladder Carcinoma #Status post urinary ileal conduit ileostomy #Renal carcinoma #Status post right nephrectomy #Obesity #Seizures #CKD -continue pain control prn - continuing IV antibiotics cefepime (prior vancomycin now discontinued) - continue Florastor - continue hydrocortisone injections - continue fever control with Tylenol as 1st line, ibuprofen second-line prn - continue metronidazole IV - Levophed has been discontinued. - continue home medications Trileptal and any other seizure medications to be continued. Diet: Advance diet DVT prophylaxis Lovenox subQ daily PUD prophylaxis Protonic Telemetry full code Plan discussed with: Patient My Orders Orders - NEWTON BELLA MD Procedure Category Date Status Time * Urology Consult CONS 10/29/24 Transmitted 16:27 Hydrocortisone PHA 10/30/24 In Process Succinate Inj 22:00 Date of Service: Oct 30, 2024 Billing Provider: NEWTON BELLA MD Common Visit Codes: [id number] INP/OBS CARE(HIGH) NEWTON BELLA MD Oct 30, 2024 15:52
[2024-10-30] MEDS ORDERED: IOHEXOL 300 MG/ML 100ML BOTTLE IJ ONE (16:04)
--- NOTE | 2024-10-30 16:53 | DVH ---
Indication: r/o obstruction, hydronephrosis and solitary kidney Technique: CT axial images of the abdomen and pelvis are obtained with and without intravenous contra st. Coronal and sagittal reformats were obtained. Radiation Dose Information: CTDI volume is 9.8 mGy. Dose-length product is 1119 mGy*cm Comparison: 10/27/2024, 08/14/2024 FINDINGS: Lung bases demonstrate atelectasis. Small bilateral pleural effusions. Adrenal glands, spleen, pancreas and liver unremarkable in shape. Cholecystectomy. Right kidney absent. Lpnq-eh-eowbgspi left hydroureteronephrosis also present in 08/14/2024 exam. Ileal conduit / urinary diversion, left ostomy. Postsurgical changes stomach. Small bowel loops are normal in caliber. Colonic diverticular disease. Moderate volume stool in the colon. No secondary signs for appendicitis . Abdominal aortic atherosclerotic disease. Cystectomy. Presacral edema. Small amount of free pelvic f luid. Labial region soft tissue edema and stranding. There is also generalized soft tissue edema / strandin g. Szzm-vu-qnmtwdso thoracolumbar degenerative disc disease. IMPRESSION: There is reah-nr-vtgneyfh left hydroureteronephrosis with urinary diversion/ ileal conduit, left osto my no obstructing calculus identified. Correlate clinically to exclude any type of distal ureteral a nastomotic stricture/ stenosis. Small bilateral pleural effusions. Cholecystectomy. Labial region soft tissue edema and stranding. Correlate clinically. Soft tissue edema /anasarca. Right nephrectomy. Other findings as described.
[2024-10-30 16:55] VITALS: BP 159/84; PULSE 52; RESP 16; TEMP 97.6; O2SAT 97
[2024-10-30] MEDS: FAMOTIDINE 20 MG TAB PO ONE (17:04)
[2024-10-30 20:00] VITALS: PULSE 46
[2024-10-30 21:00] VITALS: BP 157/82; PULSE 47; RESP 18; TEMP 97.6; O2SAT 98
[2024-10-30] MEDS: VANCOMYCIN 500mg/100mL 100 ML IV ONE (22:04)
[2024-10-30] MEDS: HYDROCORTISONE SOD SUCC 100 MG/2ML INJ VIAL IV SCH (22:04)
[2024-10-31] VITALS (9 sets, daily range): BP systolic 117–169; BP diastolic 54–83; PULSE 44–82; RESP 17–19; TEMP 97.2–97.9; O2SAT 94–99
[2024-10-31] MEDS: FAMOTIDINE 20 MG TAB PO SCH (09:40)
--- NOTE | 2024-10-31 17:03 | DVHPN2 ---
Subjective Patient improving. A&O times 3-4. Reviewed: H&P Changes from previous H/P or p: No Changes General: Per HPI Eyes: No Pain, No Vision change, No Conjunctivae inflammation, No Eyelid inflammation, No Other, No Redness ENT: No Ear pain, No Ear discharge, No Nose pain, No Nose discharge, No Nose congestion, No Mouth pain, No Mouth swelling, No Throat pain, No Throat swelling, No Other Cardiovascular: No Chest Pain, No Palpitations, No Orthopnea, No Paroxysmal Noc. Dyspnea, No Edema, No Lt Headedness, No Other Respiratory: No Cough, No Dry, No Shortness of breath, No SOB with excertion, No Wheezing, No Hemoptysis, No Pleuritic Pain, No Sputum, No Other Gastrointestinal: No Nausea, No Vomiting, No Abdominal Pain, No Diarrhea, No Constipation, No Melena, No Hematochezia, No Other Genitourinary: No Dysuria, No Frequency, No Incontinence, No Hematuria, No Retention, No Other Musculoskeletal: No other, No neck pain, No shoulder pain, No arm pain, No back pain, No hand pain, No leg pain, No foot pain Skin: No Rash, No Lesions, No Jaundice, No Bruising, No Other Objective Vitals Vital Signs Date Time Temp Pulse Resp B/P (MAP) Pulse Ox O2 Delivery O2 Flow Rate FiO2 10/31/24 13:00 97.2 47 18 144/79 (100) 99 97.2 10/31/24 08:00 Room Air* 0 21 Intake/Output Intake and Output 10/31/24 07:00 Intake Total 2500 ml Output Total 2300 ml Balance 200 ml Intake Oral 2100 ml IV Total 400 ml Output Urine Total 2300 ml Exam GEN: Healthy appearing, well-developed, NAD. HEENT: NC/AT; MMM. CV: RRR, no m/r/g. LUNGS: CTAB, no w/r/c. ABD: Soft, NT/ND, NBS, no masses or organomegaly. Ileal conduit present on right lower quadrant, no CVA tenderness EXT: skin Warm, well perfused. no rashes. No clubbing, cyanosis, or edema. NEURO: Ambulating with no limitations. No focal deficits. Medications Current Medications Medications Dose Ordered Sig/Alvino Route Start Time Stop Time Status Last Admin Dose Admin Norepinephrine Bitartrate 250 ml @ 3.75 mls/hr Q24H IV 10/27/24 01:45 10/27/24 01:45 3.75 MLS/HR Enoxaparin Sodium 30 mg DAILY SC 10/27/24 10:00 UNV Enoxaparin Sodium 40 mg DAILY SC 10/27/24 10:00 Acetaminophen 650 mg Q4HP PRN PO 10/27/24 15:00 10/31/24 09:39 650 MG Ibuprofen 600 mg Q8HP PRN PO 10/27/24 15:00 10/27/24 23:49 600 MG Metronidazole 100 ml @ 100 mls/hr Q8HR IV 10/28/24 14:00 10/31/24 14:45 100 MLS/HR Saccharomyces Boulardii 250 mg DAILY PO 10/29/24 10:00 10/31/24 09:40 250 MG Oxcarbazepine 300 mg Q12HR PO 10/29/24 22:00 10/31/24 09:40 300 MG Ondansetron HCl 4 mg Q6HPRN PRN IV 10/29/24 15:45 Cefepime HCl 50 ml @ 12.5 mls/hr Q8H IV 10/30/24 02:00 10/31/24 09:41 12.5 MLS/HR Hydrocortisone Sodium Succinate 100 mg BID IV 10/30/24 22:00 11/02/24 13:59 10/31/24 09:40 100 MG Famotidine 20 mg Q12HR PO 10/31/24 10:00 10/31/24 09:40 20 MG Laboratory Results Laboratory Tests 10/30/24 06:29 Urinalysis Test 10/26/24 22:00 Urine Color Yellow (Yellow) Urine Clarity Ex.turbid (Clear) Urine pH 8.0 (5.0-9.0) Urine Specific [place] 1.010 (1.001-1.035) Urine Protein 2+ (Negative) H Urine Ketones Negative (Negative) Urine Blood 2+ /uL (Negative) H Urine Nitrite Negative (Negative) Urine Bilirubin Negative (Negative) Urine Urobilinogen Normal mg/dL (Negative) Urine Leukocyte Esterase 3+ /uL (Negative) Urine RBC 14 /hpf (0 - 4) Urine Microscopic WBC 574 /HPF (0-5) H Urine Squamous Epithelial Cells None seen /hpf (<5) Urine Bacteria Many /hpf (None Seen) H Urine Glucose Normal mg/dL (Normal) Microbiology Microbiology Date/Time Source Procedure Growth Status 10/29/24 05:46 Nose MRSA Screen - Final Complete 10/28/24 18:56 Blood Blood Culture - Preliminary NO GROWTH AFTER 48 HOURS OF INCUBATION. Resulted 10/28/24 04:47 Stool Stool Culture - Preliminary Resulted 10/28/24 04:47 Stool Shiga Toxin I & II - Final Resulted 10/28/24 04:47 Stool Clostridium difficile Toxin Assay - Final Resulted 10/26/24 22:00 Urine - Catheterized Urine Culture - Final Complete Labs and/or images reviewed: Labs reviewed by me, Image(s) reviewed by me Assessment/Plan Assessment/Plan Nahed Quintanilla is a 64 yo female, with past medical history of bladder cancer (with Urinary ileal conduit diversion ileostomy), renal cancer, status post right nephrectomy and seizures. The patient was brought to the ED by ambulance, the EMS team was call due to patient was found confused at home. When asked about her chief complain she report feeling fatigue, weak and feverish for the past couple of days. The patient is poor historian, she is lethargic, hard to aroused, responds to name but confused in placed and time. There are no family members at bedside at the time of the interview to confirm this information. On initial ED evaluation the brain CT scan showed no brain abnormalities, Xray is unremarkable, UA is positive. BP was 86/45 MAP 57 , vasopressors were started. 10/27: Patient having recurrent febrile episodes, blood culture is pending. IV Tylenol given, we will start 1st line Tylenol second-line ibuprofen as prn for fever. We will add back vancomycin to cefepime. We will get CT abdomen and pelvis to rule out any pyelonephritis etc.. Continue IV fluids. 10/28: Patient is making good urine output through the ileal conduit, no erythema around the conduit exit, no purulence in the urine. Overnight she has started to having diarrhea. Last low-grade febrile episodes at 3:00 a.m. today. We will need repeat cultures. Diarrhea possible infection source, we will add metronidazole to vancomycin and cefepime. CT showing mildly worsening left hydronephrosis which was present after the surgery for an ileal conduit. We will consult Urology as possible infection source. Blood is having Gram- negative rods, urine culture mixed kerry. Patient feels better, she still weak on her feet. In terms of mentation she is back to baseline A&O times 3-4. No abdominal pain, lung sounds with good aeration in all lung manley. We are adding hydrocortisone for shock. Levophed at 1, continue weaning 10/29: Patient has been off of Levophed for 24 hours we will deescalate to tele today. Continue broad-spectrum IV antibiotics. Urine culture is multi kerry, blood culture pending.. Continue stress dose steroids for shock. We will start PT eval today. urology to eval today. 10/30: We are decreasing vancomycin, hydrocortisone IV. Patient is improving. Tried to work with PT but she was severely weak. Continuing IV antibiotics. Today I cultures are showing blood with E coli resistant to ciprofloxacin and levofloxacin. Continuing cefepime for now. Repeat blood cultures are negative. I think patient will likely need SNF rehab. For now we will wait for PT recommendations. Otherwise continue plan as outlined earlier 10/31: Patient to improve, working better with today. PT recommends sniff rehab. Patient does not want to go, she wants to go to home with home health home PT. At discharge she will 10-14 days p.o. antibiotics for a few complicated cystitis with septic shock.. She does not feel comfortable or stable on and feet yet. We will continue IV hydrocortisone to be weaned off over the weekend and likely discharge Sunday. Diagnosis: Septic Shock due to below Sepsis due to complicated UTI, R/O pyelonephritis Hypotension Metabolic Encephalopathy Left hydronephrosis [id number] Gastroenteritis, infectious etiology likely IV Fluids: Lactate's ringers Vasopressors: Norepinephrine continue Hydrocortisone x5 days Cefepime IV Vancomycin IV Metronidazole IV UA: positive Blood culture Urine culture Stool culture #Bladder Carcinoma #Status post urinary ileal conduit ileostomy #Renal carcinoma #Status post right nephrectomy #Obesity #Seizures #CKD -continue pain control prn - continuing IV antibiotics cefepime (prior vancomycin now discontinued) - continue Florastor - continue hydrocortisone injections - continue fever control with Tylenol as 1st line, ibuprofen second-line prn - continue metronidazole IV - Levophed has been discontinued. - continue home medications Trileptal and any other seizure medications to be continued. Diet: Advance diet DVT prophylaxis Lovenox subQ daily PUD prophylaxis Protonic Telemetry full code Plan discussed with: Patient My Orders Orders - NEWTON BELLA MD Procedure Category Date Status Time Apply Z-Guard SARAI 10/30/24 In Process 12:33 Mechanical Soft Diet DIET 10/31/24 Transmitted Breakfast Date of Service: Oct 31, 2024 Billing Provider: NEWTON BELLA MD Common Visit Codes: [id number] INP/OBS CARE(HIGH) NEWTON BELLA MD Oct 31, 2024 17:03
[2024-10-31] MEDS ORDERED: diphenhdrAMINE HCL 25 MG CAP PO PRN (18:45)
--- NOTE | 2024-10-31 22:48 | DVHPN2 ---
Progress Note - Dictate Date Seen: Oct 31, 2024 Medical Necessity Reason Pt with a Central, PICC or Fol: No Subjective Initially declined PCN placement, preferring to consult with her daughter and oncology team at [facility]. Now agreeable to proceed with procedure. vital signs Vital Sign Date Time Temp Pulse Resp B/P (MAP) Pulse Ox O2 Delivery O2 Flow Rate FiO2 10/31/24 21:00 97.6 56 17 117/66 (83) 95 97.6 10/31/24 08:00 Room Air* 0 21 Total Intake and Output 10/30/24 10/30/24 10/31/24 15:00 23:00 07:00 Intake Total 150 ml 1400 ml 950 ml Output Total 900 ml 1400 ml Balance 150 ml 500 ml -450 ml medications Current Medications Medications Dose Ordered Sig/Alvino Route Start Time Stop Time Status Last Admin Dose Admin Norepinephrine Bitartrate 250 ml @ 3.75 mls/hr Q24H IV 10/27/24 01:45 10/27/24 01:45 3.75 MLS/HR Enoxaparin Sodium 30 mg DAILY SC 10/27/24 10:00 UNV Enoxaparin Sodium 40 mg DAILY SC 10/27/24 10:00 Acetaminophen 650 mg Q4HP PRN PO 10/27/24 15:00 10/31/24 09:39 650 MG Ibuprofen 600 mg Q8HP PRN PO 10/27/24 15:00 10/27/24 23:49 600 MG Metronidazole 100 ml @ 100 mls/hr Q8HR IV 10/28/24 14:00 10/31/24 21:30 100 MLS/HR Saccharomyces Boulardii 250 mg DAILY PO 10/29/24 10:00 10/31/24 09:40 250 MG Oxcarbazepine 300 mg Q12HR PO 10/29/24 22:00 10/31/24 21:29 300 MG Ondansetron HCl 4 mg Q6HPRN PRN IV 10/29/24 15:45 Cefepime HCl 50 ml @ 12.5 mls/hr Q8H IV 10/30/24 02:00 10/31/24 18:06 12.5 MLS/HR Hydrocortisone Sodium Succinate 100 mg BID IV 10/30/24 22:00 11/02/24 13:59 10/31/24 21:29 100 MG Famotidine 20 mg Q12HR PO 10/31/24 10:00 10/31/24 21:29 20 MG Diphenhydramine HCl 25 mg Q6HP PRN PO 10/31/24 18:45 objective Patient alert & oriented, decision making intact. No distress noted. No change in abd or flank exam. laboratory and microbiology Laboratory Tests 10/30/24 06:29 Test 10/30/24 06:29 Range/Units Serum Glucose 127 H 74-106 mg/dL [place] [id number] Ph: [phone] DIAGNOSTIC IMAGING Diagnostic Imaging Report : [id number] Signed PATIENT: CHULA SOLORIO SACCT: [id number] UNIT: [id number] : 1960 [facility] AGE / SEX: 64 / F ADM STATUS: ADM IN SERVICE 1144 ORDERING PHYSICIAN: BOOGIE BRAY REGISTERED NURSE CARDIAC TELEMETRY PROCEDURE(s): KIDUS - KIDNEY REASON: Re-evaluate hydronephrosis in solitary kidney ORDER NUMBER(s): [id number], ACCESSION NUMBER(s): [id number] INDICATION: Re-evaluate hydronephrosis in solitary kidney TECHNIQUE: Multiple real-time sonographic images of the kidneys and bladder were obtained. COMPARISON: US PELVIC on DOS: 10/22/23, KIDNEY on DOS: 12/27/21, KIDUS on DOS: 12/27/21 FINDINGS: RIGHT kidney is surgically absent. LEFT kidney measures 13.1 cm in length. Moderate hydronephrosis. Bladder is surgically absent. IMPRESSION: Moderate left hydronephrosis. [place] [id number] Ph: [phone] DIAGNOSTIC IMAGING Diagnostic Imaging Report : [id number] Signed PATIENT: CHULA SOLORIO SACCT: [id number] UNIT: [id number] : 1960 LOC: [facility] AGE / SEX: 64 / F ADM STATUS: ADM IN SERVICE 1355 ORDERING PHYSICIAN: PRINCE ZHANG NP PROCEDURE(s): ABPEL - CT AB PELVIS W WO CON-IV ONLY REASON: r/o obstruction, hydronephrosis and solitary kidney ORDER NUMBER(s): [id number], ACCESSION NUMBER(s): [id number] Indication: r/o obstruction, hydronephrosis and solitary kidney Technique: CT axial images of the abdomen and pelvis are obtained with and without intravenous contrast. Coronal and sagittal reformats were obtained. Radiation Dose Information: CTDI volume is 9.8 mGy. Dose-length product is 1119 mGy*cm Comparison: 10/27/2024, 08/14/2024 FINDINGS: Lung bases demonstrate atelectasis. Small bilateral pleural effusions. Adrenal glands, spleen, pancreas and liver unremarkable in shape. Cholecystectomy. Right kidney absent. [id number] left hydroureteronephrosis also present in 08/14/2024 exam. Ileal conduit / urinary diversion, left ostomy. Postsurgical changes stomach. Small bowel loops are normal in caliber. Colonic diverticular disease. Moderate volume stool in the colon. No secondary signs for appendicitis. Abdominal aortic atherosclerotic disease. Cystectomy. Presacral edema. Small amount of free pelvic fluid. Labial region soft tissue edema and stranding. There is also generalized soft tissue edema / stranding. Chph-rd-troyufsc thoracolumbar degenerative disc disease. IMPRESSION: There is [id number]-skalhxdd left hydroureteronephrosis with urinary diversion/ ileal conduit, left ostomy no obstructing calculus identified. Correlate clinically to exclude any type of distal ureteral anastomotic stricture/ stenosis. Small bilateral pleural effusions. Cholecystectomy. Labial region soft tissue edema and stranding. Correlate clinically. Soft tissue edema /anasarca. Right nephrectomy. Other findings as described. Assessment/Plan Assessment: sepsis due to comp UTI Radical cystectomy s/p ileal conduit w urinary diversion (7 weeks ago) Left mild to mod hydronephrosis - possible early stricture vs infection related edema Right nephrectomy Plan: Encourage oral hydration Continue IV abx monitor Cr and UO monitor WBC Proceed with PCN placement Sunday HOLD Lovenox 24 hours prior to IR procedure Plan discussed with: Patient BOOGIE BRAY REGISTERED NURSE CARDIAC TELEMETRY Oct 31, 2024 22:48 PRINCE ZHANG NP Nov 01, 2024 11:56
[2024-11-01] VITALS (9 sets, daily range): BP systolic 126–170; BP diastolic 69–85; PULSE 51–97; RESP 16–18; TEMP 96.9–97.4; O2SAT 96–98
[2024-11-01 07:13] LABS: Hematocrit 32.3 % (36.0-46.0); Hemoglobin 11.0 g/dL (12.2-16.2); Mean Corpuscular Hemoglobin 30.3 pg (28.0-32.0); Mean Corpuscular Volume 89.2 fL (80.0-100.0); Nucleated Red Blood Cells % 0.0 %
[2024-11-01 07:20] LABS: Sodium 144 mmol/L (136-145)
[2024-11-01 07:21] LABS: Anion Gap 13 (5-15); Carbon Dioxide 20 mmol/L (20-31)
[2024-11-01 07:22] LABS: Calcium 8.9 mg/dL (8.7-10.4); Chloride 111 mmol/L (98-107); Potassium 3.0 mmol/L (3.5-5.1)
[2024-11-01 07:24] LABS: INR 1.01 (0.9-1.15); Prothrombin Time 10.7 sec (9.3-11.8)
[2024-11-01 07:26] LABS: BUN/Creatinine Ratio 24.5 (10.0-20.0)
[2024-11-01 07:27] LABS: Blood Urea Nitrogen 27 mg/dL (9-23); Glucose 119 mg/dL (74-106)
[2024-11-01] MEDS: Ensure HIGH Protein Chocolate 8oz Bottle PO SCH (18:00)
--- NOTE | 2024-11-01 18:35 | DVHPN2 ---
Subjective FEELS BETTER Reviewed: Care Plan, H&P, Labs, Medications, Previous Orders, Radiology, Other (CONSULTANTS) Changes from previous H/P or p: No Changes General: Per HPI Objective Vitals Vital Signs Date Time Temp Pulse Resp B/P (MAP) Pulse Ox O2 Delivery O2 Flow Rate FiO2 11/01/24 17:15 97.4 55 17 144/74 (97) 97 97.4 11/01/24 08:00 Room Air* 0 21 Intake/Output Intake and Output 11/01/24 07:00 Intake Total 1950 ml Output Total 2050 ml Balance -100 ml Intake Oral 1600 ml IV Total 350 ml Output Urine Total 2050 ml General Appearance: Alert, Oriented X3, Cooperative, No acute distress HEENT: Atraumatic Lungs: Clear to auscultation Cardiovascular: Regular rate Abdomen: Soft Medications Current Medications Medications Dose Ordered Sig/Alvino Route Start Time Stop Time Status Last Admin Dose Admin Norepinephrine Bitartrate 250 ml @ 3.75 mls/hr Q24H IV 10/27/24 01:45 10/27/24 01:45 3.75 MLS/HR Enoxaparin Sodium 30 mg DAILY SC 10/27/24 10:00 UNV Enoxaparin Sodium 40 mg DAILY SC 10/27/24 10:00 Acetaminophen 650 mg Q4HP PRN PO 10/27/24 15:00 10/31/24 09:39 650 MG Ibuprofen 600 mg Q8HP PRN PO 10/27/24 15:00 10/27/24 23:49 600 MG Metronidazole 100 ml @ 100 mls/hr Q8HR IV 10/28/24 14:00 11/01/24 15:46 100 MLS/HR Saccharomyces Boulardii 250 mg DAILY PO 10/29/24 10:00 11/01/24 10:00 250 MG Oxcarbazepine 300 mg Q12HR PO 10/29/24 22:00 11/01/24 10:00 300 MG Ondansetron HCl 4 mg Q6HPRN PRN IV 10/29/24 15:45 Cefepime HCl 50 ml @ 12.5 mls/hr Q8H IV 10/30/24 02:00 11/01/24 17:17 12.5 MLS/HR Hydrocortisone Sodium Succinate 100 mg BID IV 10/30/24 22:00 11/02/24 13:59 11/01/24 10:21 100 MG Famotidine 20 mg Q12HR PO 10/31/24 10:00 11/01/24 10:00 20 MG Diphenhydramine HCl 25 mg Q6HP PRN PO 10/31/24 18:45 Enteral Nutritional Formula 240 ml TIDWM PO 11/01/24 18:00 Laboratory Results Laboratory Tests 11/01/24 05:18 Chemistry Test 11/01/24 05:18 Calcium Level 8.9 mg/dL (8.7-10.4) Coagulation Test 11/01/24 05:18 Prothrombin Time 10.7 sec (9.3-11.8) Prothrombin Time INR 1.01 (0.9-1.15) Urinalysis Test 10/26/24 22:00 Urine Color Yellow (Yellow) Urine Clarity Ex.turbid (Clear) Urine pH 8.0 (5.0-9.0) Urine Specific [place] 1.010 (1.001-1.035) Urine Protein 2+ (Negative) H Urine Ketones Negative (Negative) Urine Blood 2+ /uL (Negative) H Urine Nitrite Negative (Negative) Urine Bilirubin Negative (Negative) Urine Urobilinogen Normal mg/dL (Negative) Urine Leukocyte Esterase 3+ /uL (Negative) Urine RBC 14 /hpf (0 - 4) Urine Microscopic WBC 574 /HPF (0-5) H Urine Squamous Epithelial Cells None seen /hpf (<5) Urine Bacteria Many /hpf (None Seen) H Urine Glucose Normal mg/dL (Normal) Microbiology Microbiology Date/Time Source Procedure Growth Status 10/29/24 05:46 Nose MRSA Screen - Final Complete 10/28/24 18:56 Blood Blood Culture - Preliminary NO GROWTH AFTER 72 HOURS OF INCUBATION. Resulted 10/28/24 04:47 Stool Stool Culture - Preliminary Resulted 10/28/24 04:47 Stool Shiga Toxin I & II - Final Resulted 10/28/24 04:47 Stool Clostridium difficile Toxin Assay - Final Resulted 10/26/24 22:00 Urine - Catheterized Urine Culture - Final Complete Assessment/Plan Assessment/Plan UTI WITH SEPSIS SEPTIC ENCEPHALOPATHY STATUS POST CYSTECTOMY DUE TO BLADDER CANCER DONE AT [facility]. FEW MONTHS AGO LEFT HYDRONEPHROSIS/MILD TO MODERATE ANASARCA BILATERAL PLEURAL EFFUSION/SMALL DIVERTICULOSIS HIATAL HERNIA HISTORY OF GASTRIC BYPASS HISTORY OF RIGHT NEPHRECTOMY PLAN: Continue IV antibiotic. Protein supplements. Physical therapy. Further plan per orders Plan discussed with: Patient, Daughter My Orders Orders - MEL OJEDA MD Procedure Category Date Status Time Nutritional PHA 11/01/24 In Process Supplements (Ensure 18:00 Date of Service: Nov 01, 2024 Billing Provider: MEL OJEDA MD Common Visit Codes: [id number] INP/OBS CARE(HIGH) MEL OJEDA MD Nov 01, 2024 18:35
[2024-11-01] MEDS: POTASSIUM CHL 20 Meq TABLET PO ONE (23:41)
[2024-11-02] VITALS (8 sets, daily range): BP systolic 137–162; BP diastolic 70–88; PULSE 47–103; RESP 16–19; TEMP 97.3–98.1; O2SAT 97–98
[2024-11-02 07:10] LABS: Alanine Aminotransferase 10 U/L (7-40); Albumin 3.4 g/dL (3.2-4.8); Alkaline Phosphatase 73 U/L (46-116); Anion Gap 12 (5-15); BUN/Creatinine Ratio 23.8 (10.0-20.0); Carbon Dioxide 20 mmol/L (20-31); Sodium 143 mmol/L (136-145)
[2024-11-02 07:13] LABS: Bilirubin, Total 0.2 mg/dL (0.2-1.0); Blood Urea Nitrogen 24 mg/dL (9-23); Calcium 8.6 mg/dL (8.7-10.4); Chloride 111 mmol/L (98-107); Glucose 117 mg/dL (74-106); Potassium 2.7 mmol/L (3.5-5.1); Total Protein 5.7 g/dL (5.7-8.2)
[2024-11-02] MEDS ORDERED: hydrALAZINE HCL 20 MG/ML VL IV PRN ×2 (09:00→13:30)
[2024-11-02] MEDS: POTASSIUM EFFERVESENT TAB 25 MEQ PO ONE (10:30)
[2024-11-02] MEDS: POTASSIUM CHLORIDE 60 MEQ, LIDOCAINE 1% (LOCAL ANESTH.) 6 ML in SODIUM CHL 0.9% 500 ML IV ONE (10:30)
--- NOTE | 2024-11-02 17:09 | DVHPN2 ---
Subjective FEELS BETTER Reviewed: Care Plan, H&P, Labs, Medications, Previous Orders, Radiology, Other (CONSULTANTS) Changes from previous H/P or p: No Changes General: Per HPI Objective Vitals Vital Signs Date Time Temp Pulse Resp B/P (MAP) Pulse Ox O2 Delivery O2 Flow Rate FiO2 11/02/24 13:15 98.1 77 16 137/88 (104) 97 98.1 11/02/24 08:00 Room Air* 0 21 Intake/Output Intake and Output 11/02/24 06:59 Intake Total 1300 ml Output Total 3225 ml Balance -1925 ml Intake Oral 900 ml IV Total 400 ml Output Urine Total 3225 ml General Appearance: Alert, Oriented X3, Cooperative, No acute distress HEENT: Atraumatic Lungs: Clear to auscultation Cardiovascular: Regular rate Abdomen: Soft Medications Current Medications Medications Dose Ordered Sig/Alvino Route Start Time Stop Time Status Last Admin Dose Admin Norepinephrine Bitartrate 250 ml @ 3.75 mls/hr Q24H IV 10/27/24 01:45 10/27/24 01:45 3.75 MLS/HR Enoxaparin Sodium 30 mg DAILY SC 10/27/24 10:00 UNV Enoxaparin Sodium 40 mg DAILY SC 10/27/24 10:00 Acetaminophen 650 mg Q4HP PRN PO 10/27/24 15:00 11/01/24 21:22 650 MG Ibuprofen 600 mg Q8HP PRN PO 10/27/24 15:00 10/27/24 23:49 600 MG Metronidazole 100 ml @ 100 mls/hr Q8HR IV 10/28/24 14:00 11/02/24 05:51 100 MLS/HR Saccharomyces Boulardii 250 mg DAILY PO 10/29/24 10:00 11/02/24 10:29 250 MG Oxcarbazepine 300 mg Q12HR PO 10/29/24 22:00 11/02/24 10:29 300 MG Ondansetron HCl 4 mg Q6HPRN PRN IV 10/29/24 15:45 Cefepime HCl 50 ml @ 12.5 mls/hr Q8H IV 10/30/24 02:00 11/02/24 01:54 12.5 MLS/HR Famotidine 20 mg Q12HR PO 10/31/24 10:00 11/02/24 10:29 20 MG Diphenhydramine HCl 25 mg Q6HP PRN PO 10/31/24 18:45 Enteral Nutritional Formula 240 ml TIDWM PO 11/01/24 18:00 11/02/24 12:00 240 ML Potassium Chloride/Sodium Chloride 1,000 ml @ 75 mls/hr [id number] IV 11/02/24 09:00 Hydralazine HCl 10 mg Q2HP PRN IV 11/02/24 13:30 Laboratory Results Laboratory Tests 11/01/24 05:18 11/02/24 06:22 Chemistry Test 11/02/24 06:22 Albumin 3.4 g/dL (3.2-4.8) Calcium Level 8.6 mg/dL (8.7-10.4) L Total Protein 5.7 g/dL (5.7-8.2) LFT Test 11/02/24 06:22 Alanine Aminotransferase (ALT) 10 U/L (7-40) Alkaline Phosphatase 73 U/L (46-116) Aspartate Amino Transferase (AST) 24 U/L (13-40) Total Bilirubin 0.2 mg/dL (0.2-1.0) Urinalysis Test 10/26/24 22:00 Urine Color Yellow (Yellow) Urine Clarity Ex.turbid (Clear) Urine pH 8.0 (5.0-9.0) Urine Specific [place] 1.010 (1.001-1.035) Urine Protein 2+ (Negative) H Urine Ketones Negative (Negative) Urine Blood 2+ /uL (Negative) H Urine Nitrite Negative (Negative) Urine Bilirubin Negative (Negative) Urine Urobilinogen Normal mg/dL (Negative) Urine Leukocyte Esterase 3+ /uL (Negative) Urine RBC 14 /hpf (0 - 4) Urine Microscopic WBC 574 /HPF (0-5) H Urine Squamous Epithelial Cells None seen /hpf (<5) Urine Bacteria Many /hpf (None Seen) H Urine Glucose Normal mg/dL (Normal) Microbiology Microbiology Date/Time Source Procedure Growth Status 10/29/24 05:46 Nose MRSA Screen - Final Complete 10/28/24 18:56 Blood Blood Culture - Preliminary NO GROWTH AFTER 72 HOURS OF INCUBATION. Resulted 10/28/24 04:47 Stool Stool Culture - Preliminary Resulted 10/28/24 04:47 Stool Shiga Toxin I & II - Final Resulted 10/28/24 04:47 Stool Clostridium difficile Toxin Assay - Final Resulted 10/26/24 22:00 Urine - Catheterized Urine Culture - Final Complete Assessment/Plan Assessment/Plan UTI WITH SEPSIS SEPTIC ENCEPHALOPATHY STATUS POST CYSTECTOMY DUE TO BLADDER CANCER DONE AT [facility]. FEW MONTHS AGO LEFT HYDRONEPHROSIS/MILD TO MODERATE ANASARCA BILATERAL PLEURAL EFFUSION/SMALL DIVERTICULOSIS HIATAL HERNIA HISTORY OF GASTRIC BYPASS HISTORY OF RIGHT NEPHRECTOMY PLAN: Possible home tomorrow if stable Plan discussed with: Patient My Orders Orders - MEL OJEDA MD Procedure Category Date Status Time Sod Chl 0.9%/ Kcl PHA 11/02/24 In Process 40meq 09:00 Hydralazine Injection PHA 11/02/24 In Process (Apresoline Inject 13:30 Date of Service: Nov 02, 2024 Billing Provider: MEL OJEDA MD Common Visit Codes: [id number] INP/OBS CARE(MOD) MEL OJEDA MD Nov 02, 2024 17:09
[2024-11-02] MEDS: SOD CHL 0.9%/ KCL 40MEQ 1,000 ML IV SCH (17:58)
[2024-11-02] MEDS: CEFEPIME 1GM/ 50ML 50 ML IV SCH (19:51)
[2024-11-02] MEDS: LACTULOSE 20Gm/30ML SOLN PO ONE (22:00)
[2024-11-02] MEDS: TEMAZEPAM 15 MG CAP PO ONE (22:16)
[2024-11-03 04:44] LABS: Urine Protein, UAD Negative (Negative)
[2024-11-03 05:00] VITALS: BP 140/68; PULSE 62; RESP 17; TEMP 97.4; O2SAT 96
--- NOTE | 2024-11-03 06:35 | DVH ---
CHEST RADIOGRAPH Indication: preop Technique: Single frontal view of the chest was obtained COMPARISON: XY CHEST PORTABLE on DOS: 10/26/24, CT CT CHEST/AB/PL W CON- IV ONLY on DOS: 08/14/24, XY CH EST PORTABLE on DOS: 08/14/24, CHEST XRAY 1 VIEW on DOS: 12/25/21, CXR1 on DOS: 12/25/21 FINDINGS: Lines and Tubes: None Lungs: Clear Pleura: No effusion. No pneumothorax. Cardiomediastinal contours: Unremarkable Bones: Unremarkable IMPRESSION: 1. No acute disease.
[2024-11-03 08:00] VITALS: PULSE 52
[2024-11-03 09:00] VITALS: BP 147/65; PULSE 61; RESP 17; TEMP 97.9; O2SAT 97
--- NOTE | 2024-11-03 11:09 | DVHPN2 ---
Reviewed: Care Plan, H&P, Labs, Medications, Previous Orders, Radiology, Other (CONSULTANTS) General: Per HPI Objective Vitals Vital Signs Date Time Temp Pulse Resp B/P (MAP) Pulse Ox O2 Delivery O2 Flow Rate FiO2 11/03/24 09:00 97.9 61 17 147/65 (92) 97 97.9 11/03/24 08:00 Room Air* 0 21 Intake/Output Intake and Output 11/03/24 06:59 Intake Total 2036 ml Output Total 2200 ml Balance -164 ml Intake Oral 1150 ml IV Total 886 ml Output Urine Total 2200 ml # Bowel Movements 1 General Appearance: Alert, Oriented X3, Cooperative, No acute distress HEENT: Atraumatic Lungs: Clear to auscultation Cardiovascular: Regular rate Abdomen: Soft Medications Current Medications Medications Dose Ordered Sig/Alvino Route Start Time Stop Time Status Last Admin Dose Admin Norepinephrine Bitartrate 250 ml @ 3.75 mls/hr Q24H IV 10/27/24 01:45 10/27/24 01:45 3.75 MLS/HR Enoxaparin Sodium 30 mg DAILY SC 10/27/24 10:00 UNV Enoxaparin Sodium 40 mg DAILY SC 10/27/24 10:00 Acetaminophen 650 mg Q4HP PRN PO 10/27/24 15:00 11/01/24 21:22 650 MG Ibuprofen 600 mg Q8HP PRN PO 10/27/24 15:00 10/27/24 23:49 600 MG Metronidazole 100 ml @ 100 mls/hr Q8HR IV 10/28/24 14:00 11/03/24 05:37 100 MLS/HR Saccharomyces Boulardii 250 mg DAILY PO 10/29/24 10:00 11/02/24 10:29 250 MG Oxcarbazepine 300 mg Q12HR PO 10/29/24 22:00 11/02/24 21:40 300 MG Ondansetron HCl 4 mg Q6HPRN PRN IV 10/29/24 15:45 Famotidine 20 mg Q12HR PO 10/31/24 10:00 11/02/24 21:40 20 MG Diphenhydramine HCl 25 mg Q6HP PRN PO 10/31/24 18:45 Enteral Nutritional Formula 240 ml TIDWM PO 11/01/24 18:00 11/02/24 18:18 240 ML Potassium Chloride/Sodium Chloride 1,000 ml @ 75 mls/hr [id number] IV 11/02/24 09:00 11/02/24 17:58 75 MLS/HR Hydralazine HCl 10 mg Q2HP PRN IV 11/02/24 13:30 Cefepime HCl 50 ml @ 12.5 mls/hr Q8H IV 11/02/24 19:30 11/03/24 04:29 12.5 MLS/HR Laboratory Results Laboratory Tests 11/01/24 05:18 11/02/24 06:22 Urinalysis Test 10/26/24 22:00 11/03/24 04:05 Urine RBC 14 /hpf (0 - 4) Urine Microscopic WBC 574 /HPF (0-5) H Urine Squamous Epithelial Cells None seen /hpf (<5) Urine Bacteria Many /hpf (None Seen) H Urine Color Light-yellow (Yellow) Urine Clarity Clear (Clear) Urine pH 7.0 (5.0-9.0) Urine Specific [place] 1.009 (1.001-1.035) Urine Protein Negative (Negative) Urine Ketones Negative (Negative) Urine Blood 2+ /uL (Negative) H Urine Nitrite Negative (Negative) Urine Bilirubin Negative (Negative) Urine Urobilinogen Normal mg/dL (Negative) Urine Leukocyte Esterase Negative /uL (Negative) Urine Glucose Normal mg/dL (Normal) Microbiology Microbiology Date/Time Source Procedure Growth Status 10/29/24 05:46 Nose MRSA Screen - Final Complete 10/28/24 18:56 Blood Blood Culture - Final NO GROWTH AFTER 5 DAYS OF INCUBATION. Complete 10/28/24 04:47 Stool Stool Culture - Final Complete 10/28/24 04:47 Stool Shiga Toxin I & II - Final Complete 10/28/24 04:47 Stool Clostridium difficile Toxin Assay - Final Complete 10/26/24 22:00 Urine - Catheterized Urine Culture - Final Complete MADDY JOHNSTON MD Nov 03, 2024 11:09
--- NOTE | 2024-11-03 11:26 | ECG ---
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
[2024-11-03] MEDS ORDERED: CEFD300C2 PO (11:34)
[2024-11-03] MEDS ORDERED: ONDA-155 PO (11:34)
--- NOTE | 2024-11-03 12:02 | DVHDS2 ---
Discharge Summary Date of Admission Oct 27, 2024 at 03:34 Date of Discharge: Nov 03, 2024 Admitting Diagnosis Sepsis secondary to UTI Labs/Diagnostic Data: Laboratory Results Test 11/03/24 04:05 11/02/24 06:22 11/01/24 05:18 10/30/24 06:29 Urine Color Light-yellow (Yellow) Urine Clarity Clear (Clear) Urine pH 7.0 (5.0-9.0) Urine Specific [place] 1.009 (1.001-1.035) Urine Protein Negative (Negative) Urine Ketones Negative (Negative) Urine Blood 2+ /uL (Negative) Urine Nitrite Negative (Negative) Urine Bilirubin Negative (Negative) Urine Urobilinogen Normal mg/dL (Negative) Urine Leukocyte Esterase Negative /uL (Negative) Urine Glucose Normal mg/dL (Normal) Sodium Level 143 mmol/L (136-145) Potassium Level 2.7 mmol/L (3.5-5.1) Chloride Level 111 mmol/L (98-107) Carbon Dioxide Level 20 mmol/L (20-31) Anion Gap 12 (5-15) Blood Urea Nitrogen 24 mg/dL (9-23) Creatinine 1.01 mg/dL (0.550-1.02) Glomerular Filtration Rate Calc 61 mL/min (>90) BUN/Creatinine Ratio 23.8 (10.0-20.0) Serum Glucose 117 mg/dL (74-106) Calcium Level 8.6 mg/dL (8.7-10.4) Total Bilirubin 0.2 mg/dL (0.2-1.0) Aspartate Amino Transferase (AST) 24 U/L (13-40) Alanine Aminotransferase (ALT) 10 U/L (7-40) Alkaline Phosphatase 73 U/L (46-116) Total Protein 5.7 g/dL (5.7-8.2) Albumin 3.4 g/dL (3.2-4.8) White Blood Count 4.7 10^3/uL (4.4-10.8) Red Blood Count 3.62 10^6/uL (4.0-5.20) Hemoglobin 11.0 g/dL (12.2-16.2) Hematocrit 32.3 % (36.0-46.0) Mean Corpuscular Volume 89.2 fL (80.0-100.0) Mean Corpuscular Hemoglobin 30.3 pg (28.0-32.0) Mean Corpuscular Hemoglobin Concent 34.0 g/dL (32.0-36.0) Red Cell Distribution Width 15.9 % (11.8-14.3) Platelet Count 197 10^3/uL (140-450) Mean Platelet Volume 8.5 fL (6.9-10.8) Neutrophils (%) (Auto) 75.4 % (37.0-80.0) Lymphocytes (%) (Auto) 18.5 % (10.0-50.0) Monocytes (%) (Auto) 6.0 % (0.0-12.0) Eosinophils (%) (Auto) 0.0 % (0.0-7.0) Basophils (%) (Auto) 0.1 % (0.0-2.0) Neutrophils # (Auto) 3.5 10 ^3/uL (1.6-8.6) Lymphocytes # (Auto) 0.9 10 ^3/uL (0.4-5.4) Monocytes # (Auto) 0.3 10 ^3/uL (0-1.3) Eosinophils # (Auto) 0 10 ^3/uL (0-0.8) Basophils # (Auto) 0 10 ^3/uL (0-0.2) Nucleated Red Blood Cells 0.0 % Prothrombin Time 10.7 sec (9.3-11.8) Prothrombin Time INR 1.01 (0.9-1.15) Random Vancomycin Level 18.8 ug/mL (5-10) Test 10/27/24 06:19 10/27/24 01:31 10/26/24 23:19 10/26/24 22:00 Levetiracetam Level 18.8 ug/mL (10.0-40.0) Lactic Acid Level 1.6 mmol/L (0.4-2.0) Activated Partial Thromboplast Time 34.5 SEC (24.5-34.5) Ammonia < 10 umol/L (11-32) Urine RBC 14 /hpf (0 - 4) Urine Microscopic WBC 574 /HPF (0-5) Urine Squamous Epithelial Cells None seen /hpf (<5) Urine Bacteria Many /hpf (None Seen) Urine Opiates Screen Neg (NEGATIVE) Urine Fentanyl Screen Neg (NEGATIVE) Urine Barbiturates Screen Neg (NEGATIVE) Urine Phencyclidine Screen Neg (NEGATIVE) Urine Amphetamines Screen Neg (NEGATIVE) Urine Benzodiazepines Screen Pos (NEGATIVE) Urine Cocaine Screen Neg (NEGATIVE) Urine Cannabinoids Screen Neg (NEGATIVE) Other Laboratory Tests 11/02/24 06:22 11/01/24 05:18 Brief Hx & Hospital Course: History of Present Illness Nahed Quintanilla is a 64 yo female, with past medical history of bladder cancer (with Urinary ileal conduit diversion ileostomy), renal cancer, status post right nephrectomy and seizures. The patient was brought to the ED by ambulance, the EMS team was call due to patient was found confused at home. When asked about her chief complain she report feeling fatigue, weak and feverish for the past couple of days. The patient is poor historian, she is lethargic, hard to aroused, responds to name but confused in placed and time. There are no family members at bedside at the time of the interview to confirm this information. On initial ED evaluation the brain CT scan showed no brain abnormalities, Xray is unremarkable, UA is positive. BP was 86/45 MAP 57 , vasopressors were started. Course of hospitalization: Patient was found to have E coli in the blood. Patient was placed on cefepime and Flagyl while in the hospital. CT scan was found to have some [id number] hydronephrosis. Patient did have acute kidney injury, with the patient's renal function improving with IV hydration. Patient was weaned off vasopressors. Potassium was repleted. Consultation was placed with Interventional Radiology for possible percutaneous nephrostomy tube. Given the patient has adequate urine output, neph tube was not placed. Long discussion was made with the patient's daughters. They are agreeable for the patient to be discharged home. Patient will be continued on cefdinir 300 mg p.o. b.i.d. for an additional seven days. They will follow up with Dr. Dempsey in one week, as well as following up with her oncologist at next available appointment. She will continue all previous home medications. Given her reported nausea secondary to chemotherapy, patient will be provided Zofran 4 mg effervescent tablet every 6 hours as needed for nausea. Physical examination General: Alert and Oriented x3. No acute distress. Well-nourished. Eyes: EOMI. Anicteric. HENT: Moist mucous membranes. Lungs: Clear to auscultation bilaterally. No accessory muscle use. Cardiovascular: Regular rate and rhythm. No murmur. No JVD. Abdomen: Soft, non-tender and non-distended. No palpable masses. Extremities: No edema. Non-tender. Skin: No rashes or lesions. Warm. Neurologic: No focal neurological deficits. CN II-XII grossly intact, but not individually tested. Psychiatric: Cooperative. Appropriate mood and affect. Total time spent with patient discussing and formulating plan of care: 35 minutes. This medical document was created using an electronic medical record system with [employer] dictation system. Although this document has been carefully reviewed, there may still be some phonetic and typographical errors. These areas are purely typographical due to imperfections of the software programs, and do not reflect any compromise in the patient's medical care. Consults/Reason for consult Interventional Radiology: Assess for possible nephrostomy tube placed Condition at Discharge: Guarded Final Diagnosis/Problems List Sepsis secondary to E coli in the blood Secondary diagnosis: SEPTIC ENCEPHALOPATHY STATUS POST CYSTECTOMY DUE TO BLADDER CANCER DONE AT [facility]. FEW MONTHS AGO LEFT HYDRONEPHROSIS/MILD TO MODERATE ANASARCA BILATERAL PLEURAL EFFUSION/SMALL DIVERTICULOSIS HIATAL HERNIA HISTORY OF GASTRIC BYPASS HISTORY OF RIGHT NEPHRECTOMY Discharge Disposition: Home with Health Services Discharge Instruct/Medications Diet: Cardiac 2g Na,low cholest Activity: No Restrictions, As Tolerated Follow Up/Referral: Follow up with PCP, Dr. Dempsey in one week Medications: Cefdinir 300 mg p.o. b.i.d. x7 days Continue all previous home medications Scheduled Aripiprazole (Abilify), 5 MG PO DAILY, (Reported) Cefdinir (Cefdinir), 1 CAP PO BID Cholecalciferol (Vitamin D3), 1 TAB PO DAILY, (Reported) Escitalopram Oxalate (Lexapro), 1 TAB PO DAILY, (Reported) Fenofibrate (Tricor), 48 MG PO DAILY, (Reported) Fish Oil (Fish Oil), 1,400 MG PO DAILY, (Reported) Magnesium Oxide (Magnesium Oxide), 250 MG PO DAILY, (Reported) Multiple Vitamin (Multivitamins), 1 TAB PO DAILY, (Reported) Oxcarbazepine (Trileptal), 300 MG PO BID Oxycodone W/ Acetaminophen (Percocet 5/325MG), 1-2 TAB PO TID PRN, (Reported) Simvastatin (Simvastatin), 1 TAB PO QPM, (Reported) Specialty Vitamins Products (Biotin Plus Keratin 63968-916 Mcg-mg), 1 TAB PO DAILY, (Reported) Temazepam (Temazepam), 1 CAP PO QHSP, (Reported) Scheduled PRN Ondansetron HCl (Ondansetron), 4 MG PO Q6HP PRN 36 Discharge Statement: "Patient was advised to return to the ER or call 911 if any headaches, dizziness, shortness of breath, chest pain, abdominal pain, bleeding, fevers, or worsening of medical condition. Patient was counseled about treatment plan, medications, possible side effects, patientverbalized understanding. All questions were answered to the best of my ability. This discharge took greater then 30 minutes in planning, reviewing documentation, counseling the patient, and discussing with other team members." ASSESSMENT ASSESSMENT Assessment Sepsis secondary to E coli in the blood Date of Service: Nov 03, 2024 Billing Provider: NORA GALLAGHER NP Common Visit Codes: 74642-KIY/OBS DISCH DAY >30min NORA GALLAGHER NP Nov 03, 2024 12:02
[2024-11-03 12:24] VITALS: TEMP 36.6
[2024-11-03 12:42] LABS: Potassium 3.8 mmol/L (3.5-5.1); Sodium 144 mmol/L (136-145)
[2024-11-03 12:43] LABS: Anion Gap 8 (5-15); Calcium 8.7 mg/dL (8.7-10.4); Carbon Dioxide 25 mmol/L (20-31)
[2024-11-03 12:48] LABS: BUN/Creatinine Ratio 27.9 (10.0-20.0); Glucose 89 mg/dL (74-106)
[2024-11-03 12:50] LABS: Blood Urea Nitrogen 29 mg/dL (9-23); Chloride 111 mmol/L (98-107); Magnesium 1.5 mg/dL (1.6-2.6)
[2024-11-03 13:00] VITALS: BP 151/89; PULSE 60; RESP 17; TEMP 98.2; O2SAT 98
[2024-11-03] MEDS: MAGNESIUM OXIDE 400 MG TAB PO ONE (16:28)
== END 2024-11-03 16:30 | disposition home health service (06) | DRG 871 ==
LOC: ER 20:55 → EDBD 20:55 → OVERFLOW 10-27 03:34 → TELE-WESTW 10-29 16:23 → TELE-EAST 10-31 20:13
PROVIDERS: ADMIT Internal Medicine; ATTEND Internal Medicine
DX: A41.51 Sepsis due to Escherichia coli [E. coli] (principal); G93.41 Metabolic encephalopathy; R65.21 Severe sepsis with septic shock; J90 Pleural effusion, not elsewhere classified; Z16.23 Resistance to quinolones and fluoroquinolones; N17.9 Acute kidney failure, unspecified; N13.6 Pyonephrosis; A09 Infectious gastroenteritis and colitis, unspecified; E66.9 Obesity, unspecified; N18.9 Chronic kidney disease, unspecified; K57.30 Diverticulosis of large intestine without perforation or abscess without bleeding; Z68.34 Body mass index [BMI] 34.0-34.9, adult; E78.5 Hyperlipidemia, unspecified; K44.9 Diaphragmatic hernia without obstruction or gangrene; I25.2 Old myocardial infarction; Z98.84 Bariatric surgery status; Z90.710 Acquired absence of both cervix and uterus; Z87.891 Personal history of nicotine dependence; Z85.51 Personal history of malignant neoplasm of bladder; Z79.899 Other long term (current) drug therapy; Z85.528 Personal history of other malignant neoplasm of kidney; Z90.5 Acquired absence of kidney; Z93.6 Other artificial openings of urinary tract status; Z88.1 Allergy status to other antibiotic agents; Z88.8 Allergy status to other drugs, medicaments and biological substances; Z90.49 Acquired absence of other specified parts of digestive tract
CPT/HCPCS: 36415; 70450; 71045; 74176; 74178; 76775; 80048; 80053; 80202; 80307; 81001; 81003; 82140; 82542; 83605; 83735; 85025; 85610; 85730; 86850; 86900; 86901; 87040; 87045; 87077; 87081; 87086; 87186; 87427; 87493; 93005; 96365; 96375; 97110; 97116; 97163; 99291; G0378; J0131; J2003; J2405; J2470; J3490

== ENCOUNTER 2025-01-28 14:20 | Inpatient (IN) | payer MEDICARE ==
[~2025-01-28] VITALS: Ht 160 cm; Wt 70.1 kg
[~2025-01-28 14:20] MED LIST changes: +CEFD300C2 PO; +ONDA-155 PO; -PANT40T PO
--- NOTE | 2025-01-28 14:28 | ED.PDOC ---
GI ASSESSMENT HPI Comments This is a 64 year old female presenting to the ED with chief complaint of abdominal pain. Patient reports that she has been experiencing diffuse abdominal pain for the past 3 days, worsening today. Patient relays that she had taken Carafate with no relief in pain noted. Patient denies any N/V/D, dizziness, fever, chills, chest pain, or SOB. Time Seen by MD: 14:27 Primary Care Provider: Ke Reviewed Notes: Nurses Notes, Medications, Allergies Allergies: Coded Allergies: Ciprofloxacin (Verified Allergy, Unknown, 08/15/24) Acetylcysteine (Verified Adverse Reaction, Mild, 08/15/24) Home Meds Active Scripts Ondansetron HCl (Ondansetron) 4 Mg Tab, 4 MG PO Q6HP PRN for 5 Days, #15 TAB Prov:NORA GALLAGHER POLYTECHNIC REGISTRAR 11/03/24 Cefdinir (Cefdinir) 300 Mg Cap, 1 CAP PO BID for 7 Days, #14 CAP Prov:NORA GALLAGHER [employer]YTECHNIC REGISTRAR 11/03/24 Oxcarbazepine (Trileptal) 600 Mg Tab, 300 MG PO BID, #60 TAB Prov:GERMAN GONZALEZ MD 07/08/20 Reported Medications Oxycodone W/ Acetaminophen (Percocet 5/325MG) 1 Tab Tb, 1-2 TAB PO TID PRN for 20 Days, #120 08/18/24 Temazepam (Temazepam) 30 Mg Cap, 1 CAP PO QHSP for 30 Days, #30 08/18/24 Simvastatin (Simvastatin) 10 Mg Tab, 1 TAB PO QPM for 30 Days, #30 08/18/24 Fenofibrate (Tricor) 48 Mg Tab, 48 MG PO DAILY, TAB 11/22/23 Aripiprazole (Abilify) 20 Mg Tab, 5 MG PO DAILY, TAB 07/06/22 Cholecalciferol (VITAMIN D3) 2,000 Unit Tab, 1 TAB PO DAILY, #30 TAB 5 Refills 09/27/21 Multiple Vitamin (Multivitamins) Tab, 1 TAB PO DAILY, #90 TAB 3 Refills 09/27/21 Fish Oil (Fish Oil) 1,200 Mg Cap, 1400 MG PO DAILY, CAP 09/27/21 Magnesium Oxide (MAGNESIUM OXIDE) 400 Mg Tab, 250 MG PO DAILY, TAB 09/27/21 Specialty Vitamins Products (Biotin Plus Keratin 08[address]-711 Mcg-mg) 1 Tab Tab, 1 TAB PO DAILY, TAB 09/27/21 Escitalopram Oxalate (Lexapro) 10 Mg Tab, 1 TAB PO DAILY, #90 TAB 3 Refills 07/06/20 Information Source: Patient Mode of Arrival: Ambulatory Timing: Days Duration: Since onset Prehospital treatment: None Quality: Sharp Vomitus: None Stool: Normal Severity: Moderate Recent: None Recent Hx of: None Pain Location: Diffuse Modifying Factors: Nothing Associated sign and symptoms: Abdominal Pain Past Medical History PAST MEDICAL HISTORY: Anemia, Cancer, CKF, DM, High Lipids, IA, Seizures Surgical History: Cholecystectomy, , Hysterectomy, Tonsillectomy [employer] History: No Pertinent [employer] History Family History Family History: Reviewed,noncontributory to illness Social History Smoker: Non-Smoker Alcohol: Occasionally Drugs: Denies Drug Use Lives In: Home Constitutional: denies: chills, diaphoresis, fatigue, fever, malaise, sweats, weakness, others EENTM: denies: blurred vision, double vision, ear bleeding, ear discharge, ear drainage, ear pain, ear ringing, eye pain, eye redness, hearing loss, mouth pain, mouth swelling, nasal discharge, nose bleeding, nose congestion, nose pain, photophobia, tearing, throat pain, throat swelling, voice changes, others Respiratory: denies: cough, hemoptysis, orthopnea, SOB at rest, shortness of breath, SOB with excertion, stridor, wheezing, others Cardiovascular: denies: chest pain, dizzy spells, diaphoresis, Dyspnea on exertion, edema, irregular heart beat, left arm pain, lightheadedness, palpit ations, PND, syncope, others Gastrointestinal: reports: abdominal pain; denies: abdomen distended, blood streaked bowels, constipated, diarrhea, dysphagia, difficulty swallowing, hematemesis, melena, nausea, poor appetite, poor fluid intake, rectal bleeding, rectal pain, vomiting, others Genitourinary: denies: abnormal vagina bleeding, burning, dyspareunia, dysuria, flank pain, frequency, hematuria, incontinence, pain, , vagina dischar ge, urgency, others Neurological: denies: dizziness, fainting, headache, left sided numbness, left sided weakness, numbness, paresthesia, pre-existing deficit, right sided numbness, right sided weakness, seizure, speech problems, tingling, tremors, weakness, others Musculoskeletal: denies: back pain, gout, joint pain, joint swelling, muscle pain, muscle stiffness, neck pain, others Integumetry: denies: bruises, change in color, change in hair/nails, dryness, laceration, lesions, lumps, rash, wounds, others Allergic/Immunocompromised: denies: Difficulty Healing, Frequent Infections, Hives, Itching, others Hematologic/Lymphatic: denies: anemia, blood clots, easy bleeding, easy bruising, swollen glands, others Endocrine: denies: excessive hunger, excessive sweating, excessive thirst, excessive urination, flushing, intolerance to cold, intolerance to heat, unexplained weight gain, unexplained weight loss, others Psychiatric: denies: anxiety, bipolar disorder, depression, hopeless, panic disorder, schizophrenia, sleepless, suicidal, others All Other Systems: Reviewed and Negative Physical Exam General Appearance: No Apparent Distress, Normal HEENT: Normal ENT Inspection, Pharynx Normal, TMs Normal Neck: Full Range of Motion, Non-Tender, Normal, Normal Inspection Respiratory: Chest Non-Tender, Lungs Clear, No Accessory Muscle Use, No Respiratory Distress, Normal Breath Sounds Cardiovascular: No Edema, No JVD, No Murmur, No Gallop, Normal Peripheral Pulses, Regular Rate/Rhythm Breast Exam: Deferred Gastrointestinal: No Organomegaly, No Pulsatile Mass, Normal Bowel Sounds, Soft, Tenderness (Diffuse abdominal tenderness) Genitalia: Deferred Pelvic: Deferred Rectal: Deferred Extremities: No calf tenderness, Normal capillary refill, Normal inspection, Normal range of motion, Non-tender, No pedal edema Musculoskeletal : Apperance: Normal Neurologic: Alert, bobbin cleaner hand II-XII nml as Tested, No Motor Deficits, Normal Affect, Normal Mood, No Sensory Deficits Cerebellar Function: Normal Reflexes: Normal Skin: Dry, Normal Color, Warm Lymphatic: No Adenopathy Was a procedure done? Was a procedure done?: No GI differential Dx Differential Diagnosis: Appendicitis, Constipation, Gastritis/PUD, Gastroenteritis, GI hemorrhage, Inflammatory BD, PID, Porphyria, UTI, Dehydration X-Ray, Labs, Meds, VS Vital Signs Date Time Temp Pulse Resp B/P (MAP) Pulse Ox O2 Delivery O2 Flow Rate FiO2 01/28/25 15:55 100.2 01/28/25 15:04 93 15 94 Room Air* 0 21 01/28/25 15:04 99.2 93 15 113/59 (77) 94 99.2 01/28/25 14:40 104 01/28/25 14:35 103.7 01/28/25 14:29 103.6 117 20 103/75 94 103.6 Lab Test 01/28/25 15:46 01/28/25 14:55 Range/Units Troponin I High Sensitivity 19 13 </=34 ng/L White Blood Count 8.5 4.4-10.8 10^3/uL Red Blood Count 3.36 L 4.0-5.20 10^6/uL Hemoglobin 9.7 L 12.2-16.2 g/dL Hematocrit 29.9 L 36.0-46.0 % Mean Corpuscular Volume 89.2 80.0-100.0 fL Mean Corpuscular Hemoglobin 28.8 28.0-32.0 pg Mean Corpuscular Hemoglobin Concent 32.3 32.0-36.0 g/dL Red Cell Distribution Width 15.2 H 11.8-14.3 % Platelet Count 207 140-450 10^3/uL Mean Platelet Volume 8.2 6.9-10.8 fL Neutrophils (%) (Auto) 91.8 H 37.0-80.0 % Lymphocytes (%) (Auto) 4.7 L 10.0-50.0 % Monocytes (%) (Auto) 2.4 0.0-12.0 % Eosinophils (%) (Auto) 0.9 0.0-7.0 % Basophils (%) (Auto) 0.2 0.0-2.0 % Neutrophils # (Auto) 7.8 1.6-8.6 10 ^3/uL Lymphocytes # (Auto) 0.4 0.4-5.4 10 ^3/uL Monocytes # (Auto) 0.2 0-1.3 10 ^3/uL Eosinophils # (Auto) 0.1 0-0.8 10 ^3/uL Basophils # (Auto) 0 0-0.2 10 ^3/uL Nucleated Red Blood Cells 0.1 % Sodium Level 135 L 136-145 mmol/L Potassium Level 3.7 3.5-5.1 mmol/L Chloride Level 107 98-107 mmol/L Carbon Dioxide Level 15 L 20-31 mmol/L Anion Gap 13 5-15 Blood Urea Nitrogen 40 H 9-23 mg/dL Creatinine 2.44 H 0.550-1.02 mg/dL Glomerular Filtration Rate Calc 21 >90 mL/min BUN/Creatinine Ratio 16.4 10.0-20.0 Serum Glucose 132 H 74-106 mg/dL Lactic Acid Level 2.9 *H 0.4-2.0 mmol/L Calcium Level 9.5 8.7-10.4 mg/dL Total Bilirubin < 0.2 L 0.2-1.0 mg/dL Aspartate Amino Transferase (AST) 16 13-40 U/L Alanine Aminotransferase (ALT) < 9 7-40 U/L Alkaline Phosphatase 89 46-116 U/L Total Protein 8.0 5.7-8.2 g/dL Albumin 4.4 3.2-4.8 g/dL Lipase 40 12-53 U/L Current Medications Medications (Trade) Dose Ordered Sig/Alvino Route Start Time Stop Time Status Last Admin Sodium Chloride 1,000 ml @ 1,000 mls/hr Q1H ONCE IV 01/28/25 14:30 01/28/25 15:29 DC 01/28/25 14:56 Ondansetron HCl (Zofran) 4 mg ONCE ONCE IV 01/28/25 14:30 01/28/25 14:31 DC 01/28/25 15:42 Sucralfate (Carafate Susp) 1 gm ONCE ONCE PO 01/28/25 14:30 01/28/25 14:31 DC 01/28/25 15:42 Cefepime HCl 50 ml @ 50 mls/hr ONCE ONCE IV 01/28/25 14:45 01/28/25 15:44 DC 01/28/25 15:02 Acetaminophen (Tylenol Tablet) 650 mg ONCE ONCE PO 01/28/25 14:35 01/28/25 15:20 DC 01/28/25 14:35 Time of 1ST Reevaluation: 15:26 Reevaluation 1ST: Unchanged Patient Education/Counseling: Diagnosis, Treatment Family Education/Counseling: No Family Present SEPSIS Sepsis Screen Physician Orders Chest Portable (01/28/25 14:29) Troponin-I Hs (01/28/25 17:29) Blood Culture (01/28/25 14:31) Electrocardigram (01/28/25 14:42) Linezolid 600mg/300ml (Zyvox) (01/28/25 16:30) Ct Ab Pel Wo Con-No Oral Or Iv (01/28/25 17:11) Vital Signs Date Time Temp Pulse Resp B/P (MAP) Pulse Ox O2 Delivery O2 Flow Rate FiO2 01/28/25 15:55 100.2 01/28/25 15:04 93 15 94 Room Air* 0 21 01/28/25 15:04 99.2 93 15 113/59 (77) 94 99.2 01/28/25 14:40 104 01/28/25 14:35 103.7 01/28/25 14:29 103.6 117 20 103/75 94 103.6 Laboratory Tests Test 01/28/25 14:55 Lactic Acid Level 2.9 mmol/L (0.4-2.0) *H White Blood Count 8.5 10^3/uL (4.4-10.8) Medications Medications Dose Ordered Sig/Alvino Route Start Time Stop Time Status Last Admin Dose Admin Acetaminophen 650 mg ONCE ONCE PO 01/28/25 14:35 01/28/25 15:20 DC 01/28/25 14:35 Cefepime HCl 50 ml @ 50 mls/hr ONCE ONCE IV 01/28/25 14:45 01/28/25 15:44 DC 01/28/25 15:02 Ondansetron HCl 4 mg ONCE ONCE IV 01/28/25 14:30 01/28/25 14:31 DC 01/28/25 15:42 Sodium Chloride 1,000 ml @ 1,000 mls/hr Q1H ONCE IV 01/28/25 14:30 01/28/25 15:29 DC 01/28/25 14:56 Sucralfate 1 gm ONCE ONCE PO 01/28/25 14:30 01/28/25 14:31 DC 01/28/25 15:42 Departure 1 Departure Time of Disposition: 17:14 (Patient presenting with concern for sepsis and QUINN. We will empirically cover patient with antibiotics and fluids admit patient for further workup) Impression: Primary Impression: QUINN (acute kidney injury) Additional Impressions: Sepsis Intractable abdominal pain Disposition: 09 ADMITTED INPATIENT Admit to: [facility] Condition: Guarded Critical Care Note Critical Care Time?: Yes Critical care comment: Sepsis Authorized and Performed by: Corey Jacobson MD Total critical care time: Approximately 36 minutes Due to a high probability of clinically significant, life threatening deterioration, the patient required my highest level of preparedness to intervene emergently and I personally spent this critical care time directly and personally managing the patient. This critical care time included obtaining a history; examining the patient; pulse oximetry; ordering and review of studies; arranging urgent treatment with development of a management plan; evaluation of patient's response to treatment; frequent reassessment; and, discussions with other providers. This critical care time was performed to assess and manage the high probability of imminent, life-threatening deterioration that could result in multi-organ failure. It was exclusive of separately billable procedures and treating other patients and teaching time. Please see my other sections and the rest of the note for further information on patient assessment and treatment. Stability Stability form required: No Heart Score Heart Score: Heart Score Response (Comments) Value History N/A 0 EKG N/A 0 Age N/A 0 Risk Factors N/A 0 Troponin N/A 0 Total 0 I personally scribed for COREY JACOBSON MD ([email or web address]) on 01/28/25 at 14:28. Electronically submitted by Toby Martinez ([email or web address]). COREY JACOBSON MD Jan 28, 2025 14:28
[2025-01-28] MEDS: ACETAMINOPHEN 325 MG TAB PO ONE ×2 (14:35)
[2025-01-28] MEDS ORDERED: ACETAMINOPHEN IV 1000 MG/100ML (10MG/ML) IV ONE (14:45)
[2025-01-28] MEDS: SODIUM CHLORIDE 0.9% 1,000 ML IV ONE ×2 (14:56→17:18)
[2025-01-28] MEDS: MORPHINE SULFATE 4 MG/ML SYR/VIAL IV ONE (15:00)
[2025-01-28] MEDS: CEFEPIME 2GM/50ML NS 50 ML IV ONE (15:02)
[2025-01-28 15:04] VITALS: PULSE 93; RESP 15; O2SAT 94
[2025-01-28 15:22] LABS: Hematocrit 29.9 % (36.0-46.0); Hemoglobin 9.7 g/dL (12.2-16.2); Mean Corpuscular Hemoglobin 28.8 pg (28.0-32.0); Mean Corpuscular Volume 89.2 fL (80.0-100.0); Nucleated Red Blood Cells % 0.1 %
[2025-01-28 15:35] LABS: Albumin 4.4 g/dL (3.2-4.8); Alkaline Phosphatase 89 U/L (46-116); Anion Gap 13 (5-15); BUN/Creatinine Ratio 16.4 (10.0-20.0); Calcium 9.5 mg/dL (8.7-10.4); Chloride 107 mmol/L (98-107); Lipase 40 U/L (12-53); Potassium 3.7 mmol/L (3.5-5.1); Total Protein 8.0 g/dL (5.7-8.2)
--- NOTE | 2025-01-28 15:36 | DVH ---
CHEST RADIOGRAPH Indication: Epigastric pain Technique: Single frontal view of the chest was obtained COMPARISON: XY CHEST PORTABLE on DOS: 11/03/24, XY CHEST PORTABLE on DOS: 10/26/24, XY CHEST PORTABLE on DOS: 08/14/24, XY CHEST TWO VIEWS ROUTINE on DOS: 11/22/23, CXR1 on DOS: 12/25/21 FINDINGS: Lines and Tubes: Left PICC in satisfactory position overlying the superior vena cava. Lungs: Congestion Pleura: No effusion. No pneumothorax. Cardiomediastinal contours: Unremarkable Bones: Unremarkable IMPRESSION: Left PICC in satisfactory position.
[2025-01-28 15:37] LABS: Carbon Dioxide 15 mmol/L (20-31); Sodium 135 mmol/L (136-145)
[2025-01-28 15:38] LABS: Alanine Aminotransferase < 9 U/L (7-40); Bilirubin, Total < 0.2 mg/dL (0.2-1.0); Blood Urea Nitrogen 40 mg/dL (9-23); Glucose 132 mg/dL (74-106)
[2025-01-28] MEDS: SUCRALFATE 1 GM/10 ML ORAL SUSP PO ONE (15:42)
[2025-01-28] MEDS: ONDANSETRON HCL 4 MG/2 ML VIAL IV ONE (15:42)
[2025-01-28 15:49] LABS: Lactic Acid w/Reflex 2.9 mmol/L (0.4-2.0)
[2025-01-28] MEDS ORDERED: VANCOMYCIN 1GM/250ML KIT 250 ML IV ONE (16:15)
[2025-01-28] MEDS ORDERED: LACTATED RINGER'S 1,000 ML IV ONE (17:15)
[2025-01-28] MEDS: LINEZOLID 600MG/300ML 300 ML IV SCH (18:06)
--- NOTE | 2025-01-28 18:28 | DVH ---
CLINICAL HISTORY: abdominal pain TECHNIQUE: CT of the abdomen and pelvis was performed without IV contrast. This exam was performed according to our departmental dose optimization program. Up-to-date CT equipment and radiation dose reduction techniques are utilized as appropriate. CTDI 9.9 DLP 92 COMPARISON: CT CT AB PELVIS W WO CON-IV ONLY on DOS: 10/30/24, CT CT AB PEL WO CON-NO ORAL OR IV on DOS: 10/27/24, CT PELVIS WO CONTRAST on DOS: 08/15/24, CT CT AB PEL WO CON-NO ORAL OR IV on DOS: 11/20/23, CT CT AB PEL WO CON-NO ORAL OR IV on DOS: 11/17/22 FINDINGS: Abdomen/Pelvis: The spleen, pancreas, adrenal glands, and liver are grossly unremarkable. The gallbladder is absent. There has been right nephrectomy and cystectomy with ileal conduit surgery performed. There is severe left hydroureteronephrosis with urothelial thickening and perinephric inflammation. The abdominal aorta is normal in course and caliber. There are mild aortic atherosclerotic calcifications. There is no free intraperitoneal air or fluid. There is no enlarged abdominal pelvic lymph node. There is no bowel wall thickening or dilatation. There is colonic diverticulosis, [id number] at the sigmoid segment Other: The imaged lower thorax demonstrates coronary artery calcifications. There is a partially imaged central catheter at the cavoatrial junction. There are mild atelectatic changes at both lung bases No acute osseous abnormality is evident. Impression: Right nephrectomy, cystectomy, and ileal conduit. Severe left hydroureteronephrosis , ureteral wall thickening, and perinephric inflammation with the ureter dilated to the ileal conduit. Please correlate with urinalysis for infection. Colonic diverticulosis. Cholecystectomy
[2025-01-28] MEDS: NOREPINEPHRINE 8 MG/250ML KIT 250 ML IV SCH ×2 (19:08→20:33)
[2025-01-28] MEDS: NOREPINEPHRINE 8 MG/250ML KIT 250 ML IV ONE (19:14)
[2025-01-28 19:40] VITALS: PULSE 63; RESP 16; O2SAT 97
[2025-01-28] MEDS ORDERED: ENOXAPARIN SOD 40 MG/0.4 ML SYRINGE SC SCH (22:45)
--- NOTE | 2025-01-28 23:53 | DVHHPRES ---
History of Present Illness Resident Creating Document: CASSIE MCGILL RESIDENT History of Present Illness 64-year-old female with a history of bladder cancer stage IV status post robotic assisted cystectomy and urinary ileal conduit diversion ileostomy and chemotherapy six week ago at [facility] (last chemo 3 months ago, PET scan recent was clear as per patient), history of renal cancer status post right nephrectomy, hypercholesterolemia, seizures, prediabetes, chronic kidney disease, anemia of chronic disease has come in with chief complaints of feeling unwell with fever of 103, chills, nausea and 5 episodes of nonbloody, watery emesis since yesterday. Patient reports that she had a similar episode 2 months ago for which she went to [facility] & was diagnosed with UTI and before that she wsas here at this facility for the same reason in October where she was diagnosed with sepsis due to UTI. She reports that her urine has a foul odor and has changed color,(become darker)and these are the same symptoms she had in the past. On admission pulse was 1 1 7, temp 103.6, BP 103/75, SpO2 94% on room air and RR 15. BUN 40, creatinine 2.44, hemoglobin 9.7, lactic acid 2.9(now 0.7), negative tropes, lipase 40. We are admitting the patient for further workup and management. PMH: stated above PSH: cholecystectomy, right sided nephrectomy 2019; cystectomy October 2024 Family history: Father-bladder cancer, grandmother had renal failure Social history: History of smoking cigarettes half pack for 20 years, stopped now; denies any alcohol or illicit drug abuse Allergies: Ciprofloxacin PCP:Dr. Dempsey code status full code Review of Systems Constitutional: Yes: Fever, Chills; No: Sweats, Weakness, Malaise, Other Eyes: No: Pain, Vision change, Conjunctivae inflammation, Eyelid inflammation, Other, Redness ENT: No: Ear pain, Ear discharge, Nose pain, Nose discharge, Nose congestion, Mouth pain, Mouth swelling, Throat pain, Throat swelling, Other Respiratory: No: Cough, Dry, Shortness of breath, SOB with excertion, Wheezing, Hemoptysis, Pleuritic Pain, Sputum, Wheezing, Other Cardiovascular: No: Chest Pain, Palpitations, Orthopnea, Paroxysmal Noc. Dyspnea, Edema, Lt Headedness, Other Gastrointestinal: Vomiting; No: Nausea, Abdominal Pain, Diarrhea, Constipation, Melena, Hematochezia, Other Genitourinary: No Dysuria, No Frequency, No Incontinence, No Hematuria, No Retention, No Other Musculoskeletal: No: other, neck pain, shoulder pain, arm pain, back pain, hand pain, leg pain, foot pain Skin: No: Rash, Lesions, Jaundice, Bruising, Other Neurological: No: Weakness, Numbness, Incoordination, Change in speech, Confusion, Seizures, Other Allergies: Coded Allergies: Ciprofloxacin (Verified Allergy, Unknown, 08/15/24) Acetylcysteine (Verified Adverse Reaction, Mild, 08/15/24) Medications Current Medications Medications Dose Ordered Sig/Alvino Route Start Time Stop Time Status Last Admin Dose Admin Linezolid 300 ml @ 150 mls/hr Q12HR IV 01/28/25 16:30 01/28/25 18:06 150 MLS/HR Norepinephrine Bitartrate 250 ml @ 3.75 mls/hr Q24H IV 01/28/25 20:30 01/28/25 20:33 3.75 MLS/HR Ondansetron HCl 4 mg Q4HP PRN IV 01/28/25 22:45 Acetaminophen 650 mg Q6HP PRN PO 01/28/25 22:45 Enoxaparin Sodium 40 mg DAILY SC 01/28/25 22:45 UNV Patient Own Medication 5 mg DAILY PO 01/29/25 10:00 UNV Oxcarbazepine 300 mg BID PO 01/29/25 10:00 Citalopram Hydrobromide 10 mg DAILY PO 01/29/25 10:00 Atorvastatin Calcium 20 mg HS PO 01/29/25 22:00 Pantoprazole Sodium 40 mg DAILY IV 01/29/25 10:00 Cefepime HCl 50 ml @ 12.5 mls/hr DAILY IV 01/29/25 10:00 Enoxaparin Sodium 30 mg DAILY SC 01/29/25 23:45 Exam Vital Signs Vital Signs Date Time Temp Pulse Resp B/P (MAP) Pulse Ox O2 Delivery O2 Flow Rate FiO2 01/28/25 23:45 86/38 01/28/25 23:30 52 16 94 01/28/25 19:40 Room Air* 0 21 01/28/25 19:40 99.0 99.0 Exam Pt is lying on bed General Appearance: Alert, Oriented X3, Cooperative, Not in acute distress, presence of PICC line on the left arm HEENT: Atraumatic, Mucous membranes moist/pink Respiratory: Clear to auscultation, Normal air movement, No added sounds Cardiovascular: Regular rate, Normal S1, Normal S2, No murmurs Abdominal: Active bowel sounds, Soft, no distention, no tenderness, presence of ileal conduit Extremities: No edema, Normal pulses, No tenderness/swelling Skin: No Significant rash, except past surgical scars Neuro: Normal speech, sensorimotor deficits none Psych/Mental Status: Mental status NL, Mood NL Nurse was there as molecular spectroscopist during examination Labs/Xrays Labs Test 01/28/25 18:17 01/28/25 16:55 01/28/25 14:55 Range/Units Troponin I High Sensitivity 23 </=34 ng/L Lactic Acid Level 0.7 0.4-2.0 mmol/L White Blood Count 8.5 4.4-10.8 10^3/uL Red Blood Count 3.36 L 4.0-5.20 10^6/uL Hemoglobin 9.7 L 12.2-16.2 g/dL Hematocrit 29.9 L 36.0-46.0 % Mean Corpuscular Volume 89.2 80.0-100.0 fL Mean Corpuscular Hemoglobin 28.8 28.0-32.0 pg Mean Corpuscular Hemoglobin Concent 32.3 32.0-36.0 g/dL Red Cell Distribution Width 15.2 H 11.8-14.3 % Platelet Count 207 140-450 10^3/uL Mean Platelet Volume 8.2 6.9-10.8 fL Neutrophils (%) (Auto) 91.8 H 37.0-80.0 % Lymphocytes (%) (Auto) 4.7 L 10.0-50.0 % Monocytes (%) (Auto) 2.4 0.0-12.0 % Eosinophils (%) (Auto) 0.9 0.0-7.0 % Basophils (%) (Auto) 0.2 0.0-2.0 % Neutrophils # (Auto) 7.8 1.6-8.6 10 ^3/uL Lymphocytes # (Auto) 0.4 0.4-5.4 10 ^3/uL Monocytes # (Auto) 0.2 0-1.3 10 ^3/uL Eosinophils # (Auto) 0.1 0-0.8 10 ^3/uL Basophils # (Auto) 0 0-0.2 10 ^3/uL Nucleated Red Blood Cells 0.1 % Sodium Level 135 L 136-145 mmol/L Potassium Level 3.7 3.5-5.1 mmol/L Chloride Level 107 98-107 mmol/L Carbon Dioxide Level 15 L 20-31 mmol/L Anion Gap 13 5-15 Blood Urea Nitrogen 40 H 9-23 mg/dL Creatinine 2.44 H 0.550-1.02 mg/dL Glomerular Filtration Rate Calc 21 >90 mL/min BUN/Creatinine Ratio 16.4 10.0-20.0 Serum Glucose 132 H 74-106 mg/dL Calcium Level 9.5 8.7-10.4 mg/dL Total Bilirubin < 0.2 L 0.2-1.0 mg/dL Aspartate Amino Transferase (AST) 16 13-40 U/L Alanine Aminotransferase (ALT) < 9 7-40 U/L Alkaline Phosphatase 89 46-116 U/L Total Protein 8.0 5.7-8.2 g/dL Albumin 4.4 3.2-4.8 g/dL Lipase 40 12-53 U/L SEPSIS Sepsis Screen Date sepsis recognized/suspect: Jan 28, 2025 Time Sepsis recognized/suspect: 1939 Recent Procedure: No On Antibiotic Therapy: No Respiratory Rate >20: No Heart Rate >90: Yes Temp<36 C (96.8 F) or >38.3 C: No SBP <90 or MAP <65 mmHG: No New Acute Mental Status Change: No Is the patient on CPAP, BIPAP,: No Physician Orders Linezolid 600mg/300ml (Zyvox) (01/28/25 16:30) Ct Ab Pel Wo Con-No Oral Or Iv (01/28/25 17:11) Ok To Use Picc (01/28/25 17:14) Norepinephrine 8 Mg/250ml Kit (Levophed) (01/28/25 20:30) Communication Order (01/28/25 20:34) Admit (01/28/25 22:41) Code Status (01/28/25 22:41) Ondansetron Hcl (Zofran) (01/28/25 22:45) Complete Blood Count (01/29/25 04:00) Comprehensive Metabolic Panel (01/29/25 04:00) Condition: Unstable (01/28/25 22:41) Acetaminophen Tablet (Tylenol Tablet) (01/28/25 22:45) * Urology Consult (01/28/25 22:41) Urine Bacterial Culture (01/28/25 22:41) Urinalysis (01/28/25 22:41) Mrsa Screen (01/28/25 22:41) Soft Diet (01/29/25 Breakfast) Drug Screen (01/28/25 22:41) (Nf) Aripiprazole (Abilify) (01/29/25 10:00) Oxcarbazepine Tablet (Trileptal Tablet) (01/29/25 10:00) Citalopram Tablet (Celexa Tablet) (01/29/25 10:00) Atorvastatin (Lipitor) (01/29/25 22:00) Pantoprazole (Protonix) (01/29/25 10:00) Cefepime 1gm/50ml (Maxipime 1gm/50ml) (01/29/25 10:00) Enoxaparin Sodium (Lovenox) (01/29/25 23:45) Vital Signs Date Time Temp Pulse Resp B/P (MAP) Pulse Ox O2 Delivery O2 Flow Rate FiO2 01/28/25 23:45 86/38 01/28/25 23:30 52 16 97/52 (67) 94 01/28/25 23:15 53 15 101/51 (68) 94 01/28/25 23:00 56 14 102/48 (66) 97 01/28/25 22:45 54 13 110/49 (69) 97 01/28/25 22:30 54 16 101/52 (68) 96 01/28/25 22:15 104/51 01/28/25 22:15 58 16 104/51 (68) 96 01/28/25 22:00 52 16 103/59 (74) 96 01/28/25 22:00 103/59 01/28/25 21:45 51 15 104/58 (73) 96 01/28/25 21:30 56 14 101/58 (72) 96 01/28/25 21:15 58 17 105/60 (75) 96 01/28/25 21:00 74 16 100/58 (72) 94 01/28/25 21:00 100/58 01/28/25 20:45 62 16 102/52 (69) 94 01/28/25 20:33 100/59 01/28/25 20:30 60 15 100/59 (73) 94 01/28/25 20:15 61 15 102/55 (71) 97 01/28/25 20:00 63 01/28/25 20:00 63 16 93/53 (66) 97 01/28/25 19:40 63 16 97 Room Air* 0 21 01/28/25 19:40 99.0 63 16 91/53 (66) 97 99.0 01/28/25 19:08 91/53 01/28/25 18:00 98.8 68 17 101/52 (68) 95 98.8 01/28/25 15:55 100.2 Laboratory Tests Test 01/28/25 14:55 01/28/25 16:55 Lactic Acid Level 2.9 mmol/L (0.4-2.0) *H 0.7 mmol/L (0.4-2.0) White Blood Count 8.5 10^3/uL (4.4-10.8) Medications Medications Dose Ordered Sig/Alvino Route Start Time Stop Time Status Last Admin Dose Admin Acetaminophen 650 mg ONCE ONCE PO 01/28/25 14:35 01/28/25 15:20 DC 01/28/25 14:35 650 MG Cefepime HCl 50 ml @ 50 mls/hr ONCE ONCE IV 01/28/25 14:45 01/28/25 15:44 DC 01/28/25 15:02 50 MLS/HR Linezolid 300 ml @ 150 mls/hr Q12HR IV 01/28/25 16:30 01/28/25 18:06 150 MLS/HR Norepinephrine Bitartrate 250 ml @ 3.75 mls/hr Q24H IV 01/28/25 19:15 01/28/25 20:25 DC 01/28/25 19:08 3.75 MLS/HR Norepinephrine Bitartrate 250 ml @ 3.75 mls/hr Q24H IV 01/28/25 20:30 01/28/25 20:33 3.75 MLS/HR Ondansetron HCl 4 mg ONCE ONCE IV 01/28/25 14:30 01/28/25 14:31 DC 01/28/25 15:42 4 MG Sodium Chloride 1,000 ml @ 1,000 mls/hr Q1H ONCE IV 01/28/25 14:30 01/28/25 15:29 DC 01/28/25 14:56 1,000 MLS/HR Sodium Chloride 1,000 ml @ 1,000 mls/hr Q1H ONCE IV 01/28/25 15:45 01/28/25 16:44 DC 01/28/25 17:18 1,000 MLS/HR Sucralfate 1 gm ONCE ONCE PO 01/28/25 14:30 01/28/25 14:31 DC 01/28/25 15:42 1 GM Assessment/Plan Assessment/Plan #Sepsis due to UTI #Severe left hydroureteronephrosis #S/P right nephrectomy, cystectomy with ileal conduit #Mixed anemia- Anemia of chronic disease and iron deficiency #Lactic acidosis #Metabolic acidosis - PICC line in place - UA shows WBC 137, RBC 5, leukocyte esterase 3+, blood 1+, urine turbid - CT abdomen and pelvis shows: ight nephrectomy, cystectomy, and ileal conduit; aracelis left hydroureteronephrosis , ureteral wall thickening, and perinephric inflammation with the ureter dilated to the ileal conduit. Please correlate with urinalysis for infection - IV cefepime 1g iv daily - IV linezolid 600 mg b.i.d. daily - IV fluids normal saline 0.9% - IV norepinephrine 8 mg/ 250 mL drip as per protocol - lactic acid 2.9> 0.7 - MRSA - UDS neg - urine culture - blood culture - pain and fever control with the acetaminophen 650 mg p.o. q.6 PRN - urology consult - IV Zofran 4 mg q.4 PRN for nausea and vomiting - PT 11.9, INR 1.14, APTT 35.3 - type and screen - iron profile:iron 20, TIBC 219,% saturation 9.1 - oral ferrous sulfate 325 mg daily - stool for occult blood #Acute on chronic CKD - IV fluids - monitor - avoid nephrotoxic agents #Hyperlipidemia -atorvastatin 20 mg daily #History of seizure disorder -continue home medication ox carbamazepine 300 mg p.o. b.i.d. #Depression and anxiety -continue aripiprazole 5 mg p.o. daily and citalopram 10 mg p.o. daily #Colonic diverticulosis -Seen in CT abdomen and pelvis - monitor GI prophylaxis: Protonix 40 mg IV daily DVT prophylaxis: Lovenox 40 mg SC daily Diet: soft cardiac diet Goals of care discussed with the patient for more than 27 minutes: Full code status Case discussed with , patient Plan discussed with: Patient My Orders Orders - CASSIE MCGILL Procedure Category Date Status Time Admit ADMIT 01/28/25 Transmitted 22:41 Code Status CODE 01/28/25 Transmitted 22:41 Ondansetron Hcl PHA 01/28/25 In Process (Zofran) 22:45 Complete Blood Count LAB 01/29/25 Verified 04:00 Comprehensive LAB 01/29/25 Verified Metabolic Panel 04:00 Condition: Unstable ASRAI 01/28/25 In Process 22:41 Acetaminophen Tablet PHA 01/28/25 In Process (Tylenol Tablet) 22:45 * Urology Consult CONS 01/28/25 Transmitted 22:41 Urine Bacterial PAULETTE 01/28/25 Logged Culture 22:41 Urinalysis LAB 01/28/25 Logged 22:41 Mrsa Screen PAULETTE 01/28/25 Logged 22:41 Soft Diet DIET 01/29/25 Transmitted Breakfast Drug Screen LAB 01/28/25 Logged 22:41 (Nf) Aripiprazole PHA 01/29/25 Pending (Abilify) 10:00 Oxcarbazepine Tablet PHA 01/29/25 In Process (Trileptal Tablet) 10:00 Citalopram Tablet PHA 01/29/25 In Process (Celexa Tablet) 10:00 Atorvastatin (Lipitor) PHA 01/29/25 In Process 22:00 Pantoprazole PHA 01/29/25 In Process (Protonix) 10:00 Cefepime 1gm/50ml PHA 01/29/25 In Process (Maxipime 1gm/50ml) 10:00 Enoxaparin Sodium PHA 01/29/25 In Process (Lovenox) 23:45 Date of Service: Jan 29, 2025 Billing Provider: ANAHI IVEY MD Common Visit Codes: [id number] INP/OBS CARE (HIGH) Secondary Visit Codes: [id number] CARE PLAN 30 MINUTES CASSIE MCGILL Jan 28, 2025 23:53
[2025-01-28] MEDS: LACTATED RINGER'S 500 ML IV ONE (23:57)
[2025-01-29] VITALS (52 sets, daily range): BP systolic 85–126; BP diastolic 48–66; PULSE 46–77; RESP 8–18; TEMP 97.4–98.6; O2SAT 93–100
[2025-01-29] MEDS: PANTOPRAZOLE 40 MG/10 ML VIAL INJ IV ONE (00:03)
[2025-01-29] MEDS: ATORVASTATIN 20 MG TAB PO ONE (00:04)
[2025-01-29 00:55] LABS: INR 1.14 (0.9-1.15); Partial Thromboplastin Time 35.3 SEC (24.5-34.5); Prothrombin Time 11.9 sec (9.3-11.8)
[2025-01-29 01:16] LABS: Urine Protein, UAD TRACE (Negative)
[2025-01-29 02:07] LABS: Benzodiazephine Screen, Urine Neg (NEGATIVE)
[2025-01-29 02:08] LABS: Amphetamine Screen, Urine Neg (NEGATIVE); Barbiturate Scree,Urine Neg (NEGATIVE); Cannabinoid Screen, Urine Neg (NEGATIVE); Cocaine Screen, Urine Neg (NEGATIVE); Opiate Scree,Urine Neg (NEGATIVE); Phencyclidine Screen, Urine Neg (NEGATIVE)
[2025-01-29 04:38] LABS: Hematocrit 21.8 % (36.0-46.0); Hemoglobin 7.3 g/dL (12.2-16.2); Mean Corpuscular Hemoglobin 29.4 pg (28.0-32.0); Mean Corpuscular Volume 87.9 fL (80.0-100.0); Nucleated Red Blood Cells % 0.0 %
[2025-01-29 05:00] LABS: Albumin 3.3 g/dL (3.2-4.8); Alkaline Phosphatase 64 U/L (46-116); Anion Gap 10 (5-15); BUN/Creatinine Ratio 15.3 (10.0-20.0); Potassium 3.6 mmol/L (3.5-5.1); Sodium 137 mmol/L (136-145); Total Protein 6.0 g/dL (5.7-8.2)
[2025-01-29 05:14] LABS: Alanine Aminotransferase < 9 U/L (7-40); Bilirubin, Total < 0.2 mg/dL (0.2-1.0); Blood Urea Nitrogen 32 mg/dL (9-23); Calcium 8.2 mg/dL (8.7-10.4); Carbon Dioxide 16 mmol/L (20-31); Chloride 111 mmol/L (98-107); Glucose 121 mg/dL (74-106); Iron 20.0 ug/dL (50-170); Total Iron Binding Capacity 219.0 ug/dL (250-425)
[2025-01-29] MEDS: ACETAMINOPHEN 325 MG TAB PO PRN (05:55)
[2025-01-29] MEDS: LACTATED RINGER'S 500 ML IV ONE (06:00)
[2025-01-29] MEDS: LACTATED RINGER'S 1,000 ML IV ONE (06:00)
[2025-01-29 08:03] LABS: Hemoglobin 7.5 g/dL (12.2-16.2)
[2025-01-29 08:05] LABS: Hematocrit 22.6 % (36.0-46.0)
[2025-01-29] MEDS: PANTOPRAZOLE 40 MG/10 ML VIAL INJ IV SCH (10:32)
[2025-01-29] MEDS: FERROUS SULFATE 325mg EC TAB PO SCH (10:32)
[2025-01-29] MEDS: CEFEPIME 1GM/50ML 50 ML IV SCH (10:33)
[2025-01-29] MEDS: CITALOPRAM HYDROBR 20 MG TAB PO SCH (10:34)
[2025-01-29] MEDS: Ensure HIGH Protein Chocolate 8oz Bottle PO SCH (12:00)
[2025-01-29] MEDS: SODIUM CHLORIDE 0.9% 1,000 ML IV SCH (12:00)
[2025-01-29] MEDS: MEROPENEM 1GM IVPB 50 ML IV ONE (12:00)
--- NOTE | 2025-01-29 13:16 | DVHINCON2 ---
Date of service: Jan 29, 2025 Referring Physician Hospitalist Reason for Consultation hydroureteronephrosis ileal conduit History of Present Illness History Source: Patient, RN Notes, Notes, Old Records Exam Limitations: No limitations Home Meds Active Scripts Ondansetron HCl (Ondansetron) 4 Mg Tab, 4 MG PO Q6HP PRN for 5 Days, #15 TAB Prov:NORA GALLAGHER [employer]SE ENGINEER 11/03/24 Cefdinir (Cefdinir) 300 Mg Cap, 1 CAP PO BID for 7 Days, #14 CAP Prov:NORA GALLAGHER [employer] RESPONSE ENGINEER 11/03/24 Oxcarbazepine (Trileptal) 600 Mg Tab, 300 MG PO BID, #60 TAB Prov:GERMAN GONZALEZ MD 07/08/20 Reported Medications Oxycodone W/ Acetaminophen (Percocet 5/325MG) 1 Tab Tb, 1-2 TAB PO TID PRN for 20 Days, #120 08/18/24 Temazepam (Temazepam) 30 Mg Cap, 1 CAP PO QHSP for 30 Days, #30 08/18/24 Simvastatin (Simvastatin) 10 Mg Tab, 1 TAB PO QPM for 30 Days, #30 08/18/24 Fenofibrate (Tricor) 48 Mg Tab, 48 MG PO DAILY, TAB 11/22/23 Aripiprazole (Abilify) 20 Mg Tab, 5 MG PO DAILY, TAB 07/06/22 Cholecalciferol (VITAMIN D3) 2,000 Unit Tab, 1 TAB PO DAILY, #30 TAB 5 Refills 09/27/21 Multiple Vitamin (Multivitamins) Tab, 1 TAB PO DAILY, #90 TAB 3 Refills 09/27/21 Fish Oil (Fish Oil) 1,200 Mg Cap, 1400 MG PO DAILY, CAP 09/27/21 Magnesium Oxide (MAGNESIUM OXIDE) 400 Mg Tab, 250 MG PO DAILY, TAB 09/27/21 Specialty Vitamins Products (Biotin Plus Keratin 30925-628 Mcg-mg) 1 Tab Tab, 1 TAB PO DAILY, TAB 09/27/21 Escitalopram Oxalate (Lexapro) 10 Mg Tab, 1 TAB PO DAILY, #90 TAB 3 Refills 07/06/20 Past Medical History Patient Family History: Patient reports no known family medical history. H&P Exam Vital Signs Vital Signs Date Time Temp Pulse Resp B/P (MAP) Pulse Ox O2 Delivery O2 Flow Rate FiO2 01/29/25 08:00 59 16 99 Room Air* 0 21 01/29/25 08:00 98.5 97/53 (68) 98.5 Labs/Xrays Labs Test 01/29/25 07:45 01/29/25 06:09 01/29/25 04:10 01/29/25 00:15 Range/Units Hemoglobin 7.5 L 12.2-16.2 g/dL Hematocrit 22.6 L 36.0-46.0 % POC Glucose 96 70-106 mg/dl White Blood Count 8.0 4.4-10.8 10^3/uL Red Blood Count 2.48 L 4.0-5.20 10^6/uL Mean Corpuscular Volume 87.9 80.0-100.0 fL Mean Corpuscular Hemoglobin 29.4 28.0-32.0 pg Mean Corpuscular Hemoglobin Concent 33.5 32.0-36.0 g/dL Red Cell Distribution Width 15.1 H 11.8-14.3 % Platelet Count 164 140-450 10^3/uL Mean Platelet Volume 7.9 6.9-10.8 fL Neutrophils (%) (Auto) 82.6 H 37.0-80.0 % Lymphocytes (%) (Auto) 8.4 L 10.0-50.0 % Monocytes (%) (Auto) 4.7 0.0-12.0 % Eosinophils (%) (Auto) 4.2 0.0-7.0 % Basophils (%) (Auto) 0.1 0.0-2.0 % Neutrophils # (Auto) 6.6 1.6-8.6 10 ^3/uL Lymphocytes # (Auto) 0.7 0.4-5.4 10 ^3/uL Monocytes # (Auto) 0.4 0-1.3 10 ^3/uL Eosinophils # (Auto) 0.3 0-0.8 10 ^3/uL Basophils # (Auto) 0 0-0.2 10 ^3/uL Nucleated Red Blood Cells 0.0 % Sodium Level 137 136-145 mmol/L Potassium Level 3.6 3.5-5.1 mmol/L Chloride Level 111 H 98-107 mmol/L Carbon Dioxide Level 16 L 20-31 mmol/L Anion Gap 10 5-15 Blood Urea Nitrogen 32 H 9-23 mg/dL Creatinine 2.09 H 0.550-1.02 mg/dL Glomerular Filtration Rate Calc 26 >90 mL/min BUN/Creatinine Ratio 15.3 10.0-20.0 Serum Glucose 121 H 74-106 mg/dL Calcium Level 8.2 L 8.7-10.4 mg/dL Iron Level 20 L 50-170 ug/dL Total Iron Binding Capacity 219 L 250-425 ug/dL Percent Iron Saturation 9.1 L 15-50 % Ferritin 275.2 10-291 ng/mL Total Bilirubin < 0.2 L 0.2-1.0 mg/dL Aspartate Amino Transferase (AST) 12 L 13-40 U/L Alanine Aminotransferase (ALT) < 9 7-40 U/L Alkaline Phosphatase 64 46-116 U/L Total Protein 6.0 5.7-8.2 g/dL Albumin 3.3 3.2-4.8 g/dL Prothrombin Time 11.9 H 9.3-11.8 sec Prothrombin Time INR 1.14 0.9-1.15 Activated Partial Thromboplast Time 35.3 H 24.5-34.5 SEC Urine Color Colorless Yellow Urine Clarity Turbid H Clear Urine pH 6.5 5.0-9.0 Urine Specific [place] 1.007 1.001-1.035 Urine Protein Trace H Negative Urine Ketones Negative Negative Urine Blood 1+ H Negative /uL Urine Nitrite Negative Negative Urine Bilirubin Negative Negative Urine Urobilinogen Normal Negative mg/dL Urine Leukocyte Esterase 3+ Negative /uL Urine RBC 5 0 - 4 /hpf Urine Microscopic WBC 137 H 0-5 /HPF Urine Squamous Epithelial Cells Few <5 /hpf Urine Bacteria None seen None Seen /hpf Urine Glucose Normal Normal mg/dL Urine Opiates Screen Neg NEGATIVE Urine Fentanyl Screen Neg NEGATIVE Urine Barbiturates Screen Neg NEGATIVE Urine Phencyclidine Screen Neg NEGATIVE Urine Amphetamines Screen Neg NEGATIVE Urine Benzodiazepines Screen Neg NEGATIVE Urine Cocaine Screen Neg NEGATIVE Urine Cannabinoids Screen Neg NEGATIVE Test 01/28/25 18:17 01/28/25 16:55 01/28/25 14:55 Range/Units Troponin I High Sensitivity 23 </=34 ng/L Lactic Acid Level 0.7 0.4-2.0 mmol/L Lipase 40 12-53 U/L Microbiology Date/Time Source Procedure Growth Status 01/28/25 00:20 Nose MRSA Screen - Final Complete PRINCE ZHANG [employer]SE ENGINEER Jan 29, 2025 13:16
[2025-01-29] MEDS: ONDANSETRON HCL 4 MG/2 ML VIAL IV PRN (15:41)
--- NOTE | 2025-01-29 17:36 | DVHPNRES ---
Progress Note Date Seen: Jan 29, 2025 Resident Creating Document: CHEY VICENTE RESIDENT Medical Necessity Reason Pt with a Central, PICC or Fol: No Subjective Review of Systems Patient is 65-year-old female with past medical history of hypertension, dyslipidemia, diverticulosis, CKD stage IIIA, right-sided renal cell carcinoma with status post right nephrectomy, stage IV bladder cancer with status post cystectomy, left hydronephrosis, seizures who came to the hospital with a chief complaint of generalized weakness, fever, abdominal pain and nausea and vomiting for past 3-4 days. As per patient he is feeling weak, had fever three days ago, at that time she had 3-4 episode of vomiting as well. Therefore patient was brought to the hospital given she received immunotherapy one month ago, concerning about sepsis. At the time of evaluation, patient was requiring IV Levophed, receiving antibiotics and IV fluids. Patient denying any other symptoms. Past surgical history: Gastric sleeve, right nephrectomy, left knee replacement, ALEM with bilateral salpingo oophorectomy, cholecystectomy, cystectomy, ileal conduit Family history of IBS Personal history: Noncontributory 01/29/2025: Patient seen at bedside. Requiring IV Levophed, no fever, abdominal pain or nausea vomiting last 24 hours. No any other new complaints. Objective vital signs Vital Sign Date Time Temp Pulse Resp B/P (MAP) Pulse Ox O2 Delivery O2 Flow Rate FiO2 01/29/25 16:30 97.4 54 14 108/55 (72) 99 97.4 01/29/25 16:00 Room Air* 0 21 21 Total Intake and Output 01/28/25 01/28/25 01/29/25 15:00 23:00 07:00 Intake Total 2341.36 ml 519.431 ml Output Total 550 ml Balance 1791.36 ml 519.431 ml medications Current Medications Medications Dose Ordered Sig/Alvino Route Start Time Stop Time Status Last Admin Dose Admin Linezolid 300 ml @ 150 mls/hr Q12HR IV 01/28/25 16:30 01/29/25 10:33 150 MLS/HR Norepinephrine Bitartrate 250 ml @ 3.75 mls/hr Q24H IV 01/28/25 20:30 01/28/25 20:33 3.75 MLS/HR Ondansetron HCl 4 mg Q4HP PRN IV 01/28/25 22:45 01/29/25 15:41 4 MG Acetaminophen 650 mg Q6HP PRN PO 01/28/25 22:45 01/29/25 05:55 650 MG Enoxaparin Sodium 40 mg DAILY SC 01/28/25 22:45 UNV Patient Own Medication 5 mg DAILY PO 01/29/25 10:00 Oxcarbazepine 300 mg BID PO 01/29/25 10:00 01/29/25 10:32 300 MG Citalopram Hydrobromide 10 mg DAILY PO 01/29/25 10:00 01/29/25 10:34 10 MG Atorvastatin Calcium 20 mg HS PO 01/29/25 22:00 Pantoprazole Sodium 40 mg DAILY IV 01/29/25 10:00 01/29/25 10:32 40 MG Enoxaparin Sodium 30 mg DAILY SC 01/29/25 23:45 Ferrous Sulfate 325 mg DAILY PO 01/29/25 10:00 01/29/25 10:32 325 MG Enteral Nutritional Formula 240 ml TIDWM PO 01/29/25 12:00 01/29/25 12:00 240 ML Meropenem 50 ml @ 17 mls/hr Q12HR IV 01/29/25 22:00 Sodium Chloride 1,000 ml @ 100 mls/hr Q10H IV 01/29/25 12:00 01/29/25 12:00 100 MLS/HR Examination General Appearance: Cooperative. Well developed. Well nourished. NAD Head Exam: Normal inspection Neck Exam: Normal inspection. Non-tender. Normal alignment Pulmonary/Respiratory: Chest non-tender. Clear bilateral breath sounds Cardiovascular/Chest: Regular rate and rhythm. No murmurs. No JVD. Peripheral Pulses: 2+ Radial (R). 2+ Radial (L). 2+ Pedal (R). 2+ Pedal (L) Abdominal Exam: Normal bowel sounds. Soft. Nontender. No hepatospenomegaly. No masses. Presence of ileostomy bag. Containing urine. No blood in bag. Ankle Exam: Negative ankle edema Lower extremities: Negative lower extremity edema Neuro/Mental Status: A&O x4. Coherent Thoughts/Psych: Normal thought pattern. Appropriate mood and affect. Good judgement and insight Appearance: In no acute distress Skin Exam: Normal inspection. Normal color. Warm. Dry laboratory and microbiology Laboratory Tests 01/29/25 07:45 01/29/25 04:10 Test 01/29/25 04:10 Range/Units Serum Glucose 121 H 74-106 mg/dL Microbiology Date/Time Source Procedure Growth Status 01/28/25 15:02 Blood Blood Culture - Preliminary NO GROWTH AFTER 24 HOURS OF INCUBATION. Resulted 01/28/25 00:20 Nose MRSA Screen - Final Complete Problem List/Assessment/Plan Problem List/Assessment/Plan Neurology History of seizure -oxycarbamazepine 300 mg p.o. b.i.d. Infection Septic shock due to Pyelonephritis Complicated UTI Generalized weakness likely due to above -IV antibiotic with meropenem and linezolid -IV pressor: On Levophed, target map greater than 65. -lactic acid improved with IV fluid -IV fluid normal saline 100 mL/hour -pending urine and blood culture -urinalysis showed signs of UTI Nephrology QUINN Due to VMN underlying CKD stage IIIA -IV fluid NS 100 mL/hours -creatinine 2.44, 2.09 -GFR 21, 26 Severe left hydroureteronephrosis History of Right nephrectomy -urology consultation -plan for left sided nephrostomy tube insertion -NPO Lactic acidosis due to sepsis Metabolic acidosis -improved -continue IV fluid Gastroenterology Abdominal pain, Nasuea and vomiting likely gastroenteritis -supportive treatment -IV fluid NS 100 mL/hour Presence of ileostomy conduit -clear ileostomy bag. Colonic diverticulosis -encourage high-fiber diet History of cholecystectomy History of hysterectomy with bilateral salpingectomy History of cystectomy Moderate protein malnutrition -high-protein ensure 3 times daily Hemato/oncology Anemia of chronic disease Iron-deficiency anemia -iron panel: Iron 20, TIBC 219, saturation 9.1, ferritin 275. -ferrous sulfate 325 mg p.o. daily History of renal cell carcinoma, status post right nephrectomy History of stage IV bladder cancer, status post cystectomy Status post ileal conduit -patient was receiving immunotherapy, last dose received one month ago. -as per family, PET scan showed no metastasis. -not on any other medication. Psychiatric Depression -citalopram 10 mg p.o. daily -aripiprazole 500 mg p.o. daily Line: Left arm picc line. PUD prophylaxis with Protonix DVT prophylaxis with Lovenox Goals of care discussed, greater than 24 minutes, full code status. Critical care time spent, 66 minutes , excluding procedures Plan discussed with Dr Talavera Plan discussed with: Patient, Daughter, Other (RN) My Orders My Orders Orders - CHEY VICENTE Procedure Category Date Status Time Nutritional PHA 01/29/25 In Process Supplements (Ensure 12:00 Date of Service: Jan 29, 2025 Billing Provider: STAS SHAFFER MD Common Visit Codes: [id number] CARE 30-74 MIN CHEY VICENTE Jan 29, 2025 17:36 STAS SHAFFER MD Feb 01, 2025 16:39
[2025-01-29] MEDS: HYDROcodone-ACET 5/325MG TAB PO PRN (19:59)
[2025-01-29] MEDS: MEROPENEM 1GM IVPB 50 ML IV SCH (21:30)
[2025-01-29] MEDS: ATORVASTATIN 20 MG TAB PO SCH (22:02)
[2025-01-29] MEDS: ENOXAPARIN SOD 30 MG/0.3 ML SYRINGE SC SCH (23:39)
[2025-01-30] VITALS (9 sets, daily range): BP systolic 114–128; BP diastolic 64–73; PULSE 64–79; RESP 12–17; TEMP 98.1–98.8; O2SAT 95–98
[2025-01-30 06:45] LABS: Hematocrit 22.8 % (36.0-46.0); Hemoglobin 7.4 g/dL (12.2-16.2); Mean Corpuscular Hemoglobin 29.4 pg (28.0-32.0); Mean Corpuscular Volume 90.3 fL (80.0-100.0); Nucleated Red Blood Cells % 0.1 %
[2025-01-30 06:47] LABS: Anion Gap 10 (5-15); Potassium 4.1 mmol/L (3.5-5.1); Sodium 139 mmol/L (136-145)
[2025-01-30 06:53] LABS: BUN/Creatinine Ratio 11.2 (10.0-20.0); Blood Urea Nitrogen 23 mg/dL (9-23); Glucose 85 mg/dL (74-106)
[2025-01-30 06:59] LABS: Calcium 8.1 mg/dL (8.7-10.4); Carbon Dioxide 17 mmol/L (20-31); Chloride 112 mmol/L (98-107)
--- NOTE | 2025-01-30 14:46 | DVHPNRES ---
Progress Note Date Seen: Jan 30, 2025 Resident Creating Document: CHEY VICENTE RESIDENT Medical Necessity Reason Pt with a Central, PICC or Fol: No Subjective Review of Systems Patient is 65-year-old female with past medical history of hypertension, dyslipidemia, diverticulosis, CKD stage IIIA, right-sided renal cell carcinoma with status post right nephrectomy, stage IV bladder cancer with status post cystectomy, left hydronephrosis, seizures who came to the hospital with a chief complaint of generalized weakness, fever, abdominal pain and nausea and vomiting for past 3-4 days. As per patient he is feeling weak, had fever three days ago, at that time she had 3-4 episode of vomiting as well. Therefore patient was brought to the hospital given she received immunotherapy one month ago, concerning about sepsis. At the time of evaluation, patient was requiring IV Levophed, receiving antibiotics and IV fluids. Patient denying any other symptoms. Past surgical history: Gastric sleeve, right nephrectomy, left knee replacement, ALEM with bilateral salpingo oophorectomy, cholecystectomy, cystectomy, ileal conduit Family history of IBS Personal history: Noncontributory 01/29/2025: Patient seen at bedside. Requiring IV Levophed, no fever, abdominal pain or nausea vomiting last 24 hours. No any other new complaints. 01/30/2025: Patient seen at bedside. Off Levophed. No fever, abdominal pain and nausea or vomiting. No other complains. Objective vital signs Vital Sign Date Time Temp Pulse Resp B/P (MAP) Pulse Ox O2 Delivery O2 Flow Rate FiO2 01/30/25 10:45 67 11 121/57 (78) 98 01/30/25 07:55 97.9 97.9 01/30/25 07:55 Room Air* 0 21 Total Intake and Output 01/29/25 01/29/25 01/30/25 15:00 23:00 07:00 Intake Total 1895.001 ml 1124.504 ml 338.628 ml Output Total 900 ml 700 ml Balance 1895.001 ml 224.504 ml -361.372 ml medications Current Medications Medications Dose Ordered Sig/Alvino Route Start Time Stop Time Status Last Admin Dose Admin Linezolid 300 ml @ 150 mls/hr Q12HR IV 01/28/25 16:30 01/30/25 10:27 150 MLS/HR Norepinephrine Bitartrate 250 ml @ 3.75 mls/hr Q24H IV 01/28/25 20:30 01/28/25 20:33 3.75 MLS/HR Ondansetron HCl 4 mg Q4HP PRN IV 01/28/25 22:45 01/30/25 08:42 4 MG Acetaminophen 650 mg Q6HP PRN PO 01/28/25 22:45 01/29/25 05:55 650 MG Enoxaparin Sodium 40 mg DAILY SC 01/28/25 22:45 UNV Patient Own Medication 5 mg DAILY PO 01/29/25 10:00 Oxcarbazepine 300 mg BID PO 01/29/25 10:00 01/29/25 22:00 300 MG Citalopram Hydrobromide 10 mg DAILY PO 01/29/25 10:00 01/29/25 10:34 10 MG Atorvastatin Calcium 20 mg HS PO 01/29/25 22:00 01/29/25 22:02 20 MG Pantoprazole Sodium 40 mg DAILY IV 01/29/25 10:00 01/30/25 10:27 40 MG Enoxaparin Sodium 30 mg DAILY SC 01/29/25 23:45 Ferrous Sulfate 325 mg DAILY PO 01/29/25 10:00 01/29/25 10:32 325 MG Enteral Nutritional Formula 240 ml TIDWM PO 01/29/25 12:00 01/29/25 18:12 240 ML Meropenem 50 ml @ 17 mls/hr Q12HR IV 01/29/25 22:00 01/29/25 21:30 17 MLS/HR Sodium Chloride 1,000 ml @ 100 mls/hr Q10H IV 01/29/25 12:00 01/30/25 08:16 100 MLS/HR Acetaminophen/ Hydrocodone Bitart 1 tab Q6HPRN PRN PO 01/29/25 19:00 01/29/25 19:59 1 TAB Examination General Appearance: Cooperative. Well developed. Well nourished. NAD Head Exam: Normal inspection Neck Exam: Normal inspection. Non-tender. Normal alignment Pulmonary/Respiratory: Chest non-tender. Clear bilateral breath sounds Cardiovascular/Chest: Regular rate and rhythm. No murmurs. No JVD. Peripheral Pulses: 2+ Radial (R). 2+ Radial (L). 2+ Pedal (R). 2+ Pedal (L) Abdominal Exam: Normal bowel sounds. Soft. Nontender. No hepatospenomegaly. No masses. Presence of ileostomy bag. Containing urine. No blood in bag. Ankle Exam: Negative ankle edema Lower extremities: Negative lower extremity edema Neuro/Mental Status: A&O x4. Coherent Thoughts/Psych: Normal thought pattern. Appropriate mood and affect. Good judgement and insight Appearance: In no acute distress Skin Exam: Normal inspection. Normal color. Warm. Dry laboratory and microbiology Laboratory Tests 01/30/25 05:56 Test 01/30/25 05:56 Range/Units Serum Glucose 85 74-106 mg/dL Microbiology Date/Time Source Procedure Growth Status 01/29/25 00:15 Other Urine Culture - Preliminary No growth Resulted 01/28/25 15:02 Blood Blood Culture - Preliminary NO GROWTH AFTER 24 HOURS OF INCUBATION. Resulted Problem List/Assessment/Plan Problem List/Assessment/Plan Neurology History of seizure -oxycarbamazepine 300 mg p.o. b.i.d. Infection Septic shock due to Pyelonephritis Complicated UTI Generalized weakness likely due to above -IV antibiotic with meropenem and linezolid -IV pressor: On Levophed, target map greater than 65. -lactic acid improved with IV fluid -IV fluid normal saline 100 mL/hour -pending urine and blood culture -urinalysis showed signs of UTI Nephrology QUINN Due to VMN underlying CKD stage IIIA -IV fluid NS 100 mL/hours -creatinine 2.44, 2.09 -GFR 21, 26 Severe left hydroureteronephrosis History of Right nephrectomy -urology consultation -plan for left sided nephrostomy tube insertion -NPO Lactic acidosis due to sepsis Metabolic acidosis -improved -continue IV fluid Gastroenterology Abdominal pain, Nasuea and vomiting likely gastroenteritis -supportive treatment -IV fluid NS 100 mL/hour Presence of ileostomy conduit -clear ileostomy bag. Colonic diverticulosis -encourage high-fiber diet History of cholecystectomy History of hysterectomy with bilateral salpingectomy History of cystectomy Moderate protein malnutrition -high-protein ensure 3 times daily Hemato/oncology Anemia of chronic disease Iron-deficiency anemia -iron panel: Iron 20, TIBC 219, saturation 9.1, ferritin 275. -ferrous sulfate 325 mg p.o. daily History of renal cell carcinoma, status post right nephrectomy History of stage IV bladder cancer, status post cystectomy Status post ileal conduit -patient was receiving immunotherapy, last dose received one month ago. -as per family, PET scan showed no metastasis. -not on any other medication. Psychiatric Depression -citalopram 10 mg p.o. daily -aripiprazole 500 mg p.o. daily Line: Left arm picc line. PUD prophylaxis with Protonix DVT prophylaxis with Lovenox Goals of care discussed, greater than 24 minutes, full code status. Critical care time spent, 79 minutes , excluding procedures Plan discussed with Dr Stephen Plan discussed with: Patient, Other (RN) My Orders My Orders Orders - CHEY VICENTE Procedure Category Date Status Time Transfer Orders XFER 01/30/25 Transmitted 10:06 CHEY VICENTE Jan 30, 2025 14:46
[2025-01-30] MEDS: IODIXANOL 320MG/ML 100ML BTL IV ONE (17:31)
[2025-01-30] MEDS: LIDOCAINE 2%HCL (LOCAL ANESTH.) INJ 20ML MDV ONE (17:31)
[2025-01-30] MEDS: MIDAZOLAM HCL 2MG/2ML 2ml VIAL (1mg/ml) ONE (17:31)
[2025-01-30] MEDS: fentaNYL CITRATE 100 MCG/2 ML VL ONE (17:31)
--- NOTE | 2025-01-30 18:34 | DVH ---
PROCEDURE: Left NEPHROSTOMY TUBE PLACEMENT HISTORY: NEPHROSTOMY ACCESS OPERATORS: Constance Husain DOCUMENTATION: Informed consent was obtained and a procedural time out was performed. SEDATION: Moderate sedation was utilized during the procedure. The patient received benzodiazepines and opioids, the dosing of which was documented in the patient s permanent medical record. Pre-sedation history and evaluation revealed no contraindications to sedation. The patient s level of consciousness and physiologic status was monitored continuously by the physician and nursing staff throughout the procedure. Total intra-service moderate sedation time was left minutes. FLUORO TIME: 1 minutes Dose: 5 mGy air kerma TECHNIQUE: The skin over the patient's back/flank was sterilely prepped, draped, and infiltrated with 1% lidocaine. A 22-gauge INRAD needle was used to access a left renal calyx under real-time ultrasound guidance with an image archived in the PACS. Once urine was aspirated, dilute contrast was injected to confirm positioning. An Charles set was used to gain definitive access to the calyx. A guidewire was coiled in the renal pelvis and an 8 [place] APD was placed under fluoroscopy. The catheter was injected with contrast and a spot radiograph obtained. The catheter was sutured and Stat locked in place and connected to gravity drainage. FINDINGS: There is left moderate hydronephrosis. The final images demonstrate left nephrostomy to be in satisfactory position. No immediate complications were encountered. IMPRESSION: SUCCESSFUL left NEPHROSTOMY TUBE PLACEMENT. Performed by Dr. Husain.
[2025-01-31] VITALS (11 sets, daily range): BP systolic 103–134; BP diastolic 55–79; PULSE 58–85; RESP 14–19; TEMP 97.2–98.5; O2SAT 60–97
[2025-01-31 07:19] LABS: Hematocrit 21.0 % (36.0-46.0); Nucleated Red Blood Cells % 0.2 %
[2025-01-31 07:23] LABS: Mean Corpuscular Hemoglobin 29.0 pg (28.0-32.0); Mean Corpuscular Volume 86.3 fL (80.0-100.0)
[2025-01-31 07:35] LABS: Hemoglobin 7.0 g/dL (12.2-16.2)
[2025-01-31 07:59] LABS: Potassium 3.7 mmol/L (3.5-5.1); Sodium 141 mmol/L (136-145)
[2025-01-31 08:00] LABS: Anion Gap 12 (5-15)
[2025-01-31 08:03] LABS: Calcium 8.1 mg/dL (8.7-10.4); Carbon Dioxide 17 mmol/L (20-31); Chloride 112 mmol/L (98-107)
[2025-01-31 08:05] LABS: BUN/Creatinine Ratio 10.3 (10.0-20.0); Blood Urea Nitrogen 18 mg/dL (9-23); Glucose 85 mg/dL (74-106)
--- NOTE | 2025-01-31 23:48 | DVHINCON2 ---
Date of service: Jan 31, [address] Guerra [facility] Reason for Consultation Sepsis History of Present Illness Patient is 64-year-old woman with past medical history of hypertension, dyslipidemia, diverticulosis, CKD stage IIIA, renal cell carcinoma s/p right ne phrectomy, stage IV bladder cancer s/p cystectomy, left hydronephrosis, and seizures who presented to ED on 01/28/25 with complaint of generalized weakness, fever, abdominal pain and nausea and vomiting for past 3-4 days. Pt reported feeling weak, had fever 3 days ago, at that time she had 3-4 episodes of vomiting as well. Therefore patient was brought to the hospital given she re ceived immunotherapy one month ago, with concern for sepsis. While in ED patient was requiring IV Levophed, receiving antibiotics and IV fluids. Patient was admitted for further care. Pulmonary consultation is requested for evaluation and management of sepsis. Review of Systems: 14-point review of systems negative unless otherwise noted above. Past Medical History: hypertension, dyslipidemia, diverticulosis, CKD stage IIIA, right-sided renal cell carcinoma with status post right nephrectomy, stage IV bladder cancer with status post cystectomy, left hydronephrosis, seizures Past Surgical History: Gastric sleeve, right nephrectomy, left knee replacement, ALEM with bilateral salpingo oophorectomy, cholecystectomy, cystectomy, ileal conduit Medications: Reviewed. Allergies: Ciprofloxacin. Acetylcysteine Family History: Family history of IBS. Father with bladder cancer, grandmother with renal failure. Dementia. Kidney cancer. Social History: Former smoker. History of smoking 0.5 PPD for 20 years, stopped now. No alcohol or illicit drug use. Family History: FH: dementia FH: kidney cancer FHx: kidney disease Allergies: Coded Allergies: Ciprofloxacin (Verified Allergy, Unknown, 08/15/24) Acetylcysteine (Verified Adverse Reaction, Mild, 08/15/24) Home Meds Active Scripts Ondansetron HCl (Ondansetron) 4 Mg Tab, 4 MG PO Q6HP PRN for 5 Days, #15 TAB Prov:SALMARIBEL ESTRELLAPH ELECTRIC BATH ATTENDANT 11/03/24 Cefdinir (Cefdinir) 300 Mg Cap, 1 CAP PO BID for 7 Days, #14 CAP Prov:SALSRUTHIOMELENDEZ ELECTRIC BATH ATTENDANT 11/03/24 Oxcarbazepine (Trileptal) 600 Mg Tab, 300 MG PO BID, #60 TAB Prov:SERENAVijayaGERMAN BAEZ MD 07/08/20 Reported Medications Oxycodone W/ Acetaminophen (Percocet 5/325MG) 1 Tab Tb, 1-2 TAB PO TID PRN for 20 Days, #120 08/18/24 Temazepam (Temazepam) 30 Mg Cap, 1 CAP PO QHSP for 30 Days, #30 08/18/24 Simvastatin (Simvastatin) 10 Mg Tab, 1 TAB PO QPM for 30 Days, #30 08/18/24 Fenofibrate (Tricor) 48 Mg Tab, 48 MG PO DAILY, TAB 11/22/23 Aripiprazole (Abilify) 20 Mg Tab, 5 MG PO DAILY, TAB 07/06/22 Cholecalciferol (VITAMIN D3) 2,000 Unit Tab, 1 TAB PO DAILY, #30 TAB 5 Refills 09/27/21 Multiple Vitamin (Multivitamins) Tab, 1 TAB PO DAILY, #90 TAB 3 Refills 09/27/21 Fish Oil (Fish Oil) 1,200 Mg Cap, 1400 MG PO DAILY, CAP 09/27/21 Magnesium Oxide (MAGNESIUM OXIDE) 400 Mg Tab, 250 MG PO DAILY, TAB 09/27/21 Specialty Vitamins Products (Biotin Plus Keratin 25183-936 Mcg-mg) 1 Tab Tab, 1 TAB PO DAILY, TAB 09/27/21 Escitalopram Oxalate (Lexapro) 10 Mg Tab, 1 TAB PO DAILY, #90 TAB 3 Refills 07/06/20 Vital Signs Vital Signs Date Time Temp Pulse Resp B/P (MAP) Pulse Ox O2 Delivery O2 Flow Rate FiO2 01/31/25 21:00 98.3 69 14 134/79 (97) 97 98.3 01/31/25 20:00 Room Air* 0 21 Physical Exam Gen.: Patient lying in bed in no apparent distress. Breathing on room air. Head: Normocephalic, atraumatic. Eyes: EOMI/PERRLA. Ears: Normal hearing. Normal anatomy. Neck/trachea: Trachea midline, supple. Nose: Normal external anatomy. Mouth: Moist mucous membranes. Chest: Decreased air entry bilaterally. No wheezing or rhonchi. Cardiovascular: Positive S1, positive S2. Regular rate and rhythm. Abdomen: Positive bowel sounds in all 4 quadrants. Soft, non-tender, non- distended. : Deferred. Rectal: Deferred. Skin: Warm, dry. Intact. Extremities: 2+ radial pulses bilaterally. No lower extremity edema. Neuro: Awake, alert, oriented x3. No gross motor or sensory deficits. Cranial nerves II through XII intact. Gait not assessed. Labs/Diagnostic Data Labs Test 01/31/25 05:50 01/29/25 20:20 01/29/25 06:09 01/29/25 04:10 Range/Units White Blood Count 3.2 #L 4.4-10.8 10^3/uL Red Blood Count 2.43 L 4.0-5.20 10^6/uL Hemoglobin 7.0 *L 12.2-16.2 g/dL Hematocrit 21.0 L 36.0-46.0 % Mean Corpuscular Volume 86.3 # 80.0-100.0 fL Mean Corpuscular Hemoglobin 29.0 28.0-32.0 pg Mean Corpuscular Hemoglobin Concent 33.6 32.0-36.0 g/dL Red Cell Distribution Width 15.2 H 11.8-14.3 % Platelet Count 153 140-450 10^3/uL Mean Platelet Volume 7.9 6.9-10.8 fL Neutrophils (%) (Auto) 69.1 37.0-80.0 % Lymphocytes (%) (Auto) 20.1 10.0-50.0 % Monocytes (%) (Auto) 6.2 0.0-12.0 % Eosinophils (%) (Auto) 4.2 0.0-7.0 % Basophils (%) (Auto) 0.4 0.0-2.0 % Neutrophils # (Auto) 2.2 1.6-8.6 10 ^3/uL Lymphocytes # (Auto) 0.6 0.4-5.4 10 ^3/uL Monocytes # (Auto) 0.2 0-1.3 10 ^3/uL Eosinophils # (Auto) 0.1 0-0.8 10 ^3/uL Basophils # (Auto) 0 0-0.2 10 ^3/uL Nucleated Red Blood Cells 0.2 % Sodium Level 141 136-145 mmol/L Potassium Level 3.7 3.5-5.1 mmol/L Chloride Level 112 H 98-107 mmol/L Carbon Dioxide Level 17 L 20-31 mmol/L Anion Gap 12 5-15 Blood Urea Nitrogen 18 9-23 mg/dL Creatinine 1.74 H 0.550-1.02 mg/dL Glomerular Filtration Rate Calc 32 >90 mL/min BUN/Creatinine Ratio 10.3 10.0-20.0 Serum Glucose 85 74-106 mg/dL Calcium Level 8.1 L 8.7-10.4 mg/dL Stool Occult Blood Negative Negative Stool Occult Blood Sample #3 Negative POC Glucose 96 70-106 mg/dl Iron Level 20 L 50-170 ug/dL Total Iron Binding Capacity 219 L 250-425 ug/dL Percent Iron Saturation 9.1 L 15-50 % Ferritin 275.2 10-291 ng/mL Total Bilirubin < 0.2 L 0.2-1.0 mg/dL Aspartate Amino Transferase (AST) 12 L 13-40 U/L Alanine Aminotransferase (ALT) < 9 7-40 U/L Alkaline Phosphatase 64 46-116 U/L Total Protein 6.0 5.7-8.2 g/dL Albumin 3.3 3.2-4.8 g/dL Test 01/29/25 00:15 01/28/25 18:17 01/28/25 16:55 01/28/25 14:55 Range/Units Prothrombin Time 11.9 H 9.3-11.8 sec Prothrombin Time INR 1.14 0.9-1.15 Activated Partial Thromboplast Time 35.3 H 24.5-34.5 SEC Urine Color Colorless Yellow Urine Clarity Turbid H Clear Urine pH 6.5 5.0-9.0 Urine Specific [place] 1.007 1.001-1.035 Urine Protein Trace H Negative Urine Ketones Negative Negative Urine Blood 1+ H Negative /uL Urine Nitrite Negative Negative Urine Bilirubin Negative Negative Urine Urobilinogen Normal Negative mg/dL Urine Leukocyte Esterase 3+ Negative /uL Urine RBC 5 0 - 4 /hpf Urine Microscopic WBC 137 H 0-5 /HPF Urine Squamous Epithelial Cells Few <5 /hpf Urine Bacteria None seen None Seen /hpf Urine Glucose Normal Normal mg/dL Urine Opiates Screen Neg NEGATIVE Urine Fentanyl Screen Neg NEGATIVE Urine Barbiturates Screen Neg NEGATIVE Urine Phencyclidine Screen Neg NEGATIVE Urine Amphetamines Screen Neg NEGATIVE Urine Benzodiazepines Screen Neg NEGATIVE Urine Cocaine Screen Neg NEGATIVE Urine Cannabinoids Screen Neg NEGATIVE Troponin I High Sensitivity 23 </=34 ng/L Lactic Acid Level 0.7 0.4-2.0 mmol/L Lipase 40 12-53 U/L Microbiology Date/Time Source Procedure Growth Status 01/30/25 15:35 Aspirate Gram Stain - Final Resulted 01/30/25 15:35 Aspirate Body Fluid Culture - Preliminary Resulted 01/29/25 00:15 Other Urine Culture - Final Complete 01/28/25 15:02 Blood Blood Culture - Preliminary NO GROWTH AFTER 72 HOURS OF INCUBATION. Resulted Assessment Impression: Sepsis due to UTI Urinary tract infection S/p right nephrectomy, cystectomy with ileal conduit Lactic acidosis Metabolic acidosis History of seizure disorder QUINN on CKD stage IIIA Anemia of chronic disease Iron deficiency anemia Hx of nicotine dependence Plan: On room air Supplemental oxygen PRN Titrate to keep O2 sats above 92%. Continue IV antibiotics f/u cultures Incentive spirometry IV fluids with NS at 150 ml/hr. Antiepileptic medication. Follow up GI recs. Pain control Avoid oversedation S/p nephrostomy Follow up Nephrology recs Monitor renal function. Monitor electrolytes. Supplement as necessary. Monitor ins and outs. Hgb of 7.0 g/dL. Transfuse 1 unit PRBC Continue to monitor hemoglobin Transfuse if less than 7.0 g/dL. PUD prophylaxis with Protonix DVT prophylaxis with Lovenox Prognosis: Poor given patient's multiple co-morbidities. Rest of plan per hospitalist and other consultants. Thank you, Dr. Guerra, for allowing me to participate in this patient's care. Further recommendations will depend on the patient's clinical course. Please do not hesitate to contact me if you have any questions or concerns. This medical document was created using an electronic medical record system with [employer] dictation system. Although these documentations are being carefully reviewed, there may still be some phonetic and typographical changes. The errors are purely typographical, due to imperfection on the software program, and do not reflect any compromise in the patient's medical care. Plan discussed with: Patient, Other (RN Lola) Visit Coding Pulmonary Billing Provider: CHRISTA CHOI MD Date of Service if different f: Jan 31, 2025 Common Visit Codes: [id number] INP/OBS CARE (HIGH) CHRISTA CHOI MD Jan 31, 2025 23:48
[2025-02-01] VITALS (9 sets, daily range): BP systolic 113–138; BP diastolic 67–84; PULSE 58–80; RESP 14–20; TEMP 97.6–98.2; O2SAT 95–99
--- NOTE | 2025-02-01 13:11 | DVHPN2 ---
Subjective no complaints Changes from previous H/P or p: No Changes Eyes: No Pain, No Vision change, No Conjunctivae inflammation, No Eyelid inflammation, No Other, No Redness ENT: No Ear pain, No Ear discharge, No Nose pain, No Nose discharge, No Nose congestion, No Mouth pain, No Mouth swelling, No Throat pain, No Throat swelling, No Other Cardiovascular: No Chest Pain, No Palpitations, No Orthopnea, No Paroxysmal Noc. Dyspnea, No Edema, No Lt Headedness, No Other Respiratory: No Cough, No Dry, No Shortness of breath, No SOB with excertion, No Wheezing, No Hemoptysis, No Pleuritic Pain, No Sputum, No Other Gastrointestinal: No Nausea; Vomiting; No Abdominal Pain, No Diarrhea, No Constipation, No Melena, No Hematochezia, No Other Genitourinary: No Dysuria, No Frequency, No Incontinence, No Hematuria, No Retention, No Other Musculoskeletal: No other, No neck pain, No shoulder pain, No arm pain, No back pain, No hand pain, No leg pain, No foot pain Skin: No Rash, No Lesions, No Jaundice, No Bruising, No Other Objective Vitals Vital Signs Date Time Temp Pulse Resp B/P (MAP) Pulse Ox O2 Delivery O2 Flow Rate FiO2 02/01/25 09:00 98.1 80 18 120/70 (87) 96 98.1 02/01/25 08:00 Room Air* 0 21 Intake/Output Intake and Output 02/01/25 07:00 Intake Total 1250 ml Output Total 1160 ml Balance 90 ml Intake Oral 600 ml IV Total 350 ml Blood Product 300 ml Output Urine Total 1160 ml General Appearance: Alert, Oriented X3, Cooperative, No acute distress Lungs: Clear to auscultation Cardiovascular: Regular rate, Normal S1, Normal S2, No murmurs Abdomen: Normal bowel sounds, Soft, No tenderness, No hepatospenomegaly, Other (ileostomy fn) Extremities: No edema Neuro: Normal speech, Strength at 5/5 X4 ext, Normal tone, Sensation intact, C ranial nerves 3-12 NL, Reflexes 2+, Other Psych/Mental Status: Mental status NL, Mood NL Medications Current Medications Medications Dose Ordered Sig/Alvino Route Start Time Stop Time Status Last Admin Dose Admin Linezolid 300 ml @ 150 mls/hr Q12HR IV 01/28/25 16:30 02/01/25 09:30 150 MLS/HR Norepinephrine Bitartrate 250 ml @ 3.75 mls/hr Q24H IV 01/28/25 20:30 01/28/25 20:33 3.75 MLS/HR Ondansetron HCl 4 mg Q4HP PRN IV 01/28/25 22:45 01/30/25 08:42 4 MG Acetaminophen 650 mg Q6HP PRN PO 01/28/25 22:45 01/30/25 20:38 650 MG Enoxaparin Sodium 40 mg DAILY SC 01/28/25 22:45 UNV Patient Own Medication 5 mg DAILY PO 01/29/25 10:00 Oxcarbazepine 300 mg BID PO 01/29/25 10:00 02/01/25 10:36 300 MG Citalopram Hydrobromide 10 mg DAILY PO 01/29/25 10:00 02/01/25 09:25 10 MG Atorvastatin Calcium 20 mg HS PO 01/29/25 22:00 01/31/25 22:18 20 MG Pantoprazole Sodium 40 mg DAILY IV 01/29/25 10:00 02/01/25 09:34 40 MG Enoxaparin Sodium 30 mg DAILY SC 01/29/25 23:45 Ferrous Sulfate 325 mg DAILY PO 01/29/25 10:00 02/01/25 09:25 325 MG Enteral Nutritional Formula 240 ml TIDWM PO 01/29/25 12:00 02/01/25 08:00 240 ML Meropenem 50 ml @ 17 mls/hr Q12HR IV 01/29/25 22:00 02/01/25 10:14 17 MLS/HR Sodium Chloride 1,000 ml @ 100 mls/hr Q10H IV 01/29/25 12:00 02/01/25 09:30 100 MLS/HR Acetaminophen/ Hydrocodone Bitart 1 tab Q6HPRN PRN PO 01/29/25 19:00 01/31/25 22:18 1 TAB Laboratory Results Laboratory Tests 01/31/25 05:50 Urinalysis Test 01/29/25 00:15 Urine Color Colorless (Yellow) Urine Clarity Turbid (Clear) H Urine pH 6.5 (5.0-9.0) Urine Specific [place] 1.007 (1.001-1.035) Urine Protein Trace (Negative) H Urine Ketones Negative (Negative) Urine Blood 1+ /uL (Negative) H Urine Nitrite Negative (Negative) Urine Bilirubin Negative (Negative) Urine Urobilinogen Normal mg/dL (Negative) Urine Leukocyte Esterase 3+ /uL (Negative) Urine RBC 5 /hpf (0 - 4) Urine Microscopic WBC 137 /HPF (0-5) H Urine Squamous Epithelial Cells Few /hpf (<5) Urine Bacteria None seen /hpf (None Seen) Urine Glucose Normal mg/dL (Normal) Microbiology Microbiology Date/Time Source Procedure Growth Status 01/30/25 15:35 Aspirate Gram Stain - Final Resulted 01/30/25 15:35 Aspirate Body Fluid Culture - Preliminary Resulted 01/29/25 00:15 Other Urine Culture - Final Complete 01/28/25 15:02 Blood Blood Culture - Preliminary NO GROWTH AFTER 72 HOURS OF INCUBATION. Resulted Labs and/or images reviewed: Labs reviewed by me, Image(s) reviewed by me Assessment/Plan Assessment/Plan complicated uti on imipenam/zyvoxx//s/p left nephrostomy/ stage 4 bladder cancer- on immunotherapy/treated at [facility] h/o right nephrectomy for ? renal cell cancer anemia- hg at 7.0 transfuse one unit prbc/no active bleeding ckd3a- improving slowly h/o seizures stable chronic depression stable dvt prophylaxis leucopenia mild monitor Plan discussed with: Patient, Other Date of Service: Feb 01, 2025 Billing Provider: WILLA WHYTE MD Common Visit Codes: [id number] INP/OBS CARE(MOD) WILLA WHYTE MD Feb 01, 2025 13:11
[2025-02-01 16:43] LABS: Hematocrit 25.8 % (36.0-46.0); Hemoglobin 8.8 g/dL (12.2-16.2); Mean Corpuscular Hemoglobin 29.2 pg (28.0-32.0); Mean Corpuscular Volume 85.6 fL (80.0-100.0); Nucleated Red Blood Cells % 0.2 %
[2025-02-02] VITALS (7 sets, daily range): BP systolic 130–151; BP diastolic 70–84; PULSE 53–73; RESP 18–20; TEMP 97.7–98; O2SAT 94–98
[2025-02-02 08:21] LABS: Hematocrit 25.4 % (36.0-46.0); Hemoglobin 8.6 g/dL (12.2-16.2); Mean Corpuscular Hemoglobin 29.1 pg (28.0-32.0); Mean Corpuscular Volume 85.8 fL (80.0-100.0); Nucleated Red Blood Cells % 0.1 %
[2025-02-02 08:31] LABS: Carbon Dioxide 23 mmol/L (20-31)
[2025-02-02 08:34] LABS: Potassium 3.6 mmol/L (3.5-5.1); Sodium 142 mmol/L (136-145)
[2025-02-02 08:36] LABS: BUN/Creatinine Ratio 10.5 (10.0-20.0); Blood Urea Nitrogen 17 mg/dL (9-23); Glucose 81 mg/dL (74-106)
[2025-02-02 08:37] LABS: Calcium 8.3 mg/dL (8.7-10.4)
[2025-02-02 08:55] LABS: Anion Gap 9 (5-15)
[2025-02-02 08:59] LABS: Chloride 110 mmol/L (98-107)
[2025-02-02] MEDS: ERTAPENEM SOD INJ 1 GM in SODIUM CHL 0.9% 50 ML IV ONE (18:05)
--- NOTE | 2025-02-02 19:03 | DVHPNRES ---
Progress Note Date Seen: Feb 02, 2025 Resident Creating Document: TASHA MONTERO RESIDENT Medical Necessity Reason Pt with a Central, PICC or Fol: No Subjective Review of Systems Patient seen and examined at bedside Mentioned no active symptoms except mild pain at the nephrostomy tube site No other complaints Awaiting PT evaluation Objective vital signs Vital Sign Date Time Temp Pulse Resp B/P (MAP) Pulse Ox O2 Delivery O2 Flow Rate FiO2 02/02/25 17:00 97.8 63 20 151/83 (105) 98 97.8 02/02/25 08:15 Room Air* 0 21 Total Intake and Output 02/01/25 02/01/25 02/02/25 15:00 23:00 07:00 Intake Total 350 ml 850 ml 750 ml Output Total 2050 ml 4200 ml Balance 350 ml -1200 ml -3450 ml medications Current Medications Medications Dose Ordered Sig/Alvino Route Start Time Stop Time Status Last Admin Dose Admin Linezolid 300 ml @ 150 mls/hr Q12HR IV 01/28/25 16:30 02/02/25 11:47 150 MLS/HR Norepinephrine Bitartrate 250 ml @ 3.75 mls/hr Q24H IV 01/28/25 20:30 01/28/25 20:33 3.75 MLS/HR Ondansetron HCl 4 mg Q4HP PRN IV 01/28/25 22:45 01/30/25 08:42 4 MG Acetaminophen 650 mg Q6HP PRN PO 01/28/25 22:45 01/30/25 20:38 650 MG Enoxaparin Sodium 40 mg DAILY SC 01/28/25 22:45 UNV Patient Own Medication 5 mg DAILY PO 01/29/25 10:00 Oxcarbazepine 300 mg BID PO 01/29/25 10:00 02/02/25 12:03 300 MG Citalopram Hydrobromide 10 mg DAILY PO 01/29/25 10:00 02/02/25 12:03 10 MG Atorvastatin Calcium 20 mg HS PO 01/29/25 22:00 02/01/25 21:22 20 MG Pantoprazole Sodium 40 mg DAILY IV 01/29/25 10:00 02/02/25 11:54 40 MG Enoxaparin Sodium 30 mg DAILY SC 01/29/25 23:45 Ferrous Sulfate 325 mg DAILY PO 01/29/25 10:00 02/02/25 12:03 325 MG Enteral Nutritional Formula 240 ml TIDWM PO 01/29/25 12:00 02/02/25 18:10 240 ML Acetaminophen/ Hydrocodone Bitart 1 tab Q6HPRN PRN PO 01/29/25 19:00 02/02/25 15:37 1 TAB Ertapenem 1 gm/ Sodium Chloride 50 ml @ 100 mls/hr DAILY IV 02/03/25 10:00 Examination Examination General Appearance: Alert, Oriented X3, Cooperative, No acute distress HEENT: EOMI Respiratory: Clear to auscultation, Normal air movement Cardiovascular: Regular rate, Normal S1, Normal S2 Abdominal: Normal bowel sounds, nephrostomy tube present, ileal conduit present Extremities: No cyanosis, No edema, Normal pulses, No tenderness/swelling Skin: No rashes, No breakdown Neuro: Normal speech and tone laboratory and microbiology Laboratory Tests 02/02/25 06:42 Test 02/02/25 06:42 Range/Units Serum Glucose 81 74-106 mg/dL Microbiology Date/Time Source Procedure Growth Status 01/30/25 15:35 Aspirate Gram Stain - Final Resulted 01/30/25 15:35 Body Fluid Culture - Preliminary Escherichia coli - ESBL Resulted 01/29/25 00:15 Other Urine Culture - Final Complete 01/28/25 15:02 Blood Blood Culture - Final NO GROWTH AFTER 5 DAYS OF INCUBATION. Complete Labs and/or images reviewed: Labs reviewed by me, Image(s) reviewed by me Problem List/Assessment/Plan Problem List/Assessment/Plan Assessment/plan Neurology #History of seizure -oxcarbazepine 300 mg p.o. b.i.d. Infectious disease #Septic shock due to Pyelonephritis # pyelonephritis, with the ESBL E coli # Generalized weakness likely due to above -patient was on IV antibiotic with meropenem and linezolid, switched to ertapenem -currently off pressors -lactic acid improved with IV fluid -IV fluid normal saline 100 mL/hour discontinued -urinalysis showed signs of UTI, ESBL E coli Nephrology # QUINN Due to VMN underlying CKD stage IIIA -IV fluid NS discontinued # Severe left hydroureteronephrosis status post nephrostomy tube placement # History of Right nephrectomy -urology on board # Lactic acidosis due to sepsis # non gap metabolic acidosis -improved Gastroenterology # Abdominal pain, Nasuea and vomiting likely gastroenteritis -supportive treatment -discontinue IV fluid NS # Presence of ileostomy conduit -clear ileostomy bag. # Colonic diverticulosis -encourage high-fiber diet # History of cholecystectomy # History of hysterectomy with bilateral salpingectomy # History of cystectomy # Moderate protein malnutrition -high-protein ensure 3 times daily Hemato/oncology # Severe anemia requiring blood transfusion # Anemia of chronic disease # Iron-deficiency anemia -iron panel: Iron 20, TIBC 219, saturation 9.1, ferritin 275. -ferrous sulfate 325 mg p.o. daily Status post 1 unit PRBC transfusion # History of renal cell carcinoma, status post right nephrectomy # History of stage IV bladder cancer, status post cystectomy # Status post ileal conduit -patient was receiving immunotherapy, last dose received one month ago. -as per family, PET scan showed no metastasis. -not on any other medication. Psychiatric # Depression -citalopram 10 mg p.o. daily -aripiprazole 500 mg p.o. daily Line: Left arm picc line. PUD prophylaxis with Protonix DVT prophylaxis with Lovenox Goals of care discussed, greater than 24 minutes, full code status. Train Starter consulted to arrange IV antibiotics at home Family( Tamar daughter) updated about the patient's condition over the phone and discuss further discharge planning Awaiting PT evaluation Case discussion with Dr. Shaffer Plan discussed with: Patient, Other (daughter Tamar) My Orders My Orders Orders - TASHA MONTERO RESIDENT Procedure Category Date Status Time Ertapenem Sod Inj PHA 02/03/25 In Process (Invanz) 10:00 Pt Request For Service PT 02/02/25 Logged 18:56 Ss Consult To Arrange SARAI 02/02/25 In Process Home Iv 18:56 Ss Consult To Arrange SARAI 02/02/25 Transmitted Home Iv 19:02 Dietary Evaluation Review Comments: 1. Encourage iron rich and high protein food, 2. Iron supplementation 3. Order lipid profile, D/C lipitor if LDL<50 4. Offer chocolate flavored Ensure HP TID with meals. Expected Outcomes/Goals: Prevent weight loss Improved nutrition related lab values Less anemic Improved phsyical strength and overall well-being Date of Service: Feb 02, 2025 Billing Provider: STAS SHAFFER MD Common Visit Codes: [id number] INP/OBS CARE(HIGH) Secondary Visit Codes: [id number] CARE PLAN 30 MINUTES TASHA MONTERO Feb 02, 2025 19:03 STAS SHAFFER MD Feb 03, 2025 14:42
--- NOTE | 2025-02-02 20:39 | DVH ---
CHEST RADIOGRAPH Indication: PICC line placement Technique: Single frontal view of the chest was obtained Comparison: XY CHEST PORTABLE on DOS: 01/28/25, XY CHEST PORTABLE on DOS: 11/03/24, XY CHEST PORTABLE on DOS: 10/26/24 FINDINGS: Lines and Tubes: PICC line in place in the left arm with the tip in the superior vena cava above the right atrium. Lungs: No focal consolidation. Pleura: No effusion. No pneumothorax. Cardiomediastinal contours: Unremarkable Bones: No acute osseous abnormality. IMPRESSION: 1. PICC line from left arm in good position with the tip in the superior vena cava above the right atrium.
[2025-02-03 01:00] VITALS: BP 142/86; PULSE 85; RESP 18; TEMP 97.7; O2SAT 92
[2025-02-03 05:00] VITALS: BP 123/77; PULSE 75; RESP 18; TEMP 97.8; O2SAT 95
[2025-02-03 06:14] LABS: Hematocrit 26.8 % (36.0-46.0); Hemoglobin 9.2 g/dL (12.2-16.2); Mean Corpuscular Hemoglobin 29.1 pg (28.0-32.0); Mean Corpuscular Volume 84.8 fL (80.0-100.0); Nucleated Red Blood Cells % 0.1 %
[2025-02-03] MEDS: PANTOPRAZOLE 40 MG TAB PO SCH (06:31)
[2025-02-03 06:35] LABS: Anion Gap 12 (5-15); Carbon Dioxide 23 mmol/L (20-31); Chloride 105 mmol/L (98-107); Potassium 3.7 mmol/L (3.5-5.1); Sodium 140 mmol/L (136-145)
[2025-02-03 06:41] LABS: BUN/Creatinine Ratio 11.8 (10.0-20.0); Blood Urea Nitrogen 19 mg/dL (9-23); Glucose 99 mg/dL (74-106)
[2025-02-03 06:43] LABS: Calcium 8.5 mg/dL (8.7-10.4); Magnesium 1.3 mg/dL (1.6-2.6)
[2025-02-03 08:00] VITALS: PULSE 67
[2025-02-03 09:00] VITALS: BP 125/72; PULSE 68; RESP 17; TEMP 97.5; O2SAT 98
[2025-02-03] MEDS: ERTAPENEM SOD INJ 1 GM in SODIUM CHL 0.9% 50 ML IV SCH (10:43)
[2025-02-03] MEDS: MAGNESIUM SULFATE 1GM/100ML 100 ML IV SCH (10:43)
[2025-02-03] MEDS: CATHFLO ACTIVASE (ALTEPLASE) 2 MG VIAL IV ONE ×2 (12:30→14:00)
[2025-02-03 13:00] VITALS: BP 124/71; PULSE 65; RESP 16; TEMP 97.6; O2SAT 97
[2025-02-03] MEDS ORDERED: FER325T PO (16:08)
[2025-02-03] MEDS ORDERED: NUTR-559 PO (16:08)
[2025-02-03 17:00] VITALS: BP 141/76; PULSE 60; RESP 18; TEMP 98; O2SAT 98
--- NOTE | 2025-02-03 19:00 | DVHDSRES ---
Discharge Summary Date of Admission Resident Creating Document: TASHA MONTERO Jan 28, 2025 at 22:41 Date of Discharge: Feb 03, 2025 Labs/Diagnostic Data: Laboratory Results Test 02/03/25 04:50 01/30/25 20:20 01/29/25 20:20 01/29/25 06:09 White Blood Count 5.8 10^3/uL (4.4-10.8) Red Blood Count 3.16 10^6/uL (4.0-5.20) Hemoglobin 9.2 g/dL (12.2-16.2) Hematocrit 26.8 % (36.0-46.0) Mean Corpuscular Volume 84.8 fL (80.0-100.0) Mean Corpuscular Hemoglobin 29.1 pg (28.0-32.0) Mean Corpuscular Hemoglobin Concent 34.3 g/dL (32.0-36.0) Red Cell Distribution Width 15.0 % (11.8-14.3) Platelet Count 157 10^3/uL (140-450) Mean Platelet Volume 7.2 fL (6.9-10.8) Neutrophils (%) (Auto) 75.1 % (37.0-80.0) Lymphocytes (%) (Auto) 15.4 % (10.0-50.0) Monocytes (%) (Auto) 5.2 % (0.0-12.0) Eosinophils (%) (Auto) 4.1 % (0.0-7.0) Basophils (%) (Auto) 0.2 % (0.0-2.0) Neutrophils # (Auto) 4.3 10 ^3/uL (1.6-8.6) Lymphocytes # (Auto) 0.9 10 ^3/uL (0.4-5.4) Monocytes # (Auto) 0.3 10 ^3/uL (0-1.3) Eosinophils # (Auto) 0.2 10 ^3/uL (0-0.8) Basophils # (Auto) 0 10 ^3/uL (0-0.2) Nucleated Red Blood Cells 0.1 % Sodium Level 140 mmol/L (136-145) Potassium Level 3.7 mmol/L (3.5-5.1) Chloride Level 105 mmol/L (98-107) Carbon Dioxide Level 23 mmol/L (20-31) Anion Gap 12 (5-15) Blood Urea Nitrogen 19 mg/dL (9-23) Creatinine 1.61 mg/dL (0.550-1.02) Glomerular Filtration Rate Calc 35 mL/min (>90) BUN/Creatinine Ratio 11.8 (10.0-20.0) Serum Glucose 99 mg/dL (74-106) Calcium Level 8.5 mg/dL (8.7-10.4) Magnesium Level 1.3 mg/dL (1.6-2.6) Miscellaneous Referred Test (Rm Tmp Sent to [facility] Stool Occult Blood Negative (Negative) Stool Occult Blood Sample #3 (Negative) POC Glucose 96 mg/dl (70-106) Test 01/29/25 04:10 01/29/25 00:15 01/28/25 18:17 01/28/25 16:55 Iron Level 20 ug/dL (50-170) Total Iron Binding Capacity 219 ug/dL (250-425) Percent Iron Saturation 9.1 % (15-50) Ferritin 275.2 ng/mL (10-291) Total Bilirubin < 0.2 mg/dL (0.2-1.0) Aspartate Amino Transferase (AST) 12 U/L (13-40) Alanine Aminotransferase (ALT) < 9 U/L (7-40) Alkaline Phosphatase 64 U/L (46-116) Total Protein 6.0 g/dL (5.7-8.2) Albumin 3.3 g/dL (3.2-4.8) Prothrombin Time 11.9 sec (9.3-11.8) Prothrombin Time INR 1.14 (0.9-1.15) Activated Partial Thromboplast Time 35.3 SEC (24.5-34.5) Urine Color Colorless (Yellow) Urine Clarity Turbid (Clear) Urine pH 6.5 (5.0-9.0) Urine Specific [place] 1.007 (1.001-1.035) Urine Protein Trace (Negative) Urine Ketones Negative (Negative) Urine Blood 1+ /uL (Negative) Urine Nitrite Negative (Negative) Urine Bilirubin Negative (Negative) Urine Urobilinogen Normal mg/dL (Negative) Urine Leukocyte Esterase 3+ /uL (Negative) Urine RBC 5 /hpf (0 - 4) Urine Microscopic WBC 137 /HPF (0-5) Urine Squamous Epithelial Cells Few /hpf (<5) Urine Bacteria None seen /hpf (None Seen) Urine Glucose Normal mg/dL (Normal) Urine Opiates Screen Neg (NEGATIVE) Urine Fentanyl Screen Neg (NEGATIVE) Urine Barbiturates Screen Neg (NEGATIVE) Urine Phencyclidine Screen Neg (NEGATIVE) Urine Amphetamines Screen Neg (NEGATIVE) Urine Benzodiazepines Screen Neg (NEGATIVE) Urine Cocaine Screen Neg (NEGATIVE) Urine Cannabinoids Screen Neg (NEGATIVE) Troponin I High Sensitivity 23 ng/L (</=34) Lactic Acid Level 0.7 mmol/L (0.4-2.0) Test 01/28/25 14:55 Lipase 40 U/L (12-53) Other Laboratory Tests 02/03/25 04:50 Brief Hx & Hospital Course: 64-year-old female with a history of bladder cancer stage IV status post robotic assisted cystectomy and urinary ileal conduit diversion ileostomy and chemotherapy six week ago at [facility] (last chemo 3 months ago, PET scan recent was clear as per patient), history of renal cancer status post right nephrectomy, hypercholesterolemia, seizures, prediabetes, chronic kidney disease, anemia of chronic disease has come in with chief complaints of feeling unwell with fever of 103, chills, nausea and 5 episodes of nonbloody, watery emesis. UA showed WBC 137, RBC 5, leukocyte esterase 3+, blood 1+, urine turbid. CT abdomen and pelvis shows: right nephrectomy, cystectomy, and ileal conduit; severe left hydroureteronephrosis , ureteral wall thickening, and perinephric inflammation with the ureter dilated to the ileal conduit. Patient was started on IV antibiotics. Urine culture was collected. Neurology was consulted. Patient had QUINN on CKD for which IV fluids were started. Patient was continued on her home medication of atorvastatin, ox carbamazepine, aripiprazole. Patient's blood pressure dropped and required norepinephrine. Patient was transferred to ICU. Later patient blood pressure improved. Intervention radiology consult was put by urologist and patient underwent left side nephrostomy tube placement. Patient had improvement in her creatinine. Urine culture grew ESBL E coli. IV ertapenem was started and protective services social worker was consulted to arrange home IV antibiotics. Patient already had a PICC line in place. At the time of discharge, patient had stable vitals, no new complaints. Discharge plan was discussed with the patient patient advised to follow up with PCP/DC clinic within one week and urologist within 1-2 weeks. Patient was discharged on ferrous sulfate for iron-deficiency anemia and ensure protein and was advised to continue ertapenem for 10 days at home through IV. Examination General Appearance: Alert, Oriented X3, Cooperative, No acute distress HEENT: EOMI Respiratory: Clear to auscultation, Normal air movement Cardiovascular: Regular rate, Normal S1, Normal S2 Abdominal: Normal bowel sounds, nephrostomy tube present left side, ileal conduit present Extremities: No cyanosis, No edema, Normal pulses, No tenderness/swelling Skin: No rashes, No breakdown Neuro: Normal speech and tone Operations or Procedures PATIENT: CHULA SOLORIO SACCT: [id number] UNIT: [id number] : 1960 [facility]GE / SEX: 64 / F ADM STATUS: ADM IN SERVICE 1200 ORDERING PHYSICIAN: ILANA HUSAIN MD PROCEDURE(s): PERNEPH - PERCUTANEOUS NEPHROSTOMY REASON: NEPHROSTOMY ORDER NUMBER(s): [id number], ACCESSION NUMBER(s): [id number] PROCEDURE: Left NEPHROSTOMY TUBE PLACEMENT HISTORY: NEPHROSTOMY ACCESS OPERATORS: Cosntance Husain DOCUMENTATION: Informed consent was obtained and a procedural time out was performed. SEDATION: Moderate sedation was utilized during the procedure. The patient received benzodiazepines and opioids, the dosing of which was documented in the patient s permanent medical record. Pre-sedation history and evaluation revealed no contraindications to sedation. The patient s level of consciousness and physiologic status was monitored continuously by the physician and nursing staff throughout the procedure. Total intra-service moderate sedation time was left minutes. FLUORO TIME: 1 minutes Dose: 5 mGy air kerma TECHNIQUE: The skin over the patient's back/flank was sterilely prepped, draped, and infiltrated with 1% lidocaine. A 22-gauge INRAD needle was used to access a left renal calyx under real-time ultrasound guidance with an image archived in the PACS. Once urine was aspirated, dilute contrast was injected to confirm positioning. An Charles set was used to gain definitive access to the calyx. A guidewire was coiled in the renal pelvis and an 8 Italian APD was placed under fluoroscopy. The catheter was injected with contrast and a spot radiograph obtained. The catheter was sutured and Stat locked in place and connected to gravity drainage. FINDINGS: There is left moderate hydronephrosis. The final images demonstrate left nephrostomy to be in satisfactory position. No immediate complications were encountered. IMPRESSION: SUCCESSFUL left NEPHROSTOMY TUBE PLACEMENT. Performed by Dr. Husain. ATED BY: ASAEL GARCIA MD DICTATED DATE/TIME: 01/30/251830 SIGNED BY: ASAEL GARCIA MD SIGNED DATE/TIME: 01/30/251830 CC: Condition at Discharge: Stable Final Diagnosis/Problems List #History of seizure #Septic shock due to Pyelonephritis # pyelonephritis, with the ESBL E coli # Generalized weakness likely due to above # QUINN Due to VMN underlying CKD stage IIIA # Severe left hydroureteronephrosis status post nephrostomy tube placement # History of Right nephrectomy # Lactic acidosis due to sepsis # non gap metabolic acidosis # Presence of ileostomy conduit # Colonic diverticulosis # History of cholecystectomy # History of hysterectomy with bilateral salpingectomy # History of cystectomy # Moderate protein malnutrition # Severe anemia requiring blood transfusion # Anemia of chronic disease # Iron-deficiency anemia # History of renal cell carcinoma, status post right nephrectomy # History of stage IV bladder cancer, status post cystectomy # Status post ileal conduit # Depression Discharge Disposition: Home with Health Services Discharge Instruct/Medications Diet: Regular Activity: No Restrictions, As Tolerated Follow Up/Referral: [place] clinic within 1 week. Urology withih 2 week Medications: Ferrous sulphate ensure protein shake Scheduled Aripiprazole (Abilify), 5 MG PO DAILY, (Reported) Cefdinir (Cefdinir), 1 CAP PO BID Cholecalciferol (Vitamin D3), 1 TAB PO DAILY, (Reported) Escitalopram Oxalate (Lexapro), 1 TAB PO DAILY, (Reported) Fenofibrate (Tricor), 48 MG PO DAILY, (Reported) Ferrous Sulfate (Ferrous Sulfate), 325 MG PO DAILY Fish Oil (Fish Oil), 1,400 MG PO DAILY, (Reported) Magnesium Oxide (Magnesium Oxide), 250 MG PO DAILY, (Reported) Multiple Vitamin (Multivitamins), 1 TAB PO DAILY, (Reported) Nutritional Supplements (Ensure High Protein), 240 ML PO TIDWM Oxcarbazepine (Trileptal), 300 MG PO BID Oxycodone W/ Acetaminophen (Percocet 5/325MG), 1-2 TAB PO TID PRN, (Reported) Simvastatin (Simvastatin), 1 TAB PO QPM, (Reported) Specialty Vitamins Products (Biotin Plus Keratin 89957-937 Mcg-mg), 1 TAB PO DAILY, (Reported) Temazepam (Temazepam), 1 CAP PO QHSP, (Reported) Scheduled PRN Ondansetron HCl (Ondansetron), 4 MG PO Q6HP PRN Discharge Statement: "Patient was advised to return to the ER or call 911 if any headaches, dizziness, shortness of breath, chest pain, abdominal pain, bleeding, fevers, or worsening of medical condition. Patient was counseled about treatment plan, medications, possible side effects, patientverbalized understanding. All questions were answered to the best of my ability. This discharge took greater then 30 minutes in planning, reviewing documentation, counseling the patient, and discussing with other team members." ASSESSMENT ASSESSMENT Assessment #History of seizure #Septic shock due to Pyelonephritis # pyelonephritis, with the ESBL E coli # Generalized weakness likely due to above # QUINN Due to VMN underlying CKD stage IIIA # Severe left hydroureteronephrosis status post nephrostomy tube placement # History of Right nephrectomy # Lactic acidosis due to sepsis # non gap metabolic acidosis # Presence of ileostomy conduit # Colonic diverticulosis # History of cholecystectomy # History of hysterectomy with bilateral salpingectomy # History of cystectomy # Moderate protein malnutrition # Severe anemia requiring blood transfusion # Anemia of chronic disease # Iron-deficiency anemia # History of renal cell carcinoma, status post right nephrectomy # History of stage IV bladder cancer, status post cystectomy # Status post ileal conduit # Depression TASHA MONTERO RESIDENT Feb 03, 2025 19:00
--- NOTE | 2025-02-05 07:29 | ECG ---
[facility] Test Date: 2025-01-28 Test Time: 14:40:10 Pat Name: CHULA SOLORIO Department: [facility] ED Room: 0208T Gender: F Go Cart Mechanic: GWENDOLYN : 1960 Requested By: COREY JACOBSON Order Number: [id number] Reading MD: Measurements Intervals [place] Rate: 104 P: 57 WI: 153 QRS: -2 QRSD: 101 T: 75 QT: 327 QTc: 430 Interpretive Statements Sinus tachycardia Please click the below link to view image of tracing.
== END 2025-02-03 18:15 | disposition home health service (06) | DRG 871 ==
LOC: EDBD 14:20 → ER 14:20 → OVERFLOW 22:41 → EEVIPCON 22:41 → TELE-WESTW 01-30 17:18 → TELE-CENTR 02-02 20:13
PROVIDERS: ADMIT Internal Medicine; ATTEND Internal Medicine
PROC: 0T9430Z Drainage of Left Kidney Pelvis with Drainage Device, Percutaneous Approach (ICD-10-PCS; 2025-01-30)
PROC: BT121ZZ Fluoroscopy of Left Kidney using Low Osmolar Contrast (ICD-10-PCS; 2025-01-30)
PROC: 30233N1 Transfusion of Nonautologous Red Blood Cells into Peripheral Vein, Percutaneous Approach (ICD-10-PCS; principal; 2025-01-31)
DX: A41.9 Sepsis, unspecified organism (principal); N17.0 Acute kidney failure with tubular necrosis; R65.21 Severe sepsis with septic shock; E87.20 Acidosis, unspecified; E44.0 Moderate protein-calorie malnutrition; D63.8 Anemia in other chronic diseases classified elsewhere; N12 Tubulo-interstitial nephritis, not specified as acute or chronic; B96.20 Unspecified Escherichia coli [E. coli] as the cause of diseases classified elsewhere; F32.A Depression, unspecified; G40.909 Epilepsy, unspecified, not intractable, without status epilepticus; E11.22 Type 2 diabetes mellitus with diabetic chronic kidney disease; I12.9 Hypertensive chronic kidney disease with stage 1 through stage 4 chronic kidney disease, or unspecified chronic kidney disease; N18.31 Chronic kidney disease, stage 3a; N13.30 Unspecified hydronephrosis; Z16.12 Extended spectrum beta lactamase (ESBL) resistance; D50.9 Iron deficiency anemia, unspecified; E78.5 Hyperlipidemia, unspecified; K57.30 Diverticulosis of large intestine without perforation or abscess without bleeding; Z96.652 Presence of left artificial knee joint; F41.9 Anxiety disorder, unspecified; Z90.49 Acquired absence of other specified parts of digestive tract; Z90.710 Acquired absence of both cervix and uterus; Z93.2 Ileostomy status; Z90.6 Acquired absence of other parts of urinary tract; Z79.899 Other long term (current) drug therapy; Z88.1 Allergy status to other antibiotic agents; Z88.8 Allergy status to other drugs, medicaments and biological substances; Z90.5 Acquired absence of kidney; Z90.79 Acquired absence of other genital organ(s); Z90.722 Acquired absence of ovaries, bilateral; Z98.84 Bariatric surgery status; Z87.891 Personal history of nicotine dependence; Z85.528 Personal history of other malignant neoplasm of kidney; Z68.25 Body mass index [BMI] 25.0-25.9, adult
CPT/HCPCS: 36415; 50430; 50432; 71045; 74176; 74425; 76942; 80048; 80053; 80307; 81001; 82270; 82728; 82962; 83540; 83550; 83605; 83690; 83735; 84484; 85014; 85018; 85025; 85610; 85730; 86850; 86900; 86901; 86920; 87040; 87071; 87077; 87081; 87086; 87186; 87205; 96365; 97163; 99291; G0378; J0692; J1335; J2185; J2250; J2405; J2470; Q9967